=== PATIENT | male | born 1960 | race Caucasian/White ===

== ENCOUNTER 2021-01-31 00:23 | Inpatient (IN) ==
[2021-01-31] MEDS ORDERED: SODIUM CHLORIDE 0.9% 1000ML 2,000 ML IV ONE (00:27)
[2021-01-31] MEDS ORDERED: SODIUM CHLORIDE 0.9% 1000ML 1,000 ML IV ONE ×2 (00:27→03:38)
--- NOTE | 2021-01-31 00:32 | Emergency Department Note ---
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 It appears patient has a history of depression hypertension hyper lipidemia type 2 diabetes on insulin as well as possible tremor or seizure disorder. On evaluation patient is quite weak appearing diaphoretic and ill the blood pressure in the 60s weak pulse. Immediately 2 IVs were ordered and obtained along with blood cultures lactic acid and per septic work-up a 3 L bolus was ordered initially. Following cultures Zosyn was given empirically as broad- spectrum antibiotic. Patient's blood pressure did not improve with initial bolus and thus Levophed was started and critical care team was consulted. Lactic acid returned at 9.5 though there is still no clear etiology of his sepsis. Patient is mildly tachycardic his temperature is low his white blood cell count is elevated and his lactate is quite elevated in the setting of hypoglycemia, I do feel he is septic it is very unclear what is causing his illness. Pro calcitonin is elevated consistent with sepsis as well. Initial urinalysis and chest x-ray do not show clear evidence of infection. Given alt ered mental status along the fact is coming from shelter and no significant knowledge of his past medical history it was felt that CT scan was indicated of head through pelvis. Given his renal function we held off using contrast at this time. On return from CAT scan with some Trendelenburg patient's blood pressure does seem to be improving slightly after discussion with critical care team we both felt that further access is needed and they will place right IJ central line. On EKG has been nonspecific lateral as well as an anterior ST depressions without evidence of acute STEMI. Given his findings I doubt this is ACS and without other symptoms dissection seems unlikely. Repeat evaluation post fluids/hydration reveals patient does appear improved his blood pressure starting to improve while on Levophed and his vital signs have improved. I do feel that his volume status has improved however he still has some hypotension with sitting up thus further normal saline bolus was ordered. As patient becomes more hydrated he is much more alert and oriented answering most questions and looks much improved. He has no significant complaints of chest pain back pain or abdominal pain. His oxygen has actually improved and no longer requiring nasal cannula O2 at this time. Prior Medical Record and Triage/Nursing Notes reviewed by Me Additional history obtained from shelter chart Differentials:Infection, dehydration, metabolic abnormality, hypo/hypergl ycemia, electrolyte disturbance, anemia, hypoxia, cardiac sources, intracerebral event, toxicologic, neurologic, as well as other pathologies. Vital Signs: reviewed and remarkable for hypotension, hypothermia Interventions: saline lock, nss bolus 3 L IV, Zosyn 4.5gm iv, Levophed, Vancomycin 2 gm IV, NSS bolus 1 L IV Labs:Reviewed and remarkable for multiple abnormalities Imaging:See Below EKG:Per My Interpretation: Indication sepsis: NSR 98 bpm, qtc 469. No Ectopy. No Ischemia. There are non-specific ST depression anterior and lateral. Cardiac/Tele Monitoring: none Consults:Uvaldo Mo PA-C of critical care medicine. Dr. Kan [facility] Plan: Disposition:Hospitalization. Condition: Fair History of Present Illness:This is a 60-year-old gentleman from shelter arrives for evaluation of generalized weakness. Patient with 24 hours of worsening weakness fatigue exhaustion. Per EMS he reportedly had abdominal pain that he denies this. Patient states he is very thirsty and tired. He denies chest pain back pain shortness of breath or abdominal pain. He denies any trauma nor injuries nor assault. Per EMS no medications prior to arrival. Patient had mildly low blood sugars in the 70s for EMS. Patient states that he has diabetes and would like a candy bar. ROS: Patient too altered to get accurate history Past Medical History:Unable to fully obtain due to altered mental status Past Surgical History:Unable to fully obtain due to altered mental status Family History:Unable to fully obtain due to altered mental status Social History:Unable to fully obtain due to altered mental status Home Medications:Unable to fully obtain due to altered mental status Per chart from shelter it appears patient is on Cymbalta, Vistaril, Remeron, Nor vasc, Sinemet, Prinzide, Glucophage, insulin, Pravachol, primidone Allergies:Unable to fully obtain due to altered mental status Vitals:Blood Pressure: 74/50, Pulse 100, RR 18, T 34.4C, O2 93% on RA Physical Exam: GENERAL: Patient is ill appearing and in minimal distress. He is diaphoretic and distant with soft voice EYES: No scleral icterus, unremarkable pupils. ENT: Mucous membranes dry, no nasal congestion. NECK: No masses appreciated, nomeningismus, trachea is midline. RESPIRATORY: No dyspnea. Clear to auscultation and equal bilaterally. No wheeze, no rhonchi. CARDIOVASCULAR: Regular rate and rhythm.No murmurs, rubs, gallops appreciated. GASTROINTESTINAL: Abdomen soft, non-tender, no peritonitis.Bowel sounds positive.No masses appreciated. BACK: No midline tenderness, no CVA tenderness EXTREMITIES: Normal motion all extremities, no cyanosis, no edema. NEUROLOGIC: Somnolent/Altered, quiet, no acute motor or sensory deficits, no focal weakness, cranial nerves grossly intact. SKIN: No rash, no jaundice, no diaphoresis. GCS: 14 ED Course: Times/Reassessments: Patient gradually improving with normal saline bolus however continued hypotension and thus Levophed started. Critical care at bedside and agrees with critically ill patient and thus central line placed. Further IV fluids given. Patient with improving blood pressure looks stable and is in no distress. Still requiring IV Levophed for pressure support. Critical Care: I have personally spent 90 minutes of critical care time in the direct management of this patient. Acute septic shock of unknown etiology with hypotension, hypothermia and lactic acidosis. This was a life/limb threatening event. This 90 minutes is in excess of all separately billable procedures. Jose Luis Rebolledo MD Past Med/Surg History Medical History (Updated 01/31/21 @ 12:18 by Therese Hathaway MD) Acute kidney injury Anxiety with depression BPH w urinary obs/LUTS Diabetes mellitus with chronic kidney disease, with long-term current use of in sulin GERD (gastroesophageal reflux disease) Hyperkalemia Hyperlipidemia Hypertension Insomnia Parkinson's disease Social History Smoking Status: Never smoker Hx Alcohol Use: No Hx Substance Use: No Preferred Language: Hungarian Communication Ability: Effective Director Product Safety Required: No Beliefs That Will Affect Care: None Current Living Situation Comment: [facility] Feels Safe at Home: Yes Allergies Allergies Allergy/AdvReac Type Severity Reaction Status Date / Time No Known Allergies Allergy Unverified 01/31/21 01:01 Home Meds Home Medications Medication Instructions Recorded Confirmed amlodipine 5 mg tablet 5 mg PO DAILY 01/31/21 01/31/21 carbidopa ER 25 mg-levodopa 100 mg 1 tab PO QID 01/31/21 01/31/21 tablet,extended release duloxetine 60 mg capsule,delayed 60 mg PO BID 01/31/21 01/31/21 release finasteride 5 mg tablet 5 mg PO QPM 01/31/21 01/31/21 hydroxyzine pamoate 50 mg capsule 50 mg PO HS 01/31/21 01/31/21 insulin NPH isoph U-100 human 100 14 unit SUBCUT QPM 01/31/21 01/31/21 unit/mL subcutaneous suspension (Novolin N NPH U-100 Insulin isophane) insulin NPH isoph U-100 human 100 34 unit SUBCUT QAM 01/31/21 01/31/21 unit/mL subcutaneous suspension (Novolin N NPH U-100 Insulin isophane) lisinopril 20 1 tab PO DAILY 01/31/21 01/31/21 mg-hydrochlorothiazide 12.5 mg tablet metformin 500 mg tablet 500 mg PO BID 01/31/21 01/31/21 mirtazapine 45 mg tablet 45 mg PO HS 01/31/21 01/31/21 nortriptyline 25 mg capsule 25 mg PO HS 01/31/21 01/31/21 omeprazole 20 mg capsule,delayed 20 mg PO DAILY 01/31/21 01/31/21 release ondansetron HCl 4 mg tablet 4 mg PO QID PRN 01/31/21 01/31/21 pravastatin 40 mg tablet 40 mg PO HS 01/31/21 01/31/21 primidone 50 mg tablet 200 mg PO TID 01/31/21 01/31/21 tamsulosin 0.4 mg capsule 0.8 mg PO HS 01/31/21 01/31/21 Results & Data (ED) Vital Signs Vital Signs - 24 hr 01/31/21 00:37 01/31/21 00:41 01/31/21 00:45 Temperature Temperature Source Pulse Rate 101 H 106 H 100 H Pulse Rate from SpO2 Sensor 101 H 100 H Respiratory Rate 18 Respiratory Effort / Characteristics Non-Labored Spontaneous Respiratory Depth Normal Respiratory Pattern Regular Blood Pressure 78/58 L 68/48 L 74/50 L Blood Pressure Mean 64 54 58 Pulse Oximetry 94 98 93 Oxygen Delivery Method Room Air Oxygen Flow Rate Sepsis Recent Fever Within 48 Hours No Sepsis New/Unexplained Change in Mental Status Yes Sepsis Action Taken by Nursing Physician Notified Arterial BP Systolic Arterial BP Diastolic Arterial BP Mean Arterial Pulse Rate 01/31/21 01:00 01/31/21 01:15 01/31/21 01:20 Temperature Temperature Source Pulse Rate 98 H 82 Pulse Rate from SpO2 Sensor 98 H 83 Respiratory Rate Respiratory Effort / Characteristics Respiratory Depth Respiratory Pattern Blood Pressure 68/40 L 58/45 L Blood Pressure Mean 49 49 Pulse Oximetry 94 96 88 L Oxygen Delivery Method Room Air Oxygen Flow Rate Sepsis Recent Fever Within 48 Hours Sepsis New/Unexplained Change in Mental Status Sepsis Action Taken by Nursing Arterial BP Systolic Arterial BP Diastolic Arterial BP Mean Arterial Pulse Rate 01/31/21 01:30 01/31/21 01:33 01/31/21 01:45 Temperature 34.4 C L Temperature Source Rectal Pulse Rate 88 82 Pulse Rate from SpO2 Sensor 87 83 Respiratory Rate 14 Respiratory Effort / Characteristics Respiratory Depth Respiratory Pattern Blood Pressure 69/47 L Blood Pressure Mean 54 Pulse Oximetry 98 96 Oxygen Delivery Method Oxygen Flow Rate 2 2 Sepsis Recent Fever Within 48 Hours Sepsis New/Unexplained Change in Mental Status Sepsis Action Taken by Nursing Arterial BP Systolic Arterial BP Diastolic Arterial BP Mean Arterial Pulse Rate 01/31/21 01:53 01/31/21 02:00 01/31/21 02:15 Temperature 34.4 C L Temperature Source Rectal Pulse Rate 87 89 Pulse Rate from SpO2 Sensor 86 89 Respiratory Rate 15 14 Respiratory Effort / Characteristics Respiratory Depth Respiratory Pattern Blood Pressure 68/49 L 78/50 L Blood Pressure Mean 55 59 Pulse Oximetry 96 97 Oxygen Delivery Method Oxygen Flow Rate 2 2 Sepsis Recent Fever Within 48 Hours Sepsis New/Unexplained Change in Mental Status Sepsis Action Taken by Nursing Arterial BP Systolic Arterial BP Diastolic Arterial BP Mean Arterial Pulse Rate 01/31/21 02:54 01/31/21 03:00 01/31/21 03:15 Temperature Temperature Source Pulse Rate 98 H 98 H 93 H Pulse Rate from SpO2 Sensor 98 H 94 H Respiratory Rate 14 15 13 Respiratory Effort / Characteristics Respiratory Depth Respiratory Pattern Blood Pressure 97/82 L 112/85 Blood Pressure Mean 87 94 Pulse Oximetry 99 99 100 Oxygen Delivery Method Oxygen Flow Rate 2 2 2 Sepsis Recent Fever Within 48 Hours Sepsis New/Unexplained Change in Mental Status Sepsis Action Taken by Nursing Arterial BP Systolic Arterial BP Diastolic Arterial BP Mean Arterial Pulse Rate 01/31/21 03:30 01/31/21 03:45 01/31/21 04:00 Temperature Temperature Source Pulse Rate 102 H 100 H 100 H Pulse Rate from SpO2 Sensor 102 H 99 H 100 H Respiratory Rate 16 14 15 Respiratory Effort / Characteristics Respiratory Depth Respiratory Pattern Blood Pressure 91/67 L 97/68 L 131/74 Blood Pressure Mean 75 77 93 Pulse Oximetry 99 100 98 Oxygen Delivery Method Room Air Oxygen Flow Rate 2 Sepsis Recent Fever Within 48 Hours Sepsis New/Unexplained Change in Mental Status Sepsis Action Taken by Nursing Arterial BP Systolic 142 155 Arterial BP Diastolic 54 62 Arterial BP Mean 75 86 Arterial Pulse Rate 100 H 99 H Laboratory Data Result diagrams: 02/01/21 05:44 02/01/21 05:44 Lab Results 01/31/21 01/31/21 01/31/21 Range/Units 00:43 00:59 01:04 WBC (4.8-10.8) K/uL RBC (4.7-6.1) M/uL Hgb (14.0-18.0) g/dL POC Hgb 13.9 L (14.0-18.0) g/dl Hct (42-52) % POC Hct 41 L (42-52) % MCV (80-100) fL MCH (25-34) pg MCHC (32-36) g/dL RDW Std Deviation (36.4-46.3) fL RDW Coeff of Royal (11.5-14.5) % Plt Count (130-400) K/uL MPV (7.4-10.4) fL Immature Gran % (Auto) % Neut % (Auto) % Lymph % (Auto) % Bureau % (Auto) % Eos % (Auto) % Baso % (Auto) % Neut # (Auto) (1.4-6.5) K/uL Lymph # (Auto) (1.2-3.4) K/uL Bureau # (Auto) (0.11-0.59) K/uL Eos # (Auto) (0-0.5) K/uL Baso # (Auto) (0-0.2) K/uL Immature Gran # (Auto) (0.00-0.02) K/uL PT (9.0-12.0) Seconds INR (0.9-1.1) POC pH (7.35-7.45) POC pCO2 (35-46) mmHg POC pO2 (80-95) mmHg POC HCO3 (19-24) dada/L POC Base Excess (-9-1.8) dada/L POC ABG O2 Sat (90-95) % POC Sodium 138 (135-144) mmol/L Sodium (136-145) mmol/L POC Potassium 5.6 H (3.3-5.0) mmol/L Potassium (3.5-5.1) mmol/L POC Chloride 106 (101-112) mmol/L Chloride (98-107) mmol/L Carbon Dioxide (21-32) mmol/L POC Total CO2 16 L (24-31) mmol/L Anion Gap (3-11) POC Anion Gap 22.0 (16-25) mmol/L POC BUN 55 H (7-18) mg/dl BUN (7-18) mg/dl Creatinine (0.6-1.4) mg/dl POC Creatinine 2.8 H (0.6-1.3) mg/dl Est Cr Clr Drug Dosing ml/min Est GFR ( Amer) ml/min Est GFR (Non-Af Amer) ml/min BUN/Creatinine Ratio (10-20) Glucose (70-99) mg/dl POC Glucose (70-99) mg/dl POC Glucose (other) 30 L* (70-99) mg/dl Lactate 9.5 H* (0.4-2.0) mmol/L Calcium (8.5-10.1) mg/dl POC Ioniz Calcium [place] 1.02 L (1.12-1.32) mmol/l Magnesium (1.8-2.4) mg/dl Total Bilirubin (0.2-1) mg/dl Direct Bilirubin (0-0.2) mg/dl AST (15-37) U/L ALT (12-78) U/L Alkaline Phosphatase (45-117) U/L Troponin I (0-0.045) ng/ml Total Protein (6.4-8.2) gm/dl Albumin (3.4-5.0) gm/dl Lipase (73-393) U/L Procalcitonin (0-0.5) ng/ml Random Cortisol Specimen Hemolysis Urine Color Urine Appearance (Clear) Urine pH (4.5-7.5) Ur Specific [place] (1.000-1.030) Urine Protein (Negative) Urine Glucose (UA) (Negative) Urine Ketones (Negative) Urine Blood (Negative) Urine Nitrite (Negative) Urine Bilirubin (Negative) Urine Urobilinogen (Negative) Ur Leukocyte Esterase (Negative) Urine WBC (Auto) (0-5) /hpf Urine RBC (Auto) (0-4) /hpf U Hyaline Cast (Auto) (0-5) /lpf U Epithel Cells (Auto) (0-5) /lpf Urine Bacteria (Auto) (Negative) SARS-CoV-2 (PCR) NEGATIVE (Negative) 01/31/21 01/31/21 01/31/21 Range/Units 01:04 01:04 01:04 WBC 15.49 H (4.8-10.8) K/uL RBC 4.48 L (4.7-6.1) M/uL Hgb 13.6 L (14.0-18.0) g/dL POC Hgb (14.0-18.0) g/dl Hct 41.5 L (42-52) % POC Hct (42-52) % MCV 92.6 (80-100) fL MCH 30.4 (25-34) pg MCHC 32.8 (32-36) g/dL RDW Std Deviation 49.5 H (36.4-46.3) fL RDW Coeff of Royal 14.6 H (11.5-14.5) % Plt Count 144 (130-400) K/uL MPV 9.3 (7.4-10.4) fL Immature Gran % (Auto) 0.4 % Neut % (Auto) 72.4 % Lymph % (Auto) 16.7 % Bureau % (Auto) 10.3 % Eos % (Auto) 0.1 % Baso % (Auto) 0.1 % Neut # (Auto) 11.21 H (1.4-6.5) K/uL Lymph # (Auto) 2.59 (1.2-3.4) K/uL Bureau # (Auto) 1.60 H (0.11-0.59) K/uL Eos # (Auto) 0.01 (0-0.5) K/uL Baso # (Auto) 0.02 (0-0.2) K/uL Immature Gran # (Auto) 0.06 H (0.00-0.02) K/uL PT 13.5 H (9.0-12.0) Seconds INR 1.4 H (0.9-1.1) POC pH (7.35-7.45) POC pCO2 (35-46) mmHg POC pO2 (80-95) mmHg POC HCO3 (19-24) dada/L POC Base Excess (-9-1.8) dada/L POC ABG O2 Sat (90-95) % POC Sodium (135-144) mmol/L Sodium 136 (136-145) mmol/L POC Potassium (3.3-5.0) mmol/L Potassium 4.7 (3.5-5.1) mmol/L POC Chloride (101-112) mmol/L Chloride 105 (98-107) mmol/L Carbon Dioxide 15 L (21-32) mmol/L POC Total CO2 (24-31) mmol/L Anion Gap 16.0 H (3-11) POC Anion Gap (16-25) mmol/L POC BUN (7-18) mg/dl BUN 45 H (7-18) mg/dl Creatinine 2.72 H (0.6-1.4) mg/dl POC Creatinine (0.6-1.3) mg/dl Est Cr Clr Drug Dosing 34.0 ml/min Est GFR ( Amer) 28.4 ml/min Est GFR (Non-Af Amer) 24.5 ml/min BUN/Creatinine Ratio 16.6 (10-20) Glucose 35 L* (70-99) mg/dl POC Glucose (70-99) mg/dl POC Glucose (other) (70-99) mg/dl Lactate (0.4-2.0) mmol/L Calcium 8.9 (8.5-10.1) mg/dl POC Ioniz Calcium [place] (1.12-1.32) mmol/l Magnesium 2.1 (1.8-2.4) mg/dl Total Bilirubin 1.1 H (0.2-1) mg/dl Direct Bilirubin (0-0.2) mg/dl AST 342 H (15-37) U/L ALT 39 (12-78) U/L Alkaline Phosphatase 95 (45-117) U/L Troponin I < 0.015 (0-0.045) ng/ml Total Protein 7.5 (6.4-8.2) gm/dl Albumin 3.2 L (3.4-5.0) gm/dl Lipase 156 (73-393) U/L Procalcitonin (0-0.5) ng/ml Random Cortisol Specimen Hemolysis Urine Color Urine Appearance (Clear) Urine pH (4.5-7.5) Ur Specific [place] (1.000-1.030) Urine Protein (Negative) Urine Glucose (UA) (Negative) Urine Ketones (Negative) Urine Blood (Negative) Urine Nitrite (Negative) Urine Bilirubin (Negative) Urine Urobilinogen (Negative) Ur Leukocyte Esterase (Negative) Urine WBC (Auto) (0-5) /hpf Urine RBC (Auto) (0-4) /hpf U Hyaline Cast (Auto) (0-5) /lpf U Epithel Cells (Auto) (0-5) /lpf Urine Bacteria (Auto) (Negative) SARS-CoV-2 (PCR) (Negative) 01/31/21 01/31/21 01/31/21 Range/Units 01:04 01:11 01:20 WBC (4.8-10.8) K/uL RBC (4.7-6.1) M/uL Hgb (14.0-18.0) g/dL POC Hgb (14.0-18.0) g/dl Hct (42-52) % POC Hct (42-52) % MCV (80-100) fL MCH (25-34) pg MCHC (32-36) g/dL RDW Std Deviation (36.4-46.3) fL RDW Coeff of Royal (11.5-14.5) % Plt Count (130-400) K/uL MPV (7.4-10.4) fL Immature Gran % (Auto) % Neut % (Auto) % Lymph % (Auto) % Bureau % (Auto) % Eos % (Auto) % Baso % (Auto) % Neut # (Auto) (1.4-6.5) K/uL Lymph # (Auto) (1.2-3.4) K/uL Bureau # (Auto) (0.11-0.59) K/uL Eos # (Auto) (0-0.5) K/uL Baso # (Auto) (0-0.2) K/uL Immature Gran # (Auto) (0.00-0.02) K/uL PT (9.0-12.0) Seconds INR (0.9-1.1) POC pH (7.35-7.45) POC pCO2 (35-46) mmHg POC pO2 (80-95) mmHg POC HCO3 (19-24) dada/L POC Base Excess (-9-1.8) dada/L POC ABG O2 Sat (90-95) % POC Sodium (135-144) mmol/L Sodium (136-145) mmol/L POC Potassium (3.3-5.0) mmol/L Potassium (3.5-5.1) mmol/L POC Chloride (101-112) mmol/L Chloride (98-107) mmol/L Carbon Dioxide (21-32) mmol/L POC Total CO2 (24-31) mmol/L Anion Gap (3-11) POC Anion Gap (16-25) mmol/L POC BUN (7-18) mg/dl BUN (7-18) mg/dl Creatinine (0.6-1.4) mg/dl POC Creatinine (0.6-1.3) mg/dl Est Cr Clr Drug Dosing ml/min Est GFR ( Amer) ml/min Est GFR (Non-Af Amer) ml/min BUN/Creatinine Ratio (10-20) Glucose (70-99) mg/dl POC Glucose (70-99) mg/dl POC Glucose (other) (70-99) mg/dl Lactate (0.4-2.0) mmol/L Calcium (8.5-10.1) mg/dl POC Ioniz Calcium [place] (1.12-1.32) mmol/l Magnesium (1.8-2.4) mg/dl Total Bilirubin (0.2-1) mg/dl Direct Bilirubin (0-0.2) mg/dl AST (15-37) U/L ALT (12-78) U/L Alkaline Phosphatase (45-117) U/L Troponin I (0-0.045) ng/ml Total Protein (6.4-8.2) gm/dl Albumin (3.4-5.0) gm/dl Lipase (73-393) U/L Procalcitonin 8.06 H (0-0.5) ng/ml Random Cortisol Cancelled Specimen Hemolysis Urine Color Dark Yellow Urine Appearance Clear (Clear) Urine pH 5.0 (4.5-7.5) Ur Specific [place] 1.041 H (1.000-1.030) Urine Protein Negative (Negative) Urine Glucose (UA) Negative (Negative) Urine Ketones Trace H (Negative) Urine Blood Negative (Negative) Urine Nitrite Negative (Negative) Urine Bilirubin 1+ H (Negative) Urine Urobilinogen Negative (Negative) Ur Leukocyte Esterase 1+ H (Negative) Urine WBC (Auto) 1-5 (0-5) /hpf Urine RBC (Auto) 5-10 H (0-4) /hpf U Hyaline Cast (Auto) 1-5 (0-5) /lpf U Epithel Cells (Auto) 10-20 H (0-5) /lpf Urine Bacteria (Auto) Negative (Negative) SARS-CoV-2 (PCR) (Negative) 01/31/21 01/31/21 01/31/21 Range/Units 01:22 02:14 03:19 WBC (4.8-10.8) K/uL RBC (4.7-6.1) M/uL Hgb (14.0-18.0) g/dL POC Hgb (14.0-18.0) g/dl Hct (42-52) % POC Hct (42-52) % MCV (80-100) fL MCH (25-34) pg MCHC (32-36) g/dL RDW Std Deviation (36.4-46.3) fL RDW Coeff of Royal (11.5-14.5) % Plt Count (130-400) K/uL MPV (7.4-10.4) fL Immature Gran % (Auto) % Neut % (Auto) % Lymph % (Auto) % Bureau % (Auto) % Eos % (Auto) % Baso % (Auto) % Neut # (Auto) (1.4-6.5) K/uL Lymph # (Auto) (1.2-3.4) K/uL Bureau # (Auto) (0.11-0.59) K/uL Eos # (Auto) (0-0.5) K/uL Baso # (Auto) (0-0.2) K/uL Immature Gran # (Auto) (0.00-0.02) K/uL PT (9.0-12.0) Seconds INR (0.9-1.1) POC pH (7.35-7.45) POC pCO2 (35-46) mmHg POC pO2 (80-95) mmHg POC HCO3 (19-24) dada/L POC Base Excess (-9-1.8) dada/L POC ABG O2 Sat (90-95) % POC Sodium (135-144) mmol/L Sodium (136-145) mmol/L POC Potassium (3.3-5.0) mmol/L Potassium (3.5-5.1) mmol/L POC Chloride (101-112) mmol/L Chloride (98-107) mmol/L Carbon Dioxide (21-32) mmol/L POC Total CO2 (24-31) mmol/L Anion Gap (3-11) POC Anion Gap (16-25) mmol/L POC BUN (7-18) mg/dl BUN (7-18) mg/dl Creatinine (0.6-1.4) mg/dl POC Creatinine (0.6-1.3) mg/dl Est Cr Clr Drug Dosing ml/min Est GFR ( Amer) ml/min Est GFR (Non-Af Amer) ml/min BUN/Creatinine Ratio (10-20) Glucose (70-99) mg/dl POC Glucose 134 H 107 H (70-99) mg/dl POC Glucose (other) (70-99) mg/dl Lactate 11.5 H* (0.4-2.0) mmol/L Calcium (8.5-10.1) mg/dl POC Ioniz Calcium [place] (1.12-1.32) mmol/l Magnesium (1.8-2.4) mg/dl Total Bilirubin (0.2-1) mg/dl Direct Bilirubin (0-0.2) mg/dl AST (15-37) U/L ALT (12-78) U/L Alkaline Phosphatase (45-117) U/L Troponin I (0-0.045) ng/ml Total Protein (6.4-8.2) gm/dl Albumin (3.4-5.0) gm/dl Lipase (73-393) U/L Procalcitonin (0-0.5) ng/ml Random Cortisol Specimen Hemolysis Urine Color Urine Appearance (Clear) Urine pH (4.5-7.5) Ur Specific [place] (1.000-1.030) Urine Protein (Negative) Urine Glucose (UA) (Negative) Urine Ketones (Negative) Urine Blood (Negative) Urine Nitrite (Negative) Urine Bilirubin (Negative) Urine Urobilinogen (Negative) Ur Leukocyte Esterase (Negative) Urine WBC (Auto) (0-5) /hpf Urine RBC (Auto) (0-4) /hpf U Hyaline Cast (Auto) (0-5) /lpf U Epithel Cells (Auto) (0-5) /lpf Urine Bacteria (Auto) (Negative) SARS-CoV-2 (PCR) (Negative) 01/31/21 01/31/21 Range/Units 03:28 04:00 WBC (4.8-10.8) K/uL RBC (4.7-6.1) M/uL Hgb (14.0-18.0) g/dL POC Hgb (14.0-18.0) g/dl Hct (42-52) % POC Hct (42-52) % MCV (80-100) fL MCH (25-34) pg MCHC (32-36) g/dL RDW Std Deviation (36.4-46.3) fL RDW Coeff of Royal (11.5-14.5) % Plt Count (130-400) K/uL MPV (7.4-10.4) fL Immature Gran % (Auto) % Neut % (Auto) % Lymph % (Auto) % Bureau % (Auto) % Eos % (Auto) % Baso % (Auto) % Neut # (Auto) (1.4-6.5) K/uL Lymph # (Auto) (1.2-3.4) K/uL Bureau # (Auto) (0.11-0.59) K/uL Eos # (Auto) (0-0.5) K/uL Baso # (Auto) (0-0.2) K/uL Immature Gran # (Auto) (0.00-0.02) K/uL PT (9.0-12.0) Seconds INR (0.9-1.1) POC pH 7.14 L* (7.35-7.45) POC pCO2 31 L (35-46) mmHg POC pO2 92 (80-95) mmHg POC HCO3 10 L (19-24) dada/L POC Base Excess -19.0 L (-9-1.8) dada/L POC ABG O2 Sat 94.0 (90-95) % POC Sodium (135-144) mmol/L Sodium (136-145) mmol/L POC Potassium (3.3-5.0) mmol/L Potassium (3.5-5.1) mmol/L POC Chloride (101-112) mmol/L Chloride (98-107) mmol/L Carbon Dioxide (21-32) mmol/L POC Total CO2 11 L (24-31) mmol/L Anion Gap (3-11) POC Anion Gap (16-25) mmol/L POC BUN (7-18) mg/dl BUN (7-18) mg/dl Creatinine (0.6-1.4) mg/dl POC Creatinine (0.6-1.3) mg/dl Est Cr Clr Drug Dosing ml/min Est GFR ( Amer) ml/min Est GFR (Non-Af Amer) ml/min BUN/Creatinine Ratio (10-20) Glucose (70-99) mg/dl POC Glucose 99 (70-99) mg/dl POC Glucose (other) (70-99) mg/dl Lactate (0.4-2.0) mmol/L Calcium (8.5-10.1) mg/dl POC Ioniz Calcium [place] (1.12-1.32) mmol/l Magnesium (1.8-2.4) mg/dl Total Bilirubin (0.2-1) mg/dl Direct Bilirubin (0-0.2) mg/dl AST (15-37) U/L ALT (12-78) U/L Alkaline Phosphatase (45-117) U/L Troponin I (0-0.045) ng/ml Total Protein (6.4-8.2) gm/dl Albumin (3.4-5.0) gm/dl Lipase (73-393) U/L Procalcitonin (0-0.5) ng/ml Random Cortisol Specimen Hemolysis Urine Color Urine Appearance (Clear) Urine pH (4.5-7.5) Ur Specific [place] (1.000-1.030) Urine Protein (Negative) Urine Glucose (UA) (Negative) Urine Ketones (Negative) Urine Blood (Negative) Urine Nitrite (Negative) Urine Bilirubin (Negative) Urine Urobilinogen (Negative) Ur Leukocyte Esterase (Negative) Urine WBC (Auto) (0-5) /hpf Urine RBC (Auto) (0-4) /hpf U Hyaline Cast (Auto) (0-5) /lpf U Epithel Cells (Auto) (0-5) /lpf Urine Bacteria (Auto) (Negative) SARS-CoV-2 (PCR) (Negative) Administered Medications Carbidopa/Levodopa (Carbidopa/Levodopa 25/100mg Ext Rel Tab) 1 tab PO QID [facility] Stop: 03/02/21 08:59 Last Admin: 01/31/21 21:56 Dose: 1 tab Documented by: [id number] Admin: 01/31/21 16:06 Dose: 1 tab Documented by: [id number] Admin: 01/31/21 12:31 Dose: 1 tab Documented by: [id number] Admin: 01/31/21 09:39 Dose: 1 tab Documented by: [id number] Dextrose (Dextrose 50% 50 Ml Syringe) 25 - 50 ml IV UD PRN; Protocol PRN Reason: Hypoglycemia Protocol Stop: 03/02/21 05:41 Last Admin: 01/31/21 06:07 Dose: 25 ml Documented by: [id number] Finasteride (Finasteride 5 Mg Tab) 5 mg PO QPM [facility] Stop: 03/02/21 20:59 Last Admin: 01/31/21 21:56 Dose: 5 mg Documented by: [id number] Heparin Sodium (Porcine) (Heparin Sod 5,000 Unit/0.5 Ml Vial) 5,000 units SQ Q12 [facility] Stop: 03/02/21 08:59 Last Admin: 01/31/21 21:56 Dose: 5,000 units Documented by: [id number] Admin: 01/31/21 08:15 Dose: 5,000 units Documented by: [id number] Norepinephrine Bitartrate (Levophed/D5w) 8 mg in 508 mls @ 22.791 mls/hr IV .[id number] [facility]; Protocol Stop: 03/02/21 01:44 Last Titration: 02/01/21 04:30 Dose: 0.06 mcg/kg/min, 22.8 mls/hr Documented by: [id number] Titration: 02/01/21 03:00 Dose: 0.08 mcg/kg/min, 30.4 mls/hr Documented by: [id number] Titration: 02/01/21 02:55 Dose: 0.06 mcg/kg/min, 22.8 mls/hr Documented by: [id number] Titration: 02/01/21 02:40 Dose: 0.04 mcg/kg/min, 15.2 mls/hr Documented by: [id number] Titration: 02/01/21 02:03 Dose: 0.06 mcg/kg/min, 22.8 mls/hr Documented by: [id number] Titration: 02/01/21 01:50 Dose: 0.08 mcg/kg/min, 30.4 mls/hr Documented by: [id number] Titration: 02/01/21 00:06 Dose: 0.1 mcg/kg/min, 38 mls/hr Documented by: [id number] Cosigned by: [id number] Titration: 02/01/21 00:05 Dose: 0.1 mcg/kg/min, 38 mls/hr Documented by: [id number] Titration: 01/31/21 18:43 Dose: 0.05 mcg/kg/min, 19 mls/hr Documented by: [id number] Cosigned by: [id number] Admin: 01/31/21 18:17 Dose: 0.05 mcg/kg/min, 19 mls/hr Documented by: [id number] Cosigned by: [id number] Titration: 01/31/21 18:17 Dose: 0.05 mcg/kg/min, 19 mls/hr Documented by: [id number] Cosigned by: [id number] Titration: 01/31/21 17:12 Dose: 0.05 mcg/kg/min, 19 mls/hr Documented by: [id number] Titration: 01/31/21 16:39 Dose: 0.04 mcg/kg/min, 15.2 mls/hr Documented by: [id number] Admin: 01/31/21 16:38 Dose: Not Given Documented by: [id number] Titration: 01/31/21 16:37 Dose: 0.05 mcg/kg/min, 19 mls/hr Documented by: [id number] Titration: 01/31/21 16:14 Dose: 0.03 mcg/kg/min, 11.4 mls/hr Documented by: [id number] Admin: 01/31/21 13:43 Dose: Not Given Documented by: [id number] Titration: 01/31/21 11:47 Dose: 0.02 mcg/kg/min, 7.6 mls/hr Documented by: [id number] Titration: 01/31/21 08:35 Dose: 0.03 mcg/kg/min, 11.4 mls/hr Documented by: [id number] Titration: 01/31/21 06:57 Dose: 0.12 mcg/kg/min, 45.6 mls/hr Documented by: [id number] Cosigned by: [id number] Titration: 01/31/21 02:18 Dose: 0.15 mcg/kg/min, 57 mls/hr Documented by: [id number] Titration: 01/31/21 02:11 Dose: 0.13 mcg/kg/min, 49.4 mls/hr Documented by: [id number] Titration: 01/31/21 02:04 Dose: 0.11 mcg/kg/min, 41.8 mls/hr Documented by: [id number] Titration: 01/31/21 01:58 Dose: 0.09 mcg/kg/min, 34.2 mls/hr Documented by: [id number] Titration: 01/31/21 01:46 Dose: 0.07 mcg/kg/min, 26.6 mls/hr Documented by: [id number] Admin: 01/31/21 01:40 Dose: 0.05 mcg/kg/min, 19 mls/hr Documented by: [id number] Cosigned by: [id number] Sodium Bicarbonate 150 meq/ (Dextrose) 1,150 mls @ 100 mls/hr IV .[id number] [facility] Stop: 03/02/21 04:39 Last Admin: 02/01/21 06:43 Dose: 150 mls/hr Documented by: [id number] Infusion: 02/01/21 06:43 Dose: 150 mls/hr Documented by: [id number] Infusion: 02/01/21 00:05 Dose: 150 mls/hr Documented by: [id number] Admin: 01/31/21 22:50 Dose: 150 mls/hr Documented by: [id number] Infusion: 01/31/21 22:50 Dose: 150 mls/hr Documented by: [id number] Infusion: 01/31/21 18:43 Dose: 150 mls/hr Documented by: [id number] Admin: 01/31/21 14:36 Dose: 100 mls/hr Documented by: [id number] Infusion: 01/31/21 14:36 Dose: 100 mls/hr Documented by: [id number] Admin: 01/31/21 04:41 Dose: 100 mls/hr Documented by: [id number] Piperacillin Sod/Tazobactam (Sod 4.5 gm/ Dextrose) 120 mls @ 30 mls/hr IV Q8H [facility]; Protocol Stop: 02/02/21 06:59 Last Infusion: 02/01/21 04:27 Dose: 0 mls/hr Documented by: [id number] Admin: 02/01/21 00:27 Dose: 30 mls/hr Documented by: [id number] Infusion: 01/31/21 18:36 Dose: 0 mls/hr Documented by: [id number] Admin: 01/31/21 14:36 Dose: 30 mls/hr Documented by: [id number] Infusion: 01/31/21 12:31 Dose: 0 mls/hr Documented by: [id number] Admin: 01/31/21 08:36 Dose: 30 mls/hr Documented by: [id number] Vasopressin 20 units/ Sodium (Chloride) 101 mls @ 12.12 mls/hr IV .Q8H20M [facility] Stop: 03/02/21 05:59 Last Infusion: 02/01/21 00:06 Dose: 0.04 unit/min, 12.1 mls/hr Documented by: [id number] Cosigned by: [id number] Admin: 01/31/21 22:50 Dose: 0.04 unit/min, 12.1 mls/hr Documented by: [id number] Cosigned by: [id number] Infusion: 01/31/21 22:50 Dose: 0.04 unit/min, 12.1 mls/hr Documented by: [id number] Cosigned by: [id number] Infusion: 01/31/21 18:43 Dose: 0.04 unit/min, 12.1 mls/hr Documented by: [id number] Cosigned by: [id number] Admin: 01/31/21 14:37 Dose: 0.04 unit/min, 12.1 mls/hr Documented by: [id number] Cosigned by: [id number] Infusion: 01/31/21 14:37 Dose: 0.04 unit/min, 12.1 mls/hr Documented by: [id number] Cosigned by: [id number] Admin: 01/31/21 07:48 Dose: 0.04 unit/min, 12.1 mls/hr Documented by: [id number] Cosigned by: [id number] Doxycycline Hyclate 100 mg/ (Dextrose) 110 mls @ 50 mls/hr IV BID@1200,2200 [facility] Stop: 02/02/21 11:59 Last Infusion: 02/01/21 00:08 Dose: 0 mls/hr Documented by: [id number] Admin: 01/31/21 21:56 Dose: 50 mls/hr Documented by: [id number] Infusion: 01/31/21 13:44 Dose: 0 mls/hr Documented by: [id number] Admin: 01/31/21 11:16 Dose: 50 mls/hr Documented by: [id number] Daptomycin 425 mg/ Syringe 8.5 mls @ 4.25 mls/min IV Q24H [facility]; Protocol Stop: 02/02/21 13:59 Last Admin: 01/31/21 14:45 Dose: 4.25 mls/min Documented by: [id number] Acetylcysteine 9,740 mg/ (Dextrose) 1,048.7 mls @ 65.544 mls/hr IV ONCE ONE Stop: 02/01/21 16:13 Last Admin: 02/01/21 02:33 Dose: 65.5 mls/hr Documented by: [id number] Insulin Human Regular 250 (units/ Sodium Chloride) 250 mls @ 6 mls/hr IV .Q24H [facility]; Protocol Stop: 03/03/21 02:29 Last Titration: 02/01/21 06:43 Dose: 6 units/hr, 6 mls/hr Documented by: [id number] Cosigned by: [id number] Titration: 02/01/21 04:47 Dose: 5 units/hr, 5 mls/hr Documented by: [id number] Cosigned by: [id number] Admin: 02/01/21 02:33 Dose: 3.6 units/hr, 3.6 mls/hr Documented by: [id number] Cosigned by: [id number] Patiromer (Patiromer Calcium Sorbitex 8.4 Gm Pack) 8.4 gm PO DAILY@1100 [facility] Stop: 03/02/21 18:14 Last Admin: 01/31/21 19:20 Dose: 8.4 gm Documented by: [id number] Primidone (Primidone 50 Mg Tab) 200 mg PO TID [facility] Stop: 03/02/21 08:59 Last Admin: 01/31/21 08:14 Dose: 200 mg Documented by: [id number] Discontinued Medications Albumin Human (Albumin Human 25% 12.5 Gm/50 Ml Vial) Confirm Administered Dose 25 gm IV .STK-MED ONE Stop: 01/31/21 04:01 Last Admin: 01/31/21 04:05 Dose: Not Given Documented by: [id number] Albuterol (Albuterol 0.083% Nebu Soln 3 Ml Vial) 2.5 mg NEB NOW STA Stop: 01/31/21 23:00 Last Admin: 01/31/21 23:15 Dose: 2.5 mg Documented by: [id number] Albuterol (Albuterol 0.083% Nebu Soln 3 Ml Vial) Confirm Administered Dose 2.5 mg .ROUTE .STK-MED ONE Stop: 01/31/21 23:11 Last Admin: 02/01/21 00:33 Dose: Not Given Documented by: [id number] Dextrose (Dextrose 50% 50 Ml Syringe) 50 ml IV NOW STA Stop: 01/31/21 01:03 Last Admin: 01/31/21 01:07 Dose: 50 ml Documented by: [id number] Dextrose (Dextrose 50% 50 Ml Syringe) 50 ml IV ONE ONE Stop: 01/31/21 11:01 Last Admin: 01/31/21 11:18 Dose: 50 ml Documented by: [id number] Dextrose (Dextrose 50% 50 Ml Syringe) 50 ml IV NOW ONE Stop: 01/31/21 18:15 Last Admin: 01/31/21 18:17 Dose: 50 ml Documented by: [id number] Dextrose (Dextrose 50% 50 Ml Syringe) 25 ml IV NOW ONE Stop: 01/31/21 22:57 Last Admin: 01/31/21 23:35 Dose: 25 ml Documented by: [id number] Sodium Chloride (Nss 1000ml) 2,000 mls @ 999 mls/hr IV .Q2H1M ONE Stop: 01/31/21 02:27 Last Infusion: 01/31/21 04:49 Dose: 0 mls/hr Documented by: [id number] Admin: 01/31/21 01:07 Dose: 999 mls/hr Documented by: [id number] Sodium Chloride (Nss 1000ml) 1,000 mls @ 999 mls/hr IV .Q1H1M ONE Stop: 01/31/21 01:27 Last Infusion: 01/31/21 04:49 Dose: 0 mls/hr Documented by: [id number] Admin: 01/31/21 01:39 Dose: 999 mls/hr Documented by: [id number] Piperacillin Sod/Tazobactam Sod (Zosyn) 4.5 gm in 120 mls @ 240 mls/hr IV NOW ONE Stop: 01/31/21 02:00 Last Infusion: 01/31/21 02:19 Dose: 0 mls/hr Documented by: [id number] Admin: 01/31/21 01:40 Dose: 240 mls/hr Documented by: [id number] Vancomycin HCl 2,000 mg/ (Sodium Chloride) 540 mls @ 200 mls/hr IV NOW ONE Stop: 01/31/21 06:09 Last Infusion: 01/31/21 07:45 Dose: 0 mls/hr Documented by: [id number] Admin: 01/31/21 03:50 Dose: 200 mls/hr Documented by: [id number] Sodium Chloride (Nss 1000ml) 1,000 mls @ 999 mls/hr IV .Q1H1M ONE Stop: 01/31/21 04:38 Last Admin: 01/31/21 04:05 Dose: Not Given Documented by: [id number] Potassium Chloride/Sodium Chloride (Normal Saline W/20 Meq Kcl) 20 meq in 1,000 mls @ 150 mls/hr IV .Q6H40M [facility] Stop: 03/02/21 03:59 Last Infusion: 01/31/21 07:41 Dose: 0 mls/hr Documented by: [id number] Admin: 01/31/21 04:24 Dose: 150 mls/hr Documented by: [id number] Albumin Human (Albumin 25% 100 Ml) 25 gm in 100 mls @ 50 mls/hr IV Q2H [facility] Stop: 01/31/21 07:59 Last Infusion: 01/31/21 07:42 Dose: 0 mls/hr Documented by: [id number] Admin: 01/31/21 06:06 Dose: 50 mls/hr Documented by: [id number] Infusion: 01/31/21 06:05 Dose: 50 mls/hr Documented by: [id number] Admin: 01/31/21 04:05 Dose: 50 mls/hr Documented by: [id number] Famotidine 20 mg/ Syringe 5 mls @ 2.5 mls/min IV Q12 [facility] Stop: 03/02/21 06:59 Last Admin: 01/31/21 07:48 Dose: 2.5 mls/min Documented by: [id number] Parenteral Electrolytes (Normosol-R) 1,000 mls @ 999 mls/hr IV .Q1H1M ONE Stop: 01/31/21 11:18 Last Infusion: 01/31/21 12:11 Dose: 0 mls/hr Documented by: [id number] Admin: 01/31/21 11:10 Dose: 999 mls/hr Documented by: [id number] Calcium Gluconate 2,000 mg/ (Sodium Chloride) 120 mls @ 240 mls/hr IV ONE ONE Stop: 01/31/21 11:29 Last Infusion: 01/31/21 11:47 Dose: 0 mls/hr Documented by: [id number] Admin: 01/31/21 11:16 Dose: 240 mls/hr Documented by: [id number] Insulin Human Regular 10 units (/ Syringe) 9.9 mls @ 3 mls/sec IV ONE ONE Stop: 01/31/21 11:01 Last Admin: 01/31/21 11:16 Dose: 3 mls/sec Documented by: [id number] Cosigned by: [id number] Parenteral Electrolytes (Normosol-R) 500 mls @ 999 mls/hr IV .Q31M ONE Stop: 01/31/21 18:12 Last Infusion: 01/31/21 18:36 Dose: 0 mls/hr Documented by: [id number] Admin: 01/31/21 18:02 Dose: 999 mls/hr Documented by: [id number] Insulin Human Regular 10 units (/ Syringe) 10 mls @ 5 mls/min IV NOW ONE Stop: 01/31/21 18:16 Last Admin: 01/31/21 18:17 Dose: 5 mls/min Documented by: [id number] Cosigned by: [id number] Calcium Gluconate 1,000 mg/ (Sodium Chloride) 60 mls @ 240 mls/hr IV NOW ONE Stop: 01/31/21 18:29 Last Infusion: 01/31/21 18:36 Dose: 0 mls/hr Documented by: [id number] Admin: 01/31/21 18:17 Dose: 240 mls/hr Documented by: [id number] Acetylcysteine 14,610 mg/ (Dextrose) 273.05 mls @ 273.05 mls/hr IV ONCE ONE Stop: 01/31/21 20:12 Last Infusion: 01/31/21 21:25 Dose: 0 mls/hr Documented by: [id number] Admin: 01/31/21 20:25 Dose: 273.1 mls/hr Documented by: [id number] Acetylcysteine 4,870 mg/ (Dextrose) 524.35 mls @ 131.088 mls/hr IV ONCE ONE Stop: 02/01/21 00:13 Last Infusion: 02/01/21 02:40 Dose: 0 mls/hr Documented by: [id number] Admin: 01/31/21 20:25 Dose: 131.1 mls/hr Documented by: [id number] Calcium Chloride 500 mg/ (Sodium Chloride) 55 mls @ 240 mls/hr IV ONE ONE Stop: 01/31/21 23:43 Last Infusion: 01/31/21 23:41 Dose: 0 mls/hr Documented by: [id number] Admin: 01/31/21 23:27 Dose: 240 mls/hr Documented by: [id number] Insulin Human Regular 8 units/ (Syringe) 8 mls @ 160 mls/min IV ONE ONE Stop: 01/31/21 23:16 Last Admin: 01/31/21 23:28 Dose: 160 mls/min Documented by: [id number] Cosigned by: [id number] Phytonadione 5 mg/ Sodium (Chloride) 50.5 mls @ 101 mls/hr IV ONE ONE Stop: 02/01/21 01:59 Last Infusion: 02/01/21 02:02 Dose: 0 mls/hr Documented by: [id number] Admin: 02/01/21 01:32 Dose: 101 mls/hr Documented by: [id number] Insulin Human Regular (Novolin-R Bolus From Bag) 3.5 units IV ONE ONE Stop: 02/01/21 02:31 Last Admin: 02/01/21 02:34 Dose: 3.5 units Documented by: [id number] Cosigned by: [id number] Miscellaneous (Stat Iv Infusion Titration Per Protocol) 1 ea N/A NOW STA Stop: 01/31/21 01:33 Last Admin: 01/31/21 01:41 Dose: Not Given Documented by: [id number] Potassium Chloride/Sodium Chloride (Nss+Kcl 20 Meq 1000ml) Confirm Administered Dose 20 meq IV .STK-MED ONE Stop: 01/31/21 04:02 Last Admin: 01/31/21 04:24 Dose: Not Given Documented by: [id number] Sodium Bicarbonate (Sodium Bicarb 8.4% Inj 50 Meq/50 Ml Syr) 50 meq IV NOW STA Stop: 01/31/21 04:13 Last Admin: 01/31/21 04:29 Dose: 50 meq Documented by: [id number] Sodium Bicarbonate (Sodium Bicarb 8.4% Inj 50 Meq/50 Ml Syr) 50 meq IV NOW STA Stop: 01/31/21 23:00 Last Admin: 01/31/21 23:30 Dose: 50 meq Documented by: [id number] Discharge Plan Visit Data Chief Complaint: Hypotension Stated Complaint: HYPOTENSIVE ED Provider: Jose Luis Rebolledo Discharge Problem: Septic shock, Acute hypotension, Hypoglycemia, Hypothermia, Lactic acidosis Patient Disposition: Admitted As Inpatient Discharge Instructions Interventions: ED Discharge Assessment Last Done: 01/31/21 05:08 Discharge Problem: Hypothermia Qualifiers: Encounter type: initial encounter Qualified Code(s): T68.XXXA - Hypothermia, initial encounter
[2021-01-31] MEDS ORDERED: DEXTROSE 50% 50 ML SYRINGE IV STA (01:02)
[2021-01-31 01:16] LABS: Basophils # (auto) 0.02 K/uL (0-0.2); Basophils % (auto) 0.1 %; Eosinophils # (auto) 0.01 K/uL (0-0.5); Eosinophils % (auto) 0.1 %; Hematocrit (blood only) 41.5 % (42-52); Hemoglobin 13.6 g/dL (14.0-18.0); Immature Granulocytes # (auto) 0.06 K/uL (0.00-0.02); Immature Granulocytes % (auto) 0.4 %; Lymphocytes # (auto) 2.59 K/uL (1.2-3.4); Lymphocytes % (auto) 16.7 %; Mean Corpuscular Hemoglobin 30.4 pg (25-34); Mean Corpuscular Hgb Conc 32.8 g/dL (32-36); Mean Corpuscular Volume 92.6 fL (80-100); Mean Platelet Volume 9.3 fL (7.4-10.4); Monocytes % (auto) 10.3 %; Neutrophils # (auto) 11.21 K/uL (1.4-6.5); Neutrophils % (auto) 72.4 %; Platelet Count 144 K/uL (130-400); RDW Coefficient of Variation 14.6 % (11.5-14.5); RDW Standard Deviation 49.5 fL (36.4-46.3); Red Blood Count 4.48 M/uL (4.7-6.1); White Blood Count 15.49 K/uL (4.8-10.8)
[2021-01-31 01:28] LABS: INR 1.4 (0.9-1.1); Prothrombin Time 13.5 Seconds (9.0-12.0)
[2021-01-31] MEDS ORDERED: PIPERACILL/TAZOBAC CONSULT ACTIVE PRN ×2 (01:31→05:40)
[2021-01-31] MEDS ORDERED: PIPERACILLIN/TAZOBACTAM 4.5 GM/120 ML BAG IV ONE (01:31)
[2021-01-31] MEDS ORDERED: STAT IV Infusion **Titration per Protocol STA ×2 (01:32→05:41)
[2021-01-31 01:35] LABS: iSTAT Creatinine 2.8 mg/dl (0.6-1.3); iSTAT Hemoglobin 13.9 g/dl (14.0-18.0); iSTAT Ionized Calcium 1.02 mmol/l (1.12-1.32); iSTAT Potassium 5.6 mmol/L (3.3-5.0)
[2021-01-31 01:36] LABS: Appearance Urine Clear (Clear); Bacteria Urine Automated Negative (Negative); Blood Urine Negative (Negative); Color Urine Dark Yellow; Glucose Urine UA Negative (Negative); Ketones Urine Trace (Negative); Leukocyte Esterase Urine 1+ (Negative); Nitrite Urine Negative (Negative); Protein Urine Negative (Negative); Specific Gravity Urine 1.041 (1.000-1.030); Urobilinogen Urine Negative (Negative)
[2021-01-31] MEDS: NOREPINEPHRINE/D5W 8 MG/508 ML BAG IV SCH ×4 (01:40→18:17)
[2021-01-31 01:55] LABS: Bilirubin Urine 1+ (Negative)
[2021-01-31 02:06] LABS: Alanine Aminotransferase 39 U/L (12-78); Albumin Level 3.2 gm/dl (3.4-5.0); Alkaline Phosphatase 95 U/L (45-117); Aspartate Aminotransferase 342 U/L (15-37); BUN Creatinine Ratio 16.6 (10-20); Bilirubin,Total 1.1 mg/dl (0.2-1); Blood Urea Nitrogen 45 mg/dl (7-18); Calcium 8.9 mg/dl (8.5-10.1); Carbon Dioxide 15 mmol/L (21-32); Chloride 105 mmol/L (98-107); Est GFR (African American) 28.4 ml/min; Est GFR (Non-African American) 24.5 ml/min; Glucose 35 mg/dl (70-99); Lipase 156 U/L (73-393); Magnesium 2.1 mg/dl (1.8-2.4); Potassium 4.7 mmol/L (3.5-5.1); Sodium 136 mmol/L (136-145); Total Protein 7.5 gm/dl (6.4-8.2); Troponin I < 0.015 ng/ml (0-0.045)
[2021-01-31] MEDS ORDERED: VANCOMYCIN CONSULT ACTIVE PRN ×2 (03:28→05:40)
[2021-01-31] MEDS ORDERED: VANCOMYCIN HCL 2,000 MG in SODIUM CHLORIDE 0.9% 500 ML IV ONE (03:28)
[2021-01-31] MEDS ORDERED: ALBUMIN HUMAN 25% 12.5 GM/50 ML VIAL IV ONE (04:00)
[2021-01-31] MEDS ORDERED: NSS + 20MEQ KCL 20 MEQ/1,000 ML BAG IV SCH (04:00)
[2021-01-31] MEDS ORDERED: NSS+KCL 20 MEQ 1000ML IV ONE (04:01)
[2021-01-31] MEDS: ALBUMIN 25% 100 mL 25 GM/100 ML VIAL IV SCH ×2 (04:05→06:06)
--- NOTE | 2021-01-31 04:08 | Procedure Note ---
Procedure Note Date of Service January 31, 2021 Note Procedure: Internal Jugular Central Line Placement Attending: Dr. Olson APC: Uvaldo Mo PA-C Indication: Central Drug Administration, Poor Venous Access, Multiple Lab Draws Necessary, etc. Anesthesia: Lidocaine 1% Emergent consent implied in the setting of rapid deterioration despite aggressive fluid resuscitation and escalating doses of vasopressors peripherally with poor peripheral access. A time-out was completed verifying correct patient, procedure, site, positioning, and implants(s) or special equipment if applicable. Patients RIGHT Neck was cleansed and draped in the typical sterile fashion using Chloraprep. The Internal Jugular Vein and Carotid Artery were identified using ultrasound. The superficial tissue was anesthetized using 3.0 mL of 1% lidocaine without epinephrine under direct visualization with the ultrasound. After adequate anesthetization was achieved, the Internal Jugular vein was cannulated under direct ultrasound guidance using an introducer needle on a syringe. Good venous blood return was maintained prior to removal of syringe from introducer needle. Using Seldinger Technique, a guide wire was advanced through the introducer needle without resistance. The introducer needle was removed and ultrasound images were obtained of the guide wire within the Internal Jugular Vein and saved to the patients medical record. A small incision was made in penetrating fashion at the guide wire insertion site utilizing an 11 blade scalpel. The dilator was advanced to the vessel without resistance. The dilator was exchanged for the triple lumen catheter which was advanced into the vessel without resistance. The guide wire was removed intact from the catheter without issue. Claves were placed on each catheter tip with confirmation of good blood flow from each lumen. Each port was easily flushed with sterile saline. The catheter was placed at 15 cm and sutured in place. BioPatch was applied to the catheter and a sterile Tegaderm dressing was applied over the catheter with careful attention to sterility. Patient tolerated procedure well. No immediate complications were met. Post procedure x-ray was completed, placement was appropriate and no pneumothorax was noted. Images obtained are saved for permanent record Procedural Ultrasound Guidance: Procedure Date: 01/31/2021 Indication: Poor peripheral access, multiple medications, multiple lab draws, escalating doses of pressors. Attending: Dr. Olson APC: Uvaldo Mo PA-C Artery AND Vein visualized: YES Compressible Vein: YES Guidewire or Short Catheter seen in vein prior to dilation: YES Line confirmed in Vein with ultrasound: YES Images obtained are saved for permanent record. Coding CPT Codes Tubes, Drains, and Vasc Access - Tubes, Drains, and Vasc Access: [id number] Insertion Of Non-tunneled Catheter Age 6 Yrs> ([id number]) Tubes, Drains, and Vasc Access - Tubes, Drains, and Vasc Access: [id number] Ultrasound Guidance For Vascular ([id number]) [facility] [place] Procedure Codes (Charges) Tubes, Drains, and Vasc Access Procedure 1: Tubes, Drains, and Vasc Access: [id number] Insertion Of Non-tunneled Catheter Age 6 Yrs> Procedure 2: Tubes, Drains, and Vasc Access: [id number] Ultrasound Guidance For Vascular
--- NOTE | 2021-01-31 04:08 | Procedure Note ---
Procedure Note Date of Service January 31, 2021 Note Procedure: Arterial Line Placement Attending: Dr. Olson APC: Uvaldo Mo PA-C Indication: Hemodynamic monitoring Anesthesia: Lidocaine 1% Emergent Consent implied in the setting of clinical deterioration and need for close hemodynamic monitoring, ABG monitoring, frequent lab draws, etc. A time-out was completed verifying correct patient, procedure, site, positioning, and implant(s) or special equipment if applicable. Allens test was performed to ensure adequate perfusion. Patients RIGHT wrist was prepped and draped in the usual sterile fashion. Ultrasound guidance was used to aid needle placement. A 20g Arrow arterial line was introduced into the RIGHT Radial artery. Catheter was threaded, and the needle was removed with appropriate blood return. Good waveform was observed. The patient tolerated the procedure well. Confirmation of placement with ultrasound. Blood Loss: Minimal Complications: None Procedural Ultrasound Guidance: Procedure Date: 01/31/2021 Indication: Hemodynamic Monitoring, Frequent ABGs/Lab draws. Attending: Dr. Olson APC: Uvaldo Mo PA-C Artery Identified: YES Line confirmed in Artery with ultrasound: YES Complications: NONE Patient tolerated procedure: WELL Coding CPT Codes Tubes, Drains, and Vasc Access - Tubes, Drains, and Vasc Access: [id number] Place Catheter In Artery ([id number]) [facility] [place] Codes (Charges) Tubes, Drains, and Vasc Access Procedure 3: Tubes, Drains, and Vasc Access: [id number] Place Catheter In Artery
[2021-01-31] MEDS ORDERED: SODIUM BICARB 8.4% INJ 50 MEQ/50 ML SYR IV STA ×2 (04:12→22:59)
[2021-01-31 04:13] LABS: iSTAT Arterial Blood Gas HCO3 10 meg/L (19-24); iSTAT Arterial Blood Gas pCO2 31 mmHg (35-46); iSTAT Arterial Blood Gas pH 7.14 (7.35-7.45); iSTAT Arterial Blood Gas pO2 92 mmHg (80-95); iSTAT Carbon Dioxide 11 mmol/L (24-31)
--- NOTE | 2021-01-31 04:39 | Critical Care Consultation ---
Date of Consultation January 31, 2021 Assessment & Plan (1) Admitted to intensive care unit: Reason Critically Ill: 60-year-old male presenting with symptoms consistent with severe sepsis with septic shock from questionable origin at this point requiring initiation of vasopressin support with need for close hemodynamic monitoring in the setting of cardiovascular instability. NEURO - * CAM ICU: POSITIVE * Altered mental status: * Likely secondary to metabolic encephalopathy in the setting of severity of illness with associated hypotension. * CT head unremarkable. * Patient has improved and is answering more questions than initial presentation which is encouraging at this point. CARDIAC/VASCULAR - * Profound hypotension: * Likely secondary to sepsis syndrome. * Appropriately bolused with crystalloid in the emergency department. * Requiring high-dose Levophed. * Central line placed. Patient appears overtly volume down on exam and with ultrasound evaluation of the IJ. Consider transducing CVP's when he arrives in the ICU. * Patient with midline sternotomy scar. Will add echocardiogram to evaluate for possible valvular injury as we are unaware of his history and he is unable to provide the story to this point. Thankfully, he is without complaints of chest pain or discomfort at this time. He does not appear to be short of breath or have pulmonary vascular congestion. * Hypertension: * Hold antihypertensives in the setting of profound hypotension requiring vasopressors. * EKG: Normal sinus rhythm at [address] or T wave changes noted. QTc 469 ms. * Monitor on telemetry. RESPIRATORY - * Unknown history of pulmonary disease. * Saturating well on room air. GI/NUTRITION - * Apparently complaints of vomiting over the last few days. * N.p.o. currently. * CT abdomen pelvis demonstrates no acute findings. RENAL/LYTES - * ISMAEL: * Likely prerenal in the setting of hypotension and hypovolemia. * Initially received 3 L crystalloid. * Continue with aggressive IV fluids as his exam is consistent with poor volume status. * High anion gap metabolic acidosis: * Labs thankfully not significantly altered and likely more suggestive of his lactic acidosis. * Agree with imaging studies to evaluate for possible areas of ischemia, however his abdominal exam is benign and he is is without complaints of chest pain and with a negative troponin. - * Rashid in place - Strict I&Os. ENDO - * Hypoglycemia * BSGs per unit protocol. ISS --> gtt per unit policy. HEME - * Stable H&H. ID - * Severe sepsis with septic shock: * Of questionable origin at this time. * Blood and urine cultures pending. * Continue with broad-spectrum antibiotics in the setting of critically ill patient with elevated lactate and procalcitonin. LINES/IV ACCESS - * PIVs x2 * RIGHT IJ CVL * RIGHT radial arterial line * Rashid catheter DVT PROPHYLAXIS - * Heparin * SCDs I have personally spent 55 minutes of critical care time in the direct management of this patient. This is a life/limb threatening event. This includes time spent evaluating patient, direct bedside care, chart review, placing orders, interpretation of diagnostic studies, discussion with consultants, patient, and family members, as well as other required patient management activities. This time is exclusive of all separately billable procedures, and teaching time and separate from and in addition to any other critical care service time. Thank you for allowing us to participate in the care of this patient. Please refer to my attending physician's documentation for any further recommendations. (2) Septic shock: (3) Acute hypotension: (4) Hypoglycemia: (5) Hypothermia: (6) Lactic acidosis: History of Present Illness History of Present Illness Patient is a 60-year-old male with a significant past medical history of hypertension, diabetes, anxiety, depression, parkinsonism, BPH, hyperlipidemia, and GERD who presented to the emergency department from local [facility] for hypotension and generalized weakness. The patient was initially unable to pro vide significant history secondary to hypotension and altered mental status. Patient's blood pressures were extremely soft in the 60s. He was resuscitated appropriately with crystalloid boluses, but despite this, his pressures remained in the 60s to 70s. This necessitated the initiation of Levophed. Patient was noted to have a lactate greater than 9 and elevated procalcitonin. Covid was negative. Initial chest x-ray is unremarkable. I did present to the emergency department for immediate evaluation. Upon assessment at bedside, the patient is somnolent and falls asleep between questions. He reports that he has been ill for approximately 4 days, however he is unable to elaborate. History of present illness limited at this time. Allergies Allergy/AdvReac Type Severity Reaction Status Date / Time No Known Allergies Allergy Unverified 01/31/21 01:01 Home Medications Medication Instructions Recorded Confirmed Type amlodipine 5 mg tablet 5 mg PO DAILY 01/31/21 01/31/21 History carbidopa ER 25 mg-levodopa 100 mg 1 tab PO QID 01/31/21 01/31/21 History tablet,extended release duloxetine 60 mg capsule,delayed 60 mg PO BID 01/31/21 01/31/21 History release finasteride 5 mg tablet 5 mg PO QPM 01/31/21 01/31/21 History hydroxyzine pamoate 50 mg capsule 50 mg PO HS 01/31/21 01/31/21 History insulin NPH isoph U-100 human 100 14 unit SUBCUT QPM 01/31/21 01/31/21 History unit/mL subcutaneous suspension (Novolin N NPH U-100 Insulin isophane) insulin NPH isoph U-100 human 100 34 unit SUBCUT QAM 01/31/21 01/31/21 History unit/mL subcutaneous suspension (Novolin N NPH U-100 Insulin isophane) lisinopril 20 1 tab PO DAILY 01/31/21 01/31/21 History mg-hydrochlorothiazide 12.5 mg tablet metformin 500 mg tablet 500 mg PO BID 01/31/21 01/31/21 History mirtazapine 45 mg tablet 45 mg PO HS 01/31/21 01/31/21 History nortriptyline 25 mg capsule 25 mg PO HS 01/31/21 01/31/21 History omeprazole 20 mg capsule,delayed 20 mg PO DAILY 01/31/21 01/31/21 History release ondansetron HCl 4 mg tablet 4 mg PO QID PRN 01/31/21 01/31/21 History pravastatin 40 mg tablet 40 mg PO HS 01/31/21 01/31/21 History primidone 50 mg tablet 200 mg PO TID 01/31/21 01/31/21 History tamsulosin 0.4 mg capsule 0.8 mg PO HS 01/31/21 01/31/21 History Patient History Medical History (Updated 01/31/21 @ 05:21 by Jesu Kan MD) Anxiety with depression BPH w urinary obs/LUTS Diabetes mellitus with chronic kidney disease, with long-term current use of insulin GERD (gastroesophageal reflux disease) Hyperlipidemia Hypertension Insomnia Parkinson's disease Social History Smoking Status: Never smoker Do You Dip or Chew Tobacco: No; Hx Alcohol Use: No Hx Substance Use: No Preferred Language: Comoran Communication Ability: Effective Pediatric Clinical Nurse Specialist Required: No Beliefs That Will Affect Care: None Current Living Situation Comment: [facility] Other Information That Helps Us Care for You: No Feels Safe at Home: Yes Safety Concerns: Feels Safe At This Time Physical Exam Physical Exam: VITAL SIGNS - Vital signs and nursing notes were reviewed. GENERAL - 60-year-old male appearing older than his stated age who is in active extremis. Somnolent and communicates simple questions but falls asleep between questions. SKIN - Without rashes. HEAD - NC/AT. EYES - PERRL with EOMI bilaterally. Sclera anicteric. EARS - No deformities of external structures noted on gross examination otto aterally. NOSE - Midline and without cyanosis. No epistaxis or purulent drainage noted. MOUTH/OROPHARYNX - Without perioral cyanosis. Buccal mucosa pink and dry. NECK - Neck with FROM. Supple to palpation. No lymphadenopathy noted. No nuchal rigidity. LUNGS - Chest wall symmetric without accessory muscle use, intercostals retractions, or central cyanosis. Normal vesicular breath sounds CTA B/L. No wheezes, rales, or rhonchi appreciated. CARDIAC - RRR with S1/S2. No murmur, rubs, or gallops appreciated. ABDOMEN - Abdominal contour obese without pulsations or visible masses. BS normoactive all four quadrants. No tenderness, palpable masses, hepatosplenomegaly, or ascites noted. EXTREMITIES - No clubbing or peripheral cyanosis. No pretibial edema present. +2/5 radial and dorsalis pedis pulses palpated throughout. +4/5 strength noted in UE/LE bilaterally. NEUROLOGIC - Cranial nerves II through XII grossly intact. Results & Data Results & Data ([facility]) Vital Signs (Past 12 Hours) Vital Signs Temp Pulse Resp BP Pulse Ox 01/31/21 04:15 34.2 C L 100 H 18 103/66 97 01/31/21 04:00 100 H 15 131/74 98 01/31/21 03:45 100 H 14 97/68 L 100 01/31/21 03:30 102 H 16 91/67 L 99 01/31/21 03:15 93 H 13 112/85 100 01/31/21 03:00 98 H 15 99 01/31/21 02:54 98 H 14 97/82 L 99 01/31/21 02:15 89 14 78/50 L 97 01/31/21 02:00 87 15 68/49 L 96 01/31/21 01:53 34.4 C L 01/31/21 01:45 82 14 69/47 L 96 01/31/21 01:33 34.4 C L 01/31/21 01:30 88 98 01/31/21 01:20 88 L 01/31/21 01:15 82 58/45 L 96 01/31/21 01:00 98 H 68/40 L 94 01/31/21 00:45 100 H 74/50 L 93 01/31/21 00:41 106 H 18 68/48 L 98 01/31/21 00:37 101 H 78/58 L 94 Coding Level of Care Code Critical Care 1st 30-74 mins Diagnoses Admitted to intensive care unit Z78.9 Septic shock A41.9; R65.21 Acute hypotension I95.9 Hypoglycemia E16.2 Hypothermia T68.XXXA Encounter type: initial encounter Lactic acidosis E87.2 Time Spent (min) 55 (1) Hypothermia Encounter type: initial encounter Qualified Code(s): T68.XXXA - Hypothermia, initial encounter
[2021-01-31] MEDS: SODIUM BICARBONATE 8.4% 150 MEQ in DEXTROSE 5% 1,000 ML IV SCH ×3 (04:41→22:50)
--- NOTE | 2021-01-31 05:27 | History & Physical Report ---
Date of Service January 31, 2021 Assessment & Plan (1) Septic shock: Plan: Septic shock/acute hypotension- Received 3 L normal saline in the ED Continue Levophed infusion per protocol D5W with sodium bicarb 150 mEq at 100 mils per hour Empiric vancomycin IV and Zosyn IV Zofran 4 mg IV every 6 hours as needed Follow urine cultures and blood cultures (2) Acute hypotension: Plan: See above (3) Hypoglycemia: Plan: Glucose was 35 upon admission, and normalized after supplementation Follow in the ICU glycemic protocol (4) Hypothermia: Plan: Continue warming blanket per protocol (5) Lactic acidosis: Plan: Lactate 9.5 at 1:04 AM Lactate 11.5 at 3:19 AM ABG showed pH 7.13 Patient was then given 2 A of sodium bicarbonate pushes He was then started on a bicarbonate drip 150 mEq in D5W at 100 mils per hour Repeat lactate per protocol Repeat ABG, CBC with differential, chemistry profile and magnesium levels and in the a.m. (6) Diabetes mellitus with chronic kidney disease, with long-term current use of insulin: Plan: Place on ICU hyperglycemic protocol Of note, patient's glucose was 35 admission, and had subsequent follow-ups after appropriate treatment (7) Hypertension: Plan: Holding meds due to hypotension (8) Parkinson's disease: Plan: Continue carbidopa - levodopa (9) Anxiety with depression: Plan: Anxiety with depression- We will continue primidone Hold duloxetine, hydroxyzine, mirtazapine and nortriptyline until patient is more alert (10) BPH w urinary obs/LUTS: Plan: Continue finasteride and tamsulosin Follow UA, urine culture sensitivity as possible cause for septic shock (11) Insomnia: Plan: For now holding mirtazapine and nortriptyline until more alert (12) Hyperlipidemia: Plan: Continue pravastatin 40 mg at bedtime (13) GERD (gastroesophageal reflux disease): Plan: Change omeprazole orally to famotidine 20 mg IV every 12 hours (14) Renal insufficiency: Plan: Creatinine 2.72 point admission, with unknown baseline. Received 3 L normal saline, and then placed on bicarb drip as noted above (15) Admitted to intensive care unit: Plan: Consulting ICU team, who had already seen the patient in the ED History of Present Illness Chief Complaint: The patient is referred to the emergency department from the skilled nursing due to generalized weakness and low blood pressure. The patient's main complaint was difficulty urinating Primary Care Provider: EDUARDO Contreras The patient is a 60-year-old male with a past medical history including hypertension, Parkinson's, anxiety with depression, BPH, insulin requiring diabetes mellitus, insomnia, GERD, hyperlipidemia and BPH with LUTS. He was referred to the emergency department from the skilled nursing due to the above-noted symptoms of generalized weakness and low blood pressure. In the emergency department the patient appeared diaphoretic, and blood pressure was in the low 60s. In addition to routine laboratory work-up, patient received 3 L normal saline, Zosyn 4.5 g IV, and was started on Levophed infusion. Patient was seen in the emergency department by critical care consultants, who placed central lines and and A-line. Body temperature upon arrival 34.4 C. Abnormal laboratories: WBC 15.49, hemoglobin 13.6, hematocrit 41.5, creatinine 2.72, glucose 35, BUN 45, INR 1.4, AST 342, albumin 3.2. Patient was COVID-[address] negative Imaging studies included CT head which was negative, CT C-spine which was negative, and CT chest without contrast which was negative. When ABG revealed a pH of 7.13, patient was given 2 Amps of bicarbonate pushes, and placed on a bicarbonate drip 150 mEq at 100 mils per hour, in addition to the NSS + KCl 20 mEq at 150 mils per hour which was running after patient received 3 L normal saline bolus Allergies Allergy/AdvReac Type Severity Reaction Status Date / Time No Known Allergies Allergy Unverified 01/31/21 01:01 Home Medications Medication Instructions Recorded Confirmed Type amlodipine 5 mg tablet 5 mg PO DAILY 01/31/21 01/31/21 History carbidopa ER 25 mg-levodopa 100 mg 1 tab PO QID 01/31/21 01/31/21 History tablet,extended release duloxetine 60 mg capsule,delayed 60 mg PO BID 01/31/21 01/31/21 History release finasteride 5 mg tablet 5 mg PO QPM 01/31/21 01/31/21 History hydroxyzine pamoate 50 mg capsule 50 mg PO HS 01/31/21 01/31/21 History insulin NPH isoph U-100 human 100 14 unit SUBCUT QPM 01/31/21 01/31/21 History unit/mL subcutaneous suspension (Novolin N NPH U-100 Insulin isophane) insulin NPH isoph U-100 human 100 34 unit SUBCUT QAM 01/31/21 01/31/21 History unit/mL subcutaneous suspension (Novolin N NPH U-100 Insulin isophane) lisinopril 20 1 tab PO DAILY 01/31/21 01/31/21 History mg-hydrochlorothiazide 12.5 mg tablet metformin 500 mg tablet 500 mg PO BID 01/31/21 01/31/21 History mirtazapine 45 mg tablet 45 mg PO HS 01/31/21 01/31/21 History nortriptyline 25 mg capsule 25 mg PO HS 01/31/21 01/31/21 History omeprazole 20 mg capsule,delayed 20 mg PO DAILY 01/31/21 01/31/21 History release ondansetron HCl 4 mg tablet 4 mg PO QID PRN 01/31/21 01/31/21 History pravastatin 40 mg tablet 40 mg PO HS 01/31/21 01/31/21 History primidone 50 mg tablet 200 mg PO TID 01/31/21 01/31/21 History tamsulosin 0.4 mg capsule 0.8 mg PO HS 01/31/21 01/31/21 History Past Med/Surg History Medical History (Updated 01/31/21 @ 05:21 by Jesu Kan MD) Anxiety with depression BPH w urinary obs/LUTS Diabetes mellitus with chronic kidney disease, with long-term current use of insulin GERD (gastroesophageal reflux disease) Hyperlipidemia Hypertension Insomnia Parkinson's disease Social History Smoking Status: Never smoker Preferred Language: Croatian Feels Safe at Home: Yes Review of Systems Review of Systems: The patient denies chest pain, palpitations, shortness of breath, dyspnea on exertion, cough, lower extremity swelling, fevers, chills, sweats, weight change, fatigue, nausea, vomiting, diarrhea , constipation, blood in urine or stool, lightheadedness, dizziness, headache, memory loss, loss of consciousness, rash, abnormal bruising or bleeding, imbalance, focal weakness, numbness or tingling in arms or legs, generalized arthralgias or myalgias, back or neck pain, or night sweats. The review of systems is otherwise negative other than for that already noted above, and at least 10 systems have been reviewed. Physical Exam Physical Exam: The patient is awake, alert and oriented 3, well developed and well nourished, normocephalic and atraumatic, lying in bed and in no acute distress. HEENT--PERRL, EOMI, mucous membranes and oropharynx dry. Neck--supple. No JVD. No bruits. Thyroid normal, trachea midline, no adenop athy. Heart--normal S1 and S2. No murmurs, rubs or gallops. Lungs--clear bilaterally, no respiratory distress, no accessory muscle use. Abdomen--normal bowel sounds and soft. Nontender. Nondistended, no hernias or masses, no organomegaly. Extremities--no cyanosis or clubbing. No edema. There are good distal pulses b/l. Dermatologic--normal skin turgor, normal color, no abnormal lymph nodes, no r trent. Neurologic--cranial nerves II through XII grossly intact. Rheumatologic--normal range of motion. Psychiatric--normal affect. Results & Data Results & Data ([facility]) Vital Signs (Past 12 Hours) Vital Signs Temp Pulse Resp BP Pulse Ox 01/31/21 04:45 101 H 14 89/46 L 96 01/31/21 04:30 34.5 C L 99 H 14 102/62 97 01/31/21 04:15 34.2 C L 100 H 18 103/66 97 01/31/21 04:00 100 H 15 131/74 98 01/31/21 03:45 100 H 14 97/68 L 100 01/31/21 03:30 102 H 16 91/67 L 99 01/31/21 03:15 93 H 13 112/85 100 01/31/21 03:00 98 H 15 99 01/31/21 02:54 98 H 14 97/82 L 99 01/31/21 02:15 89 14 78/50 L 97 01/31/21 02:00 87 15 68/49 L 96 01/31/21 01:53 34.4 C L 01/31/21 01:45 82 14 69/47 L 96 01/31/21 01:33 34.4 C L 01/31/21 01:30 88 98 01/31/21 01:20 88 L 01/31/21 01:15 82 58/45 L 96 01/31/21 01:00 98 H 68/40 L 94 01/31/21 00:45 100 H 74/50 L 93 01/31/21 00:41 106 H 18 68/48 L 98 01/31/21 00:37 101 H 78/58 L 94 Laboratory Results Laboratory Results WBC 15.49 K/uL (4.8-10.8) H 01/31/21 01:04 RBC 4.48 M/uL (4.7-6.1) L 01/31/21 01:04 Hgb 13.6 g/dL (14.0-18.0) L 01/31/21 01:04 POC Hgb 13.9 g/dl (14.0-18.0) L 01/31/21 00:59 Hct 41.5 % (42-52) L 01/31/21 01:04 POC Hct 41 % (42-52) L 01/31/21 00:59 MCV 92.6 fL (80-100) 01/31/21 01:04 MCH 30.4 pg (25-34) 01/31/21 01:04 MCHC 32.8 g/dL (32-36) 01/31/21 01:04 RDW Std Deviation 49.5 fL (36.4-46.3) H 01/31/21 01:04 RDW Coeff of Royal 14.6 % (11.5-14.5) H 01/31/21 01:04 Plt Count 144 K/uL (130-400) 01/31/21 01:04 MPV 9.3 fL (7.4-10.4) 01/31/21 01:04 Immature Gran % (Auto) 0.4 % 01/31/21 01:04 Neut % (Auto) 72.4 % 01/31/21 01:04 Lymph % (Auto) 16.7 % 01/31/21 01:04 Posey % (Auto) 10.3 % 01/31/21 01:04 Eos % (Auto) 0.1 % 01/31/21 01:04 Baso % (Auto) 0.1 % 01/31/21 01:04 Neut # (Auto) 11.21 K/uL (1.4-6.5) H 01/31/21 01:04 Lymph # (Auto) 2.59 K/uL (1.2-3.4) 01/31/21 01:04 Posey # (Auto) 1.60 K/uL (0.11-0.59) H 01/31/21 01:04 Eos # (Auto) 0.01 K/uL (0-0.5) 01/31/21 01:04 Baso # (Auto) 0.02 K/uL (0-0.2) 01/31/21 01:04 Immature Gran # (Auto) 0.06 K/uL (0.00-0.02) H 01/31/21 01:04 PT 13.5 Seconds (9.0-12.0) H 01/31/21 01:04 INR 1.4 (0.9-1.1) H 01/31/21 01:04 POC pH 7.14 (7.35-7.45) L* 01/31/21 04:00 POC pCO2 31 mmHg (35-46) L 01/31/21 04:00 POC pO2 92 mmHg (80-95) 01/31/21 04:00 POC HCO3 10 dada/L (19-24) L 01/31/21 04:00 POC Total CO2 11 mmol/L (24-31) L 01/31/21 04:00 POC Base Excess -19.0 dada/L (-9-1.8) L 01/31/21 04:00 POC ABG O2 Sat 94.0 % (90-95) 01/31/21 04:00 POC Sodium 138 mmol/L (135-144) 01/31/21 00:59 Sodium 136 mmol/L (136-145) 01/31/21 01:04 POC Potassium 5.6 mmol/L (3.3-5.0) H 01/31/21 00:59 Potassium 4.7 mmol/L (3.5-5.1) 01/31/21 01:04 POC Chloride 106 mmol/L (101-112) 01/31/21 00:59 Chloride 105 mmol/L (98-107) 01/31/21 01:04 Carbon Dioxide 15 mmol/L (21-32) L 01/31/21 01:04 POC Total CO2 16 mmol/L (24-31) L 01/31/21 00:59 Anion Gap 16.0 (3-11) H 01/31/21 01:04 POC Anion Gap 22.0 mmol/L (16-25) 01/31/21 00:59 POC BUN 55 mg/dl (7-18) H 01/31/21 00:59 BUN 45 mg/dl (7-18) H 01/31/21 01:04 Creatinine 2.72 mg/dl (0.6-1.4) H 01/31/21 01:04 POC Creatinine 2.8 mg/dl (0.6-1.3) H 01/31/21 00:59 Est Cr Clr Drug Dosing 34.0 ml/min 01/31/21 01:04 Est GFR ( Amer) 28.4 ml/min 01/31/21 01:04 Est GFR (Non-Af Amer) 24.5 ml/min 01/31/21 01:04 BUN/Creatinine Ratio 16.6 (10-20) 01/31/21 01:04 Glucose 35 mg/dl (70-99) L* 01/31/21 01:04 POC Glucose 99 mg/dl (70-99) 01/31/21 03:28 POC Glucose (other) 30 mg/dl (70-99) L* 01/31/21 00:59 Lactate 11.5 mmol/L (0.4-2.0) H* 01/31/21 03:19 Calcium 8.9 mg/dl (8.5-10.1) 01/31/21 01:04 POC Ioniz Calcium Alayna 1.02 mmol/l (1.12-1.32) L 01/31/21 00:59 Magnesium 2.1 mg/dl (1.8-2.4) 01/31/21 01:04 Total Bilirubin 1.1 mg/dl (0.2-1) H 01/31/21 01:04 Direct Bilirubin mg/dl (0-0.2) 01/31/21 01:04 AST 342 U/L (15-37) H 01/31/21 01:04 ALT 39 U/L (12-78) 01/31/21 01:04 Alkaline Phosphatase 95 U/L (45-117) 01/31/21 01:04 Troponin I < 0.015 ng/ml (0-0.045) 01/31/21 01:04 Total Protein 7.5 gm/dl (6.4-8.2) 01/31/21 01:04 Albumin 3.2 gm/dl (3.4-5.0) L 01/31/21 01:04 Lipase 156 U/L (73-393) 01/31/21 01:04 Procalcitonin 8.06 ng/ml (0-0.5) H 01/31/21 01:04 Specimen Hemolysis 01/31/21 01:04 Urine Color Dark Yellow 01/31/21 01:20 Urine Appearance Clear (Clear) 01/31/21 01:20 Urine pH 5.0 (4.5-7.5) 01/31/21 01:20 Ur Specific [place] 1.041 (1.000-1.030) H 01/31/21 01:20 Urine Protein Negative (Negative) 01/31/21 01:20 Urine Glucose (UA) Negative (Negative) 01/31/21 01:20 Urine Ketones Trace (Negative) H 01/31/21 01:20 Urine Blood Negative (Negative) 01/31/21 01:20 Urine Nitrite Negative (Negative) 01/31/21 01:20 Urine Bilirubin 1+ (Negative) H 01/31/21 01:20 Urine Urobilinogen Negative (Negative) 01/31/21 01:20 Ur Leukocyte Esterase 1+ (Negative) H 01/31/21 01:20 Urine WBC (Auto) 1-5 /hpf (0-5) 01/31/21 01:20 Urine RBC (Auto) 5-10 /hpf (0-4) H 01/31/21 01:20 U Hyaline Cast (Auto) 1-5 /lpf (0-5) 01/31/21 01:20 U Epithel Cells (Auto) 10-20 /lpf (0-5) H 01/31/21 01:20 Urine Bacteria (Auto) Negative (Negative) 01/31/21 01:20 SARS-CoV-2 (PCR) NEGATIVE (Negative) 01/31/21 00:43 Diagnostic Findings [facility] Patient: FRED RAUSCH [id number] (Male) : 62 Status: ER Date: 01/31/21 02:54 Room #: History: UNKNOWN IF TRUMA; PT. FOUND ON GROUND VERY HYPOTENSIVE AMS, RENAL FAILURE, SEPTIC PT. VERY UNRESPONSIVE, UNABLE TO RAISE ARMS ABOVE HEAD FOR SCAN HAS TO STAY ON MONITOR Slices: 66 Priors: Tech: Denise Fong @ [phone] Exams: CT HEAD Contrast: Accession Numbers: [id number] Referring Physician: ADIEL CLARK Preliminary Findings Only See Final Report For Complete Findings CT HEAD: No acute intracranial hemorrhage, hydrocephalus, edema, or mass effect. Paranasal sinuses and mastoid air cells are clear. Radiologist: Torsten Dewitt MD Study ready at 02:55 and initial results transmitted at 04:08 *This report constitutes a preliminary interpretation only. Non-acute findings felt to be unrelated to the clinical presentation may not be discussed in this report. The study will be interpreted and a final report will be generated by the local Radiologist the following shift. To reach the [facility] radiology department call [phone]. If a discrepancy is found between the preliminary and final interpretations of this study, please notify us via our Client Portal at [email or web address], under QA Exams. You can also fax this report with a description of the discrepancy, or include the final report, to our daytime fax number [phone]. If faxing, please indicate the severity of discrepancy using one of the following categories: [ ] 1 - Agree/Informational [ ] 2 - Unlikely to Affect Management [ ] 3 - Possible Eventual Change of Management [ ] 4 - Probable Immediate Change of Management For all other patient related information, please fax us at [phone]. [id number] [facility] Patient: FRED RAUSCH [id number] (Male) : 62 Status: ER Date: 01/31/21 03:01 Room #: History: UNKNOWN IF TRUMA; PT. FOUND ON GROUND VERY HYPOTENSIVE AMS, RENAL FAILURE, SEPTIC PT. VERY UNRESPONSIVE, UNABLE TO RAISE ARMS ABOVE HEAD FOR SCAN HAS TO STAY ON MONITOR Slices: 929 Priors: Tech: Denise Fong @ [phone] Exams: CT C SPINE Contrast: Accession Numbers: [id number] Referring Physician: ADIEL CLARK Preliminary Findings Only See Final Report For Complete Findings CT C SPINE: No fracture or malalignment. Radiologist: Torsten Dewitt MD Study ready at 03:03 and initial results transmitted at 04:21 *This report constitutes a preliminary interpretation only. Non-acute findings felt to be unrelated to the clinical presentation may not be discussed in this report. The study will be interpreted and a final report will be generated by the local Radiologist the following shift. To reach the hospital radiology department call [phone]. If a discrepancy is found between the preliminary and final interpretations of this study, please notify us via our Client Portal at [email or web address], under QA Exams. You can also fax this report with a description of the discrepancy, or include the final report, to our daytime fax number [phone]. If faxing, please indicate the severity of discrepancy using one of the following categories: [ ] 1 - Agree/Informational [ ] 2 - Unlikely to Affect Management [ ] 3 - Possible Eventual Change of Management [ ] 4 - Probable Immediate Change of Management For all other patient related information, please fax us at [phone]. [id number] [facility] Patient: FRED RAUSCH [id number] (Male) : 62 Status: ER Date: 01/31/21 03:07 Room #: History: UNKNOWN IF TRUMA; PT. FOUND ON GROUND KAT[place] HYPOTENSIVE AMS, RENAL FAILURE, SEPTIC PT. VERY UNRESPONSIVE, UNABLE TO RAISE ARMS ABOVE HEAD FOR SCAN HAS TO STAY ON MONITOR Slices: 551 Priors: Tech: Denise Fong @ [phone] Exams: CT CHEST Without Contrast Contrast: Accession Numbers: [id number] Referring Physician: ADIEL CLARK Preliminary Findings Only See Final Report For Complete Findings CT CHEST Without Contrast: Biba ventilatory exam with scattered atelectasis. No evidence of pneumonia. Unremarkable heart and mediastinal structures. No acute fracture. Radiologist: Torsten Dewitt MD Study ready at 03:16 and initial results transmitted at 04:35 *This report constitutes a preliminary interpretation only. Non-acute findings felt to be unrelated to the clinical presentation may not be discussed in this report. The study will be interpreted and a final report will be generated by the local Radiologist the following shift. To reach the [facility] radiology department call [phone]. If a discrepancy is found between the preliminary and final interpretations of this study, please notify us via our Client Portal at [email or web address], under QA Exams. You can also fax this report with a description of the discrepancy, or include the final report, to our daytime fax number [phone]. If faxing, please indicate the severity of discrepancy using one of the following categories: [ ] 1 - Agree/Informational [ ] 2 - Unlikely to Affect Management [ ] 3 - Possible Eventual Change of Management [ ] 4 - Probable Immediate Change of Management For all other patient related information, please fax us at [phone]. [id number] Code Status & VTE Plan Code Status Full code VTE Prophylaxis Plan VTE Prophylaxis will be ordered: Yes Critical Care Time 60 minutes PG Care Time/CCT Total # of Minutes Spent Total Time Spent with Patient: Total time spent is greater than 50% in coordination of care (as documented) at patient's floor/unit and/or counseling patient: Coding Level of Care Code 48827 Initial Inpt Care Lvl 3 Diagnoses Septic shock A41.9; R65.21 Acute hypotension I95.9 Hypoglycemia E16.2 Hypothermia T68.XXXA Encounter type: initial encounter Lactic acidosis E87.2 Diabetes mellitus with chronic kidney disease, with long-term current use of insulin E11.22; Z79.4 Hypertension I10 Parkinson's disease G20 Anxiety with depression F41.8 BPH w urinary obs/LUTS N40.1; N13.8 Insomnia G47.00 Hyperlipidemia E78.5 GERD (gastroesophageal reflux disease) K21.9 Renal insufficiency N28.9 Admitted to intensive care unit Z78.9 (1) Hypothermia Encounter type: initial encounter Qualified Code(s): T68.XXXA - Hypothermia, initial encounter
[2021-01-31] MEDS ORDERED: ICU PROTOCOL FOR HYPERGLYCEMIA PRN (05:40)
[2021-01-31] MEDS ORDERED: VANCOMYCIN HCL 1,000 MG in SODIUM CHLORIDE 0.9% 250 ML IV SCH (05:40)
[2021-01-31] MEDS ORDERED: GLUCOSE 10 TABS/TUBE PO PRN (05:42)
[2021-01-31] MEDS ORDERED: CARBOHYDRATES FOR HYPOGLYCEMIA PO PRN (05:42)
[2021-01-31] MEDS ORDERED: GLUCAGON FOR INJ 1 MG VIAL SQ PRN (05:42)
[2021-01-31] MEDS ORDERED: GLUCOSE 40% GEL 15 GM TUBE PO PRN (05:42)
[2021-01-31] MEDS: DEXTROSE 50% 50 ML SYRINGE IV PRN (06:07)
[2021-01-31] MEDS ORDERED: FAMOTIDINE 20 MG in SYRINGE 3 ML IV SCH (07:00)
--- NOTE | 2021-01-31 07:06 | XRay Report ---
XR chest 1V portable CLINICAL HISTORY: post central line right IJ COMPARISON STUDY: Chest radiograph January 31, 2021 at 12:[address] January 31, 2021 at 2:42 A M. FINDINGS: There is no pneumothorax following placement of a right internal jugular central line. Cath eter tip projects over the SVC. No pleural effusion is noted. There are bilateral airspace opacities. Lung aeration is slightly improved since prior exam. Median sternotomy wires are noted. IMPRESSION: 1. No pneumothorax following placement of a right internal jugular central line. 2. Mild bilateral airspace opacities. Slight improvement in lung aeration since prior chest radiogra ph. ACT 112: Negative or not required by law. Electronically signed by: Frank Hu M.D. 01/31/2021 7:05 AM
--- NOTE | 2021-01-31 07:11 | CT Scan Report ---
CT SCAN OF THE BRAIN WITHOUT IV CONTRAST CLINICAL HISTORY: Change in mental status. COMPARISON STUDY: No priors. TECHNIQUE: Unenhanced axial CT scan of the brain is performed from the vertex to the skull base. A d ose lowering technique was utilized adhering to the principles of ALARA. CT DOSE: 729.78 mGycm FINDINGS: Brain parenchyma: There is mild microangiopathic change. There is no hemorrhage, mass effect, or evid ence of acute territorial ischemia by CT criteria. Rivera-white matter differentiation is preserved. No extra-axial fluid collection is seen. Ventricles, sulci, cisterns: Normal in configuration. Intracranial vasculature: There is atherosclerotic calcification of the cavernous carotid arteries. Calvarium: No depressed calvarial fracture is identified. Sinuses and mastoids: The visualized paranasal sinuses are clear. The mastoid air cells are well pneu matized. Orbits: The bony orbits are grossly intact. IMPRESSION: There is no hemorrhage, mass effect, or evidence of acute territorial ischemia by CT crit coty. ACT 112: Negative or not required by law. Electronically signed by: Sebas Galicia M.D. 01/31/2021 7:09 AM
--- NOTE | 2021-01-31 07:23 | XRay Report ---
XR chest 1V portable CLINICAL HISTORY: hypotension COMPARISON STUDY: No previous studies for comparison. FINDINGS: Median sternotomy wires are noted. Lung markings are diminished. There is mild interstitial thickening and mild left lung airspace opacities. Mild cardiomegaly is noted. IMPRESSION: Pulmonary vascular congestion with mild left lower lung opacities. ACT 112: Negative or not required by law. Electronically signed by: Frank Hu M.D. 01/31/2021 7:21 AM
[2021-01-31] MEDS: VASOPRESSIN 20 UNITS in 0.9 % SODIUM CHLORIDE 100 ML IV SCH ×3 (07:48→22:50)
[2021-01-31 08:12] LABS: iSTAT Arterial Blood Gas HCO3 11 meg/L (19-24); iSTAT Arterial Blood Gas pCO2 30 mmHg (35-46); iSTAT Arterial Blood Gas pH 7.15 (7.35-7.45); iSTAT Arterial Blood Gas pO2 87 mmHg (80-95); iSTAT Carbon Dioxide 11 mmol/L (24-31); iSTAT Site Art Line
--- NOTE | 2021-01-31 08:12 | CT Scan Report ---
CT SCAN OF THE CERVICAL SPINE CLINICAL HISTORY: Change in mental status. COMPARISON STUDY: No priors. TECHNIQUE: CT scan of the cervical spine is performed from the skull base to the upper thoracic spine . Images are reviewed in the axial, sagittal, and coronal planes. IV contrast was not administered fo r this examination. A dose lowering technique was utilized adhering to the principles of ALARA. CT DOSE: 543.79 mGycm FINDINGS: Skeletal structures: The skeletal structures are well mineralized. There is no evidence of fracture o r subluxation involving the cervical spine. Vertebral body height and alignment are maintained. There is straightening of the cervical lordosis. Anterior osteophytes are noted in the lower cervical che[place] on. The odontoid process and lateral masses are intact. The atlantoaxial articulation is preserved no ting mild productive degenerative change. The spinous processes appear intact. There is mild to moder ate multilevel cervical spondylosis. Uncovertebral and facet arthropathy contribute to neural foramin al stenosis at several levels. Intervertebral discs: There is mild multilevel degenerative disc space narrowing. Central canal: Posterior disc osteophyte complexes at C4-C5, C5-C6, and C6-C7 may contribute to mild acquired compromise of the central canal. Soft tissues: The prevertebral and paraspinous soft tissues are within normal limits. There is mild a therosclerotic calcification of the carotid bulbs. Calvarium: The visualized calvarium at the skull base appears intact. Brain parenchyma: Partially visualized brain parenchyma at the skull base is within normal limits. Sinuses and mastoids: There is trace mucosal thickening within the sphenoid sinuses. The mastoid air cells are well pneumatized. IMPRESSION: There is no evidence of fracture or subluxation involving the cervical spine. ACT 112: Negative or not required by law. Electronically signed by: Sebas Galicia M.D. 01/31/2021 8:11 AM
[2021-01-31] MEDS: HEPARIN SOD 5,000 UNIT/0.5 ML VIAL SQ SCH ×2 (08:15→21:56)
[2021-01-31 08:26] LABS: Hematocrit (blood only) 34.7 % (42-52); Hemoglobin 10.8 g/dL (14.0-18.0); Mean Corpuscular Hemoglobin 29.3 pg (25-34); Mean Corpuscular Hgb Conc 31.1 g/dL (32-36); Mean Corpuscular Volume 94.3 fL (80-100); RDW Standard Deviation 51.4 fL (36.4-46.3); Red Blood Count 3.68 M/uL (4.7-6.1); White Blood Count 12.54 K/uL (4.8-10.8)
[2021-01-31] MEDS: PIPERACILLIN/TAZOBACTAM 4.5 GM in DEXTROSE 5% 100 ML IV SCH ×2 (08:36→14:36)
[2021-01-31 08:37] LABS: Prothrombin Time 19.5 Seconds (9.0-12.0)
[2021-01-31 08:57] LABS: Platelet Count 79 K/uL (130-400)
[2021-01-31 08:58] LABS: Platelet Estimate Decreased (Normal)
[2021-01-31] MEDS ORDERED: PRIMIDONE 50 MG TAB PO SCH (09:00)
[2021-01-31 09:08] LABS: Albumin Globulin Ratio 1.1 (0.9-2); Albumin Level 3.7 gm/dl (3.4-5.0); BUN Creatinine Ratio 14.4 (10-20); Bilirubin,Total 1.4 mg/dl (0.2-1); Calcium 7.1 mg/dl (8.5-10.1); Creatinine Clr Calc Pharmacy 35.8 ml/min; Est GFR (African American) 30.5 ml/min; Est GFR (Non-African American) 26.3 ml/min; Globulin 3.4 gm/dl (2.5-4.0); Magnesium 1.9 mg/dl (1.8-2.4); Phosphorus 4.8 mg/dl (2.5-4.9); Potassium 7.2 mmol/L (3.5-5.1); Total Protein 7.1 gm/dl (6.4-8.2)
--- NOTE | 2021-01-31 09:19 | CT Scan Report ---
CT SCAN OF THE CHEST, ABDOMEN, AND PELVIS WITHOUT IV CONTRAST CLINICAL HISTORY: Change in mental status. Sepsis. Hypotension. Renal failure. COMPARISON STUDY: Chest x-ray dated 01/31/2021. TECHNIQUE: Unenhanced CT scan of the chest, abdomen, and pelvis was performed from the thoracic inlet to the proximal femora. Images are reviewed in the axial, sagittal, and coronal planes. IV contrast was not administered due to poor renal function. Note that the examination is significantly suboptima l without oral and IV contrast. There is also motion artifact, and significant streak artifact from t he arms which could not be elevated above the chest or abdomen. A dose lowering technique was utilize d adhering to the principles of ALARA. CT DOSE: 540.09 mGycm (accession [id number]), 1045.41 mGycm (accession [id number]) FINDINGS: CHEST: Thyroid: Imaged portions of the thyroid gland are normal in size and attenuation. Thoracic aorta: There is mild atherosclerotic calcification of the thoracic aorta, which is normal in caliber and demonstrates standard 3-vessel arch anatomy. Heart: The patient is status post midline sternotomy. The heart is mildly enlarged and without perica rdial effusion. Lungs and pleural spaces: Evaluation of the lung parenchyma is significantly degraded by streak and m otion. There are trace pleural effusions with dependent atelectasis. Mild intralobular septal thicken ing and faint groundglass change could represent congestive failure/fluid overload. The trachea and c entral airways appear clear. There is no pneumothorax. Mediastinum: Scattered subcentimeter mediastinal lymph nodes are not pathologically enlarged by size criteria. Lianne: Not well assessed without IV contrast. Axillae: There is no axillary lymphadenopathy. Bony thorax: The skeletal structures are osteopenic. No lytic or blastic lesions are identified. Dege nerative change is noted in the shoulders. ABDOMEN AND PELVIS: Liver: Evaluation of the liver is significantly compromised by streak artifact. The unenhanced liver is liver is cirrhotic in morphology and heterogeneous in attenuation. There is hypertrophy of the lef t lobe and nodularity of the hepatic surface contour. There is no intrahepatic biliary ductal dilatat ion. Gallbladder: The gallbladder is partially distended. Mild gallbladder wall thickening is likely relat ed to adjacent hepatocellular disease. Spleen: Normal in size and attenuation. Pancreas: The unenhanced pancreas is moderately atrophic and grossly unremarkable. Adrenal glands: Unremarkable. Kidneys: The unenhanced kidneys demonstrate cortical atrophy and are without hydronephrosis. No renal calculi are identified. There is no evidence of contour deforming mass lesion. Abdominal vasculature: The abdominal aorta is normal in course and caliber noting moderate atheroscle rotic calcification. Stomach and bowel: There is a small hiatal hernia. There is mild to moderate colonic diverticulosis w ithout CT evidence of acute diverticulitis. No bowel obstruction is seen. Mild fecal retention is not ed throughout the colon. The appendix is well-visualized and normal. Peritoneum: There is no intraperitoneal free air or abdominal ascites. There is a small fat-containin g umbilical hernia. Lymphadenopathy: None. Pelvic viscera: The bladder is decompressed around a Rashid catheter and not well evaluated. The prost ate and seminal vesicles are normal as imaged. There are small bilateral fat-containing inguinal mel ias. Skeletal structures: The skeletal structures are osteopenic. No lytic or blastic lesions are seen. Th ere is avascular necrosis of the femoral heads. IMPRESSION: 1. Suboptimal examination without oral and IV contrast. There is also severe streak and motion artifa ct. 2. Cardiomegaly with findings suggestive of congestive failure/fluid overload. Clinical correlation w ill be required. 3. Trace pleural effusions. 4. Cirrhotic liver morphology. 5. No acute infectious or inflammatory findings are seen in the abdomen or pelvis. 6. Avascular necrosis of the femoral heads. 7. Additional findings as above. ACT 112: Negative or not required by law. Electronically signed by: Sebas Galicia M.D. 01/31/2021 9:18 AM
[2021-01-31] MEDS: CARBIDOPA/LEVODOPA 25/100MG EXT REL TAB PO SCH ×4 (09:39→21:56)
[2021-01-31 10:10] LABS: BUN Creatinine Ratio 15.2 (10-20); Calcium 6.7 mg/dl (8.5-10.1); Creatinine Clr Calc Pharmacy 36.6 ml/min; Est GFR (African American) 31.4 ml/min; Est GFR (Non-African American) 27.1 ml/min; Potassium 7.6 mmol/L (3.5-5.1)
[2021-01-31] MEDS ORDERED: NORMOSOL-R 1,000 ML IV ONE (10:18)
--- NOTE | 2021-01-31 10:27 | Nephrology Consultation ---
Date of Consultation January 31, 2021 Assessment & Plan (1) Acute kidney injury: (2) Hyperkalemia: (3) Lactic acidosis: (4) Septic shock: 60-year-old gentleman with no known history of CKD, admitted with septic shock of unclear source, hypertension, lactic acidosis, ISMAEL and hyperkalemia. Potassium worsened to 7.6 despite getting conservative her treatment. Started to make urine with pressor and IV fluid support with improvement in blood pressure. --Just received insulin, D50 calcium gluconate, waiting for repeat potassium check in 30 minutes. If potassium stays 7 or higher, will get temporary dialysis catheter and do dialysis. Otherwise continue to monitor with hemodynamic support with IV fluid and pressor. Continue to monitor urine output, as urine output seems to have picked up with improvement in blood pressure, it is possible the potassium will improve and may be able to avoid dialysis. --continue to hold Lisinopril/HCTZ, Metformin Will follow Thank you for allowing me to participate in your patient's care. It was a pleasure to see Mr. Boyce. History of Present Illness Reason for Consultation: Acute kidney injury, hyperkalemia. Attending Physician: Basim Brown History of Present Illness Mr. Boyce is a 60-year-old male with Past medical history significant fo r coronary artery disease, status post CABG, hypertension, diabetes, BPH and dyslipidemia admitted to the hospital with septic shock, ISMAEL and hyperkalemia. Nephrology consult was requested for management of ISMAEL and hyperkalemia and evaluation for emergency dialysis for hyperkalemia. EMR records reviewed in detail in patient's visit. Patrick was brought to ER from local residential for AMS, hypotension and generalized weakness. He reports feeling generally weak, decreased urine output and several episodes of vomiting over last few days. Denied any abdominal pain, diarrhea, cough or shortness of breath. No dysuria hematuria. On admission he was profoundly hypotensive with blood pressure 58/45 and remained persistently hypotensive despite IV fluid resuscitation. Lactate was elevated at 13. c reatinine was 2.7 with no baseline available however as per patient no known history of CKD. Had metabolic acidosis with anion gap of 218, pH of 7.1. Potassium initially was 7.2 which further worsened to 7.6 on repeat lab. Urinalysis was negative for proteinuria, hematuria pyuria or bacteriuria. CT abdomen pelvis without contrast showed no postrenal obstruction. EKG showed normal sinus rhythm with peaked T-wave. He denied taking NSAIDs recently. Has been on Lisinopril/hydrochlorothiazide for hypertension. He has known history of BPH with lower urinary tract symptoms. Ex-smoker quit smoking many years ago, prior to that had almost 10 years of smoking. No known family history of CKD or ESRD. Has history of hypertension, was on lisinopril and hydrochlorothiazide. History of diabetes with no history of retinopathy but no known neuropathy, no proteinuria. History of coronary artery disease status post CABG more than 5 years ago. He has known history of BPH with lower urinary tract symptoms. Currently he is awake, alert, answering questions appropriately. c/o pain in b/l foot. On IV fluid and pressor, blood pressure improved, last blood pressure 119/51. O2 sat 96% on room air. Just received insulin, D50, calcium gluconate and waiting for repeat potassium level. Has Rashid catheter and has almost 500 mL of urine in bag since admission. Allergies Allergy/AdvReac Type Severity Reaction Status Date / Time No Known Allergies Allergy Unverified 01/31/21 01:01 Home Medications Medication Instructions Recorded Confirmed Type amlodipine 5 mg tablet 5 mg PO DAILY 01/31/21 01/31/21 History carbidopa ER 25 mg-levodopa 100 mg 1 tab PO QID 01/31/21 01/31/21 History tablet,extended release duloxetine 60 mg capsule,delayed 60 mg PO BID 01/31/21 01/31/21 History release finasteride 5 mg tablet 5 mg PO QPM 01/31/21 01/31/21 History hydroxyzine pamoate 50 mg capsule 50 mg PO HS 01/31/21 01/31/21 History insulin NPH isoph U-100 human 100 14 unit SUBCUT QPM 01/31/21 01/31/21 History unit/mL subcutaneous suspension (Novolin N NPH U-100 Insulin isophane) insulin NPH isoph U-100 human 100 34 unit SUBCUT QAM 01/31/21 01/31/21 History unit/mL subcutaneous suspension (Novolin N NPH U-100 Insulin isophane) lisinopril 20 1 tab PO DAILY 01/31/21 01/31/21 History mg-hydrochlorothiazide 12.5 mg tablet metformin 500 mg tablet 500 mg PO BID 01/31/21 01/31/21 History mirtazapine 45 mg tablet 45 mg PO HS 01/31/21 01/31/21 History nortriptyline 25 mg capsule 25 mg PO HS 01/31/21 01/31/21 History omeprazole 20 mg capsule,delayed 20 mg PO DAILY 01/31/21 01/31/21 History release ondansetron HCl 4 mg tablet 4 mg PO QID PRN 01/31/21 01/31/21 History pravastatin 40 mg tablet 40 mg PO HS 01/31/21 01/31/21 History primidone 50 mg tablet 200 mg PO TID 01/31/21 01/31/21 History tamsulosin 0.4 mg capsule 0.8 mg PO HS 01/31/21 01/31/21 History Patient History Medical History (Updated 01/31/21 @ 12:18 by Therese Hathaway MD) Acute kidney injury Anxiety with depression BPH w urinary obs/LUTS Diabetes mellitus with chronic kidney disease, with long-term current use of insulin GERD (gastroesophageal reflux disease) Hyperkalemia Hyperlipidemia Hypertension Insomnia Parkinson's disease Social History Smoking Status: Never smoker Hx Alcohol Use: No Hx Substance Use: No Preferred Language: [place] Zealander Communication Ability: Effective Server Support Technician Required: No Beliefs That Will Affect Care: None Current Living Situation Comment: [facility] Feels Safe at Home: Yes Review of Systems Review of Systems: Detailed ROS was done and pertinent positive and negative mentioned above in HPI. Physical Exam Constitutional: WD/WN, vitals as above + ill appearing and + obese; no acute distress Eyes: + anicteric sclerae ENMT: Ears: no hearing impairment and no external ear abnormality Nose: nasal mucous membranes not dry Neck: normal visual inspection Thyroid: no thyromegaly Respiratory: normal respiratory effort; no respiratory distress and no cough Auscultation: lungs clear to auscultation bilaterally Cardiovascular: Rate/Rhythm: regular rate and regular rhythm Heart Sounds: normal S1 and normal S2 Extremities: no edema Chest (Breasts): Additional Comments: Healed sternotomy scar. Gastrointestinal (Abdomen): Inspection/Auscultation: abdomen normal to inspection and normal bowel sounds Percussion/Palpation: abdomen soft; abdomen nontender Musculoskeletal: Extremities: extremities normal to inspection Skin: normal turgor; no rashes Neurologic: no focal motor deficits and not confused Psychiatric: Orientation: alert and oriented x 3 Affect: euthymic affect Results & Data ([facility]) Vital Signs (Past 12 Hours) Vital Signs Temp Pulse Pulse Resp BP BP Pulse Ox 01/31/21 09:00 36.1 C L 104 H 15 96 01/31/21 08:30 35.8 C L 108 H 14 98 01/31/21 08:00 35.6 C L 111 H 16 98 01/31/21 07:30 35.3 C L 110 H 19 99 01/31/21 07:00 35.2 C L 108 H 16 99 01/31/21 06:45 35.1 C L 107 H 17 99 01/31/21 06:15 35.0 C L 108 H 15 98 01/31/21 06:00 35.0 C L 104 H 13 98 01/31/21 05:45 34.9 C L 105 H 15 98 01/31/21 05:41 34.9 C L 105 H 18 119/51 L 98 01/31/21 05:40 106 H 01/31/21 05:30 34.8 C L 105 H 10 L 99 01/31/21 05:27 107 H 6 L 01/31/21 05:00 34.6 C L 100 H 15 104/76 96 01/31/21 04:45 101 H 14 89/46 L 96 01/31/21 04:30 34.5 C L 99 H 14 102/62 97 01/31/21 04:15 34.2 C L 100 H 18 103/66 97 01/31/21 04:00 100 H 15 131/74 98 01/31/21 03:45 100 H 14 97/68 L 100 01/31/21 03:30 102 H 16 91/67 L 99 01/31/21 03:15 93 H 13 112/85 100 01/31/21 03:00 98 H 15 99 01/31/21 02:54 98 H 14 97/82 L 99 01/31/21 02:15 89 14 78/50 L 97 01/31/21 02:00 87 15 68/49 L 96 01/31/21 01:53 34.4 C L 01/31/21 01:45 82 14 69/47 L 96 01/31/21 01:33 34.4 C L 01/31/21 01:30 88 98 01/31/21 01:20 88 L 01/31/21 01:15 82 58/45 L 96 01/31/21 01:00 98 H 68/40 L 94 01/31/21 00:45 100 H 74/50 L 93 01/31/21 00:41 106 H 18 68/48 L 98 01/31/21 00:37 101 H 78/58 L 94 PG Care Time/CCT Total # of Minutes Spent Total Time Spent with Patient: Total time spent is greater than 50% in coordination of care (as documented) at patient's floor/unit and/or counseling patient: Coding Level of Care Code 84258 Initial Inpt Care Lvl 3 Diagnoses Acute kidney injury N17.9 Hyperkalemia E87.5 Lactic acidosis E87.2 Septic shock A41.9; R65.21
[2021-01-31] MEDS ORDERED: INSULIN HUMAN REGULAR PER UNIT 10 UNITS in SYRINGE 9.9 ML IV ONE ×2 (11:00→18:15)
[2021-01-31] MEDS ORDERED: CALCIUM GLUCONATE 10% 2,000 MG in 0.9 % SODIUM CHLORIDE 100 ML IV ONE (11:00)
[2021-01-31] MEDS ORDERED: DEXTROSE 50% 50 ML SYRINGE IV ONE ×3 (11:00→22:56)
[2021-01-31] MEDS: DOXYCYCLINE HYCLATE 100 MG in DEXTROSE 5% 100 ML IV SCH ×2 (11:16→21:56)
[2021-01-31 11:21] LABS: Allen Test Pos (Pos); Base Excess ABG -11.7 mEq/L (-9-1.8); HCO3 ABG 13 mmol/L (19-24); Oxygen Saturation ABG 95.6 % (90-95); PCO2 ABG 28 mmHg (35-46); PO2 ABG 79 mmHg (80-95)
[2021-01-31 11:29] LABS: Fibrinogen 186 mg/dl (184-400)
[2021-01-31 11:40] LABS: Salicylate 4.7 mg/dl (2.8-20)
[2021-01-31 11:54] LABS: Estimated Average Glucose 143 mg/dl; Hemoglobin A1C 6.6 % (4.5-5.6)
[2021-01-31 12:04] LABS: Hepatitis B Surface Ab Quant < 3.10 mIU/mL (>or=10mIU/mL Immune); Hepatitis B Surface Antibody Non-Immune
[2021-01-31 12:15] LABS: Hepatitis B Surf Ag Rflx Conf Neg (Neg)
--- NOTE | 2021-01-31 12:34 | XCELERA ---
[id number]
--- NOTE | 2021-01-31 13:10 | Electrocardiogram Report ---
Test Reason : Blood Pressure : / mmHG Vent. Rate : 098 BPM Atrial Rate : 098 BPM P-R Int : 142 ms QRS Dur : 084 ms QT Int : 368 ms P-R-T Axes : 052 034 060 degrees QTc Int : 469 ms Normal sinus rhythm Nonspecific ST abnormality Abnormal ECG No previous ECGs available Confirmed by Brian Baumann ([id number]) on 01/31/2021 1:09:39 PM Referred By: [facility] Confirmed By:Eagle Baumann
[2021-01-31 13:17] LABS: BUN Creatinine Ratio 15.7 (10-20); Calcium 7.7 mg/dl (8.5-10.1); Creatinine Clr Calc Pharmacy 37.1 ml/min; Est GFR (African American) 31.9 ml/min; Est GFR (Non-African American) 27.5 ml/min; Potassium 5.4 mmol/L (3.5-5.1)
[2021-01-31 13:18] LABS: Amphetamines+Metham, Urine Neg (Neg); Barbiturates, Urine Pos (Neg); Benzodiazepine, Urine Neg (Neg); Cocaine, Urine Neg (Neg); MDMA (Ecstacy), Urine Neg (Neg); Methadone, Urine Neg (Neg); Opiate, Urine Neg (Neg); Phencyclidine, Urine Neg (Neg)
[2021-01-31] MEDS: DAPTOmycin 425 MG in SYRINGE 0 ML IV SCH (14:45)
[2021-01-31 17:39] LABS: BUN Creatinine Ratio 15.5 (10-20); Calcium 7.4 mg/dl (8.5-10.1); Creatinine Clr Calc Pharmacy 38.8 ml/min; Est GFR (African American) 33.7 ml/min; Potassium 6.8 mmol/L (3.5-5.1)
[2021-01-31] MEDS ORDERED: NORMOSOL-R 500 ML IV ONE (17:42)
[2021-01-31] MEDS ORDERED: CALCIUM GLUCONATE 10% 1,000 MG in SODIUM CHLORIDE 0.9% 50 ML IV ONE (18:15)
[2021-01-31] MEDS ORDERED: ACETYLCYSTEINE IV ONE ×2 (19:13→20:14)
[2021-01-31] MEDS ORDERED: DEXTROSE 5% IV ONE ×2 (19:13→20:14)
[2021-01-31] MEDS ORDERED: AcetylCYSTEINE IV 21 HR REGIMEN (>40KG) IV STA (19:13)
[2021-01-31] MEDS: PATIROMER CALCIUM SORBITEX 8.4 GM PACK PO SCH (19:20)
[2021-01-31 20:11] LABS: BUN Creatinine Ratio 14.8 (10-20); Calcium 7.1 mg/dl (8.5-10.1); Creatinine Clr Calc Pharmacy 35.5 ml/min; Est GFR (African American) 30.2 ml/min; Est GFR (Non-African American) 26.1 ml/min; Magnesium 1.8 mg/dl (1.8-2.4); Phosphorus 3.4 mg/dl (2.5-4.9)
[2021-01-31 20:17] LABS: INR 3.8 (0.9-1.1); Prothrombin Time 34.5 Seconds (9.0-12.0)
[2021-01-31 20:47] LABS: Albumin Level 3.1 gm/dl (3.4-5.0); Bilirubin Direct 1.6 mg/dl (0-0.2); Bilirubin,Total 2.3 mg/dl (0.2-1)
[2021-01-31] MEDS ORDERED: TAMSULOSIN HCL 0.4 MG CAP PO SCH (21:00)
[2021-01-31] MEDS ORDERED: FINASTERIDE 5 MG TAB PO SCH (21:00)
[2021-01-31] MEDS ORDERED: PRAVASTATIN SOD 40 MG TAB PO SCH (21:00)
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
[2021-01-31 22:02] LABS: Hematocrit (blood only) 28.9 % (42-52); Hemoglobin 9.1 g/dL (14.0-18.0)
[2021-01-31 22:20] LABS: Base Excess ABG -10.6 mEq/L (-9-1.8); HCO3 ABG 15 mmol/L (19-24); PCO2 ABG 29 mmHg (35-46); PO2 ABG 64 mmHg (80-95); pH ABG 7.31 (7.35-7.45)
[2021-01-31 22:26] LABS: Allen Test Pos (Pos)
--- NOTE | 2021-01-31 22:45 | Ultrasound Report ---
US gallbladder LIMITED ABDOMEN CLINICAL HISTORY: elevated LFTs. COMPARISON: None. TECHNIQUE: Multiple grayscale and color images of the right upper quadrant of the abdomen. FINDINGS: The study is limited by overlying bowel gas. Pancreas: The pancreas cannot be visualized due to overlying bowel gas. Liver: The liver is enlarged with increased echogenicity most characteristic of fatty infiltration. I t measures approximately 18.9 cm in greatest length. There is no evidence for a focal mass. There is no intrahepatic biliary duct dilatation. Gallbladder: The gallbladder is partially contracted with mild thickening of the gallbladder wall re lated to its contracted state. No evidence for cholelithiasis or pericholecystic edema is seen. There is reportedly a negative sonographic Man sign. Common Bile Duct: (CBD): It is normal in size measuring 2 mm Inferior Vena Cava (IVC): The imaged IVC is patent. Right kidney: There is no evidence for hydronephrosis, calculus or gross renal mass. The kidney is n ormal in size. IMPRESSION: 1. Limited examination with nonvisualization of the pancreas. 2. Mild hepatomegaly with fatty infiltration of the liver. 3. Partially contracted gallbladder with no evidence for cholelithiasis or ultrasound evidence for ac yady cholecystitis. Negative sonographic Man's sign. ACT 112: Negative or not required by law. Electronically signed by: Boni Palmoo M.D. 01/31/2021 10:44 PM
[2021-01-31 22:50] LABS: Acetaminophen 46 ug/ml (10-30); Albumin Level 2.9 gm/dl (3.4-5.0); BUN Creatinine Ratio 14.3 (10-20); Bilirubin Direct 1.5 mg/dl (0-0.2); Bilirubin,Total 2.2 mg/dl (0.2-1); Calcium 6.9 mg/dl (8.5-10.1); Creatinine Clr Calc Pharmacy 34.4 ml/min; Est GFR (African American) 29.1 ml/min; Est GFR (Non-African American) 25.1 ml/min; Potassium 6.4 mmol/L (3.5-5.1); Salicylate < 1.7 mg/dl (2.8-20); Total Protein 5.9 gm/dl (6.4-8.2)
[2021-01-31] MEDS ORDERED: ALBUTEROL 0.083% NEBU SOLN 3 ML VIAL NEB STA (22:59)
[2021-01-31] MEDS ORDERED: ALBUTEROL 0.083% NEBU SOLN 3 ML VIAL ONE (23:10)
[2021-01-31] MEDS ORDERED: INSULIN HUMAN REGULAR PER UNIT 8 UNITS in SYRINGE 7.92 ML IV ONE (23:15)
[2021-01-31] MEDS ORDERED: CALCIUM CHLORIDE 10% 500 MG in SODIUM CHLORIDE 0.9% 50 ML IV ONE (23:30)
[2021-02-01] MEDS ORDERED: DEXTROSE 5% IV ONE (00:14)
[2021-02-01] MEDS ORDERED: ACETYLCYSTEINE IV ONE (00:14)
[2021-02-01] MEDS: PIPERACILLIN/TAZOBACTAM 4.5 GM in DEXTROSE 5% 100 ML IV SCH ×3 (00:27→15:26)
[2021-02-01 00:53] LABS: Fibrinogen 126 mg/dl (184-400); INR 4.4 (0.9-1.1); Prothrombin Time 39.5 Seconds (9.0-12.0)
[2021-02-01 00:55] LABS: D Dimer 8530 ug/L FEU (0-500)
[2021-02-01] MEDS ORDERED: SODIUM CHLORIDE 0.9% 250 ML IV PRN ×2 (01:04→12:39)
[2021-02-01] MEDS ORDERED: STAT IV Infusion **Titration per Protocol STA (01:16)
[2021-02-01] MEDS ORDERED: INSULIN PROTOCOL GOAL RANGE ONE (01:16)
[2021-02-01] MEDS ORDERED: SEVERE STRESS LEVEL ONE (01:16)
--- NOTE | 2021-02-01 01:23 | Communication Note ---
Date of Service: February 01, 2021 Given the patient's ongoing complex medical situation, he was rounded on frequently throughout the night. It was noted the patient was having oozing estbean und his central line site as well as from previous IV sticks. This is all new from earlier in the evening. Given that the patient was having increasing INR in the setting of hepatic failure, I did elect to repeat coagulopathy panel to include INR, FDP, fibrinogen, D-dimer. Unfortunately, the patient's INR continues to climb. Remainder of coagulopathy panel including assessment of previously drawn platelet count suggests progression towards DIC. Certainly, the patient is at risk for bleeding secondary to clotting disruption in the setting of liver failure. Given these concerns and the patient clinically appears to be worsening, I did elect to have the patient typed and screened for administration of FFP, cryoprecipitate, and vitamin K. I did assess the patient at bedside and provide information about change in medical status. Additionally, the patient was noted to have persistent hyperglycemia. While the patient is on N-acetylcysteine drip we are fortunately unable to assess with bedside glucose testing as the interaction falsely elevates blood sugar levels. Because of this, orders were placed for serial serum BSG's and orders placed for insulin drip. At this point, the patient is still requiring bicarb drip which does contain dextrose. Despite that, the patient has had persistent hyperglycemia that has not been responding to pushes of insulin with attempts at correcting underlying hyperkalemia. Because of this, and the added benefit of hopefully decreasing the patient's serum potassium level, orders placed for insulin drip as well. Patient is awake, alert, and oriented. He maintains decisional capacity. I did explain risks of transfusion with the patient which she accepts. Patient able to fill out blood consent and is agreeable at this time. Patient received 1 unit FFP, 1 unit cryoprecipitate, 5 mg vitamin K. Nursing staff did receive a call from [facility]. Triage nurse from [facility] reports that the patient would "qualify for bed", however there ICU capacity is very limited and because of this, they have transition to a patient acceptance by committee model in which a group of providers will assess the case at approximately 8 AM every day and make decisions of excepting patients from outside facilities. We are to hear back later this morning regarding potential transfer to tertiary care facility with hepatology and transplant capabilities. I have personally spent 77 minutes of critical care time in the direct management of this patient. This is a life/limb threatening event. This includes time spent evaluating patient, direct bedside care, chart review, placing orders, interpretation of diagnostic studies, discussion with consultants, patient, and family members, as well as other required patient management activities. This time is exclusive of all separately billable procedures, and teaching time and separate from and in addition to any other critical care service time. Coding Level of Care Code Critical Care 1st 30-74 mins Time Spent (min) 77
[2021-02-01] MEDS ORDERED: PHYTONADIONE 5 MG in SODIUM CHLORIDE 0.9% 50 ML IV ONE ×2 (01:30→07:30)
[2021-02-01 02:13] LABS: Hepatitis B Surf Ag Rflx Conf Neg (Neg)
[2021-02-01 02:20] LABS: Beta-Hydroxybutyrate 3.15 mg/dl (0.2-2.81)
[2021-02-01] MEDS ORDERED: NovoLIN-R BOLUS FROM BAG IV ONE (02:30)
[2021-02-01] MEDS ORDERED: INSULIN REGULAR 250 UNITS in SODIUM CHLORIDE 0.9% 247.5 ML IV SCH (02:30)
[2021-02-01 04:50] LABS: Beta-Hydroxybutyrate 2.74 mg/dl (0.2-2.81)
[2021-02-01 06:12] LABS: Hematocrit (blood only) 30.3 % (42-52); Hemoglobin 9.6 g/dL (14.0-18.0); Mean Corpuscular Hemoglobin 29.7 pg (25-34); Mean Corpuscular Hgb Conc 31.7 g/dL (32-36); Mean Corpuscular Volume 93.8 fL (80-100); RDW Coefficient of Variation 15.4 % (11.5-14.5); RDW Standard Deviation 53.1 fL (36.4-46.3); Red Blood Count 3.23 M/uL (4.7-6.1); White Blood Count 10.09 K/uL (4.8-10.8)
[2021-02-01 06:14] LABS: Mean Platelet Volume 9.4 fL (7.4-10.4); Platelet Count 73 K/uL (130-400)
[2021-02-01 06:21] LABS: Base Excess ABG -9.4 mEq/L (-9-1.8); HCO3 ABG 16 mmol/L (19-24); Oxygen Saturation ABG 95.1 % (90-95); PCO2 ABG 32 mmHg (35-46); PO2 ABG 80 mmHg (80-95); pH ABG 7.31 (7.35-7.45)
[2021-02-01 06:35] LABS: Albumin Level 3.1 gm/dl (3.4-5.0); BUN Creatinine Ratio 12.8 (10-20); Bilirubin Direct 1.9 mg/dl (0-0.2); Calcium 7.5 mg/dl (8.5-10.1); Creatinine Clr Calc Pharmacy 28.2 ml/min; Est GFR (African American) 22.9 ml/min; Est GFR (Non-African American) 19.7 ml/min; Magnesium 1.8 mg/dl (1.8-2.4); Phosphorus 4.1 mg/dl (2.5-4.9); Potassium 5.7 mmol/L (3.5-5.1)
[2021-02-01 06:37] LABS: Allen Test Pos (Pos)
[2021-02-01] MEDS: SODIUM BICARBONATE 8.4% 150 MEQ in DEXTROSE 5% 1,000 ML IV SCH (06:43)
[2021-02-01 06:52] LABS: Basophils # (auto) 0.01 K/uL (0-0.2); Basophils % (auto) 0.1 %; Immature Granulocytes # (auto) 0.01 K/uL (0.00-0.02); Immature Granulocytes % (auto) 0.1 %; Lymphocytes # (auto) 0.66 K/uL (1.2-3.4); Lymphocytes % (auto) 6.5 %; Monocytes # (auto) 0.29 K/uL (0.11-0.59); Monocytes % (auto) 2.9 %; Neutrophils # (auto) 9.12 K/uL (1.4-6.5); Neutrophils % (auto) 90.4 %; Polychromasia 1+
[2021-02-01 06:53] LABS: Fibrinogen 169 mg/dl (184-400)
[2021-02-01] MEDS ORDERED: FUROSEMIDE 40 MG/4 ML VIAL IV ONE (07:06)
[2021-02-01 07:19] LABS: Beta-Hydroxybutyrate 2.52 mg/dl (0.2-2.81); Bilirubin,Total 2.9 mg/dl (0.2-1); Total Protein 6.3 gm/dl (6.4-8.2)
[2021-02-01] MEDS ORDERED: SODIUM BICARBONATE 8.4% 75 MEQ in DEXTROSE 5% 1,000 ML IV SCH (07:30)
[2021-02-01] MEDS: CARBIDOPA/LEVODOPA 25/100MG EXT REL TAB PO SCH ×4 (07:30→21:20)
[2021-02-01] MEDS: INSULIN ASPART 100 UNITS/ML 3 ML PEN SC SCH ×4 (07:34→21:20)
[2021-02-01] MEDS: VASOPRESSIN 20 UNITS in 0.9 % SODIUM CHLORIDE 100 ML IV SCH (07:35)
--- NOTE | 2021-02-01 08:36 | XRay Report ---
XR chest 1V portable HISTORY: Shortness of breath. COMPARISON: Chest 01/31/2021. FINDINGS: No pneumothorax. There are low lung volumes. There are small bilateral pleural effusions. T he heart is mildly enlarged. There is mild interstitial/vascular thickening which has developed in th e interval. This favors mild interstitial pulmonary edema. There are bibasilar densities which are no nspecific but favor subsegmental atelectasis. Mild gaseous distention of the stomach. There are posts ternotomy changes. Right jugular central venous catheter terminates at the distal SVC. IMPRESSION: 1. Low lung volumes. 2. Interval development of mild interstitial pulmonary edema and trace bilateral pleural effusions. 2. Patchy bibasilar densities are nonspecific but favor subsegmental atelectasis given the low lung v olumes. ACT 112: Negative or not required by law. Electronically signed by: Dallas Engel M.D. 02/01/2021 8:35 AM
[2021-02-01 08:45] LABS: Beta-Hydroxybutyrate 2.71 mg/dl (0.2-2.81)
--- NOTE | 2021-02-01 08:59 | Critical Care Progress Note ---
Date of Service February 01, 2021 Assessment & Plan (1) Acute liver failure: (2) Tylenol toxicity: (3) Lactic acidosis: (4) Acute kidney injury: Plan: 60-year-old male with a past medical history of GERD, hyperlipidemia, insomnia, anxiety, depression and Parkinson's disease who presented to the hospital with liver failure, ISMAEL, septic shock and possible acetaminophen overdose. Neurologic: Mental status remained stable, but we will keep a close eye on things given his hyperammonemia and liver failure. He is at risk for cerebral edema. Pulmonary: Chest x-ray with increasing pulmonary edema and infiltrates like related to volume overload. Patient is agreeable to intubation mechanical ventilation if required. Cardiovascular: Requiring low doses of Levophed and vasopressin to maintain mean arterial pressure, 65 mmHg. Right IJ central line in place. Echo from 01/31/2021 with evidence of left ventricle that is hyperdynamic. Right ventricular pressure is normal. Holding antihypertensives. Gastrointestinal: Severe transaminitis seen. Patient with worsening liver failure and severe coagulopathy. Received cryoprecipitate and FFP today. Receiving 10 mg of vitamin K today. Tertiary care centers contacted due to liver failure. No beds available at this time. Waiting to hear back from [facility]. Gallbladder ultrasound yesterday with mild hepatomegaly and fatty infiltration. Acetaminophen level was elevated yesterday. Currently on NAC protocol. Continue lactulose due to hyperammonemia. Trend ammonia twice daily. GI consult placed. Will initiate pantoprazole drip. Renal: ISMAEL in the setting of ischemic ATN. Given 80 mg of IV Lasix today. We will need to proceed with dialysis given ongoing hyperkalemia and acidosis. Reducing the bicarb drip to 80 mL/h. Nephrology on board. Given posterior due to hyperkalemia. Infectious disease: Blood cultures negative to date. Continue broad-spectrum antibiotics for possible septic shock. Currently on daptomycin and Zosyn. Hematologic: Received FFP, vitamin K and cryo. Likely liver failure related coagulopathy. Monitor CBC every 12 hours. Endocrine: Hyperglycemic related to D5. We will hold on insulin due to hypoglycemia on presentation. Lines and tubes: Right IJ in place 01/31/2021. Radial line in place 01/31/2021. VTE prophylaxis: SCDs CODE STATUS: Patient relates that he does not want chest compressions or defibrillation in the event of a cardiac arrest. He is okay with intubation mechanical ventilation if required. We will consult palliative care due to poor prognosis. Family at bedside:None available Disposition: Remain in ICU. Grave prognosis. I have personally spent 73 minutes of critical care time in the direct management of this patient. This is a life/limb threatening event. This includes time spent evaluating patient, direct bedside care, chart review, placing orders, interpretation of diagnostic studies, discussion with consultants, patient, and family members, as well as other required patient management activities. This time is exclusive of all separately billable procedures, and teaching time and separate from and in addition to any other critical care service time. Thank you for allowing us to participate in the care of this patient. Admission and Anticipated Discharge Date Admission Date: January 31, 2021 Subjective Patient seen and examined this morning. He has increasing tachypnea and hypoxia. Hemodynamically he remains similar to yesterday. He has had worsening INR and creatinine today. He denies any chest pain. He does endorse shortness of breath. Review of Systems Review of Systems: All systems reviewed & are unremarkable except as noted in HPI & below Physical Exam Physical Exam: VITAL SIGNS - Vital signs and nursing notes were reviewed. GENERAL - 60-year-old male appearing older than his stated age in mild distress SKIN - Without rashes. HEAD - NC/AT. EYES - PERRL with EOMI bilaterally. Sclera anicteric. EARS - No deformities of external structures noted on gross examination bilaterally. NOSE - Midline and without cyanosis. No epistaxis or purulent drainage noted. MOUTH/OROPHARYNX - Without perioral cyanosis. Buccal mucosa pink and dry. NECK - Neck with FROM. Supple to palpation. No lymphadenopathy noted. No nuchal rigidity. LUNGS - Chest wall symmetric without accessory muscle use, intercostals retractions, or central cyanosis. Normal vesicular breath sounds CTA B/L. No wheezes, rales, or rhonchi appreciated. CARDIAC - RRR with S1/S2. No murmur, rubs, or gallops appreciated. ABDOMEN - Abdominal contour obese without pulsations or visible masses. BS normoactive all four quadrants. No tenderness, palpable masses, hepatosplenomegaly, or ascites noted. EXTREMITIES - No clubbing or peripheral cyanosis. No pretibial edema present. +2/5 radial and dorsalis pedis pulses palpated throughout. +4/5 strength noted in UE/LE bilaterally. NEUROLOGIC - Cranial nerves II through XII grossly intact. Psychiatric -alert and oriented x3. Euthymic. Results & Data Results & Data ([facility]) Vital Signs (Past 12 Hours) Vital Signs Temp Pulse Pulse Resp BP Pulse Ox 02/01/21 06:58 105 H 14 140/57 L 97 02/01/21 06:00 108 H 22 92 02/01/21 05:53 36.6 C 107 H 29 H 142/66 H 97 02/01/21 05:45 109 H 28 H 97 02/01/21 05:38 36.6 C 110 H 28 H 141/68 H 95 02/01/21 05:30 107 H 21 94 02/01/21 05:17 36.6 C 107 H 26 H 126/62 93 02/01/21 05:15 36.5 C 107 H 27 H 123/63 93 02/01/21 05:00 108 H 27 H 95 02/01/21 04:45 110 H 20 02/01/21 04:32 36.5 C 110 H 20 127/62 94 02/01/21 04:30 110 H 17 93 02/01/21 04:15 110 H 25 H 95 02/01/21 04:00 111 H 20 92 02/01/21 03:45 111 H 21 95 02/01/21 03:32 37.1 C 111 H 24 146/60 H 96 02/01/21 03:30 113 H 23 95 02/01/21 03:15 113 H 23 88 L 02/01/21 03:02 37 C 12 L 24 138/61 95 02/01/21 03:00 112 H 24 94 02/01/21 02:47 37 C 112 H 20 91/50 L 94 02/01/21 02:45 112 H 29 H 94 02/01/21 02:30 114 H 32 H 95 02/01/21 02:26 37 C 116 H 28 H 137/56 L 98 02/01/21 02:15 116 H 25 H 95 02/01/21 02:00 117 H 29 H 95 02/01/21 01:45 115 H 13 90 02/01/21 01:30 115 H 25 H 91 02/01/21 01:15 116 H 53 H 93 02/01/21 01:00 115 H 18 90 02/01/21 00:45 117 H 23 93 02/01/21 00:30 116 H 23 93 02/01/21 00:15 117 H 18 93 02/01/21 00:00 36.9 C 117 H 25 H 93 01/31/21 23:17 114 H 22 92 Coding Level of Care Code Critical Care ea addt'l 30 min Diagnoses Acute liver failure K72.00 Tylenol toxicity T39.1X1A Lactic acidosis E87.2 Acute kidney injury N17.9 Time Spent (min) 73
[2021-02-01] MEDS ORDERED: FAMOTIDINE 20 MG in SYRINGE 3 ML IV SCH (09:00)
[2021-02-01] MEDS ORDERED: LACTULOSE SYRUP 30 GM/45 ML UDP PO SCH (09:00)
[2021-02-01] MEDS ORDERED: PANTOprazole 80 MG in DEXTROSE 5% 100 ML IV STA (09:07)
--- NOTE | 2021-02-01 09:17 | Gastrointestinal Consultation ---
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 He is currently awake, alert and oriented and answering questions appropriately. Guarded prognosis. Recommend transfer to a tertiary care center. Appears this has been attempted and has not been successful due to bed limitations due to the COVID-19 pandemic. Clinical picture concerning for acute liver failure. He was started on NAC and vit K. Presently, would continue NAC therapy and Vit K. In th e event of encephalopathy, would start lactulose. Thank you for allowing us to participate in the care of this patient. Please call with any acute changes, questions or concerns. Please see addendum below with additional recommendation from my supervising physician. (2) Acute liver failure: (3) Acute kidney injury: Supervising Physician Co-Signing Physician Notes Late entry: Patient was seen and examine don 02/01 with MARAL Thibodeaux whose note reflects our findings and plan. History of Present Illness Reason for Consultation: acute liver failure Requesting Physician: Osman Attending Physician: Pamela Brewer MD History of Present Illness 60 year old male w/ hypertension, diabetes, anxiety, depression, parkinsonism, BPH, hyperlipidemia, GERD and others below admitted w/ weakness and hypotension - GI asked to evaluate for acute liver failure. Pt was seen and evaluated, chart reviewed. Two guards at bedside. Pt is a reluctant historian. I asked him about his past medical history pertaining to liver disease and cirrhosis. He tells me he will not disclose this private information in front of a crowd. He was agreeable to continuing the discussion, however. He notes he is feeling "fine." Denies abd pain but some bloating and fullness. Some nausea but no vomiting. Denies dysphagia. Moving bowels. Denies diarrhea/constipation. Denies black or bloody stools. He denies ETOH to me He denies tylenol use to me Toxicology reviewed. Salicylates less than 4.7. Initial tylenol level 83. Some AM labs still pending. PLT normal on admission, now 73. INR 1.4 on admission now 4.4. TB 1.1 on admission now 2.9. AST 342 --> 7961, ALT 39 --> 2467, ALK 95 --> 88 ABD US 2020: Limited examination with nonvisualization of the pancreas. 2. Mild hepatomegaly with fatty infiltration of the liver. 3. Partially contracted gallbladder with no evidence for cholelithiasis or ultrasound evidence for acute cholecystitis. Negative sonographic Man's sign. Allergies Allergy/AdvReac Type Severity Reaction Status Date / Time No Known Allergies Allergy Unverified 01/31/21 01:01 Home Medications Medication Instructions Recorded Confirmed Type amlodipine 5 mg tablet 5 mg PO DAILY 01/31/21 01/31/21 History carbidopa ER 25 mg-levodopa 100 mg 1 tab PO QID 01/31/21 01/31/21 History tablet,extended release duloxetine 60 mg capsule,delayed 60 mg PO BID 01/31/21 01/31/21 History release finasteride 5 mg tablet 5 mg PO QPM 01/31/21 01/31/21 History hydroxyzine pamoate 50 mg capsule 50 mg PO HS 01/31/21 01/31/21 History insulin NPH isoph U-100 human 100 14 unit SUBCUT QPM 01/31/21 01/31/21 History unit/mL subcutaneous suspension (Novolin N NPH U-100 Insulin isophane) insulin NPH isoph U-100 human 100 34 unit SUBCUT QAM 01/31/21 01/31/21 History unit/mL subcutaneous suspension (Novolin N NPH U-100 Insulin isophane) lisinopril 20 1 tab PO DAILY 01/31/21 01/31/21 History mg-hydrochlorothiazide 12.5 mg tablet metformin 500 mg tablet 500 mg PO BID 01/31/21 01/31/21 History mirtazapine 45 mg tablet 45 mg PO HS 01/31/21 01/31/21 History nortriptyline 25 mg capsule 25 mg PO HS 01/31/21 01/31/21 History omeprazole 20 mg capsule,delayed 20 mg PO DAILY 01/31/21 01/31/21 History release ondansetron HCl 4 mg tablet 4 mg PO QID PRN 01/31/21 01/31/21 History pravastatin 40 mg tablet 40 mg PO HS 01/31/21 01/31/21 History primidone 50 mg tablet 200 mg PO TID 01/31/21 01/31/21 History tamsulosin 0.4 mg capsule 0.8 mg PO HS 01/31/21 01/31/21 History Patient History Medical History (Updated 02/03/21 @ 00:52 by Pamela Brewer MD) Acute kidney injury Acute liver failure Altered mental status Anxiety with depression BPH w urinary obs/LUTS CAD (coronary artery disease), [place] coronary artery Diabetes mellitus with chronic kidney disease, with long-term current use of insulin GERD (gastroesophageal reflux disease) Hyperkalemia Hyperlipidemia Hypertension Insomnia Palliative care encounter Parkinson's disease Tylenol toxicity Surgical History (Updated 02/02/21 @ 20:23 by Pamela Brewer MD) Hx of CABG Social History Smoking Status: Never smoker Hx Alcohol Use: No Hx Substance Use: No Preferred Language: Cypriot Communication Ability: Unable Casing Sewer Required: No Beliefs That Will Affect Care: None Current Living Situation Comment: [facility] Feels Safe at Home: Yes Assistive Devices: Oxygen - Continuous Review of Systems Review of Systems: All systems reviewed & are unremarkable except as noted in HPI & below Physical Exam Constitutional: WD/WN, vitals as above Neck: trachea midline, no thyromegaly Respiratory: normal respiratory effort; no respiratory distress and no labored breathing Cardiovascular: Rate/Rhythm: regular rhythm and + tachycardic Gastrointestinal (Abdomen): Inspection/Auscultation: abdomen not distended Percussion/Palpation: abdomen soft; abdomen nontender Skin: no rashes, warm and dry Results & Data ([facility]) Vital Signs (Past 12 Hours) Vital Signs Temp Pulse Pulse Resp BP Pulse Ox 02/01/21 08:00 105 H 140/57 L 02/01/21 06:58 105 H 14 140/57 L 97 02/01/21 06:00 108 H 22 92 02/01/21 05:53 36.6 C 107 H 29 H 142/66 H 97 02/01/21 05:45 109 H 28 H 97 02/01/21 05:38 36.6 C 110 H 28 H 141/68 H 95 02/01/21 05:30 107 H 21 94 02/01/21 05:17 36.6 C 107 H 26 H 126/62 93 02/01/21 05:15 36.5 C 107 H 27 H 123/63 93 02/01/21 05:00 108 H 27 H 95 02/01/21 04:45 110 H 20 02/01/21 04:32 36.5 C 110 H 20 127/62 94 02/01/21 04:30 110 H 17 93 02/01/21 04:15 110 H 25 H 95 02/01/21 04:00 111 H 20 92 02/01/21 03:45 111 H 21 95 02/01/21 03:32 37.1 C 111 H 24 146/60 H 96 02/01/21 03:30 113 H 23 95 02/01/21 03:15 113 H 23 88 L 02/01/21 03:02 37 C 12 L 24 138/61 95 02/01/21 03:00 112 H 24 94 02/01/21 02:47 37 C 112 H 20 91/50 L 94 02/01/21 02:45 112 H 29 H 94 02/01/21 02:30 114 H 32 H 95 02/01/21 02:26 37 C 116 H 28 H 137/56 L 98 02/01/21 02:15 116 H 25 H 95 02/01/21 02:00 117 H 29 H 95 02/01/21 01:45 115 H 13 90 02/01/21 01:30 115 H 25 H 91 02/01/21 01:15 116 H 53 H 93 02/01/21 01:00 115 H 18 90 02/01/21 00:45 117 H 23 93 02/01/21 00:30 116 H 23 93 02/01/21 00:15 117 H 18 93 02/01/21 00:00 36.9 C 117 H 25 H 93 01/31/21 23:17 114 H 22 92 Laboratory Results 02/01/21 02/01/21 02/01/21 Range/Units 09:12 09:12 09:12 WBC 7.91 (4.8-10.8) K/uL RBC 3.23 L (4.7-6.1) M/uL Hgb 9.5 L (14.0-18.0) g/dL Hct 30.3 L (42-52) % MCV 93.8 (80-100) fL MCH 29.4 (25-34) pg MCHC 31.4 L (32-36) g/dL RDW Std Deviation 51.6 H (36.4-46.3) fL RDW Coeff of Royal 15.1 H (11.5-14.5) % Plt Count Pending (130-400) K/uL MPV (7.4-10.4) fL Immature Gran % (Auto) % Neut % (Auto) % Lymph % (Auto) % Grainger % (Auto) % Eos % (Auto) % Baso % (Auto) % Neut # (Auto) (1.4-6.5) K/uL Lymph # (Auto) (1.2-3.4) K/uL Grainger # (Auto) (0.11-0.59) K/uL Eos # (Auto) (0-0.5) K/uL Baso # (Auto) (0-0.2) K/uL Immature Gran # (Auto) (0.00-0.02) K/uL Polychromasia Peripher Smr Path Cons PT (9.0-12.0) Seconds INR (0.9-1.1) Fibrinogen (184-400) mg/dl Fibrin Degrad Products (<10) mcg/ml D-Dimer (0-500) ug/L FEU ABG pH (7.35-7.45) ABG pCO2 (35-46) mmHg ABG pO2 (80-95) mmHg ABG HCO3 (19-24) mmol/L ABG O2 Saturation (90-95) % ABG Base Excess (-9-1.8) mEq/L Pablo Test (Pos) Barometric Pressure mm/Hg Oxygen Given Sodium Pending (136-145) mmol/L Potassium Pending (3.5-5.1) mmol/L Chloride Pending (98-107) mmol/L Carbon Dioxide Pending (21-32) mmol/L Anion Gap Pending (3-11) BUN Pending (7-18) mg/dl Creatinine Pending (0.6-1.4) mg/dl Est Cr Clr Drug Dosing Pending ml/min Est GFR ( Amer) Pending ml/min Est GFR (Non-Af Amer) Pending ml/min BUN/Creatinine Ratio Pending (10-20) Glucose Pending (70-99) mg/dl POC Glucose (70-99) mg/dl Estimat Average Glucose mg/dl Hemoglobin A1c (4.5-5.6) % Lactate (0.4-2.0) mmol/L Calcium Pending (8.5-10.1) mg/dl Phosphorus (2.5-4.9) mg/dl Magnesium (1.8-2.4) mg/dl Total Bilirubin (0.2-1) mg/dl Direct Bilirubin (0-0.2) mg/dl AST (15-37) U/L ALT (12-78) U/L Alkaline Phosphatase (45-117) U/L Ammonia Pending (11-32) umol/L Total Creatine Kinase (39-308) U/L Total Protein (6.4-8.2) gm/dl Albumin (3.4-5.0) gm/dl Beta-Hydroxybutyric Acd (0.2-2.81) mg/dl Procalcitonin (0-0.5) ng/ml Random Cortisol mcg/dl Urine Butalbital Salicylates (2.8-20) mg/dl Urine Opiates Screen (Neg) Ur Methadone, Qual (Neg) Acetaminophen (10-30) ug/ml Urine Barbiturates (Neg) Ur Phencyclidine (PCP) (Neg) U Amphetamin/Meth Scrn (Neg) MDMA (Ecstasy) Screen (Neg) Urine Amobarbital Urine Pentobarbital Urine Phenobarbital Urine Secobarbital U Benzodiazepines Scrn (Neg) Ur Cocaine Metabolite (Neg) U Marijuana (THC) Screen (Neg) Drug Screen Comment Hepatitis A IgM Ab Hep Bs Antigen (Neg) Hep Bs Antibody Hep Bs Antibody, Quant (>or=10mIU/mL Immune) mIU/mL Hep B Core IgM Ab (NON-REACTIVE) Hepatitis C Antibody (Neg) HCV RNA (PCR) IUs/ml HCV RNA PCR log IUs/ml Miscellaneous Test Blood Type Blood Type Recheck Antibody Screen 02/01/21 02/01/21 02/01/21 Range/Units 08:09 07:21 05:44 WBC (4.8-10.8) K/uL RBC (4.7-6.1) M/uL Hgb (14.0-18.0) g/dL Hct (42-52) % MCV (80-100) fL MCH (25-34) pg MCHC (32-36) g/dL RDW Std Deviation (36.4-46.3) fL RDW Coeff of Royal (11.5-14.5) % Plt Count (130-400) K/uL MPV (7.4-10.4) fL Immature Gran % (Auto) % Neut % (Auto) % Lymph % (Auto) % Grainger % (Auto) % Eos % (Auto) % Baso % (Auto) % Neut # (Auto) (1.4-6.5) K/uL Lymph # (Auto) (1.2-3.4) K/uL Grainger # (Auto) (0.11-0.59) K/uL Eos # (Auto) (0-0.5) K/uL Baso # (Auto) (0-0.2) K/uL Immature Gran # (Auto) (0.00-0.02) K/uL Polychromasia Peripher Smr Path Cons PT (9.0-12.0) Seconds INR (0.9-1.1) Fibrinogen (184-400) mg/dl Fibrin Degrad Products (<10) mcg/ml D-Dimer (0-500) ug/L FEU ABG pH (7.35-7.45) ABG pCO2 (35-46) mmHg ABG pO2 (80-95) mmHg ABG HCO3 (19-24) mmol/L ABG O2 Saturation (90-95) % ABG Base Excess (-9-1.8) mEq/L Pablo Test (Pos) Barometric Pressure mm/Hg Oxygen Given Sodium (136-145) mmol/L Potassium (3.5-5.1) mmol/L Chloride (98-107) mmol/L Carbon Dioxide (21-32) mmol/L Anion Gap (3-11) BUN (7-18) mg/dl Creatinine (0.6-1.4) mg/dl Est Cr Clr Drug Dosing ml/min Est GFR ( Amer) ml/min Est GFR (Non-Af Amer) ml/min BUN/Creatinine Ratio (10-20) Glucose Pending 305 H* (70-99) mg/dl POC Glucose (70-99) mg/dl Estimat Average Glucose mg/dl Hemoglobin A1c (4.5-5.6) % Lactate (0.4-2.0) mmol/L Calcium (8.5-10.1) mg/dl Phosphorus (2.5-4.9) mg/dl Magnesium (1.8-2.4) mg/dl Total Bilirubin (0.2-1) mg/dl Direct Bilirubin (0-0.2) mg/dl AST (15-37) U/L ALT (12-78) U/L Alkaline Phosphatase (45-117) U/L Ammonia (11-32) umol/L Total Creatine Kinase (39-308) U/L Total Protein (6.4-8.2) gm/dl Albumin (3.4-5.0) gm/dl Beta-Hydroxybutyric Acd 2.71 (0.2-2.81) mg/dl Procalcitonin (0-0.5) ng/ml Random Cortisol mcg/dl Urine Butalbital Salicylates (2.8-20) mg/dl Urine Opiates Screen (Neg) Ur Methadone, Qual (Neg) Acetaminophen (10-30) ug/ml Urine Barbiturates (Neg) Ur Phencyclidine (PCP) (Neg) U Amphetamin/Meth Scrn (Neg) MDMA (Ecstasy) Screen (Neg) Urine Amobarbital Urine Pentobarbital Urine Phenobarbital Urine Secobarbital U Benzodiazepines Scrn (Neg) Ur Cocaine Metabolite (Neg) U Marijuana (THC) Screen (Neg) Drug Screen Comment Hepatitis A IgM Ab Hep Bs Antigen (Neg) Hep Bs Antibody Hep Bs Antibody, Quant (>or=10mIU/mL Immune) mIU/mL Hep B Core IgM Ab (NON-REACTIVE) Hepatitis C Antibody (Neg) HCV RNA (PCR) IUs/ml HCV RNA PCR log IUs/ml Miscellaneous Test Pending Blood Type Blood Type Recheck Antibody Screen 02/01/21 02/01/21 02/01/21 Range/Units 05:44 05:44 05:44 WBC (4.8-10.8) K/uL RBC (4.7-6.1) M/uL Hgb (14.0-18.0) g/dL Hct (42-52) % MCV (80-100) fL MCH (25-34) pg MCHC (32-36) g/dL RDW Std Deviation (36.4-46.3) fL RDW Coeff of Royal (11.5-14.5) % Plt Count (130-400) K/uL MPV (7.4-10.4) fL Immature Gran % (Auto) % Neut % (Auto) % Lymph % (Auto) % Grainger % (Auto) % Eos % (Auto) % Baso % (Auto) % Neut # (Auto) (1.4-6.5) K/uL Lymph # (Auto) (1.2-3.4) K/uL Grainger # (Auto) (0.11-0.59) K/uL Eos # (Auto) (0-0.5) K/uL Baso # (Auto) (0-0.2) K/uL Immature Gran # (Auto) (0.00-0.02) K/uL Polychromasia Peripher Smr Path Cons PT (9.0-12.0) Seconds INR (0.9-1.1) Fibrinogen (184-400) mg/dl Fibrin Degrad Products (<10) mcg/ml D-Dimer (0-500) ug/L FEU ABG pH 7.31 L (7.35-7.45) ABG pCO2 32 L (35-46) mmHg ABG pO2 80 (80-95) mmHg ABG HCO3 16 L (19-24) mmol/L ABG O2 Saturation 95.1 H (90-95) % ABG Base Excess -9.4 L (-9-1.8) mEq/L Pablo Test Pos (Pos) Barometric Pressure mm/Hg Oxygen Given 2L Sodium (136-145) mmol/L Potassium (3.5-5.1) mmol/L Chloride (98-107) mmol/L Carbon Dioxide (21-32) mmol/L Anion Gap (3-11) BUN (7-18) mg/dl Creatinine (0.6-1.4) mg/dl Est Cr Clr Drug Dosing ml/min Est GFR ( Amer) ml/min Est GFR (Non-Af Amer) ml/min BUN/Creatinine Ratio (10-20) Glucose (70-99) mg/dl POC Glucose (70-99) mg/dl Estimat Average Glucose mg/dl Hemoglobin A1c (4.5-5.6) % Lactate (0.4-2.0) mmol/L Calcium (8.5-10.1) mg/dl Phosphorus (2.5-4.9) mg/dl Magnesium (1.8-2.4) mg/dl Total Bilirubin (0.2-1) mg/dl Direct Bilirubin (0-0.2) mg/dl AST (15-37) U/L ALT (12-78) U/L Alkaline Phosphatase (45-117) U/L Ammonia (11-32) umol/L Total Creatine Kinase (39-308) U/L Total Protein (6.4-8.2) gm/dl Albumin (3.4-5.0) gm/dl Beta-Hydroxybutyric Acd (0.2-2.81) mg/dl Procalcitonin 22.66 H (0-0.5) ng/ml Random Cortisol mcg/dl Urine Butalbital Salicylates (2.8-20) mg/dl Urine Opiates Screen (Neg) Ur Methadone, Qual (Neg) Acetaminophen (10-30) ug/ml Urine Barbiturates (Neg) Ur Phencyclidine (PCP) (Neg) U Amphetamin/Meth Scrn (Neg) MDMA (Ecstasy) Screen (Neg) Urine Amobarbital Urine Pentobarbital Urine Phenobarbital Urine Secobarbital U Benzodiazepines Scrn (Neg) Ur Cocaine Metabolite (Neg) U Marijuana (THC) Screen (Neg) Drug Screen Comment Hepatitis A IgM Ab Hep Bs Antigen (Neg) Hep Bs Antibody Hep Bs Antibody, Quant (>or=10mIU/mL Immune) mIU/mL Hep B Core IgM Ab (NON-REACTIVE) Hepatitis C Antibody (Neg) HCV RNA (PCR) IUs/ml HCV RNA PCR log IUs/ml Miscellaneous Test Blood Type Blood Type Recheck Antibody Screen 02/01/21 02/01/21 02/01/21 Range/Units 05:44 05:44 05:44 WBC (4.8-10.8) K/uL RBC (4.7-6.1) M/uL Hgb (14.0-18.0) g/dL Hct (42-52) % MCV (80-100) fL MCH (25-34) pg MCHC (32-36) g/dL RDW Std Deviation (36.4-46.3) fL RDW Coeff of Royal (11.5-14.5) % Plt Count (130-400) K/uL MPV (7.4-10.4) fL Immature Gran % (Auto) % Neut % (Auto) % Lymph % (Auto) % Grainger % (Auto) % Eos % (Auto) % Baso % (Auto) % Neut # (Auto) (1.4-6.5) K/uL Lymph # (Auto) (1.2-3.4) K/uL Grainger # (Auto) (0.11-0.59) K/uL Eos # (Auto) (0-0.5) K/uL Baso # (Auto) (0-0.2) K/uL Immature Gran # (Auto) (0.00-0.02) K/uL Polychromasia Peripher Smr Path Cons PT (9.0-12.0) Seconds INR (0.9-1.1) Fibrinogen 169 L D (184-400) mg/dl Fibrin Degrad Products (<10) mcg/ml D-Dimer (0-500) ug/L FEU ABG pH (7.35-7.45) ABG pCO2 (35-46) mmHg ABG pO2 (80-95) mmHg ABG HCO3 (19-24) mmol/L ABG O2 Saturation (90-95) % ABG Base Excess (-9-1.8) mEq/L Pablo Test (Pos) Barometric Pressure mm/Hg Oxygen Given Sodium (136-145) mmol/L Potassium (3.5-5.1) mmol/L Chloride (98-107) mmol/L Carbon Dioxide (21-32) mmol/L Anion Gap (3-11) BUN (7-18) mg/dl Creatinine (0.6-1.4) mg/dl Est Cr Clr Drug Dosing ml/min Est GFR ( Amer) ml/min Est GFR (Non-Af Amer) ml/min BUN/Creatinine Ratio (10-20) Glucose (70-99) mg/dl POC Glucose (70-99) mg/dl Estimat Average Glucose mg/dl Hemoglobin A1c (4.5-5.6) % Lactate 16.1 H* (0.4-2.0) mmol/L Calcium (8.5-10.1) mg/dl Phosphorus (2.5-4.9) mg/dl Magnesium (1.8-2.4) mg/dl Total Bilirubin (0.2-1) mg/dl Direct Bilirubin (0-0.2) mg/dl AST (15-37) U/L ALT (12-78) U/L Alkaline Phosphatase (45-117) U/L Ammonia 126.0 H (11-32) umol/L Total Creatine Kinase (39-308) U/L Total Protein (6.4-8.2) gm/dl Albumin (3.4-5.0) gm/dl Beta-Hydroxybutyric Acd (0.2-2.81) mg/dl Procalcitonin (0-0.5) ng/ml Random Cortisol mcg/dl Urine Butalbital Salicylates (2.8-20) mg/dl Urine Opiates Screen (Neg) Ur Methadone, Qual (Neg) Acetaminophen (10-30) ug/ml Urine Barbiturates (Neg) Ur Phencyclidine (PCP) (Neg) U Amphetamin/Meth Scrn (Neg) MDMA (Ecstasy) Screen (Neg) Urine Amobarbital Urine Pentobarbital Urine Phenobarbital Urine Secobarbital U Benzodiazepines Scrn (Neg) Ur Cocaine Metabolite (Neg) U Marijuana (THC) Screen (Neg) Drug Screen Comment Hepatitis A IgM Ab Hep Bs Antigen (Neg) Hep Bs Antibody Hep Bs Antibody, Quant (>or=10mIU/mL Immune) mIU/mL Hep B Core IgM Ab (NON-REACTIVE) Hepatitis C Antibody (Neg) HCV RNA (PCR) IUs/ml HCV RNA PCR log IUs/ml Miscellaneous Test Blood Type Blood Type Recheck Antibody Screen 02/01/21 02/01/21 02/01/21 Range/Units 05:44 05:44 03:40 WBC 10.09 (4.8-10.8) K/uL RBC 3.23 L (4.7-6.1) M/uL Hgb 9.6 L (14.0-18.0) g/dL Hct 30.3 L (42-52) % MCV 93.8 (80-100) fL MCH 29.7 (25-34) pg MCHC 31.7 L (32-36) g/dL RDW Std Deviation 53.1 H (36.4-46.3) fL RDW Coeff of Royal 15.4 H (11.5-14.5) % Plt Count 73 L (130-400) K/uL MPV 9.4 (7.4-10.4) fL Immature Gran % (Auto) 0.1 % Neut % (Auto) 90.4 % Lymph % (Auto) 6.5 % Grainger % (Auto) 2.9 % Eos % (Auto) 0.0 % Baso % (Auto) 0.1 % Neut # (Auto) 9.12 H (1.4-6.5) K/uL Lymph # (Auto) 0.66 L (1.2-3.4) K/uL Grainger # (Auto) 0.29 (0.11-0.59) K/uL Eos # (Auto) 0.00 (0-0.5) K/uL Baso # (Auto) 0.01 (0-0.2) K/uL Immature Gran # (Auto) 0.01 (0.00-0.02) K/uL Polychromasia 1+ Peripher Smr Path Cons PT (9.0-12.0) Seconds INR (0.9-1.1) Fibrinogen (184-400) mg/dl Fibrin Degrad Products (<10) mcg/ml D-Dimer (0-500) ug/L FEU ABG pH (7.35-7.45) ABG pCO2 (35-46) mmHg ABG pO2 (80-95) mmHg ABG HCO3 (19-24) mmol/L ABG O2 Saturation (90-95) % ABG Base Excess (-9-1.8) mEq/L Pablo Test (Pos) Barometric Pressure mm/Hg Oxygen Given Sodium 129 L (136-145) mmol/L Potassium 5.7 H (3.5-5.1) mmol/L Chloride 90 L (98-107) mmol/L Carbon Dioxide 16 L (21-32) mmol/L Anion Gap 23.0 H (3-11) BUN 42 H (7-18) mg/dl Creatinine 3.25 H D (0.6-1.4) mg/dl Est Cr Clr Drug Dosing 28.2 ml/min Est GFR ( Amer) 22.9 ml/min Est GFR (Non-Af Amer) 19.7 ml/min BUN/Creatinine Ratio 12.8 (10-20) Glucose 307 H* 321 H* (70-99) mg/dl POC Glucose (70-99) mg/dl Estimat Average Glucose mg/dl Hemoglobin A1c (4.5-5.6) % Lactate (0.4-2.0) mmol/L Calcium 7.5 L (8.5-10.1) mg/dl Phosphorus 4.1 (2.5-4.9) mg/dl Magnesium 1.8 (1.8-2.4) mg/dl Total Bilirubin 2.9 H (0.2-1) mg/dl Direct Bilirubin 1.9 H (0-0.2) mg/dl AST 7961 H (15-37) U/L ALT 2467 H (12-78) U/L Alkaline Phosphatase 88 (45-117) U/L Ammonia (11-32) umol/L Total Creatine Kinase (39-308) U/L Total Protein 6.3 L (6.4-8.2) gm/dl Albumin 3.1 L (3.4-5.0) gm/dl Beta-Hydroxybutyric Acd 2.52 2.74 (0.2-2.81) mg/dl Procalcitonin (0-0.5) ng/ml Random Cortisol mcg/dl Urine Butalbital Salicylates (2.8-20) mg/dl Urine Opiates Screen (Neg) Ur Methadone, Qual (Neg) Acetaminophen (10-30) ug/ml Urine Barbiturates (Neg) Ur Phencyclidine (PCP) (Neg) U Amphetamin/Meth Scrn (Neg) MDMA (Ecstasy) Screen (Neg) Urine Amobarbital Urine Pentobarbital Urine Phenobarbital Urine Secobarbital U Benzodiazepines Scrn (Neg) Ur Cocaine Metabolite (Neg) U Marijuana (THC) Screen (Neg) Drug Screen Comment Hepatitis A IgM Ab Hep Bs Antigen (Neg) Hep Bs Antibody Hep Bs Antibody, Quant (>or=10mIU/mL Immune) mIU/mL Hep B Core IgM Ab (NON-REACTIVE) Hepatitis C Antibody (Neg) HCV RNA (PCR) IUs/ml HCV RNA PCR log IUs/ml Miscellaneous Test Blood Type Blood Type Recheck Antibody Screen 02/01/21 02/01/21 02/01/21 Range/Units 01:34 01:34 01:11 WBC (4.8-10.8) K/uL RBC (4.7-6.1) M/uL Hgb (14.0-18.0) g/dL Hct (42-52) % MCV (80-100) fL MCH (25-34) pg MCHC (32-36) g/dL RDW Std Deviation (36.4-46.3) fL RDW Coeff of Royal (11.5-14.5) % Plt Count (130-400) K/uL MPV (7.4-10.4) fL Immature Gran % (Auto) % Neut % (Auto) % Lymph % (Auto) % Grainger % (Auto) % Eos % (Auto) % Baso % (Auto) % Neut # (Auto) (1.4-6.5) K/uL Lymph # (Auto) (1.2-3.4) K/uL Grainger # (Auto) (0.11-0.59) K/uL Eos # (Auto) (0-0.5) K/uL Baso # (Auto) (0-0.2) K/uL Immature Gran # (Auto) (0.00-0.02) K/uL Polychromasia Peripher Smr Path Cons PT (9.0-12.0) Seconds INR (0.9-1.1) Fibrinogen (184-400) mg/dl Fibrin Degrad Products (<10) mcg/ml D-Dimer (0-500) ug/L FEU ABG pH (7.35-7.45) ABG pCO2 (35-46) mmHg ABG pO2 (80-95) mmHg ABG HCO3 (19-24) mmol/L ABG O2 Saturation (90-95) % ABG Base Excess (-9-1.8) mEq/L Pablo Test (Pos) Barometric Pressure mm/Hg Oxygen Given Sodium (136-145) mmol/L Potassium (3.5-5.1) mmol/L Chloride (98-107) mmol/L Carbon Dioxide (21-32) mmol/L Anion Gap (3-11) BUN (7-18) mg/dl Creatinine (0.6-1.4) mg/dl Est Cr Clr Drug Dosing ml/min Est GFR ( Amer) ml/min Est GFR (Non-Af Amer) ml/min BUN/Creatinine Ratio (10-20) Glucose 302 H* (70-99) mg/dl POC Glucose 322 H* (70-99) mg/dl Estimat Average Glucose mg/dl Hemoglobin A1c (4.5-5.6) % Lactate (0.4-2.0) mmol/L Calcium (8.5-10.1) mg/dl Phosphorus (2.5-4.9) mg/dl Magnesium (1.8-2.4) mg/dl Total Bilirubin (0.2-1) mg/dl Direct Bilirubin (0-0.2) mg/dl AST (15-37) U/L ALT (12-78) U/L Alkaline Phosphatase (45-117) U/L Ammonia (11-32) umol/L Total Creatine Kinase (39-308) U/L Total Protein (6.4-8.2) gm/dl Albumin (3.4-5.0) gm/dl Beta-Hydroxybutyric Acd 3.15 H (0.2-2.81) mg/dl Procalcitonin (0-0.5) ng/ml Random Cortisol mcg/dl Urine Butalbital Salicylates (2.8-20) mg/dl Urine Opiates Screen (Neg) Ur Methadone, Qual (Neg) Acetaminophen (10-30) ug/ml Urine Barbiturates (Neg) Ur Phencyclidine (PCP) (Neg) U Amphetamin/Meth Scrn (Neg) MDMA (Ecstasy) Screen (Neg) Urine Amobarbital Urine Pentobarbital Urine Phenobarbital Urine Secobarbital U Benzodiazepines Scrn (Neg) Ur Cocaine Metabolite (Neg) U Marijuana (THC) Screen (Neg) Drug Screen Comment Hepatitis A IgM Ab Hep Bs Antigen (Neg) Hep Bs Antibody Hep Bs Antibody, Quant (>or=10mIU/mL Immune) mIU/mL Hep B Core IgM Ab (NON-REACTIVE) Hepatitis C Antibody (Neg) HCV RNA (PCR) IUs/ml HCV RNA PCR log IUs/ml Miscellaneous Test Blood Type Blood Type Recheck O Positive Antibody Screen 02/01/21 02/01/21 02/01/21 Range/Units 00:49 00:49 00:05 WBC (4.8-10.8) K/uL RBC (4.7-6.1) M/uL Hgb (14.0-18.0) g/dL Hct (42-52) % MCV (80-100) fL MCH (25-34) pg MCHC (32-36) g/dL RDW Std Deviation (36.4-46.3) fL RDW Coeff of Royal (11.5-14.5) % Plt Count (130-400) K/uL MPV (7.4-10.4) fL Immature Gran % (Auto) % Neut % (Auto) % Lymph % (Auto) % Grainger % (Auto) % Eos % (Auto) % Baso % (Auto) % Neut # (Auto) (1.4-6.5) K/uL Lymph # (Auto) (1.2-3.4) K/uL Grainger # (Auto) (0.11-0.59) K/uL Eos # (Auto) (0-0.5) K/uL Baso # (Auto) (0-0.2) K/uL Immature Gran # (Auto) (0.00-0.02) K/uL Polychromasia Peripher Smr Path Cons PT (9.0-12.0) Seconds INR (0.9-1.1) Fibrinogen (184-400) mg/dl Fibrin Degrad Products 10-40 H (<10) mcg/ml D-Dimer (0-500) ug/L FEU ABG pH (7.35-7.45) ABG pCO2 (35-46) mmHg ABG pO2 (80-95) mmHg ABG HCO3 (19-24) mmol/L ABG O2 Saturation (90-95) % ABG Base Excess (-9-1.8) mEq/L Pablo Test (Pos) Barometric Pressure mm/Hg Oxygen Given Sodium (136-145) mmol/L Potassium (3.5-5.1) mmol/L Chloride (98-107) mmol/L Carbon Dioxide (21-32) mmol/L Anion Gap (3-11) BUN (7-18) mg/dl Creatinine (0.6-1.4) mg/dl Est Cr Clr Drug Dosing ml/min Est GFR ( Amer) ml/min Est GFR (Non-Af Amer) ml/min BUN/Creatinine Ratio (10-20) Glucose (70-99) mg/dl POC Glucose (70-99) mg/dl Estimat Average Glucose mg/dl Hemoglobin A1c (4.5-5.6) % Lactate (0.4-2.0) mmol/L Calcium (8.5-10.1) mg/dl Phosphorus (2.5-4.9) mg/dl Magnesium (1.8-2.4) mg/dl Total Bilirubin (0.2-1) mg/dl Direct Bilirubin (0-0.2) mg/dl AST (15-37) U/L ALT (12-78) U/L Alkaline Phosphatase (45-117) U/L Ammonia (11-32) umol/L Total Creatine Kinase (39-308) U/L Total Protein (6.4-8.2) gm/dl Albumin (3.4-5.0) gm/dl Beta-Hydroxybutyric Acd (0.2-2.81) mg/dl Procalcitonin (0-0.5) ng/ml Random Cortisol mcg/dl Urine Butalbital Salicylates (2.8-20) mg/dl Urine Opiates Screen (Neg) Ur Methadone, Qual (Neg) Acetaminophen (10-30) ug/ml Urine Barbiturates (Neg) Ur Phencyclidine (PCP) (Neg) U Amphetamin/Meth Scrn (Neg) MDMA (Ecstasy) Screen (Neg) Urine Amobarbital Urine Pentobarbital Urine Phenobarbital Urine Secobarbital U Benzodiazepines Scrn (Neg) Ur Cocaine Metabolite (Neg) U Marijuana (THC) Screen (Neg) Drug Screen Comment Hepatitis A IgM Ab Pending Hep Bs Antigen Neg (Neg) Hep Bs Antibody Hep Bs Antibody, Quant (>or=10mIU/mL Immune) mIU/mL Hep B Core IgM Ab Pending (NON-REACTIVE) Hepatitis C Antibody Prelim Pos A (Neg) HCV RNA (PCR) IUs/ml Pending HCV RNA PCR log IUs/ml Pending Miscellaneous Test Blood Type Blood Type Recheck Antibody Screen 02/01/21 01/31/21 01/31/21 Range/Units 00:05 21:46 21:46 WBC (4.8-10.8) K/uL RBC (4.7-6.1) M/uL Hgb (14.0-18.0) g/dL Hct (42-52) % MCV (80-100) fL MCH (25-34) pg MCHC (32-36) g/dL RDW Std Deviation (36.4-46.3) fL RDW Coeff of Royal (11.5-14.5) % Plt Count (130-400) K/uL MPV (7.4-10.4) fL Immature Gran % (Auto) % Neut % (Auto) % Lymph % (Auto) % Grainger % (Auto) % Eos % (Auto) % Baso % (Auto) % Neut # (Auto) (1.4-6.5) K/uL Lymph # (Auto) (1.2-3.4) K/uL Grainger # (Auto) (0.11-0.59) K/uL Eos # (Auto) (0-0.5) K/uL Baso # (Auto) (0-0.2) K/uL Immature Gran # (Auto) (0.00-0.02) K/uL Polychromasia Peripher Smr Path Cons PT 39.5 H (9.0-12.0) Seconds INR 4.4 H (0.9-1.1) Fibrinogen 126 L D (184-400) mg/dl Fibrin Degrad Products (<10) mcg/ml D-Dimer 8530 H* (0-500) ug/L FEU ABG pH (7.35-7.45) ABG pCO2 (35-46) mmHg ABG pO2 (80-95) mmHg ABG HCO3 (19-24) mmol/L ABG O2 Saturation (90-95) % ABG Base Excess (-9-1.8) mEq/L Pablo Test (Pos) Barometric Pressure mm/Hg Oxygen Given Sodium (136-145) mmol/L Potassium (3.5-5.1) mmol/L Chloride (98-107) mmol/L Carbon Dioxide (21-32) mmol/L Anion Gap (3-11) BUN (7-18) mg/dl Creatinine (0.6-1.4) mg/dl Est Cr Clr Drug Dosing ml/min Est GFR ( Amer) ml/min Est GFR (Non-Af Amer) ml/min BUN/Creatinine Ratio (10-20) Glucose (70-99) mg/dl POC Glucose (70-99) mg/dl Estimat Average Glucose mg/dl Hemoglobin A1c (4.5-5.6) % Lactate 13.7 H* (0.4-2.0) mmol/L Calcium (8.5-10.1) mg/dl Phosphorus (2.5-4.9) mg/dl Magnesium (1.8-2.4) mg/dl Total Bilirubin (0.2-1) mg/dl Direct Bilirubin (0-0.2) mg/dl AST (15-37) U/L ALT (12-78) U/L Alkaline Phosphatase (45-117) U/L Ammonia (11-32) umol/L Total Creatine Kinase (39-308) U/L Total Protein (6.4-8.2) gm/dl Albumin (3.4-5.0) gm/dl Beta-Hydroxybutyric Acd (0.2-2.81) mg/dl Procalcitonin (0-0.5) ng/ml Random Cortisol mcg/dl Urine Butalbital Salicylates (2.8-20) mg/dl Urine Opiates Screen (Neg) Ur Methadone, Qual (Neg) Acetaminophen (10-30) ug/ml Urine Barbiturates (Neg) Ur Phencyclidine (PCP) (Neg) U Amphetamin/Meth Scrn (Neg) MDMA (Ecstasy) Screen (Neg) Urine Amobarbital Urine Pentobarbital Urine Phenobarbital Urine Secobarbital U Benzodiazepines Scrn (Neg) Ur Cocaine Metabolite (Neg) U Marijuana (THC) Screen (Neg) Drug Screen Comment Hepatitis A IgM Ab Hep Bs Antigen (Neg) Hep Bs Antibody Hep Bs Antibody, Quant (>or=10mIU/mL Immune) mIU/mL Hep B Core IgM Ab (NON-REACTIVE) Hepatitis C Antibody (Neg) HCV RNA (PCR) IUs/ml HCV RNA PCR log IUs/ml Miscellaneous Test Blood Type O Positive Blood Type Recheck Antibody Screen NEGATIVE 01/31/21 01/31/21 01/31/21 Range/Units 21:46 21:46 21:46 WBC (4.8-10.8) K/uL RBC (4.7-6.1) M/uL Hgb (14.0-18.0) g/dL Hct (42-52) % MCV (80-100) fL MCH (25-34) pg MCHC (32-36) g/dL RDW Std Deviation (36.4-46.3) fL RDW Coeff of Royal (11.5-14.5) % Plt Count (130-400) K/uL MPV (7.4-10.4) fL Immature Gran % (Auto) % Neut % (Auto) % Lymph % (Auto) % Grainger % (Auto) % Eos % (Auto) % Baso % (Auto) % Neut # (Auto) (1.4-6.5) K/uL Lymph # (Auto) (1.2-3.4) K/uL Grainger # (Auto) (0.11-0.59) K/uL Eos # (Auto) (0-0.5) K/uL Baso # (Auto) (0-0.2) K/uL Immature Gran # (Auto) (0.00-0.02) K/uL Polychromasia Peripher Smr Path Cons PT (9.0-12.0) Seconds INR (0.9-1.1) Fibrinogen (184-400) mg/dl Fibrin Degrad Products (<10) mcg/ml D-Dimer (0-500) ug/L FEU ABG pH 7.31 L (7.35-7.45) ABG pCO2 29 L (35-46) mmHg ABG pO2 64 L (80-95) mmHg ABG HCO3 15 L (19-24) mmol/L ABG O2 Saturation 90.0 (90-95) % ABG Base Excess -10.6 L (-9-1.8) mEq/L Pablo Test Pos (Pos) Barometric Pressure 729.9 mm/Hg Oxygen Given 2L Sodium 135 L (136-145) mmol/L Potassium 6.4 H* (3.5-5.1) mmol/L Chloride 97 L (98-107) mmol/L Carbon Dioxide 14 L (21-32) mmol/L Anion Gap 24.0 H (3-11) BUN 38 H (7-18) mg/dl Creatinine 2.66 H (0.6-1.4) mg/dl Est Cr Clr Drug Dosing 34.4 ml/min Est GFR ( Amer) 29.1 ml/min Est GFR (Non-Af Amer) 25.1 ml/min BUN/Creatinine Ratio 14.3 (10-20) Glucose 216 H (70-99) mg/dl POC Glucose (70-99) mg/dl Estimat Average Glucose mg/dl Hemoglobin A1c (4.5-5.6) % Lactate (0.4-2.0) mmol/L Calcium 6.9 L (8.5-10.1) mg/dl Phosphorus (2.5-4.9) mg/dl Magnesium (1.8-2.4) mg/dl Total Bilirubin 2.2 H (0.2-1) mg/dl Direct Bilirubin 1.5 H (0-0.2) mg/dl AST 5530 H (15-37) U/L ALT 1554 H (12-78) U/L Alkaline Phosphatase 72 (45-117) U/L Ammonia 87.3 H (11-32) umol/L Total Creatine Kinase (39-308) U/L Total Protein 5.9 L (6.4-8.2) gm/dl Albumin 2.9 L (3.4-5.0) gm/dl Beta-Hydroxybutyric Acd (0.2-2.81) mg/dl Procalcitonin (0-0.5) ng/ml Random Cortisol mcg/dl Urine Butalbital Salicylates (2.8-20) mg/dl Urine Opiates Screen (Neg) Ur Methadone, Qual (Neg) Acetaminophen (10-30) ug/ml Urine Barbiturates (Neg) Ur Phencyclidine (PCP) (Neg) U Amphetamin/Meth Scrn (Neg) MDMA (Ecstasy) Screen (Neg) Urine Amobarbital Urine Pentobarbital Urine Phenobarbital Urine Secobarbital U Benzodiazepines Scrn (Neg) Ur Cocaine Metabolite (Neg) U Marijuana (THC) Screen (Neg) Drug Screen Comment Hepatitis A IgM Ab Hep Bs Antigen (Neg) Hep Bs Antibody Hep Bs Antibody, Quant (>or=10mIU/mL Immune) mIU/mL Hep B Core IgM Ab (NON-REACTIVE) Hepatitis C Antibody (Neg) HCV RNA (PCR) IUs/ml HCV RNA PCR log IUs/ml Miscellaneous Test Blood Type Blood Type Recheck Antibody Screen 01/31/21 01/31/21 01/31/21 Range/Units 21:46 21:46 20:19 WBC (4.8-10.8) K/uL RBC (4.7-6.1) M/uL Hgb 9.1 L (14.0-18.0) g/dL Hct 28.9 L (42-52) % MCV (80-100) fL MCH (25-34) pg MCHC (32-36) g/dL RDW Std Deviation (36.4-46.3) fL RDW Coeff of Royal (11.5-14.5) % Plt Count (130-400) K/uL MPV (7.4-10.4) fL Immature Gran % (Auto) % Neut % (Auto) % Lymph % (Auto) % Grainger % (Auto) % Eos % (Auto) % Baso % (Auto) % Neut # (Auto) (1.4-6.5) K/uL Lymph # (Auto) (1.2-3.4) K/uL Grainger # (Auto) (0.11-0.59) K/uL Eos # (Auto) (0-0.5) K/uL Baso # (Auto) (0-0.2) K/uL Immature Gran # (Auto) (0.00-0.02) K/uL Polychromasia Peripher Smr Path Cons PT (9.0-12.0) Seconds INR (0.9-1.1) Fibrinogen (184-400) mg/dl Fibrin Degrad Products (<10) mcg/ml D-Dimer (0-500) ug/L FEU ABG pH (7.35-7.45) ABG pCO2 (35-46) mmHg ABG pO2 (80-95) mmHg ABG HCO3 (19-24) mmol/L ABG O2 Saturation (90-95) % ABG Base Excess (-9-1.8) mEq/L Pablo Test (Pos) Barometric Pressure mm/Hg Oxygen Given Sodium (136-145) mmol/L Potassium (3.5-5.1) mmol/L Chloride (98-107) mmol/L Carbon Dioxide (21-32) mmol/L Anion Gap (3-11) BUN (7-18) mg/dl Creatinine (0.6-1.4) mg/dl Est Cr Clr Drug Dosing ml/min Est GFR ( Amer) ml/min Est GFR (Non-Af Amer) ml/min BUN/Creatinine Ratio (10-20) Glucose (70-99) mg/dl POC Glucose 232 H (70-99) mg/dl Estimat Average Glucose mg/dl Hemoglobin A1c (4.5-5.6) % Lactate (0.4-2.0) mmol/L Calcium (8.5-10.1) mg/dl Phosphorus (2.5-4.9) mg/dl Magnesium (1.8-2.4) mg/dl Total Bilirubin (0.2-1) mg/dl Direct Bilirubin (0-0.2) mg/dl AST (15-37) U/L ALT (12-78) U/L Alkaline Phosphatase (45-117) U/L Ammonia (11-32) umol/L Total Creatine Kinase (39-308) U/L Total Protein (6.4-8.2) gm/dl Albumin (3.4-5.0) gm/dl Beta-Hydroxybutyric Acd (0.2-2.81) mg/dl Procalcitonin (0-0.5) ng/ml Random Cortisol mcg/dl Urine Butalbital Salicylates < 1.7 L (2.8-20) mg/dl Urine Opiates Screen (Neg) Ur Methadone, Qual (Neg) Acetaminophen 46 H (10-30) ug/ml Urine Barbiturates (Neg) Ur Phencyclidine (PCP) (Neg) U Amphetamin/Meth Scrn (Neg) MDMA (Ecstasy) Screen (Neg) Urine Amobarbital Urine Pentobarbital Urine Phenobarbital Urine Secobarbital U Benzodiazepines Scrn (Neg) Ur Cocaine Metabolite (Neg) U Marijuana (THC) Screen (Neg) Drug Screen Comment Hepatitis A IgM Ab Hep Bs Antigen (Neg) Hep Bs Antibody Hep Bs Antibody, Quant (>or=10mIU/mL Immune) mIU/mL Hep B Core IgM Ab (NON-REACTIVE) Hepatitis C Antibody (Neg) HCV RNA (PCR) IUs/ml HCV RNA PCR log IUs/ml Miscellaneous Test Blood Type Blood Type Recheck Antibody Screen 01/31/21 01/31/21 01/31/21 Range/Units 19:37 19:37 19:37 WBC (4.8-10.8) K/uL RBC (4.7-6.1) M/uL Hgb (14.0-18.0) g/dL Hct (42-52) % MCV (80-100) fL MCH (25-34) pg MCHC (32-36) g/dL RDW Std Deviation (36.4-46.3) fL RDW Coeff of Royal (11.5-14.5) % Plt Count (130-400) K/uL MPV (7.4-10.4) fL Immature Gran % (Auto) % Neut % (Auto) % Lymph % (Auto) % Grainger % (Auto) % Eos % (Auto) % Baso % (Auto) % Neut # (Auto) (1.4-6.5) K/uL Lymph # (Auto) (1.2-3.4) K/uL Grainger # (Auto) (0.11-0.59) K/uL Eos # (Auto) (0-0.5) K/uL Baso # (Auto) (0-0.2) K/uL Immature Gran # (Auto) (0.00-0.02) K/uL Polychromasia Peripher Smr Path Cons PT 34.5 H (9.0-12.0) Seconds INR 3.8 H (0.9-1.1) Fibrinogen (184-400) mg/dl Fibrin Degrad Products (<10) mcg/ml D-Dimer (0-500) ug/L FEU ABG pH (7.35-7.45) ABG pCO2 (35-46) mmHg ABG pO2 (80-95) mmHg ABG HCO3 (19-24) mmol/L ABG O2 Saturation (90-95) % ABG Base Excess (-9-1.8) mEq/L Pablo Test (Pos) Barometric Pressure mm/Hg Oxygen Given Sodium (136-145) mmol/L Potassium (3.5-5.1) mmol/L Chloride (98-107) mmol/L Carbon Dioxide (21-32) mmol/L Anion Gap (3-11) BUN (7-18) mg/dl Creatinine (0.6-1.4) mg/dl Est Cr Clr Drug Dosing ml/min Est GFR ( Amer) ml/min Est GFR (Non-Af Amer) ml/min BUN/Creatinine Ratio (10-20) Glucose (70-99) mg/dl POC Glucose (70-99) mg/dl Estimat Average Glucose mg/dl Hemoglobin A1c (4.5-5.6) % Lactate (0.4-2.0) mmol/L Calcium (8.5-10.1) mg/dl Phosphorus (2.5-4.9) mg/dl Magnesium (1.8-2.4) mg/dl Total Bilirubin 2.3 H D (0.2-1) mg/dl Direct Bilirubin 1.6 H (0-0.2) mg/dl AST 4760 H (15-37) U/L ALT 965 H (12-78) U/L Alkaline Phosphatase 78 (45-117) U/L Ammonia (11-32) umol/L Total Creatine Kinase (39-308) U/L Total Protein 6.0 L (6.4-8.2) gm/dl Albumin 3.1 L (3.4-5.0) gm/dl Beta-Hydroxybutyric Acd (0.2-2.81) mg/dl Procalcitonin (0-0.5) ng/ml Random Cortisol mcg/dl Urine Butalbital Salicylates (2.8-20) mg/dl Urine Opiates Screen (Neg) Ur Methadone, Qual (Neg) Acetaminophen 54 H (10-30) ug/ml Urine Barbiturates (Neg) Ur Phencyclidine (PCP) (Neg) U Amphetamin/Meth Scrn (Neg) MDMA (Ecstasy) Screen (Neg) Urine Amobarbital Urine Pentobarbital Urine Phenobarbital Urine Secobarbital U Benzodiazepines Scrn (Neg) Ur Cocaine Metabolite (Neg) U Marijuana (THC) Screen (Neg) Drug Screen Comment Hepatitis A IgM Ab Hep Bs Antigen (Neg) Hep Bs Antibody Hep Bs Antibody, Quant (>or=10mIU/mL Immune) mIU/mL Hep B Core IgM Ab (NON-REACTIVE) Hepatitis C Antibody (Neg) HCV RNA (PCR) IUs/ml HCV RNA PCR log IUs/ml Miscellaneous Test Blood Type Blood Type Recheck Antibody Screen 01/31/21 01/31/21 01/31/21 Range/Units 19:37 19:37 15:55 WBC (4.8-10.8) K/uL RBC (4.7-6.1) M/uL Hgb (14.0-18.0) g/dL Hct (42-52) % MCV (80-100) fL MCH (25-34) pg MCHC (32-36) g/dL RDW Std Deviation (36.4-46.3) fL RDW Coeff of Royal (11.5-14.5) % Plt Count (130-400) K/uL MPV (7.4-10.4) fL Immature Gran % (Auto) % Neut % (Auto) % Lymph % (Auto) % Grainger % (Auto) % Eos % (Auto) % Baso % (Auto) % Neut # (Auto) (1.4-6.5) K/uL Lymph # (Auto) (1.2-3.4) K/uL Grainger # (Auto) (0.11-0.59) K/uL Eos # (Auto) (0-0.5) K/uL Baso # (Auto) (0-0.2) K/uL Immature Gran # (Auto) (0.00-0.02) K/uL Polychromasia Peripher Smr Path Cons PT (9.0-12.0) Seconds INR (0.9-1.1) Fibrinogen (184-400) mg/dl Fibrin Degrad Products (<10) mcg/ml D-Dimer (0-500) ug/L FEU ABG pH (7.35-7.45) ABG pCO2 (35-46) mmHg ABG pO2 (80-95) mmHg ABG HCO3 (19-24) mmol/L ABG O2 Saturation (90-95) % ABG Base Excess (-9-1.8) mEq/L Pablo Test (Pos) Barometric Pressure mm/Hg Oxygen Given Sodium 134 L (136-145) mmol/L Potassium 6.0 H (3.5-5.1) mmol/L Chloride 99 (98-107) mmol/L Carbon Dioxide 13 L (21-32) mmol/L Anion Gap 22.0 H (3-11) BUN 38 H (7-18) mg/dl Creatinine 2.58 H (0.6-1.4) mg/dl Est Cr Clr Drug Dosing 35.5 ml/min Est GFR ( Amer) 30.2 ml/min Est GFR (Non-Af Amer) 26.1 ml/min BUN/Creatinine Ratio 14.8 (10-20) Glucose 212 H (70-99) mg/dl POC Glucose 110 H (70-99) mg/dl Estimat Average Glucose mg/dl Hemoglobin A1c (4.5-5.6) % Lactate 14.0 H* (0.4-2.0) mmol/L Calcium 7.1 L (8.5-10.1) mg/dl Phosphorus 3.4 D (2.5-4.9) mg/dl Magnesium 1.8 (1.8-2.4) mg/dl Total Bilirubin (0.2-1) mg/dl Direct Bilirubin (0-0.2) mg/dl AST (15-37) U/L ALT (12-78) U/L Alkaline Phosphatase (45-117) U/L Ammonia (11-32) umol/L Total Creatine Kinase 177 (39-308) U/L Total Protein (6.4-8.2) gm/dl Albumin (3.4-5.0) gm/dl Beta-Hydroxybutyric Acd (0.2-2.81) mg/dl Procalcitonin (0-0.5) ng/ml Random Cortisol mcg/dl Urine Butalbital Salicylates (2.8-20) mg/dl Urine Opiates Screen (Neg) Ur Methadone, Qual (Neg) Acetaminophen (10-30) ug/ml Urine Barbiturates (Neg) Ur Phencyclidine (PCP) (Neg) U Amphetamin/Meth Scrn (Neg) MDMA (Ecstasy) Screen (Neg) Urine Amobarbital Urine Pentobarbital Urine Phenobarbital Urine Secobarbital U Benzodiazepines Scrn (Neg) Ur Cocaine Metabolite (Neg) U Marijuana (THC) Screen (Neg) Drug Screen Comment Hepatitis A IgM Ab Hep Bs Antigen (Neg) Hep Bs Antibody Hep Bs Antibody, Quant (>or=10mIU/mL Immune) mIU/mL Hep B Core IgM Ab (NON-REACTIVE) Hepatitis C Antibody (Neg) HCV RNA (PCR) IUs/ml HCV RNA PCR log IUs/ml Miscellaneous Test Blood Type Blood Type Recheck Antibody Screen 01/31/21 01/31/21 01/31/21 Range/Units 15:42 12:19 12:12 WBC (4.8-10.8) K/uL RBC (4.7-6.1) M/uL Hgb (14.0-18.0) g/dL Hct (42-52) % MCV (80-100) fL MCH (25-34) pg MCHC (32-36) g/dL RDW Std Deviation (36.4-46.3) fL RDW Coeff of Royal (11.5-14.5) % Plt Count (130-400) K/uL MPV (7.4-10.4) fL Immature Gran % (Auto) % Neut % (Auto) % Lymph % (Auto) % Grainger % (Auto) % Eos % (Auto) % Baso % (Auto) % Neut # (Auto) (1.4-6.5) K/uL Lymph # (Auto) (1.2-3.4) K/uL Grainger # (Auto) (0.11-0.59) K/uL Eos # (Auto) (0-0.5) K/uL Baso # (Auto) (0-0.2) K/uL Immature Gran # (Auto) (0.00-0.02) K/uL Polychromasia Peripher Smr Path Cons PT (9.0-12.0) Seconds INR (0.9-1.1) Fibrinogen (184-400) mg/dl Fibrin Degrad Products (<10) mcg/ml D-Dimer (0-500) ug/L FEU ABG pH (7.35-7.45) ABG pCO2 (35-46) mmHg ABG pO2 (80-95) mmHg ABG HCO3 (19-24) mmol/L ABG O2 Saturation (90-95) % ABG Base Excess (-9-1.8) mEq/L Pablo Test (Pos) Barometric Pressure mm/Hg Oxygen Given Sodium 135 L 137 (136-145) mmol/L Potassium 6.8 H* D 5.4 H D (3.5-5.1) mmol/L Chloride 102 105 (98-107) mmol/L Carbon Dioxide 14 L 15 L (21-32) mmol/L Anion Gap 19.0 H 17.0 H (3-11) BUN 37 H 39 H (7-18) mg/dl Creatinine 2.36 H 2.47 H (0.6-1.4) mg/dl Est Cr Clr Drug Dosing 38.8 37.1 ml/min Est GFR ( Amer) 33.7 31.9 ml/min Est GFR (Non-Af Amer) 29.0 27.5 ml/min BUN/Creatinine Ratio 15.5 15.7 (10-20) Glucose 122 H 109 H (70-99) mg/dl POC Glucose (70-99) mg/dl Estimat Average Glucose mg/dl Hemoglobin A1c (4.5-5.6) % Lactate (0.4-2.0) mmol/L Calcium 7.4 L 7.7 L (8.5-10.1) mg/dl Phosphorus (2.5-4.9) mg/dl Magnesium (1.8-2.4) mg/dl Total Bilirubin (0.2-1) mg/dl Direct Bilirubin (0-0.2) mg/dl AST (15-37) U/L ALT (12-78) U/L Alkaline Phosphatase (45-117) U/L Ammonia (11-32) umol/L Total Creatine Kinase (39-308) U/L Total Protein (6.4-8.2) gm/dl Albumin (3.4-5.0) gm/dl Beta-Hydroxybutyric Acd (0.2-2.81) mg/dl Procalcitonin (0-0.5) ng/ml Random Cortisol mcg/dl Urine Butalbital Pending Salicylates (2.8-20) mg/dl Urine Opiates Screen (Neg) Ur Methadone, Qual (Neg) Acetaminophen (10-30) ug/ml Urine Barbiturates (Neg) Ur Phencyclidine (PCP) (Neg) U Amphetamin/Meth Scrn (Neg) MDMA (Ecstasy) Screen (Neg) Urine Amobarbital Pending Urine Pentobarbital Pending Urine Phenobarbital Pending Urine Secobarbital Pending U Benzodiazepines Scrn (Neg) Ur Cocaine Metabolite (Neg) U Marijuana (THC) Screen (Neg) Drug Screen Comment Pending Hepatitis A IgM Ab Hep Bs Antigen (Neg) Hep Bs Antibody Hep Bs Antibody, Quant (>or=10mIU/mL Immune) mIU/mL Hep B Core IgM Ab (NON-REACTIVE) Hepatitis C Antibody (Neg) HCV RNA (PCR) IUs/ml HCV RNA PCR log IUs/ml Miscellaneous Test Blood Type Blood Type Recheck Antibody Screen 01/31/21 01/31/21 01/31/21 Range/Units 12:12 11:36 10:58 WBC (4.8-10.8) K/uL RBC (4.7-6.1) M/uL Hgb (14.0-18.0) g/dL Hct (42-52) % MCV (80-100) fL MCH (25-34) pg MCHC (32-36) g/dL RDW Std Deviation (36.4-46.3) fL RDW Coeff of Royal (11.5-14.5) % Plt Count (130-400) K/uL MPV (7.4-10.4) fL Immature Gran % (Auto) % Neut % (Auto) % Lymph % (Auto) % Grainger % (Auto) % Eos % (Auto) % Baso % (Auto) % Neut # (Auto) (1.4-6.5) K/uL Lymph # (Auto) (1.2-3.4) K/uL Grainger # (Auto) (0.11-0.59) K/uL Eos # (Auto) (0-0.5) K/uL Baso # (Auto) (0-0.2) K/uL Immature Gran # (Auto) (0.00-0.02) K/uL Polychromasia Peripher Smr Path Cons PT (9.0-12.0) Seconds INR (0.9-1.1) Fibrinogen (184-400) mg/dl Fibrin Degrad Products (<10) mcg/ml D-Dimer (0-500) ug/L FEU ABG pH 7.30 L (7.35-7.45) ABG pCO2 28 L (35-46) mmHg ABG pO2 79 L (80-95) mmHg ABG HCO3 13 L (19-24) mmol/L ABG O2 Saturation 95.6 H (90-95) % ABG Base Excess -11.7 L (-9-1.8) mEq/L Pablo Test Pos (Pos) Barometric Pressure 735.4 mm/Hg Oxygen Given RA Sodium (136-145) mmol/L Potassium (3.5-5.1) mmol/L Chloride (98-107) mmol/L Carbon Dioxide (21-32) mmol/L Anion Gap (3-11) BUN (7-18) mg/dl Creatinine (0.6-1.4) mg/dl Est Cr Clr Drug Dosing ml/min Est GFR ( Amer) ml/min Est GFR (Non-Af Amer) ml/min BUN/Creatinine Ratio (10-20) Glucose (70-99) mg/dl POC Glucose 106 H (70-99) mg/dl Estimat Average Glucose mg/dl Hemoglobin A1c (4.5-5.6) % Lactate (0.4-2.0) mmol/L Calcium (8.5-10.1) mg/dl Phosphorus (2.5-4.9) mg/dl Magnesium (1.8-2.4) mg/dl Total Bilirubin (0.2-1) mg/dl Direct Bilirubin (0-0.2) mg/dl AST (15-37) U/L ALT (12-78) U/L Alkaline Phosphatase (45-117) U/L Ammonia (11-32) umol/L Total Creatine Kinase (39-308) U/L Total Protein (6.4-8.2) gm/dl Albumin (3.4-5.0) gm/dl Beta-Hydroxybutyric Acd (0.2-2.81) mg/dl Procalcitonin (0-0.5) ng/ml Random Cortisol mcg/dl Urine Butalbital Salicylates (2.8-20) mg/dl Urine Opiates Screen Neg (Neg) Ur Methadone, Qual Neg (Neg) Acetaminophen (10-30) ug/ml Urine Barbiturates Pos H (Neg) Ur Phencyclidine (PCP) Neg (Neg) U Amphetamin/Meth Scrn Neg (Neg) MDMA (Ecstasy) Screen Neg (Neg) Urine Amobarbital Urine Pentobarbital Urine Phenobarbital Urine Secobarbital U Benzodiazepines Scrn Neg (Neg) Ur Cocaine Metabolite Neg (Neg) U Marijuana (THC) Screen Neg (Neg) Drug Screen Comment Hepatitis A IgM Ab Hep Bs Antigen (Neg) Hep Bs Antibody Hep Bs Antibody, Quant (>or=10mIU/mL Immune) mIU/mL Hep B Core IgM Ab (NON-REACTIVE) Hepatitis C Antibody (Neg) HCV RNA (PCR) IUs/ml HCV RNA PCR log IUs/ml Miscellaneous Test Blood Type Blood Type Recheck Antibody Screen 01/31/21 01/31/21 01/31/21 Range/Units 10:52 10:52 10:52 WBC (4.8-10.8) K/uL RBC (4.7-6.1) M/uL Hgb (14.0-18.0) g/dL Hct (42-52) % MCV (80-100) fL MCH (25-34) pg MCHC (32-36) g/dL RDW Std Deviation (36.4-46.3) fL RDW Coeff of Royal (11.5-14.5) % Plt Count (130-400) K/uL MPV (7.4-10.4) fL Immature Gran % (Auto) % Neut % (Auto) % Lymph % (Auto) % Grainger % (Auto) % Eos % (Auto) % Baso % (Auto) % Neut # (Auto) (1.4-6.5) K/uL Lymph # (Auto) (1.2-3.4) K/uL Grainger # (Auto) (0.11-0.59) K/uL Eos # (Auto) (0-0.5) K/uL Baso # (Auto) (0-0.2) K/uL Immature Gran # (Auto) (0.00-0.02) K/uL Polychromasia Peripher Smr Path Cons PT (9.0-12.0) Seconds INR (0.9-1.1) Fibrinogen (184-400) mg/dl Fibrin Degrad Products (<10) mcg/ml D-Dimer (0-500) ug/L FEU ABG pH (7.35-7.45) ABG pCO2 (35-46) mmHg ABG pO2 (80-95) mmHg ABG HCO3 (19-24) mmol/L ABG O2 Saturation (90-95) % ABG Base Excess (-9-1.8) mEq/L Pablo Test (Pos) Barometric Pressure mm/Hg Oxygen Given Sodium (136-145) mmol/L Potassium (3.5-5.1) mmol/L Chloride (98-107) mmol/L Carbon Dioxide (21-32) mmol/L Anion Gap (3-11) BUN (7-18) mg/dl Creatinine (0.6-1.4) mg/dl Est Cr Clr Drug Dosing ml/min Est GFR ( Amer) ml/min Est GFR (Non-Af Amer) ml/min BUN/Creatinine Ratio (10-20) Glucose (70-99) mg/dl POC Glucose (70-99) mg/dl Estimat Average Glucose 143 mg/dl Hemoglobin A1c 6.6 H (4.5-5.6) % Lactate (0.4-2.0) mmol/L Calcium (8.5-10.1) mg/dl Phosphorus (2.5-4.9) mg/dl Magnesium (1.8-2.4) mg/dl Total Bilirubin (0.2-1) mg/dl Direct Bilirubin (0-0.2) mg/dl AST (15-37) U/L ALT (12-78) U/L Alkaline Phosphatase (45-117) U/L Ammonia (11-32) umol/L Total Creatine Kinase (39-308) U/L Total Protein (6.4-8.2) gm/dl Albumin (3.4-5.0) gm/dl Beta-Hydroxybutyric Acd (0.2-2.81) mg/dl Procalcitonin (0-0.5) ng/ml Random Cortisol mcg/dl Urine Butalbital Salicylates (2.8-20) mg/dl Urine Opiates Screen (Neg) Ur Methadone, Qual (Neg) Acetaminophen (10-30) ug/ml Urine Barbiturates (Neg) Ur Phencyclidine (PCP) (Neg) U Amphetamin/Meth Scrn (Neg) MDMA (Ecstasy) Screen (Neg) Urine Amobarbital Urine Pentobarbital Urine Phenobarbital Urine Secobarbital U Benzodiazepines Scrn (Neg) Ur Cocaine Metabolite (Neg) U Marijuana (THC) Screen (Neg) Drug Screen Comment Hepatitis A IgM Ab Hep Bs Antigen Neg (Neg) Hep Bs Antibody Non-Immune Hep Bs Antibody, Quant < 3.10 L (>or=10mIU/mL Immune) mIU/mL Hep B Core IgM Ab NON-REACTIVE (NON-REACTIVE) Hepatitis C Antibody (Neg) HCV RNA (PCR) IUs/ml HCV RNA PCR log IUs/ml Miscellaneous Test Blood Type Blood Type Recheck Antibody Screen 01/31/21 01/31/21 01/31/21 Range/Units 10:52 10:52 10:52 WBC (4.8-10.8) K/uL RBC (4.7-6.1) M/uL Hgb (14.0-18.0) g/dL Hct (42-52) % MCV (80-100) fL MCH (25-34) pg MCHC (32-36) g/dL RDW Std Deviation (36.4-46.3) fL RDW Coeff of Royal (11.5-14.5) % Plt Count (130-400) K/uL MPV (7.4-10.4) fL Immature Gran % (Auto) % Neut % (Auto) % Lymph % (Auto) % Grainger % (Auto) % Eos % (Auto) % Baso % (Auto) % Neut # (Auto) (1.4-6.5) K/uL Lymph # (Auto) (1.2-3.4) K/uL Grainger # (Auto) (0.11-0.59) K/uL Eos # (Auto) (0-0.5) K/uL Baso # (Auto) (0-0.2) K/uL Immature Gran # (Auto) (0.00-0.02) K/uL Polychromasia Peripher Smr Path Cons PT (9.0-12.0) Seconds INR (0.9-1.1) Fibrinogen 186 (184-400) mg/dl Fibrin Degrad Products (<10) mcg/ml D-Dimer (0-500) ug/L FEU ABG pH (7.35-7.45) ABG pCO2 (35-46) mmHg ABG pO2 (80-95) mmHg ABG HCO3 (19-24) mmol/L ABG O2 Saturation (90-95) % ABG Base Excess (-9-1.8) mEq/L Pablo Test (Pos) Barometric Pressure mm/Hg Oxygen Given Sodium (136-145) mmol/L Potassium (3.5-5.1) mmol/L Chloride (98-107) mmol/L Carbon Dioxide (21-32) mmol/L Anion Gap (3-11) BUN (7-18) mg/dl Creatinine (0.6-1.4) mg/dl Est Cr Clr Drug Dosing ml/min Est GFR ( Amer) ml/min Est GFR (Non-Af Amer) ml/min BUN/Creatinine Ratio (10-20) Glucose (70-99) mg/dl POC Glucose (70-99) mg/dl Estimat Average Glucose mg/dl Hemoglobin A1c (4.5-5.6) % Lactate (0.4-2.0) mmol/L Calcium (8.5-10.1) mg/dl Phosphorus (2.5-4.9) mg/dl Magnesium (1.8-2.4) mg/dl Total Bilirubin (0.2-1) mg/dl Direct Bilirubin (0-0.2) mg/dl AST (15-37) U/L ALT (12-78) U/L Alkaline Phosphatase (45-117) U/L Ammonia (11-32) umol/L Total Creatine Kinase (39-308) U/L Total Protein (6.4-8.2) gm/dl Albumin (3.4-5.0) gm/dl Beta-Hydroxybutyric Acd (0.2-2.81) mg/dl Procalcitonin (0-0.5) ng/ml Random Cortisol mcg/dl Urine Butalbital Salicylates 4.7 (2.8-20) mg/dl Urine Opiates Screen (Neg) Ur Methadone, Qual (Neg) Acetaminophen 83 H (10-30) ug/ml Urine Barbiturates (Neg) Ur Phencyclidine (PCP) (Neg) U Amphetamin/Meth Scrn (Neg) MDMA (Ecstasy) Screen (Neg) Urine Amobarbital Urine Pentobarbital Urine Phenobarbital Urine Secobarbital U Benzodiazepines Scrn (Neg) Ur Cocaine Metabolite (Neg) U Marijuana (THC) Screen (Neg) Drug Screen Comment Hepatitis A IgM Ab Hep Bs Antigen (Neg) Hep Bs Antibody Hep Bs Antibody, Quant (>or=10mIU/mL Immune) mIU/mL Hep B Core IgM Ab (NON-REACTIVE) Hepatitis C Antibody (Neg) HCV RNA (PCR) IUs/ml HCV RNA PCR log IUs/ml Miscellaneous Test Blood Type Blood Type Recheck Antibody Screen 01/31/21 01/31/21 01/31/21 Range/Units 10:52 09:39 08:09 WBC (4.8-10.8) K/uL RBC (4.7-6.1) M/uL Hgb (14.0-18.0) g/dL Hct (42-52) % MCV (80-100) fL MCH (25-34) pg MCHC (32-36) g/dL RDW Std Deviation (36.4-46.3) fL RDW Coeff of Royal (11.5-14.5) % Plt Count (130-400) K/uL MPV (7.4-10.4) fL Immature Gran % (Auto) % Neut % (Auto) % Lymph % (Auto) % Grainger % (Auto) % Eos % (Auto) % Baso % (Auto) % Neut # (Auto) (1.4-6.5) K/uL Lymph # (Auto) (1.2-3.4) K/uL Grainger # (Auto) (0.11-0.59) K/uL Eos # (Auto) (0-0.5) K/uL Baso # (Auto) (0-0.2) K/uL Immature Gran # (Auto) (0.00-0.02) K/uL Polychromasia Peripher Smr Path Cons PT (9.0-12.0) Seconds INR (0.9-1.1) Fibrinogen (184-400) mg/dl Fibrin Degrad Products (<10) mcg/ml D-Dimer (0-500) ug/L FEU ABG pH (7.35-7.45) ABG pCO2 (35-46) mmHg ABG pO2 (80-95) mmHg ABG HCO3 (19-24) mmol/L ABG O2 Saturation (90-95) % ABG Base Excess (-9-1.8) mEq/L Pablo Test (Pos) Barometric Pressure mm/Hg Oxygen Given Sodium 136 (136-145) mmol/L Potassium 7.6 H* (3.5-5.1) mmol/L Chloride 106 (98-107) mmol/L Carbon Dioxide 13 L (21-32) mmol/L Anion Gap 17.0 H (3-11) BUN 38 H (7-18) mg/dl Creatinine 2.50 H (0.6-1.4) mg/dl Est Cr Clr Drug Dosing 36.6 ml/min Est GFR ( Amer) 31.4 ml/min Est GFR (Non-Af Amer) 27.1 ml/min BUN/Creatinine Ratio 15.2 (10-20) Glucose 98 (70-99) mg/dl POC Glucose (70-99) mg/dl Estimat Average Glucose mg/dl Hemoglobin A1c (4.5-5.6) % Lactate 12.8 H* (0.4-2.0) mmol/L Calcium 6.7 L (8.5-10.1) mg/dl Phosphorus (2.5-4.9) mg/dl Magnesium (1.8-2.4) mg/dl Total Bilirubin (0.2-1) mg/dl Direct Bilirubin (0-0.2) mg/dl AST (15-37) U/L ALT (12-78) U/L Alkaline Phosphatase (45-117) U/L Ammonia (11-32) umol/L Total Creatine Kinase (39-308) U/L Total Protein (6.4-8.2) gm/dl Albumin (3.4-5.0) gm/dl Beta-Hydroxybutyric Acd (0.2-2.81) mg/dl Procalcitonin (0-0.5) ng/ml Random Cortisol 28.18 mcg/dl Urine Butalbital Salicylates (2.8-20) mg/dl Urine Opiates Screen (Neg) Ur Methadone, Qual (Neg) Acetaminophen (10-30) ug/ml Urine Barbiturates (Neg) Ur Phencyclidine (PCP) (Neg) U Amphetamin/Meth Scrn (Neg) MDMA (Ecstasy) Screen (Neg) Urine Amobarbital Urine Pentobarbital Urine Phenobarbital Urine Secobarbital U Benzodiazepines Scrn (Neg) Ur Cocaine Metabolite (Neg) U Marijuana (THC) Screen (Neg) Drug Screen Comment Hepatitis A IgM Ab Hep Bs Antigen (Neg) Hep Bs Antibody Hep Bs Antibody, Quant (>or=10mIU/mL Immune) mIU/mL Hep B Core IgM Ab (NON-REACTIVE) Hepatitis C Antibody (Neg) HCV RNA (PCR) IUs/ml HCV RNA PCR log IUs/ml Miscellaneous Test Blood Type Blood Type Recheck Antibody Screen
[2021-02-01 09:20] LABS: Hematocrit (blood only) 30.3 % (42-52); Hemoglobin 9.5 g/dL (14.0-18.0); Mean Corpuscular Hemoglobin 29.4 pg (25-34); Mean Corpuscular Hgb Conc 31.4 g/dL (32-36); Mean Corpuscular Volume 93.8 fL (80-100); RDW Coefficient of Variation 15.1 % (11.5-14.5); RDW Standard Deviation 51.6 fL (36.4-46.3); Red Blood Count 3.23 M/uL (4.7-6.1); White Blood Count 7.91 K/uL (4.8-10.8)
[2021-02-01 09:26] LABS: Mean Platelet Volume 9.3 fL (7.4-10.4); Platelet Count 67 K/uL (130-400)
[2021-02-01] MEDS: PANTOprazole 40 MG in DEXTROSE 5% 100 ML IV SCH ×2 (09:30→13:58)
[2021-02-01 09:39] LABS: Immature Granulocytes # (auto) 0.02 K/uL (0.00-0.02); Immature Granulocytes % (auto) 0.3 %; Lymphocytes # (auto) 0.57 K/uL (1.2-3.4); Lymphocytes % (auto) 7.2 %; Monocytes # (auto) 0.32 K/uL (0.11-0.59); Neutrophils % (auto) 88.5 %
[2021-02-01] MEDS: HEPARIN SOD 5,000 UNIT/0.5 ML VIAL SQ SCH (09:46)
[2021-02-01 09:47] LABS: BUN Creatinine Ratio 11.7 (10-20); Creatinine Clr Calc Pharmacy 26.8 ml/min; Est GFR (African American) 21.5 ml/min; Est GFR (Non-African American) 18.5 ml/min; Potassium 5.4 mmol/L (3.5-5.1)
[2021-02-01] MEDS: LACTULOSE SYRUP 20 GM/30 ML UDC PO SCH ×3 (09:47→21:20)
[2021-02-01 10:05] LABS: Beta-Hydroxybutyrate 2.48 mg/dl (0.2-2.81)
--- NOTE | 2021-02-01 10:52 | Nephrology Progress Note ---
Date of Service February 01, 2021 Assessment & Plan (1) Acute kidney injury: (2) Hyperkalemia: (3) Lactic acidosis: (4) Septic shock: (5) Acute liver failure: (6) Tylenol toxicity: Plan: 60-year-old gentleman with no known history of CKD, admitted with septic shock of unclear source, hypertension, lactic acidosis, ISMAEL and hyperkalemia and acute liver failure. initially slightly improved with pressor support. Tylenol level was 84, now down to 46. Worsening renal function, electrolyte and low UO with acute liver failure and lactic acidosis. --Plan for urgent HD with 2 K bath, minimum UF as tolerated as BP now better, getting off fo pressor --continue to hold Lisinopril/HCTZ, Metformin Will follow Admission and Anticipated Discharge Date Admission Date: January 31, 2021 Logan Nguyen was seen in ICU this am. Renal function worsened and uo dropped. K again high with gap metabolic acidosis and worsening LFT and lactate. BP improved, needs less pressor but becoming more hypoxic with increased O2 requirement. Review of Systems Review of Systems: Detailed ROS was done and pertinent positive and negative mentioned above in HPI. Physical Exam Constitutional: WD/WN, vitals as above + ill appearing and + obese; no acute distress Respiratory: + respiratory distress Auscultation: + diminished lung sounds and + rales Cardiovascular: Rate/Rhythm: regular rate and regular rhythm Heart Sounds: normal S1 and normal S2 Extremities: no edema Skin: normal turgor; no rashes Neurologic: no focal motor deficits and not confused Psychiatric: Orientation: alert and oriented x 3 Affect: euthymic affect Results & Data ([facility]) Vital Signs (Past 12 Hours) Vital Signs Temp Pulse Pulse Resp BP Pulse Ox 02/01/21 09:00 103 H 93 02/01/21 08:45 103 H 95 02/01/21 08:30 102 H 97 02/01/21 08:15 103 H 97 02/01/21 08:00 107 H 136/80 98 02/01/21 07:45 106 H 97 02/01/21 07:30 105 H 97 02/01/21 07:15 105 H 97 02/01/21 07:00 105 H 22 96 02/01/21 06:58 105 H 14 140/57 L 97 02/01/21 06:45 106 H 20 98 02/01/21 06:00 108 H 22 92 02/01/21 05:53 36.6 C 107 H 29 H 142/66 H 97 02/01/21 05:45 109 H 28 H 97 02/01/21 05:38 36.6 C 110 H 28 H 141/68 H 95 02/01/21 05:30 107 H 21 94 02/01/21 05:17 36.6 C 107 H 26 H 126/62 93 02/01/21 05:15 36.5 C 107 H 27 H 123/63 93 02/01/21 05:00 108 H 27 H 95 02/01/21 04:45 110 H 20 02/01/21 04:32 36.5 C 110 H 20 127/62 94 02/01/21 04:30 110 H 17 93 02/01/21 04:15 110 H 25 H 95 02/01/21 04:00 111 H 20 92 02/01/21 03:45 111 H 21 95 02/01/21 03:32 37.1 C 111 H 24 146/60 H 96 02/01/21 03:30 113 H 23 95 02/01/21 03:15 113 H 23 88 L 02/01/21 03:02 37 C 12 L 24 138/61 95 02/01/21 03:00 112 H 24 94 02/01/21 02:47 37 C 112 H 20 91/50 L 94 02/01/21 02:45 112 H 29 H 94 02/01/21 02:30 114 H 32 H 95 02/01/21 02:26 37 C 116 H 28 H 137/56 L 98 02/01/21 02:15 116 H 25 H 95 02/01/21 02:00 117 H 29 H 95 02/01/21 01:45 115 H 13 90 02/01/21 01:30 115 H 25 H 91 02/01/21 01:15 116 H 53 H 93 02/01/21 01:00 115 H 18 90 02/01/21 00:45 117 H 23 93 02/01/21 00:30 116 H 23 93 02/01/21 00:15 117 H 18 93 02/01/21 00:00 36.9 C 117 H 25 H 93 01/31/21 23:17 114 H 22 92 PG Care Time/CCT Total # of Minutes Spent Total Time Spent with Patient: Total time spent is greater than 50% in coordination of care (as documented) at patient's floor/unit and/or counseling patient: Coding Level of Care Code 10876 Subseq Hosp Care Lvl 3 Diagnoses Acute kidney injury N17.9 Hyperkalemia E87.5 Lactic acidosis E87.2 Septic shock A41.9; R65.21 Acute liver failure K72.00 Tylenol toxicity T39.1X1A
[2021-02-01 11:21] LABS: Beta-Hydroxybutyrate 2.25 mg/dl (0.2-2.81)
[2021-02-01 11:55] LABS: INR 3.9 (0.9-1.1); Prothrombin Time 35.6 Seconds (9.0-12.0)
[2021-02-01 11:57] LABS: Albumin Level 2.9 gm/dl (3.4-5.0); Calcium 7.2 mg/dl (8.5-10.1); Creatinine Clr Calc Pharmacy 25.1 ml/min; Est GFR (African American) 19.9 ml/min; Est GFR (Non-African American) 17.1 ml/min; Phosphorus 3.8 mg/dl (2.5-4.9); Potassium 5.3 mmol/L (3.5-5.1)
[2021-02-01] MEDS: PATIROMER CALCIUM SORBITEX 8.4 GM PACK PO SCH (13:31)
[2021-02-01] MEDS: DAPTOmycin 425 MG in SYRINGE 0 ML IV SCH (13:31)
[2021-02-01] MEDS: DOXYCYCLINE HYCLATE 100 MG in DEXTROSE 5% 100 ML IV SCH ×2 (13:31→22:37)
--- NOTE | 2021-02-01 14:23 | Electrocardiogram Report ---
Test Reason : Blood Pressure : / mmHG Vent. Rate : 110 BPM Atrial Rate : 110 BPM P-R Int : 168 ms QRS Dur : 106 ms QT Int : 344 ms P-R-T Axes : 123 155 137 degrees QTc Int : 465 ms Suspect arm lead reversal, interpretation assumes no reversal Unusual P axis, possible ectopic atrial tachycardia Low voltage QRS Incomplete right bundle branch block Inferior infarct , age undetermined Possible Anterolateral infarct , age undetermined Abnormal ECG When compared with ECG of 31-JAN-2021 00:57, Ectopic atrial rhythm has replaced Sinus rhythm Incomplete right bundle branch block is now Present Borderline criteria for Anterior infarct are now Present Borderline criteria for Anterolateral infarct are now Present Probable limb lead reversal Confirmed by Brian Baumann ([id number]) on 02/01/2021 2:23:28 PM Referred By: [facility] Confirmed By:Eagle Baumann
--- NOTE | 2021-02-01 14:31 | Electrocardiogram Report ---
Test Reason : Blood Pressure : / mmHG Vent. Rate : 103 BPM Atrial Rate : 103 BPM P-R Int : 140 ms QRS Dur : 102 ms QT Int : 348 ms P-R-T Axes : 067 056 012 degrees QTc Int : 455 ms Sinus tachycardia Low voltage QRS Incomplete right bundle branch block Abnormal ECG When compared with ECG of 31-JAN-2021 22:14, (unconfirmed) Sinus rhythm has replaced Ectopic atrial rhythm QRS axis Shifted left Confirmed by Brian Baumann ([id number]) on 02/01/2021 2:31:09 PM Referred By: [facility] Confirmed By:Eagle Baumann
--- NOTE | 2021-02-01 14:36 | Procedure Note ---
Procedure Note Date of Service February 01, 2021 Note FEMORAL VEIN DIALYSIS CATHETER PROCEDURE NOTE: Procedure: Femoral Central Line Placement Indication: Dialysis Anesthesia: None/8ml Lidocaine 1% Consent was signed and placed on the chart prior to procedure. Indication, risks, and benefits were explained at length. A time-out was completed verifying correct patient, procedure, site, positioning, and implants(s) or special equipment if applicable. Patients left Groin was cleansed and draped in the typical sterile fashion using Chloraprep. The Femoral Vein and Femoral Artery were identified using ultrasound. The superficial tissue was anesthetized using 8 mL of 1% lidocaine without epinephrine under direct visualization with the ultrasound. After adequate anesthetization was achieved, the Femoral Vein was cannulated under direct ultrasound guidance using an introducer needle on a syringe. Good venous blood return was maintained prior to removal of syringe from introducer needle. Using Seldinger Technique, a guide wire was advanced through the introducer needle without resistance. The introducer needle was removed and ultrasound images were obtained of the guide wire within the Femoral Vein and saved to the patients medical record. A small incision was made in penetrating fashion at the guide wire insertion site utilizing an 11 blade scalpel. The dilator was advanced to the vessel without resistance. The dilator was exchanged for the double lumen catheter which was advanced into the vessel without resistance. The guide wire was removed intact from the catheter without issue. Claves were placed on each catheter tip with confirmation of good blood flow from each lumen. Each port was easily flushed with sterile saline. The catheter was placed at the hub and sutured in place. BioPatch was applied to the catheter and a sterile Tegaderm dressing was applied over the catheter with careful attention to sterility. Patient tolerated procedure well. No immediate complications were met. It should be noted that originally we attempted to place a dialysis catheter in the right femoral vein, but the wire kinked and we were unable to pass the dilators and dialysis catheter. Bleeding was noted from the right femoral site and pressure was applied. Adequate hemostasis was achieved. A pressure dressing was placed and ultimately we placed a dialysis catheter in the left femoral vein as noted above. Procedural Ultrasound Guidance utilized Coding CPT Codes Tubes, Drains, and Vasc Access - Tubes, Drains, and Vasc Access: [id number] Insertion of cannula for hemodialysis ([id number]) Tubes, Drains, and Vasc Access - Tubes, Drains, and Vasc Access: [id number] Ultrasound Guidance For Vascular ([id number]) [facility] [place] (Charges) Tubes, Drains, and Vasc Access Procedure 2: Tubes, Drains, and Vasc Access: [id number] Insertion of cannula for hemodialysis Procedure 3: Tubes, Drains, and Vasc Access: [id number] Ultrasound Guidance For Vascular
[2021-02-01 15:25] LABS: INR 3.4 (0.9-1.1); Prothrombin Time 31.1 Seconds (9.0-12.0)
[2021-02-01 15:33] LABS: Albumin Level 2.8 gm/dl (3.4-5.0)
[2021-02-01 15:36] LABS: BUN Creatinine Ratio 10.5 (10-20); Calcium 6.8 mg/dl (8.5-10.1); Creatinine Clr Calc Pharmacy 24.2 ml/min; Est GFR (Non-African American) 16.4 ml/min; Potassium 4.9 mmol/L (3.5-5.1)
[2021-02-01 16:15] LABS: Bilirubin Direct 2.1 mg/dl (0-0.2); Bilirubin,Total 3.3 mg/dl (0.2-1); Total Protein 5.8 gm/dl (6.4-8.2)
[2021-02-01] MEDS ORDERED: PHARMACY GLYCEMIC MGMT CONSULT PRN (16:56)
[2021-02-01] MEDS: NOREPINEPHRINE/D5W 8 MG/508 ML BAG IV SCH (17:00)
[2021-02-01] MEDS: DEXTROSE 5% IV SCH (18:36)
[2021-02-01] MEDS: ACETYLCYSTEINE IV SCH (18:36)
--- NOTE | 2021-02-01 19:37 | Pharmacy Report ---
Pharmacy Glycemic Short Note 2 - Date of Service February 01, 2021 - Glycemic Short BSG Results (Last 24 hours): 01/31/21 01/31/21 01/31/21 19:37 20:19 21:46 Glucose 212 H 216 H POC Glucose 232 H 02/01/21 02/01/21 02/01/21 01:11 01:34 03:40 Glucose 302 H* 321 H* POC Glucose 322 H* 02/01/21 02/01/21 02/01/21 05:44 07:21 08:09 Glucose 307 H* 305 H* 301 H* POC Glucose 02/01/21 02/01/21 02/01/21 09:12 10:31 11:26 Glucose 281 H 301 H* 292 H POC Glucose 02/01/21 02/01/21 02/01/21 13:22 15:07 15:07 Glucose 283 H 251 H 247 H POC Glucose 02/01/21 02/01/21 16:15 18:00 Glucose 185 H 103 H POC Glucose OUTPATIENT ANTIDIABETIC REGIMEN: * n/a * A1c = 6.6% ASSESSMENT: * Patient admitted to ICU for acute liver failure, likely acetaminophen toxicity, ISMAEL, and shock * No prior history of DM noted however A1c 6.6%, consistent with insulin resistance and possible dx DM * patient presented with hypoglycemia, however became hyperglycemic while receiving medications mixed in dextrose as well as pressor (norepi, vasopressin). * IV insulin drip was started per protocol to control BSGs as well as treat persistent hyperkalemia. Insulin drip would be best suited to quickly and safely control hyperglycemia in a patient who may be prone to hypoglycemia with liver injury PLAN FOR INPATIENT GLYCEMIC CONTROL: * Continue IV insulin drip per protocol, goal range 110-180 * of note, lab states NAC interferes with Accuchek and BSG monitoring may not be done via Accuchek. provider has ordered serum glucose to guide insulin rate adjustments * Basal insulin * none * Bolus insulin * NovoLog SQ * Nutritional / Prandial insulin per carb ratio determined by rate adjustment calculator PLAN FOR DISCHARGE: *
--- NOTE | 2021-02-01 20:20 | Hospitalist Progress Note ---
Date of Service February 01, 2021 Assessment & Plan (1) Septic shock: Plan: Presented with hypotension and suspected septic shock Admitted to the ICU and placed on Levophed and vasopressin-now weaned off pressors Now has developed acute liver failure and acute kidney injury requiring hemodialysis Remains afebrile and blood cultures negative to date, no UTI, no pneumonia, no other source of infection found Continue Zosyn and daptomycin, doxycycline Follow cultures (2) Acute liver failure: Plan: Developed acute liver failure over the last 1 to 2 days With elevated Tylenol level 83 Continue acetylcysteine With developing coagulopathy, INR elevated, fibrinogen low, D-dimer 8000, platelets continue to drop Unfortunately, there are no available beds for transfer out for liver failure Continue lactulose-he is moving his bowels Follow LFTs, CBC, INR Was given IV vitamin K and cryoprecipitate Hold home pravastatin and primidone (3) Acute kidney injury: Plan: With worsening renal failure, hyperkalemia, metabolic acidosis, and now with oliguria Started hemodialysis on 02/01 Appreciate nephrology consultation -Follow BMP, urine output -Continue Veltassa 8.4 g p.o. once daily (4) Tylenol toxicity: Plan: As above (5) Hyperkalemia: Plan: As above (6) Hypoglycemia: Plan: Glucose was 35 upon admission, and normalized after supplementation Likely secondary to liver failure (7) Hypothermia: Plan: Resolved Likely related to liver failure and septic shock (8) Lactic acidosis: Plan: Lactate as high as 11.5 on admission ABG showed pH 7.13 Likely secondary to liver failure, possible septic shock Improving (9) Diabetes mellitus with chronic kidney disease, with long-term current use of insulin: Plan: With hypoglycemia on arrival Then her hyperglycemia today-insulin drip placed Pharmacy assistance appreciated with management of glucose (10) Hypertension: Plan: Holding meds due to hypotension (11) Parkinson's disease: Plan: Continue carbidopa - levodopa (12) Anxiety with depression: Plan: Anxiety with depression- Hold home primidone Hold duloxetine, hydroxyzine, mirtazapine and nortriptyline (13) BPH w urinary obs/LUTS: Plan: Hold finasteride Hold tamsulosin for hypotension Rashid catheter in place (14) Insomnia: Plan: For now holding mirtazapine and nortriptyline (15) Hyperlipidemia: Plan: Hold pravastatin as above (16) GERD (gastroesophageal reflux disease): Plan: Continue Protonix IV (17) Admitted to intensive care unit: Plan: Appreciate longwall foreman management DVT prophylaxis-holding heparin SQ due to coagulopathy, SCDs Disposition-continued stay in ICU, grave prognosis Admission and Anticipated Discharge Date Admission Date: January 31, 2021 Subjective Patient reports feeling terrible. He was weaned off vasopressors today and had his first round of dialysis. He was noted to be oozing around his lines last night and with worsening liver failure and coagulopathy. He had a dialysis catheter placed this morning. He does complain of some abdominal pain and pain in his feet. He has made almost no urine all day Review of Systems Review of Systems: All systems reviewed & are unremarkable except as noted in HPI & below Physical Exam Constitutional: WD/WN, vitals as above Neck: trachea midline, no thyromegaly Respiratory: normal respiratory effort, lungs clear to auscultation Cardiovascular: RRR, no murmur, no edema Chest (Breasts): Chest: normal inspection of chest Gastrointestinal (Abdomen): normal bowel sounds, soft, nontender, no hepatosplenomegaly (Mildly distended) Musculoskeletal: Extremities: extremities normal to inspection; no cyanosis and no clubbing Skin: no rashes, warm and dry Neurologic: moves all extremities and awake (But drowsy); no focal motor deficits Psychiatric: Orientation: alert, oriented to person, oriented to place and cooperative Speech is with slowed response to questioning Lymphatic: no lymphedema Results & Data Results & Data ([facility]) Vital Signs (Past 12 Hours) Vital Signs Temp Pulse Pulse Resp BP BP Pulse Ox 02/01/21 19:05 36.3 C L 93 H 101/72 02/01/21 19:00 102 H 150/67 H 02/01/21 18:46 102 H 153/63 H 02/01/21 18:28 100 H 147/66 H 02/01/21 18:14 99 H 140/64 02/01/21 18:00 99 H 131/63 02/01/21 17:44 98 H 137/63 02/01/21 17:30 97 H 26 H 102/69 97 02/01/21 17:15 97 H 121/59 L 02/01/21 17:00 98 H 26 H 117/60 97 02/01/21 16:45 97 H 101/53 L 02/01/21 16:30 96 H 26 H 115/56 L 99 02/01/21 16:15 97 H 137/63 02/01/21 16:10 36.8 C 02/01/21 16:09 36.8 C 96 H 16 133/63 97 02/01/21 16:00 96 H 25 H 133/63 95 02/01/21 15:59 97 H 16 135/62 97 02/01/21 15:45 97 H 135/62 02/01/21 15:44 36.7 C 95 H 16 123/62 98 02/01/21 15:30 94 H 27 H 97/68 L 96 02/01/21 15:29 36.8 C 95 H 16 124/63 99 02/01/21 15:15 94 H 118/60 02/01/21 15:14 36.8 C 94 H 20 118/60 98 02/01/21 15:08 93 H 121/61 02/01/21 15:03 93 H 126/61 02/01/21 15:00 36.6 C 93 H 93 H 29 H 97 02/01/21 14:59 36.6 C 93 H 28 H 121/61 98 02/01/21 14:44 36.5 C 94 H 25 H 100/53 L 99 02/01/21 14:30 36.6 C 93 H 27 H 88 L 02/01/21 14:29 36.6 C 93 H 26 H 102/54 L 97 02/01/21 14:00 93 H 23 96/66 L 99 02/01/21 13:30 93 H 17 76 L 02/01/21 13:00 93 H 34 H 94 02/01/21 12:30 93 H 25 H 94 02/01/21 12:00 94 H 40 H 98 02/01/21 11:30 94 H 24 98 02/01/21 11:00 96 H 96 02/01/21 10:55 97 H 144/63 H 02/01/21 10:45 97 H 99 02/01/21 10:30 99 H 98 02/01/21 10:15 99 H 98 02/01/21 10:00 99 H 20 96 02/01/21 09:45 98 H 93 02/01/21 09:30 101 H 88 L 02/01/21 09:15 101 H 93 02/01/21 09:00 103 H 93 02/01/21 08:45 103 H 95 02/01/21 08:30 102 H 97 Laboratory Results Laboratory results review Diagnostic Findings Gallbladder Ultrasound 01/31/21 21:51 US gallbladder LIMITED ABDOMEN CLINICAL HISTORY: elevated LFTs. COMPARISON: None. TECHNIQUE: Multiple grayscale and color images of the right upper quadrant of the abdomen. FINDINGS: The study is limited by overlying bowel gas. Pancreas: The pancreas cannot be visualized due to overlying bowel gas. Liver: The liver is enlarged with increased echogenicity most characteristic of fatty infiltration. It measures approximately 18.9 cm in greatest length. There is no evidence for a focal mass. There is no intrahepatic biliary duct dilatation. Gallbladder: The gallbladder is partially contracted with mild thickening of the gallbladder wall related to its contracted state. No evidence for cholelithiasis or pericholecystic edema is seen. There is reportedly a negative sonographic Man sign. Common Bile Duct: (CBD): It is normal in size measuring 2 mm Inferior Vena Cava (IVC): The imaged IVC is patent. Right kidney: There is no evidence for hydronephrosis, calculus or gross renal mass. The kidney is normal in size. IMPRESSION: 1. Limited examination with nonvisualization of the pancreas. 2. Mild hepatomegaly with fatty infiltration of the liver. 3. Partially contracted gallbladder with no evidence for cholelithiasis or ultrasound evidence for acute cholecystitis. Negative sonographic Man's sign. ACT 112: Negative or not required by law. Electronically signed by: Boni Palomo M.D. 01/31/2021 10:44 PM Chest X-Ray 02/01/21 05:40 XR chest 1V portable HISTORY: Shortness of breath. COMPARISON: Chest 01/31/2021. FINDINGS: No pneumothorax. There are low lung volumes. There are small bilateral pleural effusions. The heart is mildly enlarged. There is mild interstitial/vascular thickening which has developed in the interval. This favors mild interstitial pulmonary edema. There are bibasilar densities which are nonspecific but favor subsegmental atelectasis. Mild gaseous distention of the stomach. There are poststernotomy changes. Right jugular central venous catheter terminates at the distal SVC. IMPRESSION: 1. Low lung volumes. 2. Interval development of mild interstitial pulmonary edema and trace bilateral pleural effusions. 2. Patchy bibasilar densities are nonspecific but favor subsegmental atelectasis given the low lung volumes. ACT 112: Negative or not required by law. Electronically signed by: Dallas Engel M.D. 02/01/2021 8:35 AM PG Care Time/CCT Total # of Minutes Spent Total Time Spent with Patient: Total time spent is greater than 50% in coordination of care (as documented) at patient's floor/unit and/or counseling patient: Coding Level of Care Code 72814 Subseq Hosp Care Lvl 2 Diagnoses Hypoglycemia E16.2 Hypothermia T68.XXXA Encounter type: initial encounter Lactic acidosis E87.2 Diabetes mellitus with chronic kidney disease, with long-term current use of insulin E11.22; Z79.4 Hypertension I10 Parkinson's disease G20 Anxiety with depression F41.8 BPH w urinary obs/LUTS N40.1; N13.8 Insomnia G47.00 Hyperlipidemia E78.5 GERD (gastroesophageal reflux disease) K21.9 Admitted to intensive care unit Z78.9 Acute liver failure K72.00 Tylenol toxicity T39.1X1A Hyperkalemia E87.5 Acute kidney injury N17.9 Septic shock A41.9; R65.21 (1) Hypothermia Encounter type: initial encounter Qualified Code(s): T68.XXXA - Hypothermia, initial encounter
[2021-02-01 20:35] LABS: Hematocrit (blood only) 26.7 % (42-52); Hemoglobin 8.9 g/dL (14.0-18.0); Mean Corpuscular Hemoglobin 30.1 pg (25-34); Mean Corpuscular Hgb Conc 33.3 g/dL (32-36); Mean Corpuscular Volume 90.2 fL (80-100); RDW Coefficient of Variation 14.6 % (11.5-14.5); RDW Standard Deviation 48.5 fL (36.4-46.3); Red Blood Count 2.96 M/uL (4.7-6.1); White Blood Count 5.46 K/uL (4.8-10.8)
[2021-02-01 20:44] LABS: Base Excess ABG -0.5 mEq/L (-9-1.8); HCO3 ABG 24 mmol/L (19-24); Oxygen Saturation ABG 97.3 % (90-95); PCO2 ABG 36 mmHg (35-46); PO2 ABG 90 mmHg (80-95); pH ABG 7.43 (7.35-7.45)
[2021-02-01 20:45] LABS: Mean Platelet Volume 9.2 fL (7.4-10.4); Platelet Count 57 K/uL (130-400)
[2021-02-01 20:49] LABS: Allen Test Pos (Pos)
[2021-02-01 20:56] LABS: INR 3.6 (0.9-1.1); Partial Thromboplastin Ratio 2.1; Prothrombin Time 33.2 Seconds (9.0-12.0)
[2021-02-01 20:58] LABS: BUN Creatinine Ratio 8.8 (10-20); Calcium 7.5 mg/dl (8.5-10.1); Creatinine Clr Calc Pharmacy 36.9 ml/min; Est GFR (African American) 31.7 ml/min; Est GFR (Non-African American) 27.4 ml/min; Potassium 3.8 mmol/L (3.5-5.1)
[2021-02-01 20:59] LABS: Basophils # (auto) 0.01 K/uL (0-0.2); Basophils % (auto) 0.2 %; Echinocytes 1+; Immature Granulocytes # (auto) 0.03 K/uL (0.00-0.02); Immature Granulocytes % (auto) 0.5 %; Lymphocytes # (auto) 0.73 K/uL (1.2-3.4); Lymphocytes % (auto) 13.4 %; Monocytes # (auto) 0.33 K/uL (0.11-0.59); Neutrophils # (auto) 4.36 K/uL (1.4-6.5); Neutrophils % (auto) 79.9 %
[2021-02-01 21:18] LABS: Partial Thromboplastin Time 55.3 Seconds (21.0-31.0)
[2021-02-01] MEDS: PANTOprazole 40 MG in SYRINGE 0 ML IV SCH (21:20)
[2021-02-02] MEDS: PIPERACILLIN/TAZOBACTAM 4.5 GM in DEXTROSE 5% 100 ML IV SCH ×3 (00:22→16:54)
[2021-02-02 02:35] LABS: Calcium 7.4 mg/dl (8.5-10.1); Creatinine Clr Calc Pharmacy 28.4 ml/min; Est GFR (African American) 23.1 ml/min; Est GFR (Non-African American) 19.9 ml/min; Potassium 4.4 mmol/L (3.5-5.1)
[2021-02-02 04:58] LABS: Hematocrit (blood only) 28.3 % (42-52); Hemoglobin 9.2 g/dL (14.0-18.0); Mean Corpuscular Hemoglobin 29.5 pg (25-34); Mean Corpuscular Hgb Conc 32.5 g/dL (32-36); Mean Corpuscular Volume 90.7 fL (80-100); RDW Coefficient of Variation 14.8 % (11.5-14.5); RDW Standard Deviation 48.7 fL (36.4-46.3); Red Blood Count 3.12 M/uL (4.7-6.1); White Blood Count 4.99 K/uL (4.8-10.8)
[2021-02-02 04:59] LABS: Platelet Count 60 K/uL (130-400)
[2021-02-02 05:38] LABS: BUN Creatinine Ratio 7.4 (10-20); Calcium 7.6 mg/dl (8.5-10.1); Est GFR (African American) 20.8 ml/min; Est GFR (Non-African American) 17.9 ml/min; Magnesium 1.7 mg/dl (1.8-2.4); Phosphorus 4.3 mg/dl (2.5-4.9); Potassium 4.5 mmol/L (3.5-5.1)
[2021-02-02 05:42] LABS: Basophils # (auto) 0.01 K/uL (0-0.2); Basophils % (auto) 0.2 %; Dohle Bodies 1+; Immature Granulocytes # (auto) 0.03 K/uL (0.00-0.02); Immature Granulocytes % (auto) 0.6 %; Lymphocytes # (auto) 0.66 K/uL (1.2-3.4); Lymphocytes % (auto) 13.2 %; Neutrophils # (auto) 3.89 K/uL (1.4-6.5)
[2021-02-02 06:44] LABS: Base Excess ABG -3.8 mEq/L (-9-1.8); HCO3 ABG 20 mmol/L (19-24); Oxygen Saturation ABG 94.7 % (90-95); PCO2 ABG 33 mmHg (35-46); PO2 ABG 78 mmHg (80-95); pH ABG 7.41 (7.35-7.45)
[2021-02-02 06:50] LABS: Allen Test Pos (Pos)
[2021-02-02 07:07] LABS: INR 5.2 (0.9-1.1); Partial Thromboplastin Ratio 1.8; Prothrombin Time 46.5 Seconds (9.0-12.0)
[2021-02-02 07:12] LABS: Albumin Level 2.7 gm/dl (3.4-5.0)
[2021-02-02 07:19] LABS: Partial Thromboplastin Time 47.3 Seconds (21.0-31.0)
[2021-02-02 07:35] LABS: Bilirubin,Total 4.9 mg/dl (0.2-1); Total Protein 5.6 gm/dl (6.4-8.2)
[2021-02-02] MEDS ORDERED: PHYTONADIONE 10 MG in SODIUM CHLORIDE 0.9% 50 ML IV ONE (07:45)
[2021-02-02 08:06] LABS: Bilirubin Direct 3.3 mg/dl (0-0.2)
[2021-02-02] MEDS: MAGNESIUM SULFATE / D5W 1 GM/100 ML BAG IV SCH ×2 (08:14→10:43)
--- NOTE | 2021-02-02 08:16 | XRay Report ---
XR chest 1V portable CLINICAL HISTORY: fluid overload COMPARISON STUDY: Chest radiograph February 01, 2021. FINDINGS: Right internal jugular central line is in place. There is no pneumothorax thorax. Interstit ial thickening has improved. Bibasilar opacities are noted. These have improved. There are median remington rnotomy wires. Cardiomegaly is present. There may be trace bilateral pleural effusions. IMPRESSION: 1. Interval improvement in pulmonary edema. 2. Bibasilar opacities, improved since prior exam. 3. Trace bilateral pleural effusions. ACT 112: Negative or not required by law. Electronically signed by: Frank Hu M.D. 02/02/2021 8:14 AM
[2021-02-02] MEDS: INSULIN ASPART 100 UNITS/ML 3 ML PEN SC SCH ×2 (08:20→20:30)
[2021-02-02] MEDS: LACTULOSE SYRUP 20 GM/30 ML UDC PO SCH ×3 (08:21→23:23)
[2021-02-02] MEDS: PANTOprazole 40 MG in SYRINGE 0 ML IV SCH ×2 (08:21→21:39)
[2021-02-02] MEDS: CARBIDOPA/LEVODOPA 25/100MG EXT REL TAB PO SCH ×4 (08:22→23:23)
[2021-02-02] MEDS: DEXTROSE 5% IV SCH (08:45)
[2021-02-02] MEDS: ACETYLCYSTEINE IV SCH (08:45)
[2021-02-02 08:46] LABS: BUN Creatinine Ratio 6.7 (10-20); Calcium 7.2 mg/dl (8.5-10.1); Creatinine Clr Calc Pharmacy 24.4 ml/min; Est GFR (African American) 19.2 ml/min; Est GFR (Non-African American) 16.6 ml/min; Potassium 4.6 mmol/L (3.5-5.1)
--- NOTE | 2021-02-02 08:50 | Gastroenterology Progress Note ---
Date of Service February 02, 2021 Assessment & Plan (1) Tylenol toxicity: Plan: 60 year old critically ill male who presented with weakness and hypotension admitted to the ICU w/ suspected tylenol toxicity, concern for acute liver failure with rising INR and ammonia and and ISMAEL w/ rising LOOM CHANGER. He is currently awake, alert and oriented and answering questions appropriately. Guarded prognosis. Recommend transfer to a tertiary care center. Appears this has been attempted and has not been successful due to bed limitations due to the COVID-19 pandemic. Clinical picture concerning for acute liver failure. He was started on NAC and vit K. Presently, would continue NAC therapy and Vit K. In the event of encephalopathy, would start lactulose. Thank you for allowing us to participate in the care of this patient. Please call with any acute changes, questions or concerns. Please see addendum below with additional recommendation from my supervising physician. (2) Acute liver failure: (3) Acute kidney injury: Admission and Anticipated Discharge Date Admission Date: January 31, 2021 Supervising Physician Co-Signing Physician Notes Late entry: Patient was seen and examined on 02/02 with MARAL Thibodeaux whose note reflects our findings and plan. OWrsening liver and renal failure, ?sepsis. No beds available for transfer to tertiary care site. On HD. Alert and oriented this Am. If patient starts to become encephalopathi c, low threshold for lactulose and on-going push for transfer to [facility] center. Suspected underlying liver diease. Would continue with NAC, supportive care. Subjective Pt was seen this AM. Notes he has to use the restroom urgently. Denies abd pain. No nausea, vomiting. Tolerating PO intake. Alert, answering questions appropriately. Review of Systems Review of Systems: All systems reviewed & are unremarkable except as noted in HPI & below Physical Exam Constitutional: WD/WN, vitals as above Neck: trachea midline, no thyromegaly Gastrointestinal (Abdomen): normal bowel sounds, soft, nontender, no hepatosplenomegaly Skin: + jaundice Results & Data ([facility]) Vital Signs (Past 12 Hours) Vital Signs Temp Pulse Resp BP Pulse Ox 02/02/21 08:00 103 H 92/68 L 96 02/02/21 07:00 105 H 21 99/69 L 97 02/02/21 06:15 103 H 0 L 96 02/02/21 06:00 103 H 22 94/75 L 97 02/02/21 05:09 36.4 C L 02/02/21 05:00 102 H 20 106/70 98 02/02/21 04:00 103 H 22 108/71 97 02/02/21 03:30 104 H 0 L 94 02/02/21 03:15 104 H 0 L 88 L 02/02/21 03:00 104 H 21 102/72 97 02/02/21 02:00 103 H 26 H 95/73 L 97 02/02/21 01:00 103 H 22 113/74 98 02/02/21 00:00 36.5 C 105 H 34 H 119/84 97 02/01/21 23:00 105 H 21 109/71 94 02/01/21 22:00 102 H 20 145/85 H 100 02/01/21 21:57 102 H 21 127/88 99 02/01/21 21:00 104 H 34 H 115/73 94 Laboratory Results 02/02/21 02/02/21 02/02/21 Range/Units 08:01 06:22 06:21 WBC (4.8-10.8) K/uL RBC (4.7-6.1) M/uL Hgb (14.0-18.0) g/dL Hct (42-52) % MCV (80-100) fL MCH (25-34) pg MCHC (32-36) g/dL RDW Std Deviation (36.4-46.3) fL RDW Coeff of Royal (11.5-14.5) % Plt Count (130-400) K/uL MPV (7.4-10.4) fL Immature Gran % (Auto) % Neut % (Auto) % Lymph % (Auto) % [place] % (Auto) % Eos % (Auto) % Baso % (Auto) % Neut # (Auto) (1.4-6.5) K/uL Lymph # (Auto) (1.2-3.4) K/uL [place] # (Auto) (0.11-0.59) K/uL Eos # (Auto) (0-0.5) K/uL Baso # (Auto) (0-0.2) K/uL Immature Gran # (Auto) (0.00-0.02) K/uL Dohle Bodies Echinocytes PT 46.5 H (9.0-12.0) Seconds INR 5.2 H (0.9-1.1) APTT 47.3 H* (21.0-31.0) Seconds PTT Ratio 1.8 ABG pH 7.41 (7.35-7.45) ABG pCO2 33 L (35-46) mmHg ABG pO2 78 L (80-95) mmHg ABG HCO3 20 (19-24) mmol/L ABG O2 Saturation 94.7 (90-95) % ABG Base Excess -3.8 (-9-1.8) mEq/L Pablo Test Pos (Pos) Barometric Pressure 730.8 mm/Hg Oxygen Given 2% Sodium 133 L (136-145) mmol/L Potassium 4.6 (3.5-5.1) mmol/L Chloride 93 L (98-107) mmol/L Carbon Dioxide 18 L (21-32) mmol/L Anion Gap 23.0 H (3-11) BUN 25 H (7-18) mg/dl Creatinine 3.75 H (0.6-1.4) mg/dl Est Cr Clr Drug Dosing 24.4 ml/min Est GFR ( Amer) 19.2 ml/min Est GFR (Non-Af Amer) 16.6 ml/min BUN/Creatinine Ratio 6.7 L (10-20) Glucose 65 L (70-99) mg/dl Lactate (0.4-2.0) mmol/L Calcium 7.2 L (8.5-10.1) mg/dl Phosphorus (2.5-4.9) mg/dl Magnesium (1.8-2.4) mg/dl Total Bilirubin (0.2-1) mg/dl Direct Bilirubin (0-0.2) mg/dl AST (15-37) U/L ALT (12-78) U/L Alkaline Phosphatase (45-117) U/L Ammonia (11-32) umol/L Total Protein (6.4-8.2) gm/dl Albumin (3.4-5.0) gm/dl Beta-Hydroxybutyric Acd (0.2-2.81) mg/dl Blood Type Antibody Screen 02/02/21 02/02/21 02/02/21 Range/Units 06:21 06:20 06:20 WBC (4.8-10.8) K/uL RBC (4.7-6.1) M/uL Hgb (14.0-18.0) g/dL Hct (42-52) % MCV (80-100) fL MCH (25-34) pg MCHC (32-36) g/dL RDW Std Deviation (36.4-46.3) fL RDW Coeff of Royal (11.5-14.5) % Plt Count (130-400) K/uL MPV (7.4-10.4) fL Immature Gran % (Auto) % Neut % (Auto) % Lymph % (Auto) % [place] % (Auto) % Eos % (Auto) % Baso % (Auto) % Neut # (Auto) (1.4-6.5) K/uL Lymph # (Auto) (1.2-3.4) K/uL [place] # (Auto) (0.11-0.59) K/uL Eos # (Auto) (0-0.5) K/uL Baso # (Auto) (0-0.2) K/uL Immature Gran # (Auto) (0.00-0.02) K/uL Dohle Bodies Echinocytes PT (9.0-12.0) Seconds INR (0.9-1.1) APTT (21.0-31.0) Seconds PTT Ratio ABG pH (7.35-7.45) ABG pCO2 (35-46) mmHg ABG pO2 (80-95) mmHg ABG HCO3 (19-24) mmol/L ABG O2 Saturation (90-95) % ABG Base Excess (-9-1.8) mEq/L Pablo Test (Pos) Barometric Pressure mm/Hg Oxygen Given Sodium (136-145) mmol/L Potassium (3.5-5.1) mmol/L Chloride (98-107) mmol/L Carbon Dioxide (21-32) mmol/L Anion Gap (3-11) BUN (7-18) mg/dl Creatinine (0.6-1.4) mg/dl Est Cr Clr Drug Dosing ml/min Est GFR ( Amer) ml/min Est GFR (Non-Af Amer) ml/min BUN/Creatinine Ratio (10-20) Glucose 72 (70-99) mg/dl Lactate 11.8 H* (0.4-2.0) mmol/L Calcium (8.5-10.1) mg/dl Phosphorus (2.5-4.9) mg/dl Magnesium (1.8-2.4) mg/dl Total Bilirubin 4.9 H (0.2-1) mg/dl Direct Bilirubin 3.3 H D (0-0.2) mg/dl AST 5872 H (15-37) U/L ALT 3795 H (12-78) U/L Alkaline Phosphatase 88 (45-117) U/L Ammonia 88.0 H (11-32) umol/L Total Protein 5.6 L (6.4-8.2) gm/dl Albumin 2.7 L (3.4-5.0) gm/dl Beta-Hydroxybutyric Acd (0.2-2.81) mg/dl Blood Type Antibody Screen 02/02/21 02/02/21 02/02/21 Range/Units 04:39 04:39 01:54 WBC 4.99 (4.8-10.8) K/uL RBC 3.12 L (4.7-6.1) M/uL Hgb 9.2 L (14.0-18.0) g/dL Hct 28.3 L (42-52) % MCV 90.7 (80-100) fL MCH 29.5 (25-34) pg MCHC 32.5 (32-36) g/dL RDW Std Deviation 48.7 H (36.4-46.3) fL RDW Coeff of Royal 14.8 H (11.5-14.5) % Plt Count 60 L (130-400) K/uL MPV 10.0 (7.4-10.4) fL Immature Gran % (Auto) 0.6 % Neut % (Auto) 78.0 % Lymph % (Auto) 13.2 % [place] % (Auto) 8.0 % Eos % (Auto) 0.0 % Baso % (Auto) 0.2 % Neut # (Auto) 3.89 (1.4-6.5) K/uL Lymph # (Auto) 0.66 L (1.2-3.4) K/uL [place] # (Auto) 0.40 (0.11-0.59) K/uL Eos # (Auto) 0.00 (0-0.5) K/uL Baso # (Auto) 0.01 (0-0.2) K/uL Immature Gran # (Auto) 0.03 H (0.00-0.02) K/uL Dohle Bodies 1+ Echinocytes PT (9.0-12.0) Seconds INR (0.9-1.1) APTT (21.0-31.0) Seconds PTT Ratio ABG pH (7.35-7.45) ABG pCO2 (35-46) mmHg ABG pO2 (80-95) mmHg ABG HCO3 (19-24) mmol/L ABG O2 Saturation (90-95) % ABG Base Excess (-9-1.8) mEq/L Pablo Test (Pos) Barometric Pressure mm/Hg Oxygen Given Sodium 132 L 132 L (136-145) mmol/L Potassium 4.5 4.4 D (3.5-5.1) mmol/L Chloride 93 L 93 L (98-107) mmol/L Carbon Dioxide 23 23 (21-32) mmol/L Anion Gap 16.0 H 16.0 H (3-11) BUN 26 H 26 H (7-18) mg/dl Creatinine 3.52 H D 3.22 H D (0.6-1.4) mg/dl Est Cr Clr Drug Dosing 26.0 28.4 ml/min Est GFR ( Amer) 20.8 23.1 ml/min Est GFR (Non-Af Amer) 17.9 19.9 ml/min BUN/Creatinine Ratio 7.4 L 8.0 L (10-20) Glucose 75 81 (70-99) mg/dl Lactate (0.4-2.0) mmol/L Calcium 7.6 L 7.4 L (8.5-10.1) mg/dl Phosphorus 4.3 (2.5-4.9) mg/dl Magnesium 1.7 L (1.8-2.4) mg/dl Total Bilirubin Cancelled (0.2-1) mg/dl Direct Bilirubin Cancelled (0-0.2) mg/dl AST Cancelled (15-37) U/L ALT Cancelled (12-78) U/L Alkaline Phosphatase Cancelled (45-117) U/L Ammonia (11-32) umol/L Total Protein Cancelled (6.4-8.2) gm/dl Albumin Cancelled (3.4-5.0) gm/dl Beta-Hydroxybutyric Acd (0.2-2.81) mg/dl Blood Type Antibody Screen 02/01/21 02/01/21 02/01/21 Range/Units 23:58 23:19 22:07 WBC (4.8-10.8) K/uL RBC (4.7-6.1) M/uL Hgb (14.0-18.0) g/dL Hct (42-52) % MCV (80-100) fL MCH (25-34) pg MCHC (32-36) g/dL RDW Std Deviation (36.4-46.3) fL RDW Coeff of Royal (11.5-14.5) % Plt Count (130-400) K/uL MPV (7.4-10.4) fL Immature Gran % (Auto) % Neut % (Auto) % Lymph % (Auto) % [place] % (Auto) % Eos % (Auto) % Baso % (Auto) % Neut # (Auto) (1.4-6.5) K/uL Lymph # (Auto) (1.2-3.4) K/uL [place] # (Auto) (0.11-0.59) K/uL Eos # (Auto) (0-0.5) K/uL Baso # (Auto) (0-0.2) K/uL Immature Gran # (Auto) (0.00-0.02) K/uL Dohle Bodies Echinocytes PT (9.0-12.0) Seconds INR (0.9-1.1) APTT (21.0-31.0) Seconds PTT Ratio ABG pH (7.35-7.45) ABG pCO2 (35-46) mmHg ABG pO2 (80-95) mmHg ABG HCO3 (19-24) mmol/L ABG O2 Saturation (90-95) % ABG Base Excess (-9-1.8) mEq/L Pablo Test (Pos) Barometric Pressure mm/Hg Oxygen Given Sodium (136-145) mmol/L Potassium (3.5-5.1) mmol/L Chloride (98-107) mmol/L Carbon Dioxide (21-32) mmol/L Anion Gap (3-11) BUN (7-18) mg/dl Creatinine (0.6-1.4) mg/dl Est Cr Clr Drug Dosing ml/min Est GFR ( Amer) ml/min Est GFR (Non-Af Amer) ml/min BUN/Creatinine Ratio (10-20) Glucose 88 87 91 (70-99) mg/dl Lactate (0.4-2.0) mmol/L Calcium (8.5-10.1) mg/dl Phosphorus (2.5-4.9) mg/dl Magnesium (1.8-2.4) mg/dl Total Bilirubin (0.2-1) mg/dl Direct Bilirubin (0-0.2) mg/dl AST (15-37) U/L ALT (12-78) U/L Alkaline Phosphatase (45-117) U/L Ammonia (11-32) umol/L Total Protein (6.4-8.2) gm/dl Albumin (3.4-5.0) gm/dl Beta-Hydroxybutyric Acd (0.2-2.81) mg/dl Blood Type Antibody Screen 02/01/21 02/01/21 02/01/21 Range/Units 21:05 20:16 20:16 WBC (4.8-10.8) K/uL RBC (4.7-6.1) M/uL Hgb (14.0-18.0) g/dL Hct (42-52) % MCV (80-100) fL MCH (25-34) pg MCHC (32-36) g/dL RDW Std Deviation (36.4-46.3) fL RDW Coeff of Royal (11.5-14.5) % Plt Count (130-400) K/uL MPV (7.4-10.4) fL Immature Gran % (Auto) % Neut % (Auto) % Lymph % (Auto) % [place] % (Auto) % Eos % (Auto) % Baso % (Auto) % Neut # (Auto) (1.4-6.5) K/uL Lymph # (Auto) (1.2-3.4) K/uL [place] # (Auto) (0.11-0.59) K/uL Eos # (Auto) (0-0.5) K/uL Baso # (Auto) (0-0.2) K/uL Immature Gran # (Auto) (0.00-0.02) K/uL Dohle Bodies Echinocytes PT 33.2 H (9.0-12.0) Seconds INR 3.6 H (0.9-1.1) APTT 55.3 H* (21.0-31.0) Seconds PTT Ratio 2.1 ABG pH (7.35-7.45) ABG pCO2 (35-46) mmHg ABG pO2 (80-95) mmHg ABG HCO3 (19-24) mmol/L ABG O2 Saturation (90-95) % ABG Base Excess (-9-1.8) mEq/L Pablo Test (Pos) Barometric Pressure mm/Hg Oxygen Given Sodium (136-145) mmol/L Potassium (3.5-5.1) mmol/L Chloride (98-107) mmol/L Carbon Dioxide (21-32) mmol/L Anion Gap (3-11) BUN (7-18) mg/dl Creatinine (0.6-1.4) mg/dl Est Cr Clr Drug Dosing ml/min Est GFR ( Amer) ml/min Est GFR (Non-Af Amer) ml/min BUN/Creatinine Ratio (10-20) Glucose 96 (70-99) mg/dl Lactate 8.3 H* (0.4-2.0) mmol/L Calcium (8.5-10.1) mg/dl Phosphorus (2.5-4.9) mg/dl Magnesium (1.8-2.4) mg/dl Total Bilirubin (0.2-1) mg/dl Direct Bilirubin (0-0.2) mg/dl AST (15-37) U/L ALT (12-78) U/L Alkaline Phosphatase (45-117) U/L Ammonia (11-32) umol/L Total Protein (6.4-8.2) gm/dl Albumin (3.4-5.0) gm/dl Beta-Hydroxybutyric Acd (0.2-2.81) mg/dl Blood Type Antibody Screen 02/01/21 02/01/21 02/01/21 Range/Units 20:16 20:16 20:16 WBC 5.46 (4.8-10.8) K/uL RBC 2.96 L (4.7-6.1) M/uL Hgb 8.9 L (14.0-18.0) g/dL Hct 26.7 L (42-52) % MCV 90.2 (80-100) fL MCH 30.1 (25-34) pg MCHC 33.3 (32-36) g/dL RDW Std Deviation 48.5 H (36.4-46.3) fL RDW Coeff of Royal 14.6 H (11.5-14.5) % Plt Count 57 L (130-400) K/uL MPV 9.2 (7.4-10.4) fL Immature Gran % (Auto) 0.5 % Neut % (Auto) 79.9 % Lymph % (Auto) 13.4 % [place] % (Auto) 6.0 % Eos % (Auto) 0.0 % Baso % (Auto) 0.2 % Neut # (Auto) 4.36 (1.4-6.5) K/uL Lymph # (Auto) 0.73 L (1.2-3.4) K/uL [place] # (Auto) 0.33 (0.11-0.59) K/uL Eos # (Auto) 0.00 (0-0.5) K/uL Baso # (Auto) 0.01 (0-0.2) K/uL Immature Gran # (Auto) 0.03 H (0.00-0.02) K/uL Dohle Bodies Echinocytes 1+ PT (9.0-12.0) Seconds INR (0.9-1.1) APTT (21.0-31.0) Seconds PTT Ratio ABG pH 7.43 (7.35-7.45) ABG pCO2 36 (35-46) mmHg ABG pO2 90 (80-95) mmHg ABG HCO3 24 (19-24) mmol/L ABG O2 Saturation 97.3 H (90-95) % ABG Base Excess -0.5 (-9-1.8) mEq/L Pablo Test Pos (Pos) Barometric Pressure 725.5 mm/Hg Oxygen Given ROOM AIR Sodium (136-145) mmol/L Potassium (3.5-5.1) mmol/L Chloride (98-107) mmol/L Carbon Dioxide (21-32) mmol/L Anion Gap (3-11) BUN (7-18) mg/dl Creatinine (0.6-1.4) mg/dl Est Cr Clr Drug Dosing ml/min Est GFR ( Amer) ml/min Est GFR (Non-Af Amer) ml/min BUN/Creatinine Ratio (10-20) Glucose 105 H (70-99) mg/dl Lactate (0.4-2.0) mmol/L Calcium (8.5-10.1) mg/dl Phosphorus (2.5-4.9) mg/dl Magnesium (1.8-2.4) mg/dl Total Bilirubin (0.2-1) mg/dl Direct Bilirubin (0-0.2) mg/dl AST (15-37) U/L ALT (12-78) U/L Alkaline Phosphatase (45-117) U/L Ammonia (11-32) umol/L Total Protein (6.4-8.2) gm/dl Albumin (3.4-5.0) gm/dl Beta-Hydroxybutyric Acd (0.2-2.81) mg/dl Blood Type Antibody Screen 02/01/21 02/01/21 02/01/21 Range/Units 20:16 20:16 19:03 WBC (4.8-10.8) K/uL RBC (4.7-6.1) M/uL Hgb (14.0-18.0) g/dL Hct (42-52) % MCV (80-100) fL MCH (25-34) pg MCHC (32-36) g/dL RDW Std Deviation (36.4-46.3) fL RDW Coeff of Royal (11.5-14.5) % Plt Count (130-400) K/uL MPV (7.4-10.4) fL Immature Gran % (Auto) % Neut % (Auto) % Lymph % (Auto) % [place] % (Auto) % Eos % (Auto) % Baso % (Auto) % Neut # (Auto) (1.4-6.5) K/uL Lymph # (Auto) (1.2-3.4) K/uL [place] # (Auto) (0.11-0.59) K/uL Eos # (Auto) (0-0.5) K/uL Baso # (Auto) (0-0.2) K/uL Immature Gran # (Auto) (0.00-0.02) K/uL Dohle Bodies Echinocytes PT (9.0-12.0) Seconds INR (0.9-1.1) APTT (21.0-31.0) Seconds PTT Ratio ABG pH (7.35-7.45) ABG pCO2 (35-46) mmHg ABG pO2 (80-95) mmHg ABG HCO3 (19-24) mmol/L ABG O2 Saturation (90-95) % ABG Base Excess (-9-1.8) mEq/L Pablo Test (Pos) Barometric Pressure mm/Hg Oxygen Given Sodium 134 L (136-145) mmol/L Potassium 3.8 D (3.5-5.1) mmol/L Chloride 95 L (98-107) mmol/L Carbon Dioxide 24 (21-32) mmol/L Anion Gap 16.0 H (3-11) BUN 22 H (7-18) mg/dl Creatinine 2.48 H D (0.6-1.4) mg/dl Est Cr Clr Drug Dosing 36.9 ml/min Est GFR ( Amer) 31.7 ml/min Est GFR (Non-Af Amer) 27.4 ml/min BUN/Creatinine Ratio 8.8 L (10-20) Glucose 104 H 110 H (70-99) mg/dl Lactate (0.4-2.0) mmol/L Calcium 7.5 L (8.5-10.1) mg/dl Phosphorus (2.5-4.9) mg/dl Magnesium (1.8-2.4) mg/dl Total Bilirubin (0.2-1) mg/dl Direct Bilirubin (0-0.2) mg/dl AST (15-37) U/L ALT (12-78) U/L Alkaline Phosphatase (45-117) U/L Ammonia 72.3 H (11-32) umol/L Total Protein (6.4-8.2) gm/dl Albumin (3.4-5.0) gm/dl Beta-Hydroxybutyric Acd (0.2-2.81) mg/dl Blood Type Antibody Screen 02/01/21 02/01/21 02/01/21 Range/Units 18:00 16:15 15:07 WBC (4.8-10.8) K/uL RBC (4.7-6.1) M/uL Hgb (14.0-18.0) g/dL Hct (42-52) % MCV (80-100) fL MCH (25-34) pg MCHC (32-36) g/dL RDW Std Deviation (36.4-46.3) fL RDW Coeff of Royal (11.5-14.5) % Plt Count (130-400) K/uL MPV (7.4-10.4) fL Immature Gran % (Auto) % Neut % (Auto) % Lymph % (Auto) % [place] % (Auto) % Eos % (Auto) % Baso % (Auto) % Neut # (Auto) (1.4-6.5) K/uL Lymph # (Auto) (1.2-3.4) K/uL [place] # (Auto) (0.11-0.59) K/uL Eos # (Auto) (0-0.5) K/uL Baso # (Auto) (0-0.2) K/uL Immature Gran # (Auto) (0.00-0.02) K/uL Dohle Bodies Echinocytes PT 31.1 H (9.0-12.0) Seconds INR 3.4 H (0.9-1.1) APTT (21.0-31.0) Seconds PTT Ratio ABG pH (7.35-7.45) ABG pCO2 (35-46) mmHg ABG pO2 (80-95) mmHg ABG HCO3 (19-24) mmol/L ABG O2 Saturation (90-95) % ABG Base Excess (-9-1.8) mEq/L Pablo Test (Pos) Barometric Pressure mm/Hg Oxygen Given Sodium (136-145) mmol/L Potassium (3.5-5.1) mmol/L Chloride (98-107) mmol/L Carbon Dioxide (21-32) mmol/L Anion Gap (3-11) BUN (7-18) mg/dl Creatinine (0.6-1.4) mg/dl Est Cr Clr Drug Dosing ml/min Est GFR ( Amer) ml/min Est GFR (Non-Af Amer) ml/min BUN/Creatinine Ratio (10-20) Glucose 103 H 185 H (70-99) mg/dl Lactate (0.4-2.0) mmol/L Calcium (8.5-10.1) mg/dl Phosphorus (2.5-4.9) mg/dl Magnesium (1.8-2.4) mg/dl Total Bilirubin (0.2-1) mg/dl Direct Bilirubin (0-0.2) mg/dl AST (15-37) U/L ALT (12-78) U/L Alkaline Phosphatase (45-117) U/L Ammonia (11-32) umol/L Total Protein (6.4-8.2) gm/dl Albumin (3.4-5.0) gm/dl Beta-Hydroxybutyric Acd (0.2-2.81) mg/dl Blood Type Antibody Screen 02/01/21 02/01/21 02/01/21 Range/Units 15:07 15:07 13:22 WBC (4.8-10.8) K/uL RBC (4.7-6.1) M/uL Hgb (14.0-18.0) g/dL Hct (42-52) % MCV (80-100) fL MCH (25-34) pg MCHC (32-36) g/dL RDW Std Deviation (36.4-46.3) fL RDW Coeff of Royal (11.5-14.5) % Plt Count (130-400) K/uL MPV (7.4-10.4) fL Immature Gran % (Auto) % Neut % (Auto) % Lymph % (Auto) % [place] % (Auto) % Eos % (Auto) % Baso % (Auto) % Neut # (Auto) (1.4-6.5) K/uL Lymph # (Auto) (1.2-3.4) K/uL [place] # (Auto) (0.11-0.59) K/uL Eos # (Auto) (0-0.5) K/uL Baso # (Auto) (0-0.2) K/uL Immature Gran # (Auto) (0.00-0.02) K/uL Dohle Bodies Echinocytes PT (9.0-12.0) Seconds INR (0.9-1.1) APTT (21.0-31.0) Seconds PTT Ratio ABG pH (7.35-7.45) ABG pCO2 (35-46) mmHg ABG pO2 (80-95) mmHg ABG HCO3 (19-24) mmol/L ABG O2 Saturation (90-95) % ABG Base Excess (-9-1.8) mEq/L Pablo Test (Pos) Barometric Pressure mm/Hg Oxygen Given Sodium 132 L (136-145) mmol/L Potassium 4.9 (3.5-5.1) mmol/L Chloride 88 L (98-107) mmol/L Carbon Dioxide 19 L (21-32) mmol/L Anion Gap 25.0 H (3-11) BUN 40 H (7-18) mg/dl Creatinine 3.78 H (0.6-1.4) mg/dl Est Cr Clr Drug Dosing 24.2 ml/min Est GFR ( Amer) 19.0 ml/min Est GFR (Non-Af Amer) 16.4 ml/min BUN/Creatinine Ratio 10.5 (10-20) Glucose 247 H 251 H 283 H (70-99) mg/dl Lactate (0.4-2.0) mmol/L Calcium 6.8 L (8.5-10.1) mg/dl Phosphorus (2.5-4.9) mg/dl Magnesium (1.8-2.4) mg/dl Total Bilirubin 3.3 H (0.2-1) mg/dl Direct Bilirubin 2.1 H (0-0.2) mg/dl AST 7564 H (15-37) U/L ALT 2548 H (12-78) U/L Alkaline Phosphatase 80 (45-117) U/L Ammonia (11-32) umol/L Total Protein 5.8 L (6.4-8.2) gm/dl Albumin 2.8 L (3.4-5.0) gm/dl Beta-Hydroxybutyric Acd (0.2-2.81) mg/dl Blood Type Antibody Screen 02/01/21 02/01/21 02/01/21 Range/Units 11:26 11:23 10:31 WBC (4.8-10.8) K/uL RBC (4.7-6.1) M/uL Hgb (14.0-18.0) g/dL Hct (42-52) % MCV (80-100) fL MCH (25-34) pg MCHC (32-36) g/dL RDW Std Deviation (36.4-46.3) fL RDW Coeff of Royal (11.5-14.5) % Plt Count (130-400) K/uL MPV (7.4-10.4) fL Immature Gran % (Auto) % Neut % (Auto) % Lymph % (Auto) % [place] % (Auto) % Eos % (Auto) % Baso % (Auto) % Neut # (Auto) (1.4-6.5) K/uL Lymph # (Auto) (1.2-3.4) K/uL [place] # (Auto) (0.11-0.59) K/uL Eos # (Auto) (0-0.5) K/uL Baso # (Auto) (0-0.2) K/uL Immature Gran # (Auto) (0.00-0.02) K/uL Dohle Bodies Echinocytes PT 35.6 H (9.0-12.0) Seconds INR 3.9 H (0.9-1.1) APTT (21.0-31.0) Seconds PTT Ratio ABG pH (7.35-7.45) ABG pCO2 (35-46) mmHg ABG pO2 (80-95) mmHg ABG HCO3 (19-24) mmol/L ABG O2 Saturation (90-95) % ABG Base Excess (-9-1.8) mEq/L Pablo Test (Pos) Barometric Pressure mm/Hg Oxygen Given Sodium 128 L (136-145) mmol/L Potassium 5.3 H (3.5-5.1) mmol/L Chloride 88 L (98-107) mmol/L Carbon Dioxide 18 L (21-32) mmol/L Anion Gap 22.0 H (3-11) BUN 40 H (7-18) mg/dl Creatinine 3.65 H (0.6-1.4) mg/dl Est Cr Clr Drug Dosing 25.1 ml/min Est GFR ( Amer) 19.9 ml/min Est GFR (Non-Af Amer) 17.1 ml/min BUN/Creatinine Ratio 11.0 (10-20) Glucose 292 H 301 H* (70-99) mg/dl Lactate (0.4-2.0) mmol/L Calcium 7.2 L (8.5-10.1) mg/dl Phosphorus 3.8 (2.5-4.9) mg/dl Magnesium (1.8-2.4) mg/dl Total Bilirubin (0.2-1) mg/dl Direct Bilirubin (0-0.2) mg/dl AST (15-37) U/L ALT (12-78) U/L Alkaline Phosphatase (45-117) U/L Ammonia (11-32) umol/L Total Protein (6.4-8.2) gm/dl Albumin 2.9 L (3.4-5.0) gm/dl Beta-Hydroxybutyric Acd 2.25 (0.2-2.81) mg/dl Blood Type Antibody Screen 02/01/21 02/01/21 02/01/21 Range/Units 09:12 09:12 09:12 WBC 7.91 (4.8-10.8) K/uL RBC 3.23 L (4.7-6.1) M/uL Hgb 9.5 L (14.0-18.0) g/dL Hct 30.3 L (42-52) % MCV 93.8 (80-100) fL MCH 29.4 (25-34) pg MCHC 31.4 L (32-36) g/dL RDW Std Deviation 51.6 H (36.4-46.3) fL RDW Coeff of Royal 15.1 H (11.5-14.5) % Plt Count 67 L (130-400) K/uL MPV 9.3 (7.4-10.4) fL Immature Gran % (Auto) 0.3 % Neut % (Auto) 88.5 % Lymph % (Auto) 7.2 % [place] % (Auto) 4.0 % Eos % (Auto) 0.0 % Baso % (Auto) 0.0 % Neut # (Auto) 7.00 H (1.4-6.5) K/uL Lymph # (Auto) 0.57 L (1.2-3.4) K/uL [place] # (Auto) 0.32 (0.11-0.59) K/uL Eos # (Auto) 0.00 (0-0.5) K/uL Baso # (Auto) 0.00 (0-0.2) K/uL Immature Gran # (Auto) 0.02 (0.00-0.02) K/uL Dohle Bodies Echinocytes PT (9.0-12.0) Seconds INR (0.9-1.1) APTT (21.0-31.0) Seconds PTT Ratio ABG pH (7.35-7.45) ABG pCO2 (35-46) mmHg ABG pO2 (80-95) mmHg ABG HCO3 (19-24) mmol/L ABG O2 Saturation (90-95) % ABG Base Excess (-9-1.8) mEq/L Pablo Test (Pos) Barometric Pressure mm/Hg Oxygen Given Sodium 132 L (136-145) mmol/L Potassium 5.4 H (3.5-5.1) mmol/L Chloride 90 L (98-107) mmol/L Carbon Dioxide 15 L (21-32) mmol/L Anion Gap 27.0 H (3-11) BUN 40 H (7-18) mg/dl Creatinine 3.42 H (0.6-1.4) mg/dl Est Cr Clr Drug Dosing 26.8 ml/min Est GFR ( Amer) 21.5 ml/min Est GFR (Non-Af Amer) 18.5 ml/min BUN/Creatinine Ratio 11.7 (10-20) Glucose 281 H (70-99) mg/dl Lactate (0.4-2.0) mmol/L Calcium 7.0 L (8.5-10.1) mg/dl Phosphorus (2.5-4.9) mg/dl Magnesium (1.8-2.4) mg/dl Total Bilirubin (0.2-1) mg/dl Direct Bilirubin (0-0.2) mg/dl AST (15-37) U/L ALT (12-78) U/L Alkaline Phosphatase (45-117) U/L Ammonia 139.0 H (11-32) umol/L Total Protein (6.4-8.2) gm/dl Albumin (3.4-5.0) gm/dl Beta-Hydroxybutyric Acd (0.2-2.81) mg/dl Blood Type Antibody Screen 02/01/21 01/31/21 Range/Units 08:09 21:46 WBC (4.8-10.8) K/uL RBC (4.7-6.1) M/uL Hgb (14.0-18.0) g/dL Hct (42-52) % MCV (80-100) fL MCH (25-34) pg MCHC (32-36) g/dL RDW Std Deviation (36.4-46.3) fL RDW Coeff of Royal (11.5-14.5) % Plt Count (130-400) K/uL MPV (7.4-10.4) fL Immature Gran % (Auto) % Neut % (Auto) % Lymph % (Auto) % [place] % (Auto) % Eos % (Auto) % Baso % (Auto) % Neut # (Auto) (1.4-6.5) K/uL Lymph # (Auto) (1.2-3.4) K/uL [place] # (Auto) (0.11-0.59) K/uL Eos # (Auto) (0-0.5) K/uL Baso # (Auto) (0-0.2) K/uL Immature Gran # (Auto) (0.00-0.02) K/uL Dohle Bodies Echinocytes PT (9.0-12.0) Seconds INR (0.9-1.1) APTT (21.0-31.0) Seconds PTT Ratio ABG pH (7.35-7.45) ABG pCO2 (35-46) mmHg ABG pO2 (80-95) mmHg ABG HCO3 (19-24) mmol/L ABG O2 Saturation (90-95) % ABG Base Excess (-9-1.8) mEq/L Pablo Test (Pos) Barometric Pressure mm/Hg Oxygen Given Sodium (136-145) mmol/L Potassium (3.5-5.1) mmol/L Chloride (98-107) mmol/L Carbon Dioxide (21-32) mmol/L Anion Gap (3-11) BUN (7-18) mg/dl Creatinine (0.6-1.4) mg/dl Est Cr Clr Drug Dosing ml/min Est GFR ( Amer) ml/min Est GFR (Non-Af Amer) ml/min BUN/Creatinine Ratio (10-20) Glucose 301 H* (70-99) mg/dl Lactate (0.4-2.0) mmol/L Calcium (8.5-10.1) mg/dl Phosphorus (2.5-4.9) mg/dl Magnesium (1.8-2.4) mg/dl Total Bilirubin (0.2-1) mg/dl Direct Bilirubin (0-0.2) mg/dl AST (15-37) U/L ALT (12-78) U/L Alkaline Phosphatase (45-117) U/L Ammonia (11-32) umol/L Total Protein (6.4-8.2) gm/dl Albumin (3.4-5.0) gm/dl Beta-Hydroxybutyric Acd 2.48 (0.2-2.81) mg/dl Blood Type O Positive Antibody Screen NEGATIVE
--- NOTE | 2021-02-02 10:37 | Electrocardiogram Report ---
Test Reason : Blood Pressure : / mmHG Vent. Rate : 104 BPM Atrial Rate : 104 BPM P-R Int : 128 ms QRS Dur : 094 ms QT Int : 372 ms P-R-T Axes : 061 059 054 degrees QTc Int : 489 ms Sinus tachycardia Low voltage QRS Nonspecific ST abnormality Abnormal ECG When compared with ECG of 01-FEB-2021 08:16, ST now depressed in Anterior leads Nonspecific T wave abnormality no longer evident in Anterior leads Confirmed by Brian Baumann [id number] on 02/02/2021 10:36:39 AM Referred By: [facility] Confirmed By:Eagle Baumann
--- NOTE | 2021-02-02 11:09 | Critical Care Progress Note ---
Date of Service February 02, 2021 Assessment & Plan (1) Acute liver failure: (2) Tylenol toxicity: (3) Lactic acidosis: (4) Acute kidney injury: Plan: 60-year-old male with a past medical history of GERD, hyperlipidemia, insomnia, anxiety, depression and Parkinson's disease who presented to the hospital with liver failure, ISMAEL, septic shock and possible acetaminophen overdose. Neurologic: Mental status remained stable, but we will keep a close eye on things given his hyperammonemia and liver failure. He is at risk for cerebral edema. Pulmonary: cxr improved post dialysis Cardiovascular: Mild hypotension. Off Levophed and vasopressin at this time. Right IJ central line in place. Echo from 01/31/2021 with evidence of left ventricle that is hyperdynamic. Right ventricular pressure is normal. antihypertensives. Gastrointestinal: Severe transaminitis seen. Patient with worsening liver failure and severe coagulopathy. Given additional 10 mg IV vitamin K. Tertiary care centers contacted due to liver failure. No beds available at this time. Gallbladder ultrasound yesterday with mild hepatomegaly and fatty infiltration. Acetaminophen level elevated on admission. Patient also notably to be on primidone which can cause elevated levels. Currently on NAC protocol. Continue lactulose due to hyperammonemia. Trend ammonia twice daily. Continue pantoprazole 40 mg twice daily. No further recommendations from gastroenterology at this time. Renal: ISMAEL present. Patient oliguric. Renal on board. Underwent for session of hemodialysis 02/01/2021. Defer further hemodialysis to nephrology. Persistent lactic acidosis likely related to renal failure. Poison control on board. Infectious disease: Blood cultures negative to date. De-escalate antibiotics to Zosyn. Daptomycin doxycycline discontinued. Hematologic: CBC every 12 hours. Patient with elevated INR and low platelets. Platelet count stable. Possible sepsis coagulopathy versus liver failure versus DIC. Atypical HUS/TTP seem less likely at this time given the lack of fever and altered mental status. Endocrine: Continue to monitor glucose closely as he is initially hypoglycemic on admission. May need to start a D10 ggt. Lines and tubes: Right IJ in place 01/31/2021. Radial line in place 01/31/2021. Left femoral vein HD cath in place 02/01/2021. VTE prophylaxis: SCDs CODE STATUS: Patient relates that he does not want chest compressions or defibrillation in the event of a cardiac arrest. He is okay with intubation mechanical ventilation if required. Palliative care consult pending. Family at bedside:None available Disposition: Remain in ICU. Grave prognosis. I have personally spent 44 minutes of critical care time in the direct management of this patient. This is a life/limb threatening event. This includes time spent evaluating patient, direct bedside care, chart review, placing orders, interpretation of diagnostic studies, discussion with consultants, patient, and family members, as well as other required patient management activities. This time is exclusive of all separately billable procedures, and teaching time and separate from and in addition to any other critical care service time. Thank you for allowing us to participate in the care of this patient. Admission and Anticipated Discharge Date Admission Date: January 31, 2021 Subjective Patient had a bout of emesis last night. Tolerated his diet this morning. No pain in his chest. No evidence of significant bleeding except mild oozing from the left hemodialysis catheter in the left groin per nursing. Off of pressors. Review of Systems Review of Systems: All systems reviewed & are unremarkable except as noted in HPI & below Physical Exam Physical Exam: VITAL SIGNS - Vital signs and nursing notes were reviewed. GENERAL - 60-year-old male appearing older than his stated age in mild distress SKIN - Jaundiced HEAD - NC/AT. EYES - PERRL with EOMI bilaterally. Sclera anicteric. EARS - No deformities of external structures noted on gross examination bilaterally. NOSE - Midline and without cyanosis. No epistaxis or purulent drainage noted. MOUTH/OROPHARYNX - Without perioral cyanosis. Buccal mucosa pink and dry. NECK - Neck with FROM. Supple to palpation. No lymphadenopathy noted. No nuchal rigidity. LUNGS - Dminished b/l, no wheezes CARDIAC - RRR with S1/S2. No murmur, rubs, or gallops appreciated. ABDOMEN - Abdominal contour obese without pulsations or visible masses. BS normoactive all four quadrants. No tenderness, palpable masses, hepatosplenomegaly, or ascites noted. EXTREMITIES - No clubbing or peripheral cyanosis. No pretibial edema present. Left femoral vein HD cath in place NEUROLOGIC - Cranial nerves II through XII grossly intact. Psychiatric -alert and oriented x3. Euthymic. Results & Data Results & Data ([facility]) Vital Signs (Past 12 Hours) Vital Signs Temp Pulse Resp BP Pulse Ox 02/02/21 10:00 99 H 12/03/21 09:00 101 H 20 101/68 99 02/02/21 08:00 103 H 92/68 L 96 02/02/21 07:00 105 H 21 99/69 L 97 02/02/21 06:15 103 H 0 L 96 02/02/21 06:00 103 H 22 94/75 L 97 02/02/21 05:09 36.4 C L 02/02/21 05:00 102 H 20 106/70 98 02/02/21 04:00 103 H 22 108/71 97 02/02/21 03:30 104 H 0 L 94 02/02/21 03:15 104 H 0 L 88 L 02/02/21 03:00 104 H 21 102/72 97 02/02/21 02:00 103 H 26 H 95/73 L 97 02/02/21 01:00 103 H 22 113/74 98 02/02/21 00:00 36.5 C 105 H 34 H 119/84 97 Vital signs, labs and imaging Coding Level of Care Code Critical Care 1st 30-74 mins Diagnoses Acute liver failure K72.00 Tylenol toxicity T39.1X1A Lactic acidosis E87.2 Acute kidney injury N17.9 Time Spent (min) 44
[2021-02-02] MEDS: PATIROMER CALCIUM SORBITEX 8.4 GM PACK PO SCH (11:25)
--- NOTE | 2021-02-02 11:37 | Palliative Care Consultation ---
Date of Consultation February 02, 2021 Assessment & Plan (1) Palliative care encounter: This is a 60 year old male who presented to [facility] from [facility] with hypotension and signs of septic shock; despite no source of infection being identified. His LA on arrival was 11 and remains high. His Tylenol level was found to be elevated and there was question whether he had an intentional ingestion of Tylenol. He has been anuric and had hemodialysis yesterday. He has an extensive medical history that includes: HLD, Anxiety with depression, HLD, HTN, DM2. I met with the patient who was arousable and able to answer simple questions, but drifted off to sleep on two occasions of me stopping in to see him. He does have a but we do need clearance from the custodial to determine if we can talk with her or if they need to directly. I did call [phone] as directed by the guards and was transfered to [facility] and left a voicemail for their medical team to discuss further. Code status does need to be addressed and, at this time, do not feel the patient has enough capacity to have full insight in order to make complex decision making. Palliative will follow. (2) Tylenol toxicity: (3) Altered mental status: History of Present Illness Reason for Consultation: goals of care Requesting Physician: Dr. Brewer Attending Physician: Pamela Brewer MD History of Present Illness This is a 60 year old male who presented to [facility] from [facility] with hypotension and signs of septic shock; despite no source of infection being identified. His LA on arrival was 11 and remains high. His Tylenol level was found to be elevated and there was question whether he had an intentional ingestion of Tylenol. He has an extensive medical history that includes: HLD, Anxiety with depression, HLD, HTN, DM2. Palliative Care was consulted to discuss goals of care. Thanks for involving Palliative Care with this patient. Allergies Allergy/AdvReac Type Severity Reaction Status Date / Time No Known Allergies Allergy Unverified 01/31/21 01:01 Home Medications Medication Instructions Recorded Confirmed Type amlodipine 5 mg tablet 5 mg PO DAILY 01/31/21 01/31/21 History carbidopa ER 25 mg-levodopa 100 mg 1 tab PO QID 01/31/21 01/31/21 History tablet,extended release duloxetine 60 mg capsule,delayed 60 mg PO BID 01/31/21 01/31/21 History release finasteride 5 mg tablet 5 mg PO QPM 01/31/21 01/31/21 History hydroxyzine pamoate 50 mg capsule 50 mg PO HS 01/31/21 01/31/21 History insulin NPH isoph U-100 human 100 14 unit SUBCUT QPM 01/31/21 01/31/21 History unit/mL subcutaneous suspension (Novolin N NPH U-100 Insulin isophane) insulin NPH isoph U-100 human 100 34 unit SUBCUT QAM 01/31/21 01/31/21 History unit/mL subcutaneous suspension (Novolin N NPH U-100 Insulin isophane) lisinopril 20 1 tab PO DAILY 01/31/21 01/31/21 History mg-hydrochlorothiazide 12.5 mg tablet metformin 500 mg tablet 500 mg PO BID 01/31/21 01/31/21 History mirtazapine 45 mg tablet 45 mg PO HS 01/31/21 01/31/21 History nortriptyline 25 mg capsule 25 mg PO HS 01/31/21 01/31/21 History omeprazole 20 mg capsule,delayed 20 mg PO DAILY 01/31/21 01/31/21 History release ondansetron HCl 4 mg tablet 4 mg PO QID PRN 01/31/21 01/31/21 History pravastatin 40 mg tablet 40 mg PO HS 01/31/21 01/31/21 History primidone 50 mg tablet 200 mg PO TID 01/31/21 01/31/21 History tamsulosin 0.4 mg capsule 0.8 mg PO HS 01/31/21 01/31/21 History Patient History Medical History (Updated 02/02/21 @ 19:02 by MARAL Shaffer) Acute kidney injury Acute liver failure Altered mental status Anxiety with depression BPH w urinary obs/LUTS Diabetes mellitus with chronic kidney disease, with long-term current use of insulin GERD (gastroesophageal reflux disease) Hyperkalemia Hyperlipidemia Hypertension Insomnia Palliative care encounter Parkinson's disease Tylenol toxicity Social History Smoking Status: Never smoker Hx Alcohol Use: No Hx Substance Use: No Preferred Language: Peruvian Communication Ability: Effective Scientific Associate Required: No Beliefs That Will Affect Care: None Current Living Situation Comment: [facility] Feels Safe at Home: Yes Assistive Devices: Oxygen - Continuous Review of Systems Review of Systems: [facility] Assessment Scale: Pain: 0/3 SOB: 0/3 Anxiety: 1/3 Palliative Performance Scale: 40% Results & Data ([facility]) Vital Signs (Past 12 Hours) Vital Signs Temp Pulse Resp BP Pulse Ox 02/02/21 11:00 100 H 91/64 L 97 02/02/21 10:00 99 H 02/02/21 09:00 101 H 20 101/68 99 02/02/21 08:00 104 H 92/68 L 96 02/02/21 07:00 105 H 21 99/69 L 97 02/02/21 06:15 103 H 0 L 96 02/02/21 06:00 103 H 22 94/75 L 97 02/02/21 05:09 36.4 C L 02/02/21 05:00 102 H 20 106/70 98 02/02/21 04:00 103 H 22 108/71 97 02/02/21 03:30 104 H 0 L 94 02/02/21 03:15 104 H 0 L 88 L 02/02/21 03:00 104 H 21 102/72 97 02/02/21 02:00 103 H 26 H 95/73 L 97 02/02/21 01:00 103 H 22 113/74 98 02/02/21 00:00 36.5 C 105 H 34 H 119/84 97 PG Care Time/CCT Total # of Minutes Spent Total Time Spent with Patient: Total time spent is greater than 50% in coordination of care (as documented) at patient's floor/unit and/or counseling patient: 70 minutes Coding Level of Care Code 98238 Initial Inpt Care Lvl 3 Diagnoses Palliative care encounter Z51.5 Tylenol toxicity T39.1X1A Altered mental status R41.82 Time Spent (min) 70
[2021-02-02] MEDS ORDERED: EPOETIN ALFA 20,000 UNITS/ML VIAL IV STA (12:32)
--- NOTE | 2021-02-02 12:32 | Nephrology Progress Note ---
Date of Service February 02, 2021 Assessment & Plan (1) Acute kidney injury: (2) Hyperkalemia: (3) Lactic acidosis: (4) Septic shock: (5) Acute liver failure: (6) Tylenol toxicity: Plan: 60-year-old gentleman with no known history of CKD, admitted with septic shock of unclear source, hypertension, lactic acidosis, ISMAEL and hyperkalemia and acute liver failure. initially slightly improved with pressor support. Tylenol level was 84, now down to 46. Remained oligo aneuric, electrolyte improved after dialysis yesterday. --Plan for 4 hours dialysis today, try to have 2 L UF if blood pressure allows. --continue to hold Lisinopril/HCTZ, Metformin -- Will continue to monitor over the weekend for evidence of renal recovery and any further need for dialysis.. Will follow Admission and Anticipated Discharge Date Admission Date: January 31, 2021 Logan Nguyen was seen this morning in his room. He was awake, alert, denied at any symptom. Urine output remains low. Blood pressure relatively low. Electrolyte acceptable today. Tolerated dialysis yesterday. Review of Systems Review of Systems: Detailed ROS was done and pertinent positive and negative mentioned above in HPI. Physical Exam Constitutional: WD/WN, vitals as above + ill appearing; no acute distress Eyes: + anicteric sclerae ENMT: Ears: no hearing impairment and no external ear abnormality Neck: normal visual inspection Respiratory: normal respiratory effort; no respiratory distress Auscultation: lungs clear to auscultation bilaterally Cardiovascular: Rate/Rhythm: regular rate and regular rhythm Heart Sounds: normal S1 and normal S2 Extremities: no edema Skin: normal turgor; no rashes Neurologic: no focal motor deficits and not confused Psychiatric: Orientation: alert and oriented x 3 Results & Data ([facility]) Vital Signs (Past 12 Hours) Vital Signs Temp Pulse Resp BP Pulse Ox 02/02/21 11:00 100 H 91/64 L 97 02/02/21 10:00 99 H 02/02/21 09:00 101 H 20 101/68 99 02/02/21 08:00 104 H 92/68 L 96 02/02/21 07:00 105 H 21 99/69 L 97 02/02/21 06:15 103 H 0 L 96 02/02/21 06:00 103 H 22 94/75 L 97 02/02/21 05:09 36.4 C L 02/02/21 05:00 102 H 20 106/70 98 02/02/21 04:00 103 H 22 108/71 97 02/02/21 03:30 104 H 0 L 94 02/02/21 03:15 104 H 0 L 88 L 02/02/21 03:00 104 H 21 102/72 97 02/02/21 02:00 103 H 26 H 95/73 L 97 02/02/21 01:00 103 H 22 113/74 98 PG Care Time/CCT Total # of Minutes Spent Total Time Spent with Patient: Total time spent is greater than 50% in coordination of care (as documented) at patient's floor/unit and/or counseling patient: Coding Level of Care Code 41096 Subseq Hosp Care Lvl 3 Diagnoses Acute kidney injury N17.9 Hyperkalemia E87.5 Lactic acidosis E87.2 Septic shock A41.9; R65.21 Acute liver failure K72.00 Tylenol toxicity T39.1X1A
--- NOTE | 2021-02-02 13:14 | Pharmacy Report ---
Pharmacy Glycemic Short Note 2 - Date of Service February 02, 2021 - Glycemic Short BSG Results (Last 24 hours): 02/01/21 02/01/21 02/01/21 13:22 15:07 15:07 Glucose 283 H 251 H 247 H 02/01/21 02/01/21 02/01/21 16:15 18:00 19:03 Glucose 185 H 103 H 110 H 02/01/21 02/01/21 02/01/21 20:16 20:16 21:05 Glucose 104 H 105 H 96 02/01/21 02/01/21 02/01/21 22:07 23:19 23:58 Glucose 91 87 88 02/02/21 02/02/21 02/02/21 01:54 04:39 06:21 Glucose 81 75 72 02/02/21 02/02/21 02/02/21 08:01 09:59 12:02 Glucose 65 L 80 91 OUTPATIENT ANTIDIABETIC REGIMEN: * n/a * A1c = 6.6% ASSESSMENT: 02/02 * Insulin drip weaned off yesterday. Pressors have also been weaned off. * Serum Glucose has been measured Q 2 hrs and currently running 65-91 today. Patient did tolerate his breakfast this AM. * Will refrain from ordering SQ insulin at this time. Plan to check serum glucose at least ACHS or Q 6 hrs to screen for both hyper- and hypo-glycemia 02/01 * Patient admitted to ICU for acute liver failure, likely acetaminophen toxicity, ISMAEL, and shock * No prior history of DM noted however A1c 6.6%, consistent with insulin resistance and possible dx DM * patient presented with hypoglycemia, however became hyperglycemic while receiving medications mixed in dextrose as well as pressor (norepi, vasopressin). * IV insulin drip was started per protocol to control BSGs as well as treat persistent hyperkalemia. Insulin drip would be best suited to quickly and safely control hyperglycemia in a patient who may be prone to hypoglycemia with liver injury PLAN FOR INPATIENT GLYCEMIC CONTROL: * DC insulin drip * Basal insulin * none * Bolus insulin * none * Monitor serum glucose ACHS or Q 6 hrs at a minimum (will discuss w/ [employer]) PLAN FOR DISCHARGE: * to be determined
[2021-02-02] MEDS ORDERED: NOREPINEPHRINE/D5W 8 MG/508 ML IV ONE (14:15)
[2021-02-02] MEDS ORDERED: STAT IV Infusion **Titration per Protocol STA (14:43)
[2021-02-02] MEDS: NOREPINEPHRINE/D5W 8 MG/508 ML BAG IV SCH (14:48)
[2021-02-02] MEDS ORDERED: PIPERACILLIN/TAZOBACTAM 4.5 GM in DEXTROSE 5% 100 ML IV SCH (16:00)
[2021-02-02 19:46] LABS: BUN Creatinine Ratio 4.8 (10-20); Creatinine Clr Calc Pharmacy 34.5 ml/min; Est GFR (African American) 29.5 ml/min; Est GFR (Non-African American) 25.5 ml/min; Potassium 3.4 mmol/L (3.5-5.1)
--- NOTE | 2021-02-02 20:23 | Hospitalist Progress Note ---
Date of Service February 02, 2021 Assessment & Plan (1) Septic shock: Plan: Presented with hypotension and suspected septic shock, however it appears that he does not have any source of infection as cultures and imaging negative Admitted to the ICU and placed on Levophed and vasopressin-now weaned off pressors Now has developed acute liver failure and acute kidney injury requiring hemodialysis Remains afebrile and blood cultures negative to date, no UTI, no pneumonia, no other source of infection found Continue Zosyn but will discontinue daptomycin and doxycycline now Follow cultures (2) Acute liver failure: Plan: Developed acute liver failure over the first 24-48 hours of admission With cirrhotic appearing liver on CT abdomen/pelvis and preliminary positive hepatitis C antibody, may have underlying chronic liver disease Liver ultrasound shows enlarged fatty liver, no CBD dilatation or evidence of obstruction. No tumor on CT or ultrasound With elevated Tylenol level 83 as well Also takes primidone and a statin routinely-urine drug screen positive for phenobarbital secondary to primidone use Alcohol and ASA level negative Hepatitis B-, hepatitis C preliminary positive-RNA pending, and hepatitis A pending Covid-19 neg With worsening coagulopathy, INR elevated, fibrinogen low, D-dimer 8000, platelets low Also with hepatic encephalopathy, acute kidney injury, and significantly el evated total bilirubin, AST, and ALT Significantly elevated lactate is also likely due to liver failure Transferrin saturation is quite high at 97%-question if has underlying hemochromatosis? Unfortunately, there are no available beds for transfer out to tertiary care center capable of liver transplant Continue lactulose-he is moving his bowels Continue acetylcysteine, APAP levels have decreased Follow LFTs, CBC, INR Was given IV vitamin K and cryoprecipitate Hold home pravastatin and primidone Continue to provide vasopressors as needed for shock (3) Acute kidney injury: Plan: With worsening renal failure, hyperkalemia, metabolic acidosis, and oliguria Started hemodialysis on 02/01 and had another session on 02/02 Appreciate nephrology consultation -Follow BMP, urine output -Continue Velt[place] 8.4 g p.o. once daily (4) Tylenol toxicity: Plan: As above (5) Hyperkalemia: Plan: As above (6) Hypoglycemia: Plan: Glucose was 35 upon admission, and normalized after supplementation Likely secondary to liver failure (7) Hypothermia: Plan: Resolved Likely related to liver failure and septic shock (8) Lactic acidosis: Plan: Lactate as high as 13 ABG showed pH 7.13 Likely secondary to liver failure With anion gap metabolic acidosis (9) Diabetes mellitus with chronic kidney disease, with long-term current use of insulin: Plan: With hypoglycemia on arrival Then had hyperglycemia -insulin drip placed and now better controlled Pharmacy assistance appreciated with management of glucose (10) Hypertension: Plan: Holding meds due to hypotension (11) Parkinson's disease: Plan: Continue carbidopa - levodopa (12) Anxiety with depression: Plan: Anxiety with depression- Hold home primidone Hold duloxetine, hydroxyzine, mirtazapine and nortriptyline (13) BPH w urinary obs/LUTS: Plan: Hold finasteride Hold tamsulosin for hypotension Rashid catheter in place (14) Insomnia: Plan: For now holding mirtazapine and nortriptyline (15) Hyperlipidemia: Plan: Hold pravastatin as above (16) GERD (gastroesophageal reflux disease): Plan: Continue Protonix IV (17) CAD (coronary artery disease), kenaitze coronary artery: Plan: With a history of CABG No other known history regarding this Not on aspirin as an outpatient Holding statin (18) Hepatic encephalopathy: Plan: As above Continue lactulose (19) Acute respiratory failure with hypoxia: Plan: Requiring 2 to 3 L nasal cannula Improving with dialysis Likely secondary to pulmonary edema (20) Admitted to intensive care unit: Plan: Appreciate investor management DVT prophylaxis-holding heparin SQ due to coagulopathy, SCDs Disposition-continued stay in ICU, grave prognosis, should continue attempts to get transferred up to tertiary care center capability of liver transplant Admission and Anticipated Discharge Date Admission Date: January 31, 2021 Subjective Patient seen in the evening and was sleeping, he would not open his eyes but did turn his head towards my voice but then fell back asleep. He would not answer any my questions. He was tachycardic in the 1 teens and mildly tachypneic when I saw him. Blood pressures were stable. He required some Levophed today with dialysis but has since been weaned off. Review of Systems Review of Systems: Unobtainable due to cognitive status Physical Exam Constitutional: WD/WN, vitals as above Neck: trachea midline, no thyromegaly Respiratory: normal respiratory effort, lungs clear to auscultation + tachypneic Cardiovascular: Rate/Rhythm: regular rhythm and + tachycardic Heart Sounds: no murmur Extremities: no edema Chest (Breasts): Chest: normal inspection of chest Gastrointestinal (Abdomen): normal bowel sounds, soft, nontender, no hepatosplenomegaly (Mildly distended) Musculoskeletal: Extremities: extremities normal to inspection; no cyanosis and no clubbing Skin: no rashes, warm and dry Neurologic: + not awake Lymphatic: no lymphedema Results & Data Results & Data ([facility]) Vital Signs (Past 12 Hours) Vital Signs Temp Pulse Pulse Resp BP BP BP 02/02/21 20:01 113 H 24 112/74 150/63 H 02/02/21 18:00 36.8 C 110 H 29 H 106/70 02/02/21 17:35 36.7 C 109 H 115/57 L 02/02/21 17:20 108 H 107/55 L 02/02/21 17:00 36.7 C 108 H 22 105/53 L 02/02/21 16:40 105 H 86/64 L 02/02/21 16:20 106 H 102/50 L 02/02/21 16:00 36.7 C 104 H 22 96/46 L 02/02/21 15:40 106 H 94/46 L 02/02/21 15:20 105 H 105/71 02/02/21 15:15 102 H 0 L 02/02/21 15:00 103 H 0 L 105/71 02/02/21 14:45 104 H 0 L 02/02/21 14:40 104 H 133/59 L 02/02/21 14:30 118 H 0 L 02/02/21 14:20 99 H 113/54 L 02/02/21 14:15 99 H 0 L 02/02/21 14:00 99 H 75/56 L 02/02/21 13:40 100 H 88/47 L 02/02/21 13:15 36.5 C 100 H 02/02/21 13:00 99 H 78/57 L 02/02/21 12:00 101 H 104/50 L 02/02/21 11:00 100 H 91/64 L 02/02/21 10:00 99 H 02/02/21 09:00 101 H 20 101/68 Pulse Ox 02/02/21 20:01 98 02/02/21 18:00 97 02/02/21 17:35 02/02/21 17:20 02/02/21 17:00 93 02/02/21 16:40 02/02/21 16:20 02/02/21 16:00 93 02/02/21 15:40 02/02/21 15:20 02/02/21 15:15 99 02/02/21 15:00 97 02/02/21 14:45 98 02/02/21 14:40 02/02/21 14:30 99 02/02/21 14:20 02/02/21 14:15 98 02/02/21 14:00 95 02/02/21 13:40 02/02/21 13:15 02/02/21 13:00 99 02/02/21 12:00 98 02/02/21 11:00 97 02/02/21 10:00 02/02/21 09:00 99 Laboratory Results 02/02/21 02/02/21 02/02/21 Range/Units 22:29 22:29 18:48 WBC (4.8-10.8) K/uL RBC (4.7-6.1) M/uL Hgb (14.0-18.0) g/dL Hct (42-52) % MCV (80-100) fL MCH (25-34) pg MCHC (32-36) g/dL RDW Std Deviation (36.4-46.3) fL RDW Coeff of Royal (11.5-14.5) % Plt Count (130-400) K/uL MPV (7.4-10.4) fL Immature Gran % (Auto) % Neut % (Auto) % Lymph % (Auto) % Elk % (Auto) % Eos % (Auto) % Baso % (Auto) % Neut # (Auto) (1.4-6.5) K/uL Lymph # (Auto) (1.2-3.4) K/uL Elk # (Auto) (0.11-0.59) K/uL Eos # (Auto) (0-0.5) K/uL Baso # (Auto) (0-0.2) K/uL Immature Gran # (Auto) (0.00-0.02) K/uL Dohle Bodies PT 50.1 H (9.0-12.0) Seconds INR 5.7 H* (0.9-1.1) APTT (21.0-31.0) Seconds PTT Ratio ABG pH (7.35-7.45) ABG pCO2 (35-46) mmHg ABG pO2 (80-95) mmHg ABG HCO3 (19-24) mmol/L ABG O2 Saturation (90-95) % ABG Base Excess (-9-1.8) mEq/L Pablo Test (Pos) Barometric Pressure mm/Hg Oxygen Given Sodium 137 (136-145) mmol/L Potassium 3.4 L D (3.5-5.1) mmol/L Chloride 98 (98-107) mmol/L Carbon Dioxide 17 L (21-32) mmol/L Anion Gap 22.0 H (3-11) BUN 13 (7-18) mg/dl Creatinine 2.63 H D (0.6-1.4) mg/dl Est Cr Clr Drug Dosing 34.5 ml/min Est GFR ( Amer) 29.5 ml/min Est GFR (Non-Af Amer) 25.5 ml/min BUN/Creatinine Ratio 4.8 L (10-20) Glucose 89 82 (70-99) mg/dl Lactate (0.4-2.0) mmol/L Calcium 7.0 L (8.5-10.1) mg/dl Phosphorus (2.5-4.9) mg/dl Magnesium (1.8-2.4) mg/dl Iron (35-175) mcg/dl Transferrin (200-360) mg/dl Transferrin % Sat (20-50) % Total Bilirubin 6.4 H Ferritin (8-388) ng/ml Direct Bilirubin 4.2 H AST 3280 H ALT 3577 H Alkaline Phosphatase 85 Ammonia (11-32) umol/L Total Protein 5.2 L Albumin 2.5 L Urine Butalbital (<100) ng/mL Urine Amobarbital (<100) ng/mL Urine Pentobarbital (<100) ng/mL Urine Phenobarbital (<100) ng/mL Urine Secobarbital (<100) ng/mL Drug Screen Comment Miscellaneous Test 02/02/21 02/02/21 02/02/21 Range/Units 12:02 12:02 09:59 WBC (4.8-10.8) K/uL RBC (4.7-6.1) M/uL Hgb (14.0-18.0) g/dL Hct (42-52) % MCV (80-100) fL MCH (25-34) pg MCHC (32-36) g/dL RDW Std Deviation (36.4-46.3) fL RDW Coeff of Royal (11.5-14.5) % Plt Count (130-400) K/uL MPV (7.4-10.4) fL Immature Gran % (Auto) % Neut % (Auto) % Lymph % (Auto) % Elk % (Auto) % Eos % (Auto) % Baso % (Auto) % Neut # (Auto) (1.4-6.5) K/uL Lymph # (Auto) (1.2-3.4) K/uL Elk # (Auto) (0.11-0.59) K/uL Eos # (Auto) (0-0.5) K/uL Baso # (Auto) (0-0.2) K/uL Immature Gran # (Auto) (0.00-0.02) K/uL Dohle Bodies PT (9.0-12.0) Seconds INR (0.9-1.1) APTT (21.0-31.0) Seconds PTT Ratio ABG pH (7.35-7.45) ABG pCO2 (35-46) mmHg ABG pO2 (80-95) mmHg ABG HCO3 (19-24) mmol/L ABG O2 Saturation (90-95) % ABG Base Excess (-9-1.8) mEq/L Pablo Test (Pos) Barometric Pressure mm/Hg Oxygen Given Sodium (136-145) mmol/L Potassium (3.5-5.1) mmol/L Chloride (98-107) mmol/L Carbon Dioxide (21-32) mmol/L Anion Gap (3-11) BUN (7-18) mg/dl Creatinine (0.6-1.4) mg/dl Est Cr Clr Drug Dosing ml/min Est GFR ( Amer) ml/min Est GFR (Non-Af Amer) ml/min BUN/Creatinine Ratio (10-20) Glucose 91 80 (70-99) mg/dl Lactate (0.4-2.0) mmol/L Calcium (8.5-10.1) mg/dl Phosphorus (2.5-4.9) mg/dl Magnesium (1.8-2.4) mg/dl Iron 186 H (35-175) mcg/dl Transferrin 136 L (200-360) mg/dl Transferrin % Sat 97 H (20-50) % Total Bilirubin Ferritin 37962.0 H (8-388) ng/ml Direct Bilirubin AST ALT Alkaline Phosphatase Ammonia (11-32) umol/L Total Protein Albumin Urine Butalbital (<100) ng/mL Urine Amobarbital (<100) ng/mL Urine Pentobarbital (<100) ng/mL Urine Phenobarbital (<100) ng/mL Urine Secobarbital (<100) ng/mL Drug Screen Comment Miscellaneous Test 02/02/21 02/02/21 02/02/21 Range/Units 08:01 06:22 06:21 WBC (4.8-10.8) K/uL RBC (4.7-6.1) M/uL Hgb (14.0-18.0) g/dL Hct (42-52) % MCV (80-100) fL MCH (25-34) pg MCHC (32-36) g/dL RDW Std Deviation (36.4-46.3) fL RDW Coeff of Royal (11.5-14.5) % Plt Count (130-400) K/uL MPV (7.4-10.4) fL Immature Gran % (Auto) % Neut % (Auto) % Lymph % (Auto) % Elk % (Auto) % Eos % (Auto) % Baso % (Auto) % Neut # (Auto) (1.4-6.5) K/uL Lymph # (Auto) (1.2-3.4) K/uL Elk # (Auto) (0.11-0.59) K/uL Eos # (Auto) (0-0.5) K/uL Baso # (Auto) (0-0.2) K/uL Immature Gran # (Auto) (0.00-0.02) K/uL Dohle Bodies PT 46.5 H (9.0-12.0) Seconds INR 5.2 H (0.9-1.1) APTT 47.3 H* (21.0-31.0) Seconds PTT Ratio 1.8 ABG pH 7.41 (7.35-7.45) ABG pCO2 33 L (35-46) mmHg ABG pO2 78 L (80-95) mmHg ABG HCO3 20 (19-24) mmol/L ABG O2 Saturation 94.7 (90-95) % ABG Base Excess -3.8 (-9-1.8) mEq/L Pablo Test Pos (Pos) Barometric Pressure 730.8 mm/Hg Oxygen Given 2% Sodium 133 L (136-145) mmol/L Potassium 4.6 (3.5-5.1) mmol/L Chloride 93 L (98-107) mmol/L Carbon Dioxide 18 L (21-32) mmol/L Anion Gap 23.0 H (3-11) BUN 25 H (7-18) mg/dl Creatinine 3.75 H (0.6-1.4) mg/dl Est Cr Clr Drug Dosing 24.4 ml/min Est GFR ( Amer) 19.2 ml/min Est GFR (Non-Af Amer) 16.6 ml/min BUN/Creatinine Ratio 6.7 L (10-20) Glucose 65 L (70-99) mg/dl Lactate (0.4-2.0) mmol/L Calcium 7.2 L (8.5-10.1) mg/dl Phosphorus (2.5-4.9) mg/dl Magnesium (1.8-2.4) mg/dl Iron (35-175) mcg/dl Transferrin (200-360) mg/dl Transferrin % Sat (20-50) % Total Bilirubin Ferritin (8-388) ng/ml Direct Bilirubin AST ALT Alkaline Phosphatase Ammonia (11-32) umol/L Total Protein Albumin Urine Butalbital (<100) ng/mL Urine Amobarbital (<100) ng/mL Urine Pentobarbital (<100) ng/mL Urine Phenobarbital (<100) ng/mL Urine Secobarbital (<100) ng/mL Drug Screen Comment Miscellaneous Test 02/02/21 02/02/21 02/02/21 Range/Units 06:21 06:20 06:20 WBC (4.8-10.8) K/uL RBC (4.7-6.1) M/uL Hgb (14.0-18.0) g/dL Hct (42-52) % MCV (80-100) fL MCH (25-34) pg MCHC (32-36) g/dL RDW Std Deviation (36.4-46.3) fL RDW Coeff of Royal (11.5-14.5) % Plt Count (130-400) K/uL MPV (7.4-10.4) fL Immature Gran % (Auto) % Neut % (Auto) % Lymph % (Auto) % Elk % (Auto) % Eos % (Auto) % Baso % (Auto) % Neut # (Auto) (1.4-6.5) K/uL Lymph # (Auto) (1.2-3.4) K/uL Elk # (Auto) (0.11-0.59) K/uL Eos # (Auto) (0-0.5) K/uL Baso # (Auto) (0-0.2) K/uL Immature Gran # (Auto) (0.00-0.02) K/uL Dohle Bodies PT (9.0-12.0) Seconds INR (0.9-1.1) APTT (21.0-31.0) Seconds PTT Ratio ABG pH (7.35-7.45) ABG pCO2 (35-46) mmHg ABG pO2 (80-95) mmHg ABG HCO3 (19-24) mmol/L ABG O2 Saturation (90-95) % ABG Base Excess (-9-1.8) mEq/L Pablo Test (Pos) Barometric Pressure mm/Hg Oxygen Given Sodium (136-145) mmol/L Potassium (3.5-5.1) mmol/L Chloride (98-107) mmol/L Carbon Dioxide (21-32) mmol/L Anion Gap (3-11) BUN (7-18) mg/dl Creatinine (0.6-1.4) mg/dl Est Cr Clr Drug Dosing ml/min Est GFR ( Amer) ml/min Est GFR (Non-Af Amer) ml/min BUN/Creatinine Ratio (10-20) Glucose 72 (70-99) mg/dl Lactate 11.8 H* (0.4-2.0) mmol/L Calcium (8.5-10.1) mg/dl Phosphorus (2.5-4.9) mg/dl Magnesium (1.8-2.4) mg/dl Iron (35-175) mcg/dl Transferrin (200-360) mg/dl Transferrin % Sat (20-50) % Total Bilirubin 4.9 H Ferritin (8-388) ng/ml Direct Bilirubin 3.3 H D AST 5872 H ALT 3795 H Alkaline Phosphatase 88 Ammonia 88.0 H (11-32) umol/L Total Protein 5.6 L Albumin 2.7 L Urine Butalbital (<100) ng/mL Urine Amobarbital (<100) ng/mL Urine Pentobarbital (<100) ng/mL Urine Phenobarbital (<100) ng/mL Urine Secobarbital (<100) ng/mL Drug Screen Comment Miscellaneous Test 02/02/21 02/02/21 02/02/21 Range/Units 04:39 04:39 01:54 WBC 4.99 (4.8-10.8) K/uL RBC 3.12 L (4.7-6.1) M/uL Hgb 9.2 L (14.0-18.0) g/dL Hct 28.3 L (42-52) % MCV 90.7 (80-100) fL MCH 29.5 (25-34) pg MCHC 32.5 (32-36) g/dL RDW Std Deviation 48.7 H (36.4-46.3) fL RDW Coeff of Royal 14.8 H (11.5-14.5) % Plt Count 60 L (130-400) K/uL MPV 10.0 (7.4-10.4) fL Immature Gran % (Auto) 0.6 % Neut % (Auto) 78.0 % Lymph % (Auto) 13.2 % Elk % (Auto) 8.0 % Eos % (Auto) 0.0 % Baso % (Auto) 0.2 % Neut # (Auto) 3.89 (1.4-6.5) K/uL Lymph # (Auto) 0.66 L (1.2-3.4) K/uL Elk # (Auto) 0.40 (0.11-0.59) K/uL Eos # (Auto) 0.00 (0-0.5) K/uL Baso # (Auto) 0.01 (0-0.2) K/uL Immature Gran # (Auto) 0.03 H (0.00-0.02) K/uL Dohle Bodies 1+ PT (9.0-12.0) Seconds INR (0.9-1.1) APTT (21.0-31.0) Seconds PTT Ratio ABG pH (7.35-7.45) ABG pCO2 (35-46) mmHg ABG pO2 (80-95) mmHg ABG HCO3 (19-24) mmol/L ABG O2 Saturation (90-95) % ABG Base Excess (-9-1.8) mEq/L Pablo Test (Pos) Barometric Pressure mm/Hg Oxygen Given Sodium 132 L 132 L (136-145) mmol/L Potassium 4.5 4.4 D (3.5-5.1) mmol/L Chloride 93 L 93 L (98-107) mmol/L Carbon Dioxide 23 23 (21-32) mmol/L Anion Gap 16.0 H 16.0 H (3-11) BUN 26 H 26 H (7-18) mg/dl Creatinine 3.52 H D 3.22 H D (0.6-1.4) mg/dl Est Cr Clr Drug Dosing 26.0 28.4 ml/min Est GFR ( Amer) 20.8 23.1 ml/min Est GFR (Non-Af Amer) 17.9 19.9 ml/min BUN/Creatinine Ratio 7.4 L 8.0 L (10-20) Glucose 75 81 (70-99) mg/dl Lactate (0.4-2.0) mmol/L Calcium 7.6 L 7.4 L (8.5-10.1) mg/dl Phosphorus 4.3 (2.5-4.9) mg/dl Magnesium 1.7 L (1.8-2.4) mg/dl Iron (35-175) mcg/dl Transferrin (200-360) mg/dl Transferrin % Sat (20-50) % Total Bilirubin Cancelled Ferritin (8-388) ng/ml Direct Bilirubin Cancelled AST Cancelled ALT Cancelled Alkaline Phosphatase Cancelled Ammonia (11-32) umol/L Total Protein Cancelled Albumin Cancelled Urine Butalbital (<100) ng/mL Urine Amobarbital (<100) ng/mL Urine Pentobarbital (<100) ng/mL Urine Phenobarbital (<100) ng/mL Urine Secobarbital (<100) ng/mL Drug Screen Comment Miscellaneous Test 02/01/21 02/01/21 01/31/21 Range/Units 23:58 05:44 12:12 WBC (4.8-10.8) K/uL RBC (4.7-6.1) M/uL Hgb (14.0-18.0) g/dL Hct (42-52) % MCV (80-100) fL MCH (25-34) pg MCHC (32-36) g/dL RDW Std Deviation (36.4-46.3) fL RDW Coeff of Royal (11.5-14.5) % Plt Count (130-400) K/uL MPV (7.4-10.4) fL Immature Gran % (Auto) % Neut % (Auto) % Lymph % (Auto) % Elk % (Auto) % Eos % (Auto) % Baso % (Auto) % Neut # (Auto) (1.4-6.5) K/uL Lymph # (Auto) (1.2-3.4) K/uL Elk # (Auto) (0.11-0.59) K/uL Eos # (Auto) (0-0.5) K/uL Baso # (Auto) (0-0.2) K/uL Immature Gran # (Auto) (0.00-0.02) K/uL Dohle Bodies PT (9.0-12.0) Seconds INR (0.9-1.1) APTT (21.0-31.0) Seconds PTT Ratio ABG pH (7.35-7.45) ABG pCO2 (35-46) mmHg ABG pO2 (80-95) mmHg ABG HCO3 (19-24) mmol/L ABG O2 Saturation (90-95) % ABG Base Excess (-9-1.8) mEq/L Pablo Test (Pos) Barometric Pressure mm/Hg Oxygen Given Sodium (136-145) mmol/L Potassium (3.5-5.1) mmol/L Chloride (98-107) mmol/L Carbon Dioxide (21-32) mmol/L Anion Gap (3-11) BUN (7-18) mg/dl Creatinine (0.6-1.4) mg/dl Est Cr Clr Drug Dosing ml/min Est GFR ( Amer) ml/min Est GFR (Non-Af Amer) ml/min BUN/Creatinine Ratio (10-20) Glucose 88 (70-99) mg/dl Lactate (0.4-2.0) mmol/L Calcium (8.5-10.1) mg/dl Phosphorus (2.5-4.9) mg/dl Magnesium (1.8-2.4) mg/dl Iron (35-175) mcg/dl Transferrin (200-360) mg/dl Transferrin % Sat (20-50) % Total Bilirubin Ferritin (8-388) ng/ml Direct Bilirubin AST ALT Alkaline Phosphatase Ammonia (11-32) umol/L Total Protein Albumin Urine Butalbital NEGATIVE (<100) ng/mL Urine Amobarbital NEGATIVE (<100) ng/mL Urine Pentobarbital NEGATIVE (<100) ng/mL Urine Phenobarbital >8000 H (<100) ng/mL Urine Secobarbital NEGATIVE (<100) ng/mL Drug Screen Comment SEE NOTE Miscellaneous Test REPORT Diagnostic Findings Chest X-Ray 02/02/21 07:27 XR chest 1V portable CLINICAL HISTORY: fluid overload COMPARISON STUDY: Chest radiograph February 01, 2021. FINDINGS: Right internal jugular central line is in place. There is no pneumothorax thorax. Interstitial thickening has improved. Bibasilar opacities are noted. These have improved. There are median sternotomy wires. Cardiomegaly is present. There may be trace bilateral pleural effusions. IMPRESSION: 1. Interval improvement in pulmonary edema. 2. Bibasilar opacities, improved since prior exam. 3. Trace bilateral pleural effusions. ACT 112: Negative or not required by law. Electronically signed by: Frank Hu M.D. 02/02/2021 8:14 AM PG Care Time/CCT Total # of Minutes Spent Total Time Spent with Patient: Total time spent is greater than 50% in coordination of care (as documented) at patient's floor/unit and/or counseling patient: Coding Level of Care Code 39771 Subseq Hosp Care Lvl 3 Diagnoses Septic shock A41.9; R65.21 Acute liver failure K72.00 Acute kidney injury N17.9 Tylenol toxicity T39.1X1A Hyperkalemia E87.5 Hypoglycemia E16.2 Hypothermia T68.XXXA Encounter type: initial encounter Lactic acidosis E87.2 Diabetes mellitus with chronic kidney disease, with long-term current use of insulin E11.22; Z79.4 Hypertension I10 Parkinson's disease G20 Anxiety with depression F41.8 BPH w urinary obs/LUTS N40.1; N13.8 Insomnia G47.00 Hyperlipidemia E78.5 GERD (gastroesophageal reflux disease) K21.9 Admitted to intensive care unit Z78.9 CAD (coronary artery disease), kenaitze coronary artery I25.10 Hepatic encephalopathy K72.90 Acute respiratory failure with hypoxia J96.01 (1) Hypothermia Encounter type: initial encounter Qualified Code(s): T68.XXXA - Hypothermia, initial encounter
[2021-02-02 22:17] LABS: Amobarbital, Urine Conf NEGATIVE ng/mL (<100); Butalbital, Urine NEGATIVE ng/mL (<100); Pentobarbital, Urine Conf NEGATIVE ng/mL (<100); Phenobarbital, Urine >8000 ng/mL (<100); Secobarbital, Urine Conf NEGATIVE ng/mL (<100)
[2021-02-02 22:53] LABS: Albumin Level 2.5 gm/dl (3.4-5.0)
[2021-02-02 22:55] LABS: Prothrombin Time 50.1 Seconds (9.0-12.0)
[2021-02-02 23:09] LABS: INR 5.7 (0.9-1.1)
[2021-02-02 23:19] LABS: Bilirubin Direct 4.2 mg/dl (0-0.2); Bilirubin,Total 6.4 mg/dl (0.2-1); Total Protein 5.2 gm/dl (6.4-8.2)
[2021-02-03] MEDS ORDERED: DEXTROSE 5% IV ONE ×2 (00:30→16:50)
[2021-02-03] MEDS ORDERED: ACETYLCYSTEINE IV ONE ×2 (00:30→16:50)
[2021-02-03] MEDS: INSULIN ASPART 100 UNITS/ML 3 ML PEN SC SCH ×5 (00:31→21:32)
[2021-02-03] MEDS ORDERED: PHYTONADIONE 10 MG in SODIUM CHLORIDE 0.9% 50 ML IV ONE ×2 (01:00→16:15)
[2021-02-03] MEDS: ACETYLCYSTEINE IV SCH ×2 (01:52→17:03)
[2021-02-03] MEDS: DEXTROSE 5% IV SCH ×2 (01:52→17:03)
[2021-02-03 03:21] LABS: Hemoglobin 9.6 g/dL (14.0-18.0); Mean Corpuscular Hemoglobin 29.6 pg (25-34); Mean Corpuscular Hgb Conc 33.1 g/dL (32-36); Mean Corpuscular Volume 89.5 fL (80-100); Nucleated RBC # (auto) 0.11 K/uL (0-0); Nucleated RBC % (auto) 2.7 %; RDW Standard Deviation 49.5 fL (36.4-46.3); Red Blood Count 3.24 M/uL (4.7-6.1)
[2021-02-03 03:38] LABS: BUN Creatinine Ratio 4.5 (10-20); Calcium 7.6 mg/dl (8.5-10.1); Creatinine Clr Calc Pharmacy 23.9 ml/min; Est GFR (African American) 18.9 ml/min; Est GFR (Non-African American) 16.3 ml/min; Phosphorus 3.7 mg/dl (2.5-4.9); Potassium 3.9 mmol/L (3.5-5.1)
[2021-02-03 04:11] LABS: Mean Platelet Volume 10.1 fL (7.4-10.4); Platelet Count 84 K/uL (130-400)
[2021-02-03 04:14] LABS: Basophils # (auto) 0.01 K/uL (0-0.2); Basophils % (auto) 0.2 %; Echinocytes 1+; Eosinophils # (auto) 0.01 K/uL (0-0.5); Eosinophils % (auto) 0.2 %; Immature Granulocytes # (auto) 0.04 K/uL (0.00-0.02); Lymphocytes # (auto) 0.87 K/uL (1.2-3.4); Lymphocytes % (auto) 21.2 %; Monocytes # (auto) 0.49 K/uL (0.11-0.59); Neutrophils # (auto) 2.68 K/uL (1.4-6.5); Neutrophils % (auto) 65.4 %; Polychromasia 1+
[2021-02-03] MEDS: PIPERACILLIN/TAZOBACTAM 4.5 GM in DEXTROSE 5% 100 ML IV SCH ×2 (05:09→15:48)
--- NOTE | 2021-02-03 07:55 | XRay Report ---
XR chest 1V portable CLINICAL HISTORY: Respiratory failure. COMPARISON STUDY: Chest CT January 31, 2021. Chest radiograph February 02, 2021. FINDINGS: Right internal jugular central line remains in place. There is no pneumothorax. There are s mall bilateral pleural effusions. Persistent bibasilar opacities persist. There is mild pulmonary maye ma. Cardiomegaly is unchanged. Lung volumes remain mildly diminished. Median sternotomy wires are pre sent IMPRESSION: 1. Persistent small bilateral pleural effusions and associated bibasilar opacities which could reflec t consolidation or atelectasis. 2. Mild pulmonary edema. 3. Low lung volumes. ACT 112: Negative or not required by law. Electronically signed by: Frank Hu M.D. 02/03/2021 7:53 AM
[2021-02-03 08:37] LABS: iSTAT Arterial Blood Gas HCO3 23 meg/L (19-24); iSTAT Arterial Blood Gas pCO2 28 mmHg (35-46); iSTAT Arterial Blood Gas pH 7.52 (7.35-7.45); iSTAT Arterial Blood Gas pO2 68 mmHg (80-95); iSTAT Carbon Dioxide 24 mmol/L (24-31); iSTAT Site Art Line
--- NOTE | 2021-02-03 09:04 | Critical Care Progress Note ---
Date of Service February 03, 2021 Assessment & Plan (1) Acute liver failure: (2) Tylenol toxicity: (3) Lactic acidosis: (4) Acute kidney injury: (5) Hepatic encephalopathy: Plan: 60-year-old male with a past medical history of GERD, hyperlipidemia, insomnia, anxiety, depression and Parkinson's disease who presented to the hospital with liver failure, ISMAEL, septic shock and possible acetaminophen overdose. Neurologic: Patient with increasing lethargy, but protecting airway. Low threshold for CT head to eval for cerebral edema. Will transition lactulose to per rectal due to worsening hyperammonemia. Pulmonary: cxr improved post dialysis. May need intubated later if unable to protect airway. Cardiovascular: Mild hypotension. Off Levophed and vasopressin at this time. Right IJ central line in place. Echo from 01/31/2021 with evidence of left ventricle that is hyperdynamic. Right ventricular pressure is normal. antihypertensives. Gastrointestinal: Severe transaminitis seen. Patient with worsening liver failure and severe coagulopathy. Tertiary care centers contacted due to liver failure. No beds available at this time. Gallbladder ultrasound yesterday with mild hepatomegaly and fatty infiltration. Acetaminophen level elevated on admission. Patient also notably to be on primidone which can cause elevated levels. Currently on NAC protocol. Continue lactulose due to hyperammonemia. Trend ammonia twice daily. Continue pantoprazole 40 mg twice daily. No further recommendations from gastroenterology at this time. Strict NPO Renal: ISMAEL present. Patient oliguric. Renal on board. On intermittent HD. Defer further hemodialysis to nephrology. Persistent lactic acidosis likely related to renal failure. Poison control on board. Infectious disease: Blood cultures negative to date. Continue empiric Zosyn. Daptomycin/doxycycline discontinued 02/02/21. Hematologic: Check daily INR. Platelet count improving. Possible sepsis coagulopathy versus liver failure versus DIC. Atypical HUS/TTP seem less likely at this time given the lack of fever. Endocrine: Continue to monitor glucose closely as he is initially hypoglycemic on admission. May need to start a D10 ggt. Lines and tubes: Right IJ in place 01/31/2021. Radial line in place 01/31/2021. Left femoral vein HD cath in place 02/01/2021. VTE prophylaxis: SCDs CODE STATUS: Patient relates that he does not want chest compressions or defibrillation in the event of a cardiac arrest. He is okay with intubation mechanical ventilation if required. Palliative care consult pending. Family at bedside:None available Disposition: Remain in ICU. Grave prognosis. I have personally spent 42 minutes of critical care time in the direct management of this patient. This is a life/limb threatening event. This includes time spent evaluating patient, direct bedside care, chart review, placing orders, interpretation of diagnostic studies, discussion with consultants, patient, and family members, as well as other required patient management activities. This time is exclusive of all separately billable procedures, and teaching time and separate from and in addition to any other critical care service time. Thank you for allowing us to participate in the care of this patient. Admission and Anticipated Discharge Date Admission Date: January 31, 2021 Subjective Patient seen and examined. More confused today as compared to yesterday. Unable to vocalize concerns. Does not appear to be in any significant distress. Lethargic. Review of Systems Review of Systems: All systems reviewed & are unremarkable except as noted in HPI & below Physical Exam Physical Exam: VITAL SIGNS - Vital signs and nursing notes were reviewed. GENERAL - 60-year-old male appearing older than his stated age in mild distress SKIN - Jaundiced HEAD - NC/AT. EYES - PERRL with EOMI bilaterally. Sclera anicteric. EARS - No deformities of external structures noted on gross examination bilat erally. NOSE - Midline and without cyanosis. No epistaxis or purulent drainage noted. MOUTH/OROPHARYNX - Without perioral cyanosis. Buccal mucosa pink and dry. NECK - Neck with FROM. Supple to palpation. No lymphadenopathy noted. No nuchal rigidity. LUNGS - Dminished b/l, no wheezes CARDIAC - RRR with S1/S2. No murmur, rubs, or gallops appreciated. ABDOMEN - Abdominal contour obese without pulsations or visible masses. BS normoactive all four quadrants. No tenderness, palpable masses, hepatosplenomegaly, or ascites noted. EXTREMITIES - No clubbing or peripheral cyanosis. No pretibial edema present. Left femoral vein HD cath in place NEUROLOGIC - Cranial nerves II through XII grossly intact. Psychiatric - lethargic Results & Data Results & Data ([facility]) Vital Signs (Past 12 Hours) Vital Signs Temp Pulse Resp BP BP Pulse Ox 02/03/21 05:00 114 H 24 106/74 132/63 93 02/03/21 04:00 37.0 C 113 H 24 104/71 127/62 93 02/03/21 03:00 110 H 24 99/67 L 124/61 94 02/03/21 02:00 111 H 26 H 94/62 L 110/55 L 95 02/03/21 01:00 111 H 29 H 95/65 L 125/59 L 94 02/03/21 00:00 37.2 C 109 H 23 90/62 L 117/56 L 94 02/02/21 23:00 110 H 28 H 89/59 L 113/55 L 95 02/02/21 22:00 110 H 25 H 100/67 133/60 98 Coding Level of Care Code Critical Care 1st 30-74 mins Diagnoses Acute liver failure K72.00 Tylenol toxicity T39.1X1A Lactic acidosis E87.2 Acute kidney injury N17.9 Hepatic encephalopathy K72.90 Time Spent (min) 42
[2021-02-03] MEDS: CARBIDOPA/LEVODOPA 25/100MG EXT REL TAB PO SCH ×3 (10:09→15:27)
[2021-02-03] MEDS: PANTOprazole 40 MG in SYRINGE 0 ML IV SCH ×2 (10:10→21:33)
[2021-02-03] MEDS: PATIROMER CALCIUM SORBITEX 8.4 GM PACK PO SCH (10:10)
[2021-02-03] MEDS: LACTULOSE SYRUP 20 GM/30 ML UDC PO SCH ×3 (10:10→21:33)
[2021-02-03] MEDS: LACTULOSE ENEMA COMPOUND PR SCH ×3 (12:38→23:48)
[2021-02-03] MEDS: LACTULOSE 200 GM, WATER, STERILE IRRIG 700 ML, BARCODE IDENTIFIER 1 EA PR SCH ×3 (12:38→23:47)
--- NOTE | 2021-02-03 13:20 | Nephrology Progress Note ---
Date of Service February 03, 2021 Assessment & Plan (1) Acute kidney injury: Plan: Requiring hemodialysis. Oligoanuric. HD completed on February 02 and . Clearances acceptable. Volume status controlled. No plan for HD today. Will continue daily evaluation. 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 No reported history of prior CKD. (2) Acute liver failure: Plan: Notable history of alcohol use. +hepatitis C. Acute Tylenol toxicity and notable iron overload. Unfortunately, prognosis is very poor. Patrick presented with acute hepatitis and now with encephalopathy has evidence of fulminant liver failure. Tertiary care centers have been contacted for possible transfer. Consider checking HIV status. Prognosis is very poor. (3) Hyperkalemia: Plan: Treated with HD. (4) Tylenol toxicity: Plan: Encourage transfer to a tertiary care hospital with hepatology services for potential transplant evaluation. Admission and Anticipated Discharge Date Admission Date: January 31, 2021 Subjective Notably encephalopathy. Lethargic but did open eyes and respond to touch. No fevers or chills. Review of Systems Review of Systems: Unobtainable due to reduced consciousness Physical Exam Constitutional: + ill appearing, + frail appearing and + lethargic; no acute distress Eyes: + scleral abnormality; sclerae not anicteric and no corneal abnormality ENMT: Mouth: + dry oral mucous membranes; no oral mucosal abnormality Neck: normal visual inspection and trachea midline Respiratory: normal respiratory effort Auscultation: lungs clear to auscultation bilaterally Cardiovascular: Rate/Rhythm: + tachycardic Heart Sounds: normal S1 and normal S2 Extremities: + edema Gastrointestinal (Abdomen): Inspection/Auscultation: + abdomen distended and + hypoactive bowel sounds Percussion/Palpation: + ascites; no guarding and a bdomen not rigid Musculoskeletal: Extremities: no cyanosis and no clubbing Skin: + turgor decreased and + jaundice Neurologic: Motor/Sensory: no tremor and no asterixis Psychiatric: Orientation: + not alert and + not oriented x 3 Results & Data ([facility]) Vital Signs (Past 12 Hours) Vital Signs Temp Pulse Pulse Resp BP BP BP 02/03/21 12:00 110 H 02/03/21 11:30 110 H 23 02/03/21 11:00 112 H 23 02/03/21 10:30 110 H 23 02/03/21 10:00 111 H 24 02/03/21 09:30 111 H 24 02/03/21 09:00 110 H 22 90/68 L 02/03/21 08:30 108 H 22 02/03/21 08:00 110 H 22 02/03/21 07:30 111 H 22 02/03/21 07:00 113 H 24 02/03/21 05:00 114 H 24 106/74 132/63 02/03/21 04:00 37.0 C 113 H 24 104/71 127/62 02/03/21 03:00 110 H 24 99/67 L 124/61 02/03/21 02:00 111 H 26 H 94/62 L 110/55 L Pulse Ox 02/03/21 12:00 02/03/21 11:30 93 02/03/21 11:00 94 02/03/21 10:30 93 02/03/21 10:00 93 02/03/21 09:30 93 02/03/21 09:00 93 02/03/21 08:30 93 02/03/21 08:00 93 02/03/21 07:30 92 02/03/21 07:00 81 L 02/03/21 05:00 93 02/03/21 04:00 93 02/03/21 03:00 94 02/03/21 02:00 95 Laboratory Results Laboratory Results - last 24 hr 01/31/21 02/01/21 02/02/21 12:12 05:44 12:02 WBC RBC Hgb Hct MCV MCH MCHC RDW Std Deviation RDW Coeff of Royal Plt Count MPV Immature Gran % (Auto) Neut % (Auto) Lymph % (Auto) Wheeler % (Auto) Eos % (Auto) Baso % (Auto) Neut # (Auto) Lymph # (Auto) Wheeler # (Auto) Eos # (Auto) Baso # (Auto) Immature Gran # (Auto) Absolute Nucleated RBC Nucleated RBC % (auto) Polychromasia Echinocytes PT INR Sample Site POC pH POC pCO2 POC pO2 POC HCO3 POC Total CO2 POC Base Excess POC ABG O2 Sat Pabol Test O2 Delivery Device Sodium Potassium Chloride Carbon Dioxide Anion Gap BUN Creatinine Est Cr Clr Drug Dosing Est GFR ( Amer) Est GFR (Non-Af Amer) BUN/Creatinine Ratio Glucose POC Glucose Calcium Phosphorus Magnesium Iron 186 H Transferrin 136 L Transferrin % Sat 97 H Ferritin 45944.0 H Total Bilirubin Direct Bilirubin AST ALT Alkaline Phosphatase Ammonia Total Protein Albumin Triglycerides Urine Butalbital NEGATIVE Acetaminophen Urine Amobarbital NEGATIVE Urine Pentobarbital NEGATIVE Urine Phenobarbital >8000 H Urine Secobarbital NEGATIVE Drug Screen Comment SEE NOTE Miscellaneous Test REPORT 02/02/21 02/02/21 02/02/21 18:48 22:29 22:29 WBC RBC Hgb Hct MCV MCH MCHC RDW Std Deviation RDW Coeff of Royal Plt Count MPV Immature Gran % (Auto) Neut % (Auto) Lymph % (Auto) Wheeler % (Auto) Eos % (Auto) Baso % (Auto) Neut # (Auto) Lymph # (Auto) Wheeler # (Auto) Eos # (Auto) Baso # (Auto) Immature Gran # (Auto) Absolute Nucleated RBC Nucleated RBC % (auto) Polychromasia Echinocytes PT 50.1 H INR 5.7 H* Sample Site POC pH POC pCO2 POC pO2 POC HCO3 POC Total CO2 POC Base Excess POC ABG O2 Sat Pablo Test O2 Delivery Device Sodium 137 Potassium 3.4 L D Chloride 98 Carbon Dioxide 17 L Anion Gap 22.0 H BUN 13 Creatinine 2.63 H D Est Cr Clr Drug Dosing 34.5 Est GFR ( Amer) 29.5 Est GFR (Non-Af Amer) 25.5 BUN/Creatinine Ratio 4.8 L Glucose 82 89 POC Glucose Calcium 7.0 L Phosphorus Magnesium Iron Transferrin Transferrin % Sat Ferritin Total Bilirubin 6.4 H Direct Bilirubin 4.2 H AST 3280 H ALT 3577 H Alkaline Phosphatase 85 Ammonia Total Protein 5.2 L Albumin 2.5 L Triglycerides Urine Butalbital Acetaminophen Urine Amobarbital Urine Pentobarbital Urine Phenobarbital Urine Secobarbital Drug Screen Comment Miscellaneous Test 02/03/21 02/03/21 02/03/21 03:03 03:03 03:03 WBC 4.10 L RBC 3.24 L Hgb 9.6 L Hct 29.0 L MCV 89.5 MCH 29.6 MCHC 33.1 RDW Std Deviation 49.5 H RDW Coeff of Royal 15.0 H Plt Count 84 L MPV 10.1 Immature Gran % (Auto) 1.0 Neut % (Auto) 65.4 Lymph % (Auto) 21.2 Wheeler % (Auto) 12.0 Eos % (Auto) 0.2 Baso % (Auto) 0.2 Neut # (Auto) 2.68 Lymph # (Auto) 0.87 L Wheeler # (Auto) 0.49 Eos # (Auto) 0.01 Baso # (Auto) 0.01 Immature Gran # (Auto) 0.04 H Absolute Nucleated RBC 0.11 H Nucleated RBC % (auto) 2.7 Polychromasia 1+ Echinocytes 1+ PT INR Sample Site POC pH POC pCO2 POC pO2 POC HCO3 POC Total CO2 POC Base Excess POC ABG O2 Sat Pablo Test O2 Delivery Device Sodium 133 L Potassium 3.9 Chloride 92 L Carbon Dioxide 22 Anion Gap 19.0 H BUN 17 Creatinine 3.80 H D Est Cr Clr Drug Dosing 23.9 Est GFR ( Amer) 18.9 Est GFR (Non-Af Amer) 16.3 BUN/Creatinine Ratio 4.5 L Glucose 91 POC Glucose Calcium 7.6 L Phosphorus 3.7 Magnesium 2.0 Iron Transferrin Transferrin % Sat Ferritin Total Bilirubin Direct Bilirubin AST ALT Alkaline Phosphatase Ammonia Total Protein Albumin Triglycerides Urine Butalbital Acetaminophen Cancelled Urine Amobarbital Urine Pentobarbital Urine Phenobarbital Urine Secobarbital Drug Screen Comment Miscellaneous Test 02/03/21 02/03/21 02/03/21 03:03 03:14 07:45 WBC RBC Hgb Hct MCV MCH MCHC RDW Std Deviation RDW Coeff of Royal Plt Count MPV Immature Gran % (Auto) Neut % (Auto) Lymph % (Auto) Wheeler % (Auto) Eos % (Auto) Baso % (Auto) Neut # (Auto) Lymph # (Auto) Wheeler # (Auto) Eos # (Auto) Baso # (Auto) Immature Gran # (Auto) Absolute Nucleated RBC Nucleated RBC % (auto) Polychromasia Echinocytes PT INR Sample Site POC pH POC pCO2 POC pO2 POC HCO3 POC Total CO2 POC Base Excess POC ABG O2 Sat Pablo Test O2 Delivery Device Sodium Potassium Chloride Carbon Dioxide Anion Gap BUN Creatinine Est Cr Clr Drug Dosing Est GFR ( Amer) Est GFR (Non-Af Amer) BUN/Creatinine Ratio Glucose 97 POC Glucose Calcium Phosphorus Magnesium Iron Transferrin Transferrin % Sat Ferritin Total Bilirubin Direct Bilirubin AST ALT Alkaline Phosphatase Ammonia 113.0 H Total Protein Albumin Triglycerides Urine Butalbital Acetaminophen Urine Amobarbital Urine Pentobarbital Urine Phenobarbital Urine Secobarbital Drug Screen Comment Miscellaneous Test Pending 02/03/21 02/03/21 02/03/21 07:45 08:11 12:04 WBC RBC Hgb Hct MCV MCH MCHC RDW Std Deviation RDW Coeff of Royal Plt Count MPV Immature Gran % (Auto) Neut % (Auto) Lymph % (Auto) Wheeler % (Auto) Eos % (Auto) Baso % (Auto) Neut # (Auto) Lymph # (Auto) Wheeler # (Auto) Eos # (Auto) Baso # (Auto) Immature Gran # (Auto) Absolute Nucleated RBC Nucleated RBC % (auto) Polychromasia Echinocytes PT INR Sample Site Art Line POC pH 7.52 H* POC pCO2 28 L POC pO2 68 L POC HCO3 23 POC Total CO2 24 POC Base Excess 1.0 POC ABG O2 Sat 95.0 Pablo Test NA O2 Delivery Device Room Air Sodium Potassium Chloride Carbon Dioxide Anion Gap BUN Creatinine Est Cr Clr Drug Dosing Est GFR ( Amer) Est GFR (Non-Af Amer) BUN/Creatinine Ratio Glucose POC Glucose 98 Calcium Phosphorus Magnesium Iron Transferrin Transferrin % Sat Ferritin Total Bilirubin Direct Bilirubin AST ALT Alkaline Phosphatase Ammonia Total Protein Albumin Triglycerides Pending Urine Butalbital Acetaminophen Urine Amobarbital Urine Pentobarbital Urine Phenobarbital Urine Secobarbital Drug Screen Comment Miscellaneous Test PG Care Time/CCT Total # of Minutes Spent Total Time Spent with Patient: Total time spent is greater than 50% in coordination of care (as documented) at patient's floor/unit and/or counseling patient: Coding Level of Care Code 46775 Subseq Hosp Care Lvl 3 Diagnoses Acute kidney injury N17.9 Hyperkalemia E87.5 Acute liver failure K72.00 Tylenol toxicity T39.1X1A
[2021-02-03 13:48] LABS: INR 5.1 (0.9-1.1); Prothrombin Time 45.3 Seconds (9.0-12.0)
[2021-02-03 14:02] LABS: Albumin Level 2.4 gm/dl (3.4-5.0); Bilirubin Direct 5.2 mg/dl (0-0.2); Bilirubin,Total 7.9 mg/dl (0.2-1); Total Protein 5.2 gm/dl (6.4-8.2)
[2021-02-03] MEDS: NOREPINEPHRINE/D5W 8 MG/508 ML BAG IV SCH (14:59)
[2021-02-03 16:58] LABS: Fibrinogen 133 mg/dl (184-400)
--- NOTE | 2021-02-03 17:16 | Hospitalist Progress Note ---
Date of Service February 03, 2021 Assessment & Plan (1) Septic shock: Plan: - Presented with hypotension and suspected septic shock, however it appears that he does not have any source of infection as cultures and imaging negative - Admitted to the ICU and placed on Levophed and vasopressin-now weaned off pressors - Now has developed acute liver failure and acute kidney injury requiring hemodialysis - Remains afebrile and blood cultures negative to date, no UTI, no pneumonia, no other source of infection found - Continue empiric Zosyn, dapto/doxy dced - Follow cultures (2) Acute liver failure: Plan: Acute liver failure Patient presented with acute hepatitis, severe transaminitis with fulminant liver failure - Tertiary but contacted for liver failure, no beds available. APAP elevated on admission, may be false positive due to primidone. On N-acetylcysteine - Developed acute liver failure over the first 24-48 hours of admission - With cirrhotic appearing liver on CT abdomen/pelvis and preliminary positive hepatitis C antibody, may have underlying chronic liver disease - Liver ultrasound shows enlarged fatty liver, no CBD dilatation or evidence of obstruction. No tumor on CT or ultrasound - Alcohol and ASA level negative - Hepatitis B-, hepatitis C preliminary positive-RNA pending, and hepatitis A pending - Covid-19 neg - With worsening coagulopathy, INR elevated, fibrinogen low, D-dimer 8000, platelets low - Also with hepatic encephalopathy, acute kidney injury, and significantly elevated total bilirubin, AST, and ALT -? Hemophagocytic lymphohistiocytosis versus HH. Patient with TSAT greater than 97%, ferritin 24,992, hypofibrinogenemia. No splenomegaly appreciated on CT, afebrile. Triglycerides pending. Interleukin-2 receptor (CD25 receptor) pending HIV pending - Unfortunately, there are no available beds for transfer out to tertiary care center capable of liver transplant - Lactulose converted to as needed due to concern for worsening hyperammonemia and increased lethargy - Continue acetylcysteine - Follow LFTs, CBC, INR - Hold home pravastatin and primidone (3) Acute kidney injury: Plan: With renal failure, hyperkalemia, metabolic acidosis, and oliguria/anuria Started hemodialysis on 02/01 and had another session on 02/02. Intermittent dialysis per renal, appreciate recommendations -Continue Veltassa 8.4 g p.o. once daily Currently oliguric (4) Tylenol toxicity: Plan: As above (5) Hyperkalemia: Plan: As above (6) Hypoglycemia: Plan: Glucose was 35 upon admission, and normalized after supplementation Likely secondary to liver failure (7) Hypothermia: Plan: Resolved Likely related to liver failure and septic shock (8) Lactic acidosis: Plan: Patient with lactate as high as 13, ABG pH 7.13 likely due to liver failure with anion gap metabolic acidosis Repeat ABG now with pH 7.52, PCO2 28 mixed picture with additional respiratory alkalosis (9) Diabetes mellitus with chronic kidney disease, with long-term current use of insulin: Plan: With hypoglycemia on arrival Then had hyperglycemia -insulin drip placed and now better controlled Pharmacy assistance appreciated with management of glucose (10) Hypertension: Plan: Holding meds due to hypotension (11) Parkinson's disease: Plan: Continue carbidopa - levodopa (12) Anxiety with depression: Plan: Anxiety with depression- Hold home primidone Hold duloxetine, hydroxyzine, mirtazapine and nortriptyline (13) BPH w urinary obs/LUTS: Plan: Hold finasteride Hold tamsulosin for hypotension Rashid catheter in place (14) Insomnia: Plan: For now holding mirtazapine and nortriptyline (15) Hyperlipidemia: Plan: Hold pravastatin as above (16) GERD (gastroesophageal reflux disease): Plan: Continue Protonix IV (17) CAD (coronary artery disease), elem coronary artery: Plan: With a history of CABG No other known history regarding this Not on aspirin as an outpatient Holding statin (18) Hepatic encephalopathy: Plan: As above Continue lactulose (19) Acute respiratory failure with hypoxia: Plan: Requiring 2 to 3 L nasal cannula Improving with dialysis Likely secondary to pulmonary edema (20) Admitted to intensive care unit: Plan: Appreciate critical care management and recommendations DVT prophylaxis-holding heparin SQ due to coagulopathy, SCDs Disposition-continued stay in ICU, grave prognosis, continue attempts to get transferred up to tertiary care center capability of liver transplant Admission and Anticipated Discharge Date Admission Date: January 31, 2021 Subjective Limited by somnolence/obtunded, critical illness Review of Systems Review of Systems: Unobtainable due to reduced consciousness Physical Exam Physical Exam: General: Obtunded, responds to some pinch HEENT: Atraumatic, normocephalic. Pupils equal reactive to light, manual opening of lids. Pulm: Diminished air movement, no respiratory distress. Tachypneic Cardiac: Tachycardic, -mrg. Radial pulses intact and symmetrical. Abdominal: Mild soft distention, no hepatosplenomegaly. BS present. Extremities: Grossly intact Results & Data Results & Data ([facility]) Vital Signs (Past 12 Hours) Vital Signs Pulse Resp BP Pulse Ox 02/03/21 15:00 109 H 22 94 02/03/21 14:30 108 H 23 95 02/03/21 14:00 109 H 22 94 02/03/21 13:30 109 H 24 94 02/03/21 13:00 110 H 23 94 02/03/21 12:30 113 H 25 H 94 02/03/21 12:00 111 H 22 86/64 L 93 02/03/21 11:30 110 H 23 93 02/03/21 11:00 112 H 23 94 02/03/21 10:30 110 H 23 93 02/03/21 10:00 111 H 24 93 02/03/21 09:30 111 H 24 93 02/03/21 09:00 110 H 22 90/68 L 93 02/03/21 08:30 108 H 22 93 02/03/21 08:00 110 H 22 93 02/03/21 07:30 111 H 22 92 02/03/21 07:00 113 H 24 81 L PG Care Time/CCT Total # of Minutes Spent Total Time Spent with Patient: Total time spent is greater than 50% in coordination of care (as documented) at patient's floor/unit and/or counseling patient: Coding Level of Care Code 90695 Subseq Hosp Care Lvl 3 Diagnoses Septic shock A41.9; R65.21 Acute liver failure K72.00 Acute kidney injury N17.9 Tylenol toxicity T39.1X1A Hyperkalemia E87.5 Hypoglycemia E16.2 Hypothermia T68.XXXA Encounter type: initial encounter Lactic acidosis E87.2 Diabetes mellitus with chronic kidney disease, with long-term current use of insulin E11.22; Z79.4 Hypertension I10 Parkinson's disease G20 Anxiety with depression F41.8 BPH w urinary obs/LUTS N40.1; N13.8 Insomnia G47.00 Hyperlipidemia E78.5 GERD (gastroesophageal reflux disease) K21.9 CAD (coronary artery disease), elem coronary artery I25.10 Hepatic encephalopathy K72.90 Acute respiratory failure with hypoxia J96.01 Admitted to intensive care unit Z78.9 (1) Hypothermia Encounter type: initial encounter Qualified Code(s): T68.XXXA - Hypothermia, initial encounter
[2021-02-04] MEDS: CARBIDOPA/LEVODOPA 25/100MG TAB NG SCH ×5 (00:44→20:29)
[2021-02-04] MEDS: PIPERACILLIN/TAZOBACTAM 4.5 GM in DEXTROSE 5% 100 ML IV SCH ×2 (04:42→16:18)
[2021-02-04 05:13] LABS: Hematocrit (blood only) 31.6 % (42-52); Hemoglobin 10.3 g/dL (14.0-18.0); Mean Corpuscular Hemoglobin 29.4 pg (25-34); Mean Corpuscular Hgb Conc 32.6 g/dL (32-36); Mean Corpuscular Volume 90.3 fL (80-100); Nucleated RBC # (auto) 0.36 K/uL (0-0); Nucleated RBC % (auto) 4.3 %; RDW Coefficient of Variation 15.4 % (11.5-14.5); RDW Standard Deviation 50.5 fL (36.4-46.3); White Blood Count 8.42 K/uL (4.8-10.8)
[2021-02-04 05:27] LABS: Mean Platelet Volume 10.2 fL (7.4-10.4); Platelet Count 83 K/uL (130-400)
[2021-02-04 05:45] LABS: Albumin Level 2.4 gm/dl (3.4-5.0); BUN Creatinine Ratio 4.5 (10-20); Bilirubin Direct 6.4 mg/dl (0-0.2); Bilirubin,Total 9.8 mg/dl (0.2-1); Calcium 8.1 mg/dl (8.5-10.1); Creatinine Clr Calc Pharmacy 15.5 ml/min; Est GFR (African American) 11.2 ml/min; Est GFR (Non-African American) 9.7 ml/min; Magnesium 2.4 mg/dl (1.8-2.4); Phosphorus 5.8 mg/dl (2.5-4.9); Potassium 3.7 mmol/L (3.5-5.1); Total Protein 5.2 gm/dl (6.4-8.2)
[2021-02-04 05:47] LABS: Basophils # (auto) 0.04 K/uL (0-0.2); Basophils % (auto) 0.5 %; Eosinophils # (auto) 0.03 K/uL (0-0.5); Eosinophils % (auto) 0.4 %; Immature Granulocytes # (auto) 0.07 K/uL (0.00-0.02); Immature Granulocytes % (auto) 0.8 %; Lymphocytes # (auto) 1.47 K/uL (1.2-3.4); Lymphocytes % (auto) 17.5 %; Monocytes # (auto) 1.37 K/uL (0.11-0.59); Monocytes % (auto) 16.3 %; Neutrophils # (auto) 5.44 K/uL (1.4-6.5); Neutrophils % (auto) 64.5 %; RBC Morphology Unremarkable
[2021-02-04] MEDS: CARBIDOPA/LEVODOPA 25/100MG EXT REL TAB PO SCH (07:07)
[2021-02-04 08:05] LABS: INR 5.3 (0.9-1.1); Prothrombin Time 46.8 Seconds (9.0-12.0)
--- NOTE | 2021-02-04 08:41 | Consultation Report ---
HEMATOLOGY CONSULTATION DATE OF SERVICE: 02/04/2021. 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 HISTORY OF PRESENT ILLNESS: The patient is a nonconversant 60-year-old custodial inmate who was admitted to [facility] on 01/31/2021 for generalized weakness and hypotension. This gentleman has a medical history of hypertension, anxiety/depression, BPH, insulin-dependent diabetes mellitus, gastroesophageal reflux, hyperlipidemia, and BPH with LUTS was subsequently referred to the Emergency Room from custodial medical personnel because of generalized weakness and low blood pressure. Apparently, he presented with blood pressure in the low 60s and received a bolus of normal saline and started on broad-spectrum antibiotics as well as vasopressors. Initial infectious workup was negative. This gentleman has progressively entered into both hepatic and renal failure, now receiving hemodialysis. The patient is now confirmed with active hepatitis C. Toxicity screen also reveals barbiturates and elevated Tylenol levels. So, most recent laboratories are quite impressive including a ferritin in excess of 24,000, creatinine 5.86, AST of 972, ALT of 1588. Ammonia level is markedly elevated at 108.9, albumin decreased 2.4. Again, thus far, all cultures have been negative, unclear on how many viral titers have been drawn since admission. Serum triglycerides are pending and would also suggest a soluble IL2 receptor alpha, IL18 and CXCL9 as part of his laboratory workup. Ultimately, this gentleman would require bone marrow biopsy and aspiration for confirmation and with current coagulopathy very risky to perform procedure at this time. Nursing reports this gentleman over the past several hours has become more obtunded. I was unable to elicit verbal response at bedside this morning. PAST MEDICAL HISTORY: Again, significant for hepatitis C, anxiety/depression, BPH with urinary obstruction/LUTS, diabetes mellitus, chronic kidney disease, gastroesophageal reflux disease, hyperlipidemia, hypertension, insomnia, Parkinson's disease. MEDICATIONS PRIOR TO ADMISSION: Amlodipine 5 mg p.o. daily, carbidopa/levodopa 1 tablet p.o. q.i.d., duloxetine 60 mg p.o. b.i.d., finasteride 5 mg p.o. daily, hydroxyzine 50 mg p.o. at bedtime, NPH insulin 14 units subcutaneously q.p.m., NPH insulin 34 units subQ q.a.m., lisinopril 1 tablet p.o. daily, metformin 500 mg p.o. b.i.d., mirtazapine 45 mg p.o. at bedtime, nortriptyline 25 mg p.o. at bedtime, omeprazole 20 mg p.o. daily, Zofran 4 mg p.o. q.i.d. p.r.n., pravastatin 40 mg p.o. at bedtime, primidone 200 mg p.o. t.i.d., tamsulosin 0.8 mg p.o. daily. SOCIAL HISTORY: The gentleman is a custodial inmate. FAMILY HISTORY: Unknown. REVIEW OF SYSTEMS: Unobtainable because of the patient's mental status. PHYSICAL EXAMINATION: GENTLEMAN: Obtunded 60-year-old gentleman, nonconversant in no apparent distress. VITAL SIGNS: Temperature 36.8, pulse 109, respiratory rate 15, blood pressure 141/64. SKIN: No apparent rashes or lesions. Turgor is fair. HEENT: Head is atraumatic, normocephalic. Ocular examination deferred. Nares patent without rhinorrhea or discharge. Throat clear. No buccal lesions or ulcerations. NECK: Supple. LYMPH: No cervical, supraclavicular palpable nodes. HEART: Regular rate and rhythm. LUNGS: Clear to auscultation bilaterally. ABDOMEN: Obese, soft, nontender, nondistended, could not appreciate hepatosplenomegaly. No apparent rigidity or guarding. EXTREMITIES: Strength testing not done. Trace peripheral edema bilaterally. NEUROLOGIC: Again, unobtainable. LABORATORY DATA: WBC count 8420, hemoglobin 10.3, platelet count 83,000. His monocyte count is 1370, PT 45.3 seconds, INR 5.1, fibrinogen 133. Sodium 131, potassium 3.7, chloride 91, carbon dioxide 21, creatinine 5.86, BUN 26, anion gap 19. Total bilirubin 9.8, direct bilirubin 6.4, AST 972, ALT 1588, albumin 2.4. RADIOGRAPHIC DATA: Chest x-ray done on 12/04/2020, persistent small bilateral pleural effusions with associated bibasilar opacities, thought to be practice representative of atelectasis. Perhaps mild pulmonary edema. IMPRESSION: 1. 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 2. Hypotension. 3. Acute hepatic failure. 4. Hepatitis C. 5. Acute renal injury. 6. Acetaminophen toxicity. 7. Anion gap metabolic acidosis. 8. Hyperbilirubinemia. 9. Elevated liver transaminases. 10. Coagulopathy. PLAN: Hemophagocytic lymphohistiocytosis is a life-threatening syndrome manifested by excessive immune activation. Quite honestly I have never seen a case in my 20 years of practice. This disorder, most frequently effects children; however adults can develop HLH or a similar disorder macrophage activating syndrome. I can appreciate why the medical team is suspicious of this diagnosis as gentleman's ferritin level in excess of 24,000. It is neurologic as well as hepatic and renal failure, which can all manifest in HLH. The patient has also confirmed hepatitis C. I agree with pursuing fasting triglycerides. The patient's clinical presentation certainly fits for possible HLH as the disorder is associated with multiorgan failure and symptoms of the disorder can mimic hepatitis, encephalitis, and a fever of unknown origin. The 2003 study, which included a 369 patients reported the following clinical findings: Fever 95%, splenomegaly 89%, bicytopenia 92%, hypertriglyceridemia and/or hypofibrinogenemia 90%, hemophagocytosis 82% and a ferritin greater than 500 94%, lower absent normal killer cell activity 71% and finally soluble CD25 elevation 97%. CD25 measurement is most likely a send out. I would agree this gentleman ultimately needs to go to a Tertiary Center. I am not terribly comfortable pursuing bone marrow biopsy, which is also necessary to confirm the disorder at [facility]. Thus, would continue medical management as you are doing presently. Coags, peripheral blood counts and serum chemistries should be repeated daily. Upon confirmation of hemophagocytic lymphohistiocytosis treatment regiments depend on a depth of involvement. Standard protocol includes etoposide 150 mg/m2 for adults and dexamethasone. The addition of intrathecal therapy for patients with SCALE INSTALLER involvement generally methotrexate is utilized. I would be hesitant to pursue these interventions at our facility. Very interesting case who I will sign out to Dr. Pike as I will be on vacation beginning tomorrow morning for the next week. Any questions or concerns, feel free to contact me at any time. Job ID: [id number] [facility]
[2021-02-04] MEDS: INSULIN ASPART 100 UNITS/ML 3 ML PEN SC SCH ×4 (08:52→20:18)
[2021-02-04] MEDS: LACTULOSE 200 GM, WATER, STERILE IRRIG 700 ML, BARCODE IDENTIFIER 1 EA PR SCH ×2 (08:53→16:04)
[2021-02-04] MEDS: LACTULOSE ENEMA COMPOUND PR SCH ×2 (08:53→16:04)
[2021-02-04] MEDS: PANTOprazole 40 MG in SYRINGE 0 ML IV SCH ×2 (08:54→20:29)
[2021-02-04] MEDS: LACTULOSE SYRUP 20 GM/30 ML UDC PO SCH ×3 (08:54→20:30)
[2021-02-04] MEDS: DEXTROSE 5% IV SCH (09:34)
[2021-02-04] MEDS: ACETYLCYSTEINE IV SCH (09:34)
[2021-02-04] MEDS ORDERED: RAPID SEQUENCE INDUCTION BAG ONE (10:24)
[2021-02-04] MEDS ORDERED: STAT IV Infusion **Titration per Protocol STA (10:44)
[2021-02-04] MEDS ORDERED: ETOMIDATE 2 MG/ML 20 ML VIAL IV ONE ×2 (10:44→16:19)
[2021-02-04] MEDS ORDERED: fentaNYL citrate 100 MCG/2 ML VIAL IV STA (10:45)
--- NOTE | 2021-02-04 10:49 | Procedure Note ---
Procedure Note Date of Service February 04, 2021 Note INTUBATION PROCEDURE NOTE: Dr. Gabriel Olson A time-out was completed verifying correct patient, procedure, site, positioning. Patient was evaluated and required intubation for airway protection. Sedative agent used: 20 mg of etomidate Paralysis agent used: None Emergent consent was implied given patients rapidly declining clinical status and need for airway protection. Number of attempts: 1 The patient was prepared in the appropriate fashion. Sedation was achieved utilizing 20 mg of etomidate. The patient was easily ventilated using [id number] to achieve adequate oxygenation. A 8.0 Turkish endotracheal tube was placed under glide scope to 25 cm at the lip. The stylette was removed and balloon was inflated with 10mL of air. Appropriate Colorimetric change was appreciated. Bilateral breath sounds were heard without air sounds in the abdomen. Post Intubation Chest X-ray ordered Patient tolerated the procedure well and there were no immediate complications. Coding CPT Codes Resuscitation - Resuscitation: 00346 Endotracheal Intubation, emergency ([id number]) [facility] Procedure Codes (Charges) Resuscitation Resuscitation: 14214 Endotracheal Intubation, emergency
--- NOTE | 2021-02-04 11:18 | XRay Report ---
XR chest 1V portable HISTORY: Respiratory failure. s/p intubation COMPARISON: Chest 02/03/2021. FINDINGS: The endotracheal tube terminates proximal a 4.1 cm from the sheryl. Nasogastric tube termin ates below the diaphragm. The fenestrated line is at the gastroesophageal junction. This should be ad vanced by approximately 5 to 10 cm. Right jugular central venous catheter terminates at the SVC. Ther e are low lung volumes. No pneumothorax. Mild interstitial pulmonary edema has almost completely reso lved. Patchy left basilar densities persist. The heart remains mildly enlarged. There are poststernot amanda changes. IMPRESSION: 1. The fenestrated line of the nasogastric tube terminates at the gastroesophageal junction. Therefor e, this should be advanced by approximately 5 to 10 cm. 2. Endotracheal tube is in good position. 3. Near-complete resolution of the mild interstitial pulmonary edema. 4. Patchy left basilar densities persist. This may represent atelectasis or pneumonia. ACT 112: Negative or not required by law. Electronically signed by: Dallas Engel M.D. 02/04/2021 11:17 AM
--- NOTE | 2021-02-04 11:28 | Nephrology Progress Note ---
Date of Service February 04, 2021 Assessment & Plan (1) Acute kidney injury: Plan: Requiring hemodialysis. Oligoanuric. HD completed on February 02 and . Clearances acceptable. Volume status acceptable. No plan for HD today. Will continue daily evaluation. 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 No reported history of prior CKD. Anticipate next HD tomorrow. Medications appropriately dosed for kidney dysfunction. (2) Acute liver failure: Plan: Notable history of alcohol use in the past. +hepatitis C. Acute Tylenol toxicity and notable iron overload. Unfortunately, prognosis is very poor. Hematology consultation regarding possible HLH reviewed this AM. Patrick presented with acute hepatitis and now profoundly encephalopathic with fulminant liver failure. Tertiary care centers have been contacted for possible transfer. HIV pending. Prognosis is very poor. Admission and Anticipated Discharge Date Admission Date: January 31, 2021 Subjective Obtunded. Patient being prepared for intubation at the time of my assessment. Afebrile. No bleeding noted. Review of Systems Review of Systems: Unobtainable due to reduced consciousness Physical Exam Constitutional: + ill appearing and + frail appearing; no acute distress Eyes: + scleral abnormality; sclerae not anicteric and no corneal abnormality ENMT: Mouth: + dry oral mucous membranes; no oral mucosal abnormality Neck: normal visual inspection and trachea midline Respiratory: normal respiratory effort Auscultation: lungs clear to auscultation bilaterally Cardiovascular: Rate/Rhythm: + tachycardic Heart Sounds: normal S1 and normal S2 Extremities: + edema Gastrointestinal (Abdomen): Inspection/Auscultation: + abdomen distended and + hypoactive bowel sounds Percussion/Palpation: + ascites; no guarding and abdomen not rigid Musculoskeletal: Extremities: no cyanosis and no clubbing Skin: + turgor decreased and + jaundice Neurologic: Motor/Sensory: no tremor and no asterixis Psychiatric: Orientation: + not alert and + not oriented x 3 obtunded Results & Data ([facility]) Vital Signs (Past 12 Hours) Vital Signs Pulse Resp BP Pulse Ox 02/04/21 08:00 109 H 02/04/21 06:00 109 H 15 95 02/04/21 05:30 109 H 15 95 02/04/21 05:00 109 H 15 95 02/04/21 04:30 110 H 16 94 02/04/21 04:00 110 H 18 141/64 H 94 02/04/21 03:30 109 H 16 94 02/04/21 03:00 109 H 16 94 02/04/21 02:30 108 H 16 95 02/04/21 02:00 109 H 16 95 02/04/21 01:30 109 H 18 96 02/04/21 01:00 109 H 18 96 02/04/21 00:30 110 H 18 95 02/04/21 00:00 111 H 18 141/64 H 92 02/03/21 23:30 110 H 17 95 Laboratory Results Laboratory Results - last 24 hr 02/03/21 02/03/21 02/03/21 07:45 12:04 13:02 WBC RBC Hgb Hct MCV MCH MCHC RDW Std Deviation RDW Coeff of Royal Plt Count MPV Immature Gran % (Auto) Neut % (Auto) Lymph % (Auto) [place] % (Auto) Eos % (Auto) Baso % (Auto) Neut # (Auto) Lymph # (Auto) [place] # (Auto) Eos # (Auto) Baso # (Auto) Immature Gran # (Auto) Absolute Nucleated RBC Nucleated RBC % (auto) RBC Morphology Peripher Smr Path Cons PT 45.3 H INR 5.1 H Fibrinogen Sodium Potassium Chloride Carbon Dioxide Anion Gap BUN Creatinine Est Cr Clr Drug Dosing Est GFR ( Amer) Est GFR (Non-Af Amer) BUN/Creatinine Ratio Glucose POC Glucose 98 Calcium Phosphorus Magnesium Total Bilirubin Direct Bilirubin AST ALT Alkaline Phosphatase Ammonia Total Protein Albumin Triglycerides Cancelled Interleukin 2-Receptor HIV 1&2 Ab/P24 Ag 4thGn Hemochromatosis DNA Ref Lab Test Result 02/03/21 02/03/21 02/03/21 13:02 13:02 16:05 WBC RBC Hgb Hct MCV MCH MCHC RDW Std Deviation RDW Coeff of Royal Plt Count MPV Immature Gran % (Auto) Neut % (Auto) Lymph % (Auto) [place] % (Auto) Eos % (Auto) Baso % (Auto) Neut # (Auto) Lymph # (Auto) [place] # (Auto) Eos # (Auto) Baso # (Auto) Immature Gran # (Auto) Absolute Nucleated RBC Nucleated RBC % (auto) RBC Morphology Peripher Smr Path Cons Pending PT INR Fibrinogen Sodium Potassium Chloride Carbon Dioxide Anion Gap BUN Creatinine Est Cr Clr Drug Dosing Est GFR ( Amer) Est GFR (Non-Af Amer) BUN/Creatinine Ratio Glucose POC Glucose Calcium Phosphorus Magnesium Total Bilirubin 7.9 H Direct Bilirubin 5.2 H AST 1785 H ALT 2615 H Alkaline Phosphatase 83 Ammonia Total Protein 5.2 L Albumin 2.4 L Triglycerides Interleukin 2-Receptor HIV 1&2 Ab/P24 Ag 4thGn Hemochromatosis DNA Ref Lab Test Result Pending 02/03/21 02/03/21 02/03/21 16:05 16:05 16:05 WBC RBC Hgb Hct MCV MCH MCHC RDW Std Deviation RDW Coeff of Royal Plt Count MPV Immature Gran % (Auto) Neut % (Auto) Lymph % (Auto) [place] % (Auto) Eos % (Auto) Baso % (Auto) Neut # (Auto) Lymph # (Auto) [place] # (Auto) Eos # (Auto) Baso # (Auto) Immature Gran # (Auto) Absolute Nucleated RBC Nucleated RBC % (auto) RBC Morphology Peripher Smr Path Cons PT INR Fibrinogen 133 L Sodium Potassium Chloride Carbon Dioxide Anion Gap BUN Creatinine Est Cr Clr Drug Dosing Est GFR ( Amer) Est GFR (Non-Af Amer) BUN/Creatinine Ratio Glucose POC Glucose Calcium Phosphorus Magnesium Total Bilirubin Direct Bilirubin AST ALT Alkaline Phosphatase Ammonia Total Protein Albumin Triglycerides Interleukin 2-Receptor Pending HIV 1&2 Ab/P24 Ag 4thGn Pending Hemochromatosis DNA Ref Lab Test Result 02/03/21 02/03/21 02/03/21 16:12 16:14 16:17 WBC RBC Hgb Hct MCV MCH MCHC RDW Std Deviation RDW Coeff of Royal Plt Count MPV Immature Gran % (Auto) Neut % (Auto) Lymph % (Auto) [place] % (Auto) Eos % (Auto) Baso % (Auto) Neut # (Auto) Lymph # (Auto) [place] # (Auto) Eos # (Auto) Baso # (Auto) Immature Gran # (Auto) Absolute Nucleated RBC Nucleated RBC % (auto) RBC Morphology Peripher Smr Path Cons PT INR Fibrinogen Sodium Potassium Chloride Carbon Dioxide Anion Gap BUN Creatinine Est Cr Clr Drug Dosing Est GFR ( Amer) Est GFR (Non-Af Amer) BUN/Creatinine Ratio Glucose POC Glucose 104 H Calcium Phosphorus Magnesium Total Bilirubin Direct Bilirubin AST ALT Alkaline Phosphatase Ammonia 108.9 H Total Protein Albumin Triglycerides Interleukin 2-Receptor HIV 1&2 Ab/P24 Ag 4thGn Hemochromatosis DNA Pending Ref Lab Test Result 02/03/21 02/04/21 02/04/21 21:30 05:03 05:03 WBC 8.42 RBC 3.50 L Hgb 10.3 L Hct 31.6 L MCV 90.3 MCH 29.4 MCHC 32.6 RDW Std Deviation 50.5 H RDW Coeff of Royal 15.4 H Plt Count 83 L MPV 10.2 Immature Gran % (Auto) 0.8 Neut % (Auto) 64.5 Lymph % (Auto) 17.5 Highland % (Auto) 16.3 Eos % (Auto) 0.4 Baso % (Auto) 0.5 Neut # (Auto) 5.44 Lymph # (Auto) 1.47 Highland # (Auto) 1.37 H Eos # (Auto) 0.03 Baso # (Auto) 0.04 Immature Gran # (Auto) 0.07 H Absolute Nucleated RBC 0.36 H Nucleated RBC % (auto) 4.3 RBC Morphology Unremarkable Peripher Smr Path Cons PT INR Fibrinogen Sodium 131 L Potassium 3.7 Chloride 91 L Carbon Dioxide 21 Anion Gap 19.0 H BUN 26 H D Creatinine 5.86 H* D Est Cr Clr Drug Dosing 15.5 Est GFR ( Amer) 11.2 Est GFR (Non-Af Amer) 9.7 BUN/Creatinine Ratio 4.5 L Glucose 119 H POC Glucose 113 H Calcium 8.1 L Phosphorus 5.8 H D Magnesium 2.4 Total Bilirubin 9.8 H Direct Bilirubin 6.4 H AST 972 H ALT 1588 H Alkaline Phosphatase 86 Ammonia Total Protein 5.2 L Albumin 2.4 L Triglycerides Interleukin 2-Receptor HIV 1&2 Ab/P24 Ag 4thGn Hemochromatosis DNA Ref Lab Test Result 02/04/21 02/04/21 02/04/21 06:13 07:36 08:30 WBC RBC Hgb Hct MCV MCH MCHC RDW Std Deviation RDW Coeff of Royal Plt Count MPV Immature Gran % (Auto) Neut % (Auto) Lymph % (Auto) [place]land % (Auto) Eos % (Auto) Baso % (Auto) Neut # (Auto) Lymph # (Auto) [place] # (Auto) Eos # (Auto) Baso # (Auto) Immature Gran # (Auto) Absolute Nucleated RBC Nucleated RBC % (auto) RBC Morphology Peripher Smr Path Cons PT 46.8 H INR 5.3 H Fibrinogen Sodium Potassium Chloride Carbon Dioxide Anion Gap BUN Creatinine Est Cr Clr Drug Dosing Est GFR ( Amer) Est GFR (Non-Af Amer) BUN/Creatinine Ratio Glucose POC Glucose 124 H Calcium Phosphorus Magnesium Total Bilirubin Direct Bilirubin AST ALT Alkaline Phosphatase Ammonia 104.0 H Total Protein Albumin Triglycerides Interleukin 2-Receptor HIV 1&2 Ab/P24 Ag 4thGn Hemochromatosis DNA Ref Lab Test Result PG Care Time/CCT Total # of Minutes Spent Total Time Spent with Patient: Total time spent is greater than 50% in coordination of care (as documented) at patient's floor/unit and/or counseling patient: Coding Level of Care Code 91661 Subseq Hosp Care Lvl 3 Diagnoses Acute kidney injury N17.9 Acute liver failure K72.00
--- NOTE | 2021-02-04 11:34 | Critical Care Progress Note ---
Date of Service February 04, 2021 Assessment & Plan (1) Acute liver failure: (2) Tylenol toxicity: (3) Lactic acidosis: (4) Acute kidney injury: (5) Hepatic encephalopathy: Plan: 60-year-old male with a past medical history of GERD, hyperlipidemia, insomnia, anxiety, depression and Parkinson's disease who presented to the hospital with liver failure, ISMAEL, septic shock and possible acetaminophen overdose. Neurologic: Intubated due to severe hepatic encephalopathy. Sent for stat CT head to evaluate for cerebral edema or other intracranial pathology. Pulmonary: Intubated due to concerns for airway protection. Continue lung protective ventilation strategy. Minimal vent settings at this time. Cardiovascular: Mild hypotension. Off Levophed and vasopressin at this time. Maintain MAP above 65 mmHg. Right IJ central line in place. Echo from 01/31/2021 with evidence of left ventricle that is hyperdynamic. Right ventricular pressure is normal. antihypertensives. Gastrointestinal: LFTs trending down, but T bili rising. Severe coagulopathy. Tertiary care centers contacted due to liver failure. No beds available at this time. Gallbladder ultrasound yesterday with mild hepatomegaly and fatty infiltration. Acetaminophen level elevated on admission. Patient also notably to be on primidone which can cause elevated levels. Currently on NAC protocol. Continue lactulose due to hyperammonemia. Trend ammonia twice daily. Continue starks toprazole 40 mg twice daily. No further recommendations from gastroenterology at this time. Strict NPO. Extremely poor prognosis related to liver failure. Renal: ISMAEL present. Patient oliguric. Renal on board. On intermittent HD. Defer further hemodialysis to nephrology. Persistent lactic acidosis likely related to renal failure. Poison control on board. Infectious disease: Blood cultures negative to date. Continue empiric Zosyn. Daptomycin/doxycycline discontinued 02/02/21. Hematologic: Check daily INR. Platelet count improving. Possible sepsis coagulopathy versus liver failure versus DIC. Atypical HUS/TTP seem less likely at this time given the lack of fever. Possible HLH given elevated ferritin level. Heme-onc consult. CD25 level sent. Triglyceride level sent, but unable to be performed on lab due to hyperbilirubinemia. Endocrine: Continue to monitor glucose closely as he is initially hypoglycemic on admission. May need to start a D10 ggt. Lines and tubes: Right IJ in place 01/31/2021. Radial line in place 01/31/2021. Left femoral vein HD cath in place 02/01/2021. VTE prophylaxis: SCDs CODE STATUS: Patient related when he was lucid that he did not want chest compressions or defibrillation in the event of a cardiac arrest. He was okay with intubation mechanical ventilation if required. Palliative care following. Family at bedside:None available Disposition: Remain in ICU. Grave prognosis. I have personally spent 52 minutes of critical care time in the direct management of this patient. This is a life/limb threatening event. This includes time spent evaluating patient, direct bedside care, chart review, placing orders, interpretation of diagnostic studies, discussion with consultants, patient, and family members, as well as other required patient management activities. This time is exclusive of all separately billable procedures, and teaching time and separate from and in addition to any other critical care service time. Thank you for allowing us to participate in the care of this patient. Admission and Anticipated Discharge Date Admission Date: January 31, 2021 Subjective Worsening encephalopathy. Otherwise hemodynamically stable. Respiratory rate increased to 20s. Nonresponsive to commands. Review of Systems Review of Systems: Unobtainable due to cognitive status Physical Exam Physical Exam: VITAL SIGNS - Vital signs and nursing notes were reviewed. GENERAL - 60-year-old male appearing older than his stated age in mild distress SKIN - Jaundiced HEAD - NC/AT. EYES - PERRL with EOMI bilaterally. Sclera anicteric. EARS - No deformities of external structures noted on gross examination bilaterally. NOSE - Midline and without cyanosis. No epistaxis or purulent drainage noted. MOUTH/OROPHARYNX - Without perioral cyanosis. Buccal mucosa pink and dry. NECK - Neck with FROM. Supple to palpation. No lymphadenopathy noted. No nuchal rigidity. LUNGS - Dminished b/l, no wheezes CARDIAC - RRR with S1/S2. No murmur, rubs, or gallops appreciated. ABDOMEN - Abdominal contour obese without pulsations or visible masses. BS normoactive all four quadrants. No tenderness, palpable masses, hepatosplenomegaly, or ascites noted. EXTREMITIES - No clubbing or peripheral cyanosis. No pretibial edema present. Left femoral vein HD cath in place NEUROLOGIC - difficult to assess. GCS3 Psychiatric - obtunded Results & Data Results & Data ([facility]) Vital Signs (Past 12 Hours) Vital Signs Pulse Resp BP Pulse Ox 02/04/21 08:00 109 H 12/05/21 06:00 109 H 15 95 02/04/21 05:30 109 H 15 95 02/04/21 05:00 109 H 15 95 02/04/21 04:30 110 H 16 94 02/04/21 04:00 110 H 18 141/64 H 94 02/04/21 03:30 109 H 16 94 02/04/21 03:00 109 H 16 94 02/04/21 02:30 108 H 16 95 02/04/21 02:00 109 H 16 95 02/04/21 01:30 109 H 18 96 02/04/21 01:00 109 H 18 96 02/04/21 00:30 110 H 18 95 02/04/21 00:00 111 H 18 141/64 H 92 02/03/21 23:30 110 H 17 95 vital signs, labs and imaging reviewed Coding Level of Care Code Critical Care 1st 30-74 mins Diagnoses Acute liver failure K72.00 Tylenol toxicity T39.1X1A Lactic acidosis E87.2 Acute kidney injury N17.9 Hepatic encephalopathy K72.90 Time Spent (min) 52
[2021-02-04] MEDS: PATIROMER CALCIUM SORBITEX 8.4 GM PACK PO SCH (11:43)
--- NOTE | 2021-02-04 12:11 | CT Scan Report ---
CT OF THE HEAD WITHOUT CONTRAST CLINICAL HISTORY: Altered mental status. ?cerebral edema from hyperammonemia COMPARISON STUDY: Head CT January 31, 2021. CT DOSE: 614.27 mGy.cm TECHNIQUE: Helical axial images of the head were obtained without IV contrast. Automated exposure con trol was utilized for the study. A dose lowering technique was utilized adhering to the principles o f ALARA. FINDINGS: No acute intracranial hemorrhage, midline shift or mass effect is present. The ventricular system is unremarkable. Periventricular white matter hypodensities are unchanged and suggest small ve ssel disease. The basal cisterns are patent. No extra-axial collections are present. There are no fin dings to suggest acute dural sinus thrombosis or acute territorial infarct. No significant calvarial abnormalities are present. Visualized portions of the sinuses and mastoid air cells are clear. Old bi lateral nasal bone deformities are incidentally noted. Endotracheal and nasogastric tubes are partial ly imaged. IMPRESSION: No acute intracranial findings. No change in appearance of the brain. ACT 112: Negative or not required by law. Electronically signed by: Frank Hu M.D. 02/04/2021 12:10 PM
[2021-02-04 12:53] LABS: iSTAT Art Bld Gas pCO2 Correct 29 mmHg (35-46); iSTAT Art Bld Gas pH Corrected 7.517 (7.35-7.45); iSTAT Arterial Blood Gas HCO3 23 meg/L (19-24); iSTAT Arterial Blood Gas pCO2 29 mmHg (35-46); iSTAT Arterial Blood Gas pH 7.51 (7.35-7.45); iSTAT Arterial Blood Gas pO2 87 mmHg (80-95); iSTAT Arterial Blood Gas pO2 C 86; iSTAT Carbon Dioxide 24 mmol/L (24-31); iSTAT FiO2 40 %; iSTAT Hematocrit 30 % (42-52); iSTAT Hemoglobin 10.2 g/dl (14.0-18.0); iSTAT Potassium 3.7 mmol/L (3.3-5.0); iSTAT Site Art Line; iSTAT Sodium 131 mmol/L (135-144)
[2021-02-04] MEDS: fentaNYL DRIP 1,250 MCG/250 ML BAG IV SCH (13:17)
[2021-02-04] MEDS ORDERED: ROCURONIUM BROMIDE 10 MG/ML 5 ML VIAL IV ONE (16:19)
[2021-02-04] MEDS ORDERED: fentaNYL citrate 100 MCG/2 ML VIAL IV ONE (16:19)
--- NOTE | 2021-02-04 18:16 | Hospitalist Progress Note ---
Date of Service February 04, 2021 Assessment & Plan (1) Septic shock: Plan: - Presented with hypotension and suspected septic shock, however it appears that he does not have any source of infection as cultures and imaging negative - Admitted to the ICU and placed on Levophed and vasopressin-now weaned off pressors - Now has developed acute liver failure and acute kidney injury requiring hemodialysis - Remains afebrile and blood cultures negative to date, no UTI, no pneumonia, no other source of infection found - Continue empiric Zosyn, dapto/doxy dced - Follow cultures (2) Acute liver failure: Plan: Acute liver failure Patient presented with acute hepatitis, severe transaminitis with fulminant liver failure - Tertiary but contacted for liver failure, no beds available. APAP elevated on admission, may be false positive due to primidone. On N- acetylcysteine. Discussed with [facility]p, Tylenol is available both through the commissary and easily obtained by other inmates so no reliable way to know if he took Tylenol and if so how much or when. Reached out to tertiary care 02/03, and again 02/04. [facility] without available beds. Awaiting callback from [facility]/hepatology service. At this time unfortunately no beds have been available for transfer to tertiary care with liver transplant services at this time - Developed acute liver failure over the first 24-48 hours of admission - With cirrhotic appearing liver on CT abdomen/pelvis and preliminary positive hepatitis C antibody, may have underlying chronic liver disease - Liver ultrasound shows enlarged fatty liver, no CBD dilatation or evidence of obstruction. No tumor on CT or ultrasound - Alcohol and ASA level negative - Hepatitis B-, hepatitis C preliminary positive-RNA pending, and hepatitis A pending - Covid-19 neg - With worsening coagulopathy, INR elevated, fibrinogen low, D-dimer 8000, platelets low - Also with hepatic encephalopathy, acute kidney injury, and significantly domonique vated total bilirubin, AST, and ALT -? Hemophagocytic lymphohistiocytosis versus HH. Patient with TSAT greater than 97%, ferritin 24,992, hypofibrinogenemia. No splenomegaly appreciated on CT, afebrile. Interleukin-2 receptor (CD25 receptor) pending HIV pending HH DNA pending - Lactulose converted to DE due to concern for worsening hyperammonemia and increased lethargy 02/03 - Continue acetylcysteine - Follow LFTs, CBC, INR - Hold home pravastatin and primidone 02/04: with increasing somnolence/hepatic encephalopathy. Intubated for airway protection. CT-H: No acute intracranial findings. No change in appearance of the brain. (3) Acute kidney injury: Plan: With renal failure, hyperkalemia, metabolic acidosis, and oliguria/anuria Started hemodialysis on 02/01 and had another session on 02/02. Intermittent dialysis per renal, appreciate recommendations -Continue Velt[place] 8.4 g p.o. once daily Currently oliguric Anticipate next dialysis 02/05. Potassium within normal limits, phosphorus 5.8 (4) Tylenol toxicity: Plan: As above (5) Hyperkalemia: Plan: As above (6) Hypoglycemia: Plan: Glucose was 35 upon admission, and normalized after supplementation Likely secondary to liver failure (7) Hypothermia: Plan: Resolved Likely related to liver failure and septic shock (8) Lactic acidosis: Plan: Patient with lactate as high as 13, ABG pH 7.13 likely due to liver failure with anion gap metabolic acidosis Repeat ABG pH 7.52, PCO2 28 mixed picture with additional respiratory alkalosis (9) Diabetes mellitus with chronic kidney disease, with long-term current use of insulin: Plan: With hypoglycemia on arrival Then had hyperglycemia -insulin drip placed and now better controlled Pharmacy assistance appreciated with management of glucose (10) Hypertension: Plan: Holding meds due to hypotension (11) Parkinson's disease: Plan: Continue carbidopa - levodopa (12) Anxiety with depression: Plan: Anxiety with depression- Hold home primidone Hold duloxetine, hydroxyzine, mirtazapine and nortriptyline (13) BPH w urinary obs/LUTS: Plan: Hold finasteride Hold tamsulosin for hypotension Rashid catheter in place (14) Insomnia: Plan: For now holding mirtazapine and nortriptyline (15) Hyperlipidemia: Plan: Hold pravastatin as above (16) GERD (gastroesophageal reflux disease): Plan: Continue Protonix IV (17) CAD (coronary artery disease), [place] coronary artery: Plan: With a history of CABG No other known history regarding this Not on aspirin as an outpatient Holding statin (18) Hepatic encephalopathy: Plan: As above Continue lactulose (19) Acute respiratory failure with hypoxia: Plan: Patient previously requiring 2 to 3 L nasal cannula temporarily improving with dialysis 02/04 intubated for airway protection as noted above (20) Admitted to intensive care unit: Plan: Appreciate critical care management and recommendations DVT prophylaxis-holding heparin SQ due to coagulopathy, SCDs Disposition-continued stay in ICU, grave prognosis, continue attempts to get transferred up to tertiary care center capability of liver transplant Admission and Anticipated Discharge Date Admission Date: January 31, 2021 Subjective Subjective unavailable due to reduced consciousness Review of Systems Review of Systems: Unobtainable due to reduced consciousness Physical Exam Physical Exam: General: Obtunded, withdraws to pinch. HEENT: Atraumatic, normocephalic. Pupils equal reactive to light, manual opening of lids. Pulm: Tachypneic. Diminished air movement, no respiratory distress. Cardiac: Tachycardic, -mrg. Radial pulses intact and symmetrical. Abdominal: Mild soft distention, no hepatosplenomegaly. BS present. Extremities: Grossly intact Results & Data Results & Data ([facility]) Vital Signs (Past 12 Hours) Vital Signs Temp Pulse Resp Pulse Ox 02/04/21 16:00 102 H 02/04/21 15:52 102 H 30 H 98 02/04/21 14:30 101 H 29 H 99 02/04/21 14:00 36.9 C 102 H 30 H 98 02/04/21 13:30 103 H 31 H 99 02/04/21 13:00 104 H 33 H 100 02/04/21 12:30 105 H 31 H 100 02/04/21 12:20 99 02/04/21 12:00 110 H 02/04/21 11:30 20 97 02/04/21 11:24 110 H 37 H 99 02/04/21 11:00 108 H 32 H 96 02/04/21 10:30 109 H 16 94 02/04/21 10:00 110 H 16 94 02/04/21 09:30 108 H 15 94 02/04/21 09:00 36.8 C 110 H 15 94 02/04/21 08:30 108 H 14 95 02/04/21 08:00 109 H 13 94 02/04/21 07:30 108 H 14 95 02/04/21 07:00 108 H 14 94 02/04/21 06:30 109 H 15 95 PG Care Time/CCT Total # of Minutes Spent Total Time Spent with Patient: Total time spent is greater than 50% in coordination of care (as documented) at patient's floor/unit and/or counseling patient: Coding Level of Care Code 58758 Subseq Hosp Care Lvl 3 Diagnoses Septic shock A41.9; R65.21 Acute liver failure K72.00 Acute kidney injury N17.9 Tylenol toxicity T39.1X1A Hyperkalemia E87.5 Hypoglycemia E16.2 Hypothermia T68.XXXA Encounter type: initial encounter Lactic acidosis E87.2 Diabetes mellitus with chronic kidney disease, with long-term current use of insulin E11.22; Z79.4 Hypertension I10 Parkinson's disease G20 Anxiety with depression F41.8 BPH w urinary obs/LUTS N40.1; N13.8 Insomnia G47.00 Hyperlipidemia E78.5 GERD (gastroesophageal reflux disease) K21.9 CAD (coronary artery disease), [place] coronary artery I25.10 Hepatic encephalopathy K72.90 Acute respiratory failure with hypoxia J96.01 Admitted to intensive care unit Z78.9 (1) Hypothermia Encounter type: initial encounter Qualified Code(s): T68.XXXA - Hypothermia, initial encounter
[2021-02-04 22:24] LABS: iSTAT Art Bld Gas pCO2 Correct 32 mmHg (35-46); iSTAT Art Bld Gas pH Corrected 7.509 (7.35-7.45); iSTAT Arterial Blood Gas HCO3 25 meg/L (19-24); iSTAT Arterial Blood Gas pCO2 32 mmHg (35-46); iSTAT Arterial Blood Gas pH 7.51 (7.35-7.45); iSTAT Arterial Blood Gas pO2 55 mmHg (80-95); iSTAT Arterial Blood Gas pO2 C 55; iSTAT Carbon Dioxide 26 mmol/L (24-31); iSTAT FiO2 40 %; iSTAT Hematocrit 32 % (42-52); iSTAT Hemoglobin 10.9 g/dl (14.0-18.0); iSTAT Potassium 3.4 mmol/L (3.3-5.0); iSTAT Site Art Line; iSTAT Sodium 131 mmol/L (135-144)
[2021-02-04 23:22] LABS: Prothrombin Time 44.7 Seconds (9.0-12.0)
[2021-02-04 23:36] LABS: BUN Creatinine Ratio 4.7 (10-20); Calcium 7.9 mg/dl (8.5-10.1); Creatinine Clr Calc Pharmacy 13.7 ml/min; Est GFR (Non-African American) 7.8 ml/min; Potassium 3.4 mmol/L (3.5-5.1)
[2021-02-05] MEDS: LACTULOSE 200 GM, WATER, STERILE IRRIG 700 ML, BARCODE IDENTIFIER 1 EA PR SCH ×3 (00:52→20:36)
[2021-02-05] MEDS: LACTULOSE ENEMA COMPOUND PR SCH ×3 (00:53→17:09)
[2021-02-05] MEDS: ACETYLCYSTEINE IV SCH ×3 (01:48→17:09)
[2021-02-05] MEDS: DEXTROSE 5% IV SCH ×2 (01:48→17:09)
[2021-02-05] MEDS: PIPERACILLIN/TAZOBACTAM 4.5 GM in DEXTROSE 5% 100 ML IV SCH (04:07)
[2021-02-05 06:17] LABS: Hematocrit (blood only) 35.7 % (42-52); Hemoglobin 11.7 g/dL (14.0-18.0); Mean Corpuscular Hemoglobin 29.8 pg (25-34); Mean Corpuscular Hgb Conc 32.8 g/dL (32-36); Mean Corpuscular Volume 90.8 fL (80-100); Mean Platelet Volume 10.3 fL (7.4-10.4); Nucleated RBC # (auto) 1.22 K/uL (0-0); Nucleated RBC % (auto) 6.1 %; Platelet Count 112 K/uL (130-400); RDW Coefficient of Variation 15.7 % (11.5-14.5); RDW Standard Deviation 52.5 fL (36.4-46.3); Red Blood Count 3.93 M/uL (4.7-6.1); White Blood Count 20.02 K/uL (4.8-10.8)
[2021-02-05] MEDS ORDERED: PHYTONADIONE 10 MG in SODIUM CHLORIDE 0.9% 50 ML IV ONE ×2 (06:40→13:15)
[2021-02-05 06:46] LABS: Basophils # (auto) 0.14 K/uL (0-0.2); Basophils % (auto) 0.7 %; Echinocytes 2+; Eosinophils # (auto) 0.21 K/uL (0-0.5); Immature Granulocytes # (auto) 0.22 K/uL (0.00-0.02); Immature Granulocytes % (auto) 1.1 %; Lymphocytes # (auto) 3.22 K/uL (1.2-3.4); Lymphocytes % (auto) 16.1 %; Monocytes # (auto) 3.38 K/uL (0.11-0.59); Monocytes % (auto) 16.9 %; Neutrophils # (auto) 12.85 K/uL (1.4-6.5); Neutrophils % (auto) 64.2 %; Toxic Granulation Occasional
[2021-02-05 06:53] LABS: Albumin Level 2.4 gm/dl (3.4-5.0); Bilirubin Direct 9.3 mg/dl (0-0.2); Bilirubin,Total 14.3 mg/dl (0.2-1); Calcium 8.1 mg/dl (8.5-10.1); Est GFR (African American) 8.4 ml/min; Est GFR (Non-African American) 7.2 ml/min; Magnesium 2.8 mg/dl (1.8-2.4); Phosphorus 6.8 mg/dl (2.5-4.9); Potassium 3.6 mmol/L (3.5-5.1); Total Protein 5.4 gm/dl (6.4-8.2)
[2021-02-05] MEDS: DEXMEDETOMIDINE HCL 200 MCG in SODIUM CHLORIDE 0.9% 48 ML IV SCH ×3 (07:40→17:08)
[2021-02-05] MEDS: NOREPINEPHRINE/D5W 8 MG/508 ML BAG IV SCH ×2 (07:40→09:03)
[2021-02-05 07:44] LABS: iSTAT Art Bld Gas pCO2 Correct 40 mmHg (35-46); iSTAT Art Bld Gas pH Corrected 7.401 (7.35-7.45); iSTAT Arterial Blood Gas HCO3 25 meg/L (19-24); iSTAT Arterial Blood Gas pCO2 40 mmHg (35-46); iSTAT Arterial Blood Gas pO2 93 mmHg (80-95); iSTAT Arterial Blood Gas pO2 C 94; iSTAT Carbon Dioxide 26 mmol/L (24-31); iSTAT FiO2 40 %; iSTAT Hematocrit 36 % (42-52); iSTAT Hemoglobin 12.2 g/dl (14.0-18.0); iSTAT Potassium 3.6 mmol/L (3.3-5.0); iSTAT Site Art Line; iSTAT Sodium 129 mmol/L (135-144)
[2021-02-05] MEDS ORDERED: INSULIN ASPART 100 UNITS/ML 3 ML PEN SC SCH (08:00)
--- NOTE | 2021-02-05 08:06 | Critical Care Progress Note ---
Date of Service February 05, 2021 Assessment & Plan (1) Acute respiratory failure with hypoxia: Plan: 60-year-old male with a past medical history of GERD, hyperlipidemia, insomnia, anxiety, depression and Parkinson's disease who presented to the hospital with liver failure, ISMAEL, septic shock and possible acetaminophen overdose. Neurologic: Intubated due to severe hepatic encephalopathy; sedation with Precedex and fentanyl. Head CT 02/04/21 without acute intracranial findings. Pulmonary: Intubated due to concerns for airway protection. Continue lung protective ventilation strategy. Cardiovascular: Currently on levophed--wean as able. Maintain MAP above 65 mmHg. Right IJ central line in place. Echo from 01/31/2021 with evidence of left ventricle that is hyperdynamic. Right ventricular pressure is normal.Hold antihypertensives. Gastrointestinal: LFTs trending down, but T bili rising. Severe coagulopathy. Tertiary care centers contacted due to liver failure. No beds available at this time. Gallbladder ultrasound 02/03/21 with mild hepatomegaly and fatty infiltration. Acetaminophen level elevated on admission. Patient also notably to be on primidone which can cause elevated levels. Continue on NAC protocol. Continue lactulose due to hyperammonemia. Trend ammonia twice daily. Continue pantoprazole 40 mg twice daily. No further recommendations from gastroenterology at this time. Strict NPO. Extremely poor prognosis related to liver failure. Renal: ISMAEL present. Patient oliguric. Renal on board. On intermittent HD. Defer further hemodialysis to nephrology. Persistent lactic acidosis likely related to renal failure. Poison control on board. Infectious disease: Blood cultures finalized negative. Stop Zosyn. Daptomycin/doxycycline discontinued 02/02/21. Hematologic: Check daily INR. Platelet count improving. Possible sepsis coagulopathy versus liver failure versus DIC. Possible HLH given elevated ferritin level. Heme-onc consult considering HLH possible but not able to be confirmed at this facilityl CD25 level sent. Triglyceride level sent, but unable to be performed on lab due to hyperbilirubinemia. Endocrine: Continue to monitor glucose closely as he was hypoglycemic on admission. May need to start a D10 ggt. Lines and tubes: Right IJ in place 01/31/2021. Radial line in place 01/31/2021. Left femoral vein HD cath in place 02/01/2021. VTE prophylaxis: SCDs CODE STATUS: Patient related when he was lucid that he did not want chest compressions or defibrillation in the event of a cardiac arrest. He was okay with intubation mechanical ventilation if required. Palliative care following. Family at bedside:None available Disposition: Remain in ICU (2) Hepatic encephalopathy: (3) Acute liver failure: (4) Acute kidney injury: (5) Tylenol toxicity: Admission and Anticipated Discharge Date Admission Date: January 31, 2021 Supervising Physician Co-Signing Physician Notes Patient seen and examined. Discussed with bedside critical care nurse as well as with family practice resident and reviewed with pharmacy and respiratory therapy. Discussed with off going cat scan technologist as well. The patient is in multiorgan system failure with fulminant hepatic failure and development of acute renal failure. Discussed with nephrology. 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 Palliative care is reaching out to get clearance to talk to the patient's . Do not think that continued dialysis or continued supportive care is indicated if the patient cannot receive liver transplant and would favor transition to palliative care measures. Given his synthetic liver issues, I think vitamin K is unlikely to offer him any benefit with regards to his coagulopathy. If he continues to have issues with bleeding, may consider additional Kcentra or FFP if we are to pursue additional interventions. He is not been febrile but is developing progressive hypotension and shock. I think interventions such as Celebrex and/octreotide/norepinephrine are unlikely to reverse the patient's dense renal failure. Unfortunately without liver transplant, I believe this to be a terminal event. We will await palliative care input with regards to discussion with family members and determine best avenue of approach although terminal extubation and full comfort measures would be highly appropriate. Subjective Patient is sedated and intubated in no obvious distress. Review of Systems Review of Systems: Unobtainable due to cognitive status and Unobtainable due to endotracheal tube Physical Exam Physical Exam: GENERAL - 60-year-old male appearing older than his stated age in no distress SKIN - Jaundiced HEAD - NC/AT. EYES - PERRL with EOMI bilaterally. Sclera anicteric. NOSE - Midline and without cyanosis. No epistaxis or purulent drainage noted. MOUTH- Without perioral cyanosis. NECK - Supple to palpation. No lymphadenopathy noted. LUNGS - Diminished b/l, no wheezes CARDIAC - RRR with S1/S2. No murmur, rubs, or gallops appreciated. ABDOMEN - Abdominal contour obese without pulsations or visible masses. BS normoactive all four quadrants. EXTREMITIES - No clubbing or peripheral cyanosis. No pretibial edema present. Left femoral vein HD cath in place. NEUROLOGIC - Obtunded, difficult to assess Results & Data Results & Data ([facility]) Vital Signs (Past 12 Hours) Vital Signs Temp Pulse Resp BP Pulse Ox 02/05/21 07:23 109 H 25 H 96 02/05/21 06:30 36.7 C 02/05/21 06:00 110 H 20 110/77 97 02/05/21 05:30 109 H 22 96 02/05/21 05:00 110 H 23 96 02/05/21 04:30 109 H 22 96 02/05/21 04:00 109 H 23 104/73 96 02/05/21 03:30 108 H 20 98 02/05/21 03:11 109 H 25 H 98 02/05/21 03:00 106 H 22 98 02/05/21 02:30 107 H 23 98 02/05/21 02:00 106 H 23 95/71 L 97 02/05/21 01:30 105 H 23 99 02/05/21 01:00 106 H 20 95 02/05/21 00:30 106 H 18 98 02/05/21 00:00 106 H 21 95/67 L 96 02/04/21 23:35 102 H 31 H 96 02/04/21 23:30 100 H 18 95 02/04/21 23:00 103 H 17 02/04/21 22:30 102 H 18 96 02/04/21 22:15 22 02/04/21 22:00 101 H 22 89 L 02/04/21 21:30 102 H 26 H 02/04/21 21:00 103 H 30 H 97 02/04/21 20:55 100 H 33 H 89 L 02/04/21 20:30 101 H 30 H 99 Resident Activity Tracking Resident Involvement: Resident Care Provided Care Provided: Adult Hospital Medicine
[2021-02-05 08:16] LABS: Hepatitis A Antibody IgM NON-REACTIVE (NON-REACTIVE); Hepatitis B Core Antibody IgM NON-REACTIVE (NON-REACTIVE); Hepatitis C Vira RNA (Log) PCR 5.55 Log IU/mL (NOT DETECTED); Hepatitis C Viral RNA by PCR 357000 IU/mL (NOT DETECTED)
[2021-02-05] MEDS: PANTOprazole 40 MG in SYRINGE 0 ML IV SCH ×2 (08:54→20:36)
[2021-02-05] MEDS: LACTULOSE SYRUP 20 GM/30 ML UDC PO SCH ×3 (08:55→20:31)
[2021-02-05] MEDS: CARBIDOPA/LEVODOPA 25/100MG TAB NG SCH ×4 (08:55→20:31)
[2021-02-05] MEDS ORDERED: PANTOprazole 40 MG TAB PO SCH (09:00)
[2021-02-05 10:11] LABS: Gastric Occult Blood Positive (Negative)
--- NOTE | 2021-02-05 10:59 | Gastroenterology Progress Note ---
Date of Service February 05, 2021 Assessment & Plan (1) Acute liver failure: Plan: Pt is a 60 y/o male w cirrhosis, followed for acute liver failure suspected to be related to APAP toxicity, HCV, and possibly DILI. MELD 40 - Recheck PT/INR and will repeat Vit K if INR >2 - Recommend repeating cultures to r/o infections given elevated WBC - Continue NAC - Consider Mannitol if suspected elevated intracranial pressure - Poor prognosis. Transfer to tertiary care center with Hepatology and Liver Transplant team supports if any beds are available Admission and Anticipated Discharge Date Admission Date: January 31, 2021 Supervising Physician Co-Signing Physician Notes Acute on chronic liver failure (pt appears to be cirrhotic on imaging)- MELD 40 currently given INR/cr, tb. He is intubated, sedated, slightly distended abdomen Labs reviewed Fibrinogen 133 At the current time- prognosis is very guarded. Agree with INR check today, vitamin K. IV abx, reculture him. Agree with further plan fo care as above. Subjective Pt sedated, intubated. Chart reviewed, discussed with nurse. INR 5 yesterday, pt received Vit K. He was having blood per OG suction but no melena. BP low on pressors. Review of Systems Review of Systems: Pt intubated, unable to obtain ROS Physical Exam Constitutional: WD/WN, vitals as above + mechanically ventilated ENMT: external ear and nose normal, oropharynx normal Respiratory: On mechanical vent, diminished lung sounds bilaterally Cardiovascular: RRR, no murmur, no edema Gastrointestinal (Abdomen): BS hypoactive, mildly distended, no grimacing or restlesness on palpation Skin: no rashes, warm and dry + jaundice Psychiatric: Sedated on mechanical vent Lymphatic: no lymphedema Results & Data ([facility]) Vital Signs (Past 12 Hours) Vital Signs Temp Pulse Resp BP Pulse Ox 02/05/21 09:00 109 H 22 92/72 L 96 02/05/21 08:00 36.9 C 110 H 20 85/65 L 95 02/05/21 07:23 109 H 25 H 96 02/05/21 07:00 108 H 20 02/05/21 06:30 36.7 C 02/05/21 06:00 110 H 20 110/77 97 02/05/21 05:30 109 H 22 96 02/05/21 05:00 110 H 23 96 02/05/21 04:30 109 H 22 96 02/05/21 04:00 109 H 23 104/73 96 02/05/21 03:30 108 H 20 98 02/05/21 03:11 109 H 25 H 98 02/05/21 03:00 106 H 22 98 02/05/21 02:30 107 H 23 98 02/05/21 02:00 106 H 23 95/71 L 97 02/05/21 01:30 105 H 23 99 02/05/21 01:00 106 H 20 95 02/05/21 00:30 106 H 18 98 02/05/21 00:00 106 H 21 95/67 L 96 02/04/21 23:35 102 H 31 H 96 02/04/21 23:30 100 H 18 95 02/04/21 23:00 103 H 17
[2021-02-05] MEDS: INSULIN ASPART 100 UNITS/ML 3 ML PEN SC SCH ×2 (11:40→17:08)
[2021-02-05 11:46] LABS: Prothrombin Time 50.2 Seconds (9.0-12.0)
[2021-02-05 11:53] LABS: INR 5.7 (0.9-1.1)
--- NOTE | 2021-02-05 11:56 | Billing Data ---
Date of Service February 05, 2021 Coding Level of Care Code Critical Care 1st 30-74 mins Time Spent (min) 50 Comment Patient is critically ill with multiple life-threatening illness and multiorgan system tiffanie
--- NOTE | 2021-02-05 13:06 | Palliative Care Progress Note ---
Date of Service February 05, 2021 Assessment & Plan (1) Palliative care encounter: Plan: Patient ultimately has been declining despite heroic efforts taken. He has required intubation for airway protection due to encephalopathy. He does open his eyes, but no meaningful interaction. He currently is on Fentanyl but does become dyssynchronous on the ventilator. He is now unfortunately requiring vasoactive management of his blood pressure and has been maxed on Levophed. He is supposed to undergo hemodialysis this afternoon; however, it is looking unlikely that he will tolerate it with the volume removal and pressor needs. [facility] has had communication that palliative medicine can have conversation with the patients , Jennifer and son, Frank. I reached out to the patients , Jennifer, at [phone] and left a non descript VM as it was an automated voicemail message. i also called out to the patients son, Frank at [phone], but he did not answer and does not have a voicemail box set up to date. I was able to talk with Sagar at [facility]. He had contact with the patients and son and it did not appear that they would want visitation but if they did decide to visit, contact [facility] at [phone] to arrange. Unfortunately, it appears that he is likely to go into a life-threatening heart rhythm in the near future as he is hypotensive on pressors, tachycardic, and hypoxic on maximum FiO2 ventilator settings. While patient is a conditional code, he will not undergo CPR based on previous conversations. Based on conversation with [facility], until positive contact with family made, he will need to remain on the vent until he codes. Palliative will follow. (2) Tylenol toxicity: (3) Altered mental status: Admission and Anticipated Discharge Date Admission Date: January 31, 2021 Subjective Pt was intubated yesterday for airway protection due to progressive encephalopathy. Currently, not possible to transfer him for any liver transplant work up due to lack of beds/facility willing to accept him at this time. see A/P for further details. Review of Systems Review of Systems: [place]olph System Assessment Scale: pt intubated Pain: 0/3 by obs SOB: 0/3 by obs Anxiety: 0/3 by obs Palliative Performance Scale: 10% Results & Data ([facility]) Vital Signs (Past 12 Hours) Vital Signs Temp Pulse Pulse Resp BP BP Pulse Ox 02/05/21 12:00 117 H 20 98/78 L 86 L 02/05/21 11:14 36.6 C 115 H 92/61 L 96 02/05/21 11:00 115 H 20 96 02/05/21 10:50 115 H 29 H 94 02/05/21 10:00 114 H 23 97/67 L 02/05/21 09:00 109 H 22 92/72 L 96 02/05/21 08:00 36.9 C 110 H 20 85/65 L 95 02/05/21 07:23 109 H 25 H 96 02/05/21 07:00 108 H 20 02/05/21 06:30 36.7 C 02/05/21 06:00 110 H 20 110/77 97 02/05/21 05:30 109 H 22 96 02/05/21 05:00 110 H 23 96 02/05/21 04:30 109 H 22 96 02/05/21 04:00 109 H 23 104/73 96 02/05/21 03:30 108 H 20 98 02/05/21 03:11 109 H 25 H 98 02/05/21 03:00 106 H 22 98 02/05/21 02:30 107 H 23 98 02/05/21 02:00 106 H 23 95/71 L 97 02/05/21 01:30 105 H 23 99 PG Care Time/CCT Total # of Minutes Spent Total Time Spent with Patient: Total time spent is greater than 50% in coordination of care (as documented) at patient's floor/unit and/or counseling patient: 45 minutes Coding Level of Care Code 97401 Subseq Hosp Care Lvl 3 Diagnoses Palliative care encounter Z51.5 Tylenol toxicity T39.1X1A Altered mental status R41.82 Time Spent (min) 45
--- NOTE | 2021-02-05 16:58 | Hospitalist Progress Note ---
Date of Service February 05, 2021 Assessment & Plan (1) Acute liver failure: Plan: Goals of care discussion, 02/05: Discussion with patient's spouse Jennifer had over phone this afternoon. Reviewed presentation, course, current illness. Discussed that patient kelly ped acute liver failure with anuric dialysis dependent renal failure and progressive worsening encephalopathy requiring intubation for airway protection and now increasing doses of pressor medications. She recognizes that he is critically ill, and notes that he would not want to be dependent on a ventilator and if unlikely to improve would not want artificial ventilation continued. She also notes that the patient would not want any medical treatment which would bring him back to a place of suffering, and feels that is conditional code with not wanting chest compressions is reflective inconsistent with this. She notes that her son feels differently, and would want all and indefinite measures taken for his father note that she does not want this for him, and that the patient would not want this for himself. Unable to reach son by phone, per Jennifer son had been arrested earlier today. She reports that if he shows no signs of recovery throughout the afternoon and is not likely to recover and or/return to meaningful quality of life that the patient would want ventilation withdrawn, and that she would also want this for him even though she recognizes that her son feels differently. Son Frank is not reachable by phone at this time. Update, able to reach patient's son Frank by phone who is being bonded at [facility]. Reviewed above with the son as well. His son recognizes that his father is critically ill. Reports he understands information as described. Reports that if his father were to have a palliative extubation would like to be present if possible. He reports that it is really tough to think about, reports "if dad wouldnt want to suffer I wouldn't not want him to, but that still my dad". Expresses difficulty considering a palliative extubation, but also acknowledges he would not want his dad to suffer and that his dad also would not want to suffer an event if there was not a meaningful chance of recovery. Patient anticipates being bonded this afternoon and will call his mother, and will likely call in for an update in the morning. Discussed we will not pursue any palliative extubation tonight, but that his father does remain critically ill with increasing pressor requirements and that even with herobic measures could pass overnight. Son expresses understanding of this and appreciative of update. Acute liver failure Patient presented with acute hepatitis, severe transaminitis with fulminant liver failure - Tertiary but contacted for liver failure, no beds available. APAP elevated on admission, may be false positive due to primidone. On N- acetylcysteine. Discussed with long term, Tylenol is available both through the commissary and easily obtained by other inmates so no reliable way to know if he took Tylenol and if so how much or when. Reached out to tertiary care 02/03, and again 02/04. [facility] without available beds. Awaiting callback from [facility]/hepatology service. At this time unfortunately no beds have been available for transfer to tertiary care with liver transplant services at this time - Developed acute liver failure over the first 24-48 hours of admission - With cirrhotic appearing liver on CT abdomen/pelvis and preliminary positive hepatitis C, may have underlying chronic liver disease - Liver ultrasound shows enlarged fatty liver, no CBD dilatation or evidence of obstruction. No tumor on CT or ultrasound - Alcohol and ASA level negative - Hepatitis B-, hepatitis C antibody positive, RNA positive, and hepatitis A negative. Patient family report history of hep C and continued drug/alcohol abuse up to incarceration had been treated for hep C once in the late . - Covid-19 neg - With worsening coagulopathy, INR elevated, fibrinogen low, D-dimer 8000, platelets low - Also with hepatic encephalopathy, acute kidney injury, and significantly elevated total bilirubin, AST, and ALT. -? Hemophagocytic lymphohistiocytosis versus HH. Patient with TSAT greater than 97%, ferritin 24,992, hypofibrinogenemia. No splenomegaly appreciated on CT, afebrile. Interleukin-2 receptor (CD25 receptor) pending HIV negative HH DNA pending - Lactulose converted to KS due to concern for worsening hyperammonemia and increased lethargy 02/03 - Continue acetylcysteine - Hold home pravastatin and primidone 02/04: with increasing somnolence/hepatic encephalopathy. Intubated for airway protection. CT-H: No acute intracranial findings. No change in appearance of the brain. 02/05: Patient remains critically ill with progressive worsening. Intubated, requiring increasing doses of pressor medications. He is in acute liver failure with acute oliguric renal failure requiring hemodialysis which is limited by hypotension/pressor requirements. See goals of care discussion above. (2) Acute kidney injury: Plan: With renal failure, hyperkalemia, metabolic acidosis, and oliguria/anuria Started hemodialysis on 02/01 and had another session on 02/02. Intermittent dialysis per renal, appreciate recommendations -Continue Veltassa 8.4 g p.o. once daily Currently oliguric Anticipate next dialysis 02/05. Potassium within normal limits, phosphorus 5.8 (3) Septic shock: Plan: - Presented with hypotension and suspected septic shock, however it appears that he does not have any source of infection as cultures and imaging negative - Admitted to the ICU and placed on Levophed and vasopressin-now weaned off pressors - Now has developed acute liver failure and acute kidney injury requiring hemodialysis - Remains afebrile and blood cultures negative to date, no UTI, no pneumonia, no other source of infection found - Continue empiric Zosyn - Follow cultures (4) Tylenol toxicity: Plan: As above (5) Hyperkalemia: Plan: As above (6) Hypoglycemia: Plan: Glucose was 35 upon admission, and normalized after supplementation Likely secondary to liver failure (7) Hypothermia: Plan: Resolved Likely related to liver failure and septic shock (8) Lactic acidosis: Plan: Patient with lactate as high as 13, ABG pH 7.13 likely due to liver failure with anion gap metabolic acidosis Repeat ABG pH 7.52, PCO2 28 mixed picture with additional respiratory alkalosis (9) Diabetes mellitus with chronic kidney disease, with long-term current use of insulin: Plan: With hypoglycemia on arrival Then had hyperglycemia -insulin drip placed and now better controlled Pharmacy assistance appreciated with management of glucose (10) Hypertension: Plan: Holding meds due to hypotension (11) Parkinson's disease: Plan: Home inhaled, intubated (12) Anxiety with depression: Plan: Anxiety with depression- Hold home primidone Hold duloxetine, hydroxyzine, mirtazapine and nortriptyline (13) BPH w urinary obs/LUTS: Plan: Hold finasteride Hold tamsulosin for hypotension Rashid catheter in place (14) Insomnia: Plan: For now holding mirtazapine and nortriptyline (15) Hyperlipidemia: Plan: Hold pravastatin as above (16) GERD (gastroesophageal reflux disease): Plan: Continue Protonix IV (17) CAD (coronary artery disease), [place] coronary artery: Plan: With a history of CABG No other known history regarding this Not on aspirin as an outpatient Holding statin (18) Hepatic encephalopathy: Plan: As above Continue lactulose KS (19) Acute respiratory failure with hypoxia: Plan: Patient previously requiring 2 to 3 L nasal cannula temporarily improving with dialysis 12/5 intubated for airway protection as noted above (20) Admitted to intensive care unit: Plan: Appreciate critical care management and recommendations DVT prophylaxis-holding heparin SQ due to coagulopathy, SCDs Disposition-continued stay in ICU, grave prognosis, continue attempts to get transferred up to tertiary care center capability of liver transplant Admission and Anticipated Discharge Date Admission Date: January 31, 2021 Subjective Patient critically ill, remains intubated and on pressors. Discussion with patient's spouse Jennifer had over phone this afternoon. Reviewed presentation, course, current illness. Discussed that patient developed acute liver failure with anuric dialysis dependent renal failure and progressive worsening encephalopathy requiring intubation for airway protection and now increasing doses of pressor medications. She recognizes that he is critically ill, and notes that he would not want to be dependent on a ventilator and if unlikely to improve would not want artificial ventilation continued. She also notes that the patient would not want any medical treatment which would bring him back to a place of suffering, and feels that is conditional code with not wanting chest compressions is reflective inconsistent with this. She notes that her son feels differently, and would want all and indefinite measures taken for his father note that she does not want this for him, and that the patient would not want this for himself. Unable to reach son by phone, per Jennifer son had been arrested earlier today. She reports that if he shows no signs of recovery throughout the afternoon and is not likely to recover and or/return to meaningful quality of life that the patient would want ventilation withdrawn, and that she would also want this for him even though she recognizes that her son feels differently. Son Frank is not reachable by phone at this time. Update, able to reach patient's son Frank by phone who is being bonded at [facility]. Reviewed above with the son as well. His son recognizes that his father is critically ill. Reports he understands information as described. Reports that if his father were to have a palliative extubation would like to be present if possible. He reports that it is really tough to think about, reports "if dad wouldnt want to suffer I wouldn't not want him to, but that still my dad". Expresses difficulty considering a palliative extubation, but also acknowledges he would not want his dad to suffer and that his dad also would not want to suffer an event if there was not a meaningful chance of recovery. Patient anticipates being bonded this afternoon and will call his mother, and will likely call in for an update in the morning. Discussed we will not pursue any palliative extubation tonight, but that his father does remain critically ill with increasing pressor requirements and that even with herobic measures could pass overnight. Son expresses understanding of this and appreciative of update. Review of Systems Review of Systems: Unobtainable due to endotracheal tube Physical Exam Physical Exam: General: Sedated, on pressors. Critically ill, intubated. Pulm: Ventilated, lung sounds intact without wheezes diminished. Cardiac: Tachycardic, -mrg. Radial pulses intact and symmetrical. Abdominal: Softly distended. Results & Data Results & Data ([facility]) Vital Signs (Past 12 Hours) Vital Signs Temp Pulse Pulse Resp BP BP Pulse Ox 02/05/21 16:00 123 H 19 88/60 L 95 02/05/21 15:00 121 H 19 123/91 94 02/05/21 14:56 120 H 29 H 96 02/05/21 14:00 120 H 20 95 02/05/21 13:00 119 H 19 113/64 94 02/05/21 12:00 117 H 20 98/78 L 86 L 02/05/21 11:14 36.6 C 115 H 92/61 L 96 02/05/21 11:00 115 H 20 96 02/05/21 10:50 115 H 29 H 94 02/05/21 10:00 114 H 23 97/67 L 02/05/21 09:00 109 H 22 92/72 L 96 02/05/21 08:00 36.9 C 110 H 20 85/65 L 95 02/05/21 07:23 109 H 25 H 96 02/05/21 07:00 108 H 20 02/05/21 06:30 36.7 C 02/05/21 06:00 110 H 20 110/77 97 02/05/21 05:30 109 H 22 96 02/05/21 05:00 110 H 23 96 PG Care Time/CCT Total # of Minutes Spent Total Time Spent with Patient: Total time spent is greater than 50% in coordination of care (as documented) at patient's floor/unit and/or counseling patient: Coding Level of Care Code 97912 Subseq Hosp Care Lvl 3 Diagnoses Septic shock A41.9; R65.21 Acute liver failure K72.00 Acute kidney injury N17.9 Tylenol toxicity T39.1X1A Hyperkalemia E87.5 Hypoglycemia E16.2 Hypothermia T68.XXXA Encounter type: initial encounter Lactic acidosis E87.2 Diabetes mellitus with chronic kidney disease, with long-term current use of insulin E11.22; Z79.4 Hypertension I10 Parkinson's disease G20 Anxiety with depression F41.8 BPH w urinary obs/LUTS N40.1; N13.8 Insomnia G47.00 Hyperlipidemia E78.5 GERD (gastroesophageal reflux disease) K21.9 CAD (coronary artery disease), [place] coronary artery I25.10 Hepatic encephalopathy K72.90 Acute respiratory failure with hypoxia J96.01 Admitted to intensive care unit Z78.9 (1) Hypothermia Encounter type: initial encounter Qualified Code(s): T68.XXXA - Hypothermia, initial encounter
--- NOTE | 2021-02-05 17:01 | Nephrology Progress Note ---
Date of Service February 05, 2021 Assessment & Plan (1) Acute kidney injury: Plan: Requiring hemodialysis. Oligoanuric. HD completed on February 02 and . Orders for HD today entered into EHR and reviewed with HD nurse. Will attempt treatment if patient is reasonably hemodynamically stable and continued dialysis is consistent with goals of care. Unfortunately without option for liver transplant treatment will ultimately be futile. Will continue daily evaluation. 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 No reported history of prior CKD. Anticipate next HD tomorrow. Medications appropriately dosed for kidney dysfunction. (2) Acute liver failure: Plan: Notable history of alcohol use in the past. +hepatitis C. Acute Tylenol toxicity and notable iron overload. Unfortunately, prognosis is very poor. Hematology consultation regarding possible HLH reviewed this AM. Patrick presented with acute hepatitis and now profoundly encephalopathic with fulminant liver failure. Tertiary care centers have been contacted for possible transfer. HIV pending. Prognosis is very poor. Life expectancy very limited. Admission and Anticipated Discharge Date Admission Date: January 31, 2021 Subjective Patient was seen and evaluated in the ER this morning. Hemodynamic instability noted. Critically ill requiring vasopressors. Unfortunately no availability to transfer at this time. Palliative care coordinating with family and [place] regarding goals of care. Preliminary orders for HD today entered into the EHR and reviewed with the dialysis nurse. I discussed the plan of care with Dr. Evans this AM. Review of Systems Review of Systems: Unobtainable due to endotracheal tube and Unobtainable due to reduced consciousness Physical Exam Constitutional: + ill appearing, + frail appearing and + mechanically ventilated Eyes: + scleral abnormality; sclerae not anicteric and no corneal abnormality ENMT: ETT Neck: normal visual inspection and trachea midline Respiratory: normal respiratory effort Auscultation: lungs clear to auscultation bilaterally Cardiovascular: Rate/Rhythm: + tachycardic Heart Sounds: normal S1 and normal S2 Extremities: + edema Gastrointestinal (Abdomen): Inspection/Auscultation: + abdomen distended and + hypoactive bowel sounds Percussion/Palpation: + ascites; no guarding and abdomen not rigid Musculoskeletal: Extremities: no cyanosis and no clubbing Skin: + turgor decreased and + jaundice Neurologic: Motor/Sensory: no tremor and no asterixis Psychiatric: Orientation: + not alert and + not oriented x 3 Results & Data ([place]) Vital Signs (Past 12 Hours) Vital Signs Temp Pulse Pulse Resp BP BP Pulse Ox 02/05/21 16:00 123 H 19 88/60 L 95 02/05/21 15:00 121 H 19 123/91 94 02/05/21 14:56 120 H 29 H 96 02/05/21 14:00 120 H 20 95 02/05/21 13:00 119 H 19 113/64 94 02/05/21 12:00 117 H 20 98/78 L 86 L 02/05/21 11:14 36.6 C 115 H 92/61 L 96 02/05/21 11:00 115 H 20 96 02/05/21 10:50 115 H 29 H 94 02/05/21 10:00 114 H 23 97/67 L 02/05/21 09:00 109 H 22 92/72 L 96 02/05/21 08:00 36.9 C 110 H 20 85/65 L 95 02/05/21 07:23 109 H 25 H 96 02/05/21 07:00 108 H 20 02/05/21 06:30 36.7 C 02/05/21 06:00 110 H 20 110/77 97 02/05/21 05:30 109 H 22 96 02/05/21 05:00 110 H 23 96 Laboratory Results Laboratory Results - last 24 hr 02/01/21 02/03/21 02/04/21 00:49 16:05 20:17 WBC RBC Hgb POC Hgb Hct POC Hct MCV MCH MCHC RDW Std Deviation RDW Coeff of Royal Plt Count MPV Immature Gran % (Auto) Neut % (Auto) Lymph % (Auto) [place] % (Auto) Eos % (Auto) Baso % (Auto) Neut # (Auto) Lymph # (Auto) [place] # (Auto) Eos # (Auto) Baso # (Auto) Immature Gran # (Auto) Absolute Nucleated RBC Nucleated RBC % (auto) Toxic Granulation Echinocytes PT INR Sample Site POC pH POC pCO2 POC pO2 POC HCO3 POC Total CO2 POC Base Excess ABG pH (Temp Correct) ABG pCO2 (Temp Corrct POC ABG pO2 at Pt Temp POC ABG O2 Sat Pablo Test O2 Delivery Device POC O2 Rate Minute Ventilation POC FiO2 Tidal Volume PEEP POC Sodium Sodium POC Potassium Potassium Chloride Carbon Dioxide Anion Gap BUN Creatinine Est Cr Clr Drug Dosing Est GFR ( Amer) Est GFR (Non-Af Amer) BUN/Creatinine Ratio Glucose POC Glucose 131 H Calcium Phosphorus Magnesium Total Bilirubin Direct Bilirubin AST ALT Alkaline Phosphatase Ammonia Total Protein Albumin Gastric Fluid pH Gastric Occult Blood Hepatitis A IgM Ab NON-REACTIVE Hep B Core IgM Ab NON-REACTIVE HCV RNA (PCR) IUs/ml [id number] H HCV RNA PCR log IUs/ml 5.55 H HIV 1&2 Ab/P24 Ag 4thGn Neg 02/04/21 02/04/21 02/04/21 22:10 22:20 22:25 WBC RBC Hgb POC Hgb 10.9 L Hct POC Hct 32 L MCV MCH MCHC RDW Std Deviation RDW Coeff of Royal Plt Count MPV Immature Gran % (Auto) Neut % (Auto) Lymph % (Auto) [place] % (Auto) Eos % (Auto) Baso % (Auto) Neut # (Auto) Lymph # (Auto) [place] # (Auto) Eos # (Auto) Baso # (Auto) Immature Gran # (Auto) Absolute Nucleated RBC Nucleated RBC % (auto) Toxic Granulation Echinocytes PT 44.7 H INR 5.0 H Sample Site Art Line POC pH 7.51 H* POC pCO2 32 L POC pO2 55 L POC HCO3 25 H POC Total CO2 26 POC Base Excess 2.0 H ABG pH (Temp Correct) 7.509 H* ABG pCO2 (Temp Corrct 32 L POC ABG pO2 at Pt Temp 55 POC ABG O2 Sat 91.0 Pablo Test NA O2 Delivery Device Ventilator POC O2 Rate 28 Minute Ventilation POC FiO2 40 Tidal Volume 350 PEEP 5 POC Sodium 131 L Sodium 131 L POC Potassium 3.4 Potassium 3.4 L Chloride 89 L Carbon Dioxide 23 Anion Gap 19.0 H BUN 33 H Creatinine 7.02 H* D Est Cr Clr Drug Dosing 13.7 Est GFR ( Amer) 9.0 Est GFR (Non-Af Amer) 7.8 BUN/Creatinine Ratio 4.7 L Glucose 122 H POC Glucose Calcium 7.9 L Phosphorus Magnesium Total Bilirubin Direct Bilirubin AST ALT Alkaline Phosphatase Ammonia Total Protein Albumin Gastric Fluid pH Gastric Occult Blood Hepatitis A IgM Ab Hep B Core IgM Ab HCV RNA (PCR) IUs/ml HCV RNA PCR log IUs/ml HIV 1&2 Ab/P24 Ag 4thGn 02/05/21 02/05/21 02/05/21 05:46 05:46 05:46 WBC 20.02 H RBC 3.93 L Hgb 11.7 L POC Hgb Hct 35.7 L POC Hct MCV 90.8 MCH 29.8 MCHC 32.8 RDW Std Deviation 52.5 H RDW Coeff of Royal 15.7 H Plt Count 112 L MPV 10.3 Immature Gran % (Auto) 1.1 Neut % (Auto) 64.2 Lymph % (Auto) 16.1 [place] % (Auto) 16.9 Eos % (Auto) 1.0 Baso % (Auto) 0.7 Neut # (Auto) 12.85 H Lymph # (Auto) 3.22 [place] # (Auto) 3.38 H Eos # (Auto) 0.21 Baso # (Auto) 0.14 Immature Gran # (Auto) 0.22 H Absolute Nucleated RBC 1.22 H Nucleated RBC % (auto) 6.1 Toxic Granulation Occasional Echinocytes 2+ PT INR Sample Site POC pH POC pCO2 POC pO2 POC HCO3 POC Total CO2 POC Base Excess ABG pH (Temp Correct) ABG pCO2 (Temp Corrct POC ABG pO2 at Pt Temp POC ABG O2 Sat Pablo Test O2 Delivery Device POC O2 Rate Minute Ventilation POC FiO2 Tidal Volume PEEP POC Sodium Sodium 129 L POC Potassium Potassium 3.6 Chloride 89 L Carbon Dioxide 22 Anion Gap 18.0 H BUN 37 H Creatinine 7.45 H* D Est Cr Clr Drug Dosing 13.0 Est GFR ( Amer) 8.4 Est GFR (Non-Af Amer) 7.2 BUN/Creatinine Ratio 5.0 L Glucose 131 H POC Glucose Calcium 8.1 L Phosphorus 6.8 H Magnesium 2.8 H Total Bilirubin 14.3 H Direct Bilirubin 9.3 H AST 512 H ALT 956 H Alkaline Phosphatase 111 Ammonia 108.0 H Total Protein 5.4 L Albumin 2.4 L Gastric Fluid pH Gastric Occult Blood Hepatitis A IgM Ab Hep B Core IgM Ab HCV RNA (PCR) IUs/ml HCV RNA PCR log IUs/ml HIV 1&2 Ab/P24 Ag 4thGn 02/05/21 02/05/21 02/05/21 07:31 09:10 09:50 WBC RBC Hgb POC Hgb 12.2 L Hct POC Hct 36 L MCV MCH MCHC RDW Std Deviation RDW Coeff of Royal Plt Count MPV Immature Gran % (Auto) Neut % (Auto) Lymph % (Auto) [place] % (Auto) Eos % (Auto) Baso % (Auto) Neut # (Auto) Lymph # (Auto) [place] # (Auto) Eos # (Auto) Baso # (Auto) Immature Gran # (Auto) Absolute Nucleated RBC Nucleated RBC % (auto) Toxic Granulation Echinocytes PT INR Sample Site Art Line POC pH 7.40 POC pCO2 40 POC pO2 93 POC HCO3 25 H POC Total CO2 26 POC Base Excess 0.0 ABG pH (Temp Correct) 7.401 ABG pCO2 (Temp Corrct 40 POC ABG pO2 at Pt Temp 94 POC ABG O2 Sat 97.0 H Pablo Test NA O2 Delivery Device Ventilator POC O2 Rate 22 Minute Ventilation 7.6 POC FiO2 40 Tidal Volume 350 PEEP 5 POC Sodium 129 L Sodium POC Potassium 3.6 Potassium Chloride Carbon Dioxide Anion Gap BUN Creatinine Est Cr Clr Drug Dosing Est GFR ( Amer) Est GFR (Non-Af Amer) BUN/Creatinine Ratio Glucose POC Glucose Calcium Phosphorus Magnesium Total Bilirubin Direct Bilirubin AST ALT Alkaline Phosphatase Ammonia Total Protein Albumin Gastric Fluid pH Cancelled 5-7 Gastric Occult Blood Cancelled Positive A Hepatitis A IgM Ab Hep B Core IgM Ab HCV RNA (PCR) IUs/ml HCV RNA PCR log IUs/ml HIV 1&2 Ab/P24 Ag 4thGn 02/05/21 02/05/21 11:08 11:18 WBC RBC Hgb POC Hgb Hct POC Hct MCV MCH MCHC RDW Std Deviation RDW Coeff of Royal Plt Count MPV Immature Gran % (Auto) Neut % (Auto) Lymph % (Auto) [place] % (Auto) Eos % (Auto) Baso % (Auto) Neut # (Auto) Lymph # (Auto) [place] # (Auto) Eos # (Auto) Baso # (Auto) Immature Gran # (Auto) Absolute Nucleated RBC Nucleated RBC % (auto) Toxic Granulation Echinocytes PT 50.2 H INR 5.7 H* Sample Site POC pH POC pCO2 POC pO2 POC HCO3 POC Total CO2 POC Base Excess ABG pH (Temp Correct) ABG pCO2 (Temp Corrct POC ABG pO2 at Pt Temp POC ABG O2 Sat Pablo Test O2 Delivery Device POC O2 Rate Minute Ventilation POC FiO2 Tidal Volume PEEP POC Sodium Sodium POC Potassium Potassium Chloride Carbon Dioxide Anion Gap BUN Creatinine Est Cr Clr Drug Dosing Est GFR ( Amer) Est GFR (Non-Af Amer) BUN/Creatinine Ratio Glucose POC Glucose 159 H Calcium Phosphorus Magnesium Total Bilirubin Direct Bilirubin AST ALT Alkaline Phosphatase Ammonia Total Protein Albumin Gastric Fluid pH Gastric Occult Blood Hepatitis A IgM Ab Hep B Core IgM Ab HCV RNA (PCR) IUs/ml HCV RNA PCR log IUs/ml HIV 1&2 Ab/P24 Ag 4thGn PG Care Time/CCT Total # of Minutes Spent Total Time Spent with Patient: Total time spent is greater than 50% in coordination of care (as documented) at patient's floor/unit and/or counseling patient: Coding Level of Care Code 70643 Subseq Hosp Care Lvl 3 Diagnoses Acute kidney injury N17.9 Acute liver failure K72.00
[2021-02-05] MEDS: SODIUM CHLORIDE 0.45% IV SCH (17:07)
[2021-02-05] MEDS: PIPERACILLIN/TAZOBACTAM 4.5 GM in 0.9 % SODIUM CHLORIDE 100 ML IV SCH (17:07)
[2021-02-05] MEDS: fentaNYL DRIP 1,250 MCG/250 ML BAG IV SCH (17:07)
[2021-02-05] MEDS: SODIUM CHLORIDE 0.9% IV SCH (17:08)
[2021-02-05] MEDS: NOREPINEPHRINE BIT IV SCH (17:08)
[2021-02-05] MEDS ORDERED: STAT IV Infusion **Titration per Protocol STA (19:28)
[2021-02-05] MEDS: VASOPRESSIN 20 UNITS in 0.9 % SODIUM CHLORIDE 100 ML IV SCH (20:15)
[2021-02-05 20:24] LABS: BUN Creatinine Ratio 4.7 (10-20); Calcium 7.8 mg/dl (8.5-10.1); Creatinine Clr Calc Pharmacy 11.7 ml/min; Est GFR (African American) 7.4 ml/min; Est GFR (Non-African American) 6.4 ml/min; Potassium 4.1 mmol/L (3.5-5.1)
[2021-02-05 21:06] LABS: iSTAT Art Bld Gas pCO2 Correct 35 mmHg (35-46); iSTAT Arterial Blood Gas HCO3 21 meg/L (19-24); iSTAT Arterial Blood Gas pCO2 35 mmHg (35-46); iSTAT Arterial Blood Gas pH 7.38 (7.35-7.45); iSTAT Arterial Blood Gas pO2 82 mmHg (80-95); iSTAT Arterial Blood Gas pO2 C 82; iSTAT Carbon Dioxide 22 mmol/L (24-31); iSTAT FiO2 40 %; iSTAT Hematocrit 39 % (42-52); iSTAT Hemoglobin 13.3 g/dl (14.0-18.0); iSTAT Site Art Line; iSTAT Sodium 128 mmol/L (135-144)
[2021-02-06] MEDS: DEXTROSE 50% 50 ML SYRINGE IV PRN (00:56)
[2021-02-06] MEDS: INSULIN ASPART 100 UNITS/ML 3 ML PEN SC SCH ×3 (01:08→11:21)
[2021-02-06] MEDS: D5W AND NSS 1,000 ML IV SCH ×2 (02:07→11:06)
[2021-02-06] MEDS: LACTULOSE ENEMA COMPOUND PR SCH ×2 (02:16→08:51)
[2021-02-06] MEDS: NOREPINEPHRINE BIT IV SCH ×3 (03:12→08:49)
[2021-02-06] MEDS: SODIUM CHLORIDE 0.9% IV SCH ×3 (03:12→08:49)
[2021-02-06] MEDS: fentaNYL DRIP 1,250 MCG/250 ML BAG IV SCH ×3 (03:13→11:23)
[2021-02-06] MEDS: PIPERACILLIN/TAZOBACTAM 4.5 GM in 0.9 % SODIUM CHLORIDE 100 ML IV SCH (03:14)
[2021-02-06] MEDS: VASOPRESSIN 20 UNITS in 0.9 % SODIUM CHLORIDE 100 ML IV SCH (03:51)
[2021-02-06 04:09] LABS: iSTAT Art Bld Gas pCO2 Correct 34 mmHg (35-46); iSTAT Art Bld Gas pH Corrected 7.374 (7.35-7.45); iSTAT Arterial Blood Gas HCO3 20 meg/L (19-24); iSTAT Arterial Blood Gas pCO2 33 mmHg (35-46); iSTAT Arterial Blood Gas pH 7.38 (7.35-7.45); iSTAT Arterial Blood Gas pO2 80 mmHg (80-95); iSTAT Arterial Blood Gas pO2 C 83; iSTAT Carbon Dioxide 21 mmol/L (24-31); iSTAT FiO2 40 %; iSTAT Hematocrit 35 % (42-52); iSTAT Hemoglobin 11.9 g/dl (14.0-18.0); iSTAT Potassium 4.1 mmol/L (3.3-5.0); iSTAT Site Art Line; iSTAT Sodium 128 mmol/L (135-144)
[2021-02-06 04:32] LABS: Mean Corpuscular Hgb Conc 31.9 g/dL (32-36); Mean Platelet Volume 10.6 fL (7.4-10.4); Platelet Count 105 K/uL (130-400)
[2021-02-06 05:05] LABS: Basophils # (auto) 0.67 K/uL (0-0.2); Basophils % (auto) 2.5 %; Echinocytes 1+; Eosinophils # (auto) 0.18 K/uL (0-0.5); Eosinophils % (auto) 0.7 %; Hematocrit (blood only) 35.1 % (42-52); Hemoglobin 11.2 g/dL (14.0-18.0); Immature Granulocytes # (auto) 1.47 K/uL (0.00-0.02); Immature Granulocytes % (auto) 5.4 %; Lymphocytes % (auto) 15.1 %; Mean Corpuscular Hemoglobin 29.9 pg (25-34); Mean Corpuscular Volume 93.9 fL (80-100); Monocytes # (auto) 5.03 K/uL (0.11-0.59); Monocytes % (auto) 18.5 %; Neutrophils # (auto) 15.73 K/uL (1.4-6.5); Neutrophils % (auto) 57.8 %; Nucleated RBC # (auto) 3.94 K/uL (0-0); Nucleated RBC % (auto) 14.5 %; Polychromasia 1+; RDW Coefficient of Variation 15.9 % (11.5-14.5); RDW Standard Deviation 53.8 fL (36.4-46.3); Red Blood Count 3.74 M/uL (4.7-6.1); White Blood Count 27.18 K/uL (4.8-10.8)
[2021-02-06 05:11] LABS: Albumin Level 2.1 gm/dl (3.4-5.0); BUN Creatinine Ratio 4.8 (10-20); Bilirubin,Total 16.9 mg/dl (0.2-1); Calcium 7.8 mg/dl (8.5-10.1); Est GFR (African American) 6.8 ml/min; Est GFR (Non-African American) 5.9 ml/min; Magnesium 2.5 mg/dl (1.8-2.4); Phosphorus 7.9 mg/dl (2.5-4.9); Potassium 4.2 mmol/L (3.5-5.1)
[2021-02-06] MEDS: LACTULOSE 200 GM, WATER, STERILE IRRIG 700 ML, BARCODE IDENTIFIER 1 EA PR SCH (05:37)
[2021-02-06 05:49] LABS: Bilirubin Direct 10.7 mg/dl (0-0.2)
--- NOTE | 2021-02-06 07:21 | XRay Report ---
XR chest 1V portable CLINICAL HISTORY: Resp failure. Follow up left basilar opacities COMPARISON STUDY: 02/04/2021 TECHNIQUE: 1 view of the chest FINDINGS: Single frontal view of the chest demonstrates the heart to again be enlarged status post previous car diothoracic surgery. Tubes and catheters appear unchanged. There is decreased expansion of the lungs on the current study with opacities again seen involving the left lung base and blunting left costoph renic angle characteristic of left pleural effusion and atelectasis. Is also minimal atelectasis at t he right lung base. There is no evidence for right pleural effusion. There is no evidence for vascula r congestion. There is no acute osseous pathology. IMPRESSION: Decreased expansion of lungs with left basilar atelectasis and small left pleural effusio n. There is also right basilar atelectasis. ACT 112: Negative or not required by law. Electronically signed by: Boni Palomo M.D. 02/06/2021 7:20 AM
--- NOTE | 2021-02-06 07:37 | Critical Care Progress Note ---
Date of Service February 06, 2021 Assessment & Plan (1) Acute respiratory failure with hypoxia: Plan: 60-year-old male with a past medical history of GERD, hyperlipidemia, insomnia, anxiety, depression and Parkinson's disease who presented to the hospital with liver failure, ISMAEL, septic shock and possible acetaminophen overdose. Neurologic: Intubated due to severe hepatic encephalopathy; sedation with Precedex and fentanyl. Head CT 02/04/21 without acute intracranial findings. Pulmonary: Intubated due to concerns for airway protection. Continue lung protective ventilation strategy. Continue goals of care discussion, possible family may elect to withdraw ETT since no improvement has occurred--palliative following. Cardiovascular: Currently on levophed--wean as able. Maintain MAP above 65 mmHg. Right IJ central line in place. Echo from 01/31/2021 with evidence of left ventricle that is hyperdynamic. Right ventricular pressure is normal.Hold antihypertensives. Gastrointestinal: LFTs trending down, but T bili continues rising. Severe coagulopathy. Tertiary care centers had been contacted and lacked available beds--likely no benefit from transfer at this point in time. Gallbladder ultrasound 02/03/21 with mild hepatomegaly and fatty infiltration. Acetaminophen level elevated on admission. Continue on NAC protocol. Continue lactulose due to hyperammonemia. Trend ammonia levels. Continue pantoprazole 40 mg twice daily. No further recommendations from gastroenterology at this time. Strict NPO. Extremely poor prognosis related to liver failure. Renal: ISMAEL present. Patient oliguric. Renal on board. On intermittent HD. Defer further hemodialysis to nephrology--unable to be performed yesterday, likely discussion of stopping dialysis as it may be futile to continue at this point. Persistent lactic acidosis likely related to renal failure. Poison control on board. Infectious disease: Blood cultures finalized negative. Zosyn empirically due to ascites/possibility of SBP. Daptomycin/doxycycline discontinued 02/02/21. Hematologic: Check daily INR. Platelet count downtrending today. Possible sepsis coagulopathy versus liver failure versus DIC. Possible HLH given elevated ferritin level. Heme-onc consult considering HLH possible but not able to be confirmed at this facility. CD25 level sent. Triglyceride level sent, but unable to be performed on lab due to hyperbilirubinemia. Endocrine: Continue to monitor glucose closely as he was hypoglycemic on admission. May need to start a D10 ggt. Lines and tubes: Right IJ in place 01/31/2021. Radial line in place 01/31/2021. Left femoral vein HD cath in place 02/01/2021. VTE prophylaxis: SCDs CODE STATUS: Patient related when he was lucid that he did not want chest compressions or defibrillation in the event of a cardiac arrest. He was okay with intubation mechanical ventilation if required. Palliative care following. Disposition: Remain in ICU, continuing goals of care discussion in light of lack of improvement/worsening condition (2) Hepatic encephalopathy: (3) Acute liver failure: (4) Acute kidney injury: (5) Tylenol toxicity: Admission and Anticipated Discharge Date Admission Date: January 31, 2021 Supervising Physician Co-Signing Physician Notes Patient seen and examined. EMR reviewed. Agree with family practice resident note as documented. Patient discussed on multidisciplinary rounds and with bedside critical care nurse. Patient remains critically ill on vasopressor agents. He remains an uric. I had a long discussion with nephrology yesterday. We both believe that this likely represents hepatorenal syndrome and renal support is not indicated withou t being able to address the patient's underlying liver disease. His total bili continues to climb. His ammonia levels may have been treated by dialysis but are also likely elevated. The patient is at risk for additional complications including cerebral edema and infectious complications. Primary service has been in discussion with the patient's who believes that the patient would not want these aggressive life-sustaining measures undertaken. There are additional discussions in place with the sons, 1 of whom is incarcerated currently. Were attempting to readdress options for getting them here but they are leaning towards withdrawing care which I think is wholly appropriate. The patient's [place] 2 score was calculated with a greater than 85% mortality, likely underestimated. I do not think this is a salvageable situation and would favor withdrawal of life-sustaining therapies and transition to palliative clear/comfort care measures with expectation that the patient would pass away relatively quickly. Patient remains critically ill at this point time. A total of 47 minutes critical care time was spent in evaluation management and discussion of end-of-life issues in this patient. Subjective Patient remains intubated and requiring pressors. Hospitalist had goals of care discussion with family yesterday, which will likely be continued today in light of lack of improvement/worsening condition. Review of Systems Review of Systems: Unobtainable due to endotracheal tube and Unobtainable due to reduced consciousness Physical Exam Physical Exam: GENERAL - 60-year-old male appearing older than his stated age in no distress SKIN - Jaundiced HEAD - NC/AT. EYES - PERRL with EOMI bilaterally. Sclera anicteric. NOSE - Midline and without cyanosis. No epistaxis or purulent drainage noted. MOUTH- Without perioral cyanosis. NECK - Supple to palpation. No lymphadenopathy noted. LUNGS - Diminished b/l, no wheezes CARDIAC - RRR with S1/S2. No murmur, rubs, or gallops appreciated. ABDOMEN - Abdominal contour obese without pulsations or visible masses. BS normoactive all four quadrants. EXTREMITIES - No clubbing or peripheral cyanosis. No pretibial edema present. Left femoral vein HD cath in place. NEUROLOGIC - Obtunded, difficult to assess Results & Data Results & Data ([facility]) Vital Signs (Past 12 Hours) Vital Signs Temp Pulse Resp BP Pulse Ox 02/06/21 06:04 39.5 C H 02/06/21 06:00 126 H 19 118/91 96 02/06/21 05:00 127 H 24 102/82 95 02/06/21 04:00 127 H 22 127/106 H 95 02/06/21 03:40 128 H 32 H 96 02/06/21 03:00 126 H 20 95 02/06/21 02:00 126 H 20 95 02/06/21 01:00 124 H 20 121/90 96 02/06/21 00:00 124 H 19 95 02/05/21 23:22 122 H 31 H 93 02/05/21 23:00 122 H 21 105/74 95 02/05/21 22:35 36.8 C 02/05/21 22:00 121 H 19 109/73 94 02/05/21 21:00 121 H 20 105/64 93 02/05/21 20:00 126 H 20 112/70 94 Resident Activity Tracking Resident Involvement: Resident Care Provided Care Provided: Adult [facility] Medicine
[2021-02-06] MEDS: DEXMEDETOMIDINE HCL 200 MCG in SODIUM CHLORIDE 0.9% 48 ML IV SCH ×2 (08:48→08:49)
[2021-02-06] MEDS: CARBIDOPA/LEVODOPA 25/100MG TAB NG SCH ×2 (08:51→11:21)
[2021-02-06] MEDS: LACTULOSE SYRUP 20 GM/30 ML UDC PO SCH ×2 (08:51→11:22)
--- NOTE | 2021-02-06 09:29 | Billing Data ---
Date of Service February 06, 2021 Coding Level of Care Code Critical Care 1st 30-74 mins Time Spent (min) 47
[2021-02-06] MEDS: SODIUM CHLORIDE 0.45% IV SCH (11:05)
[2021-02-06] MEDS: PANTOprazole 40 MG in SYRINGE 0 ML IV SCH (11:05)
[2021-02-06] MEDS: ACETYLCYSTEINE IV SCH (11:05)
--- NOTE | 2021-02-06 11:13 | Gastroenterology Progress Note ---
Date of Service February 06, 2021 Assessment & Plan (1) Acute liver failure: Plan: Pt is a 60 y/o male w cirrhosis, followed for acute liver failure suspected to be related to APAP toxicity, HCV, and possibly DILI. MELD 40 Family may choose to extubate pt today. No new recommendations from GI service today, please recall prn Admission and Anticipated Discharge Date Admission Date: January 31, 2021 Supervising Physician Co-Signing Physician Notes Acute on chronic liver failure- ? ischemic hepatitis +/- dili (tylenol) +/- underlying hcv Remains intubated Labs reviewed- tb hilda, ast/alt downtrending, cr hilda (no dialysis yesterday) Could consider mannitol, correction of high inr with vitamin k/k centra. Overall though prognosis is guarded given persistent hypotension, multi system organ failure. Subjective Pt still intubated, however RN reported that during family + Palliative care discussion yesterday, family was going to decide on extubating pt today Noted WBC rising. INR not obtained this AM Review of Systems Review of Systems: Unable to obtain due to intubation status Physical Exam Constitutional: WD/WN, vitals as above + mechanically ventilated Eyes: Pupils reactive to light ENMT: external ear and nose normal, oropharynx normal Respiratory: Mechanically vented Cardiovascular: RRR, no murmur, no edema Skin: no rashes, warm and dry + jaundice Lymphatic: no lymphedema Results & Data ([facility]) Vital Signs (Past 12 Hours) Vital Signs Temp Pulse Resp BP Pulse Ox 02/06/21 10:33 134 H 30 H 94 02/06/21 09:00 127 H 24 97 02/06/21 08:00 127 H 21 95 02/06/21 07:56 127 H 35 H 96 02/06/21 07:00 127 H 22 131/105 H 96 02/06/21 06:04 39.5 C H 02/06/21 06:00 126 H 19 118/91 96 02/06/21 05:00 127 H 24 102/82 95 02/06/21 04:00 127 H 22 127/106 H 95 02/06/21 03:40 128 H 32 H 96 02/06/21 03:00 126 H 20 95 02/06/21 02:00 126 H 20 95 02/06/21 01:00 124 H 20 121/90 96 02/06/21 00:00 124 H 19 95 02/05/21 23:22 122 H 31 H 93
--- NOTE | 2021-02-06 12:08 | Nephrology Progress Note ---
Date of Service February 06, 2021 Assessment & Plan (1) Acute kidney injury: Plan: Requiring hemodialysis. Oligoanuric. HD completed on February 02 and . Hemodynamics tenuous. Electrolytes controlled. Volume status acceptable. Will continue to hold [employer] for now. Plan of care discussed with Dr. Evans this AM. Anticipate next HD tomorrow. Medications appropriately dosed for kidney dysfunction. (2) Acute liver failure: Plan: Ongoing conversation regarding goals of care. Additional dialysis at this time is unfortunately becoming futile. Admission and Anticipated Discharge Date Admission Date: January 31, 2021 Subjective No acute events overnight. Remains critically ill. Goals of care reviewed. Remains oliguric. Increasing vent requirement. No bleeding. Review of Systems Review of Systems: Unobtainable due to endotracheal tube and Unobtainable due to reduced consciousness Physical Exam Constitutional: + ill appearing, + frail appearing and + mechanically ventilated Eyes: + scleral abnormality; sclerae not anicteric and no corneal abnormality ENMT: Mouth: + dry oral mucous membranes; no oral mucosal abnormality Neck: normal visual inspection and trachea midline Respiratory: normal respiratory effort Auscultation: lungs clear to auscultation bilaterally Cardiovascular: Rate/Rhythm: + tachycardic Heart Sounds: normal S1 and normal S2 Extremities: + edema Gastrointestinal (Abdomen): Inspection/Auscultation: + abdomen distended and + hypoactive bowel sounds Percussion/Palpation: + ascites; no guarding and abdomen not rigid Musculoskeletal: Extremities: no cyanosis and no clubbing Skin: + turgor decreased and + jaundice Neurologic: Motor/Sensory: no tremor and no asterixis Psychiatric: Orientation: + not alert and + not oriented x 3 Results & Data ([facility]) Vital Signs (Past 12 Hours) Vital Signs Temp Pulse Resp BP Pulse Ox 02/06/21 10:33 134 H 30 H 94 02/06/21 09:00 127 H 24 97 02/06/21 08:00 127 H 21 95 02/06/21 07:56 127 H 35 H 96 02/06/21 07:00 127 H 22 131/105 H 96 02/06/21 06:04 39.5 C H 02/06/21 06:00 126 H 19 118/91 96 02/06/21 05:00 127 H 24 102/82 95 02/06/21 04:00 127 H 22 127/106 H 95 02/06/21 03:40 128 H 32 H 96 02/06/21 03:00 126 H 20 95 02/06/21 02:00 126 H 20 95 02/06/21 01:00 124 H 20 121/90 96 Laboratory Results Laboratory Results - last 24 hr 02/05/21 02/05/21 02/05/21 16:50 19:45 20:37 WBC RBC Hgb POC Hgb Hct POC Hct MCV MCH MCHC RDW Std Deviation RDW Coeff of Royal Plt Count MPV Immature Gran % (Auto) Neut % (Auto) Lymph % (Auto) [place] % (Auto) Eos % (Auto) Baso % (Auto) Neut # (Auto) Lymph # (Auto) [place] # (Auto) Eos # (Auto) Baso # (Auto) Immature Gran # (Auto) Absolute Nucleated RBC Nucleated RBC % (auto) Polychromasia Echinocytes Sample Site POC pH POC pCO2 POC pO2 POC HCO3 POC Total CO2 POC Base Excess ABG pH (Temp Correct) ABG pCO2 (Temp Corrct POC ABG pO2 at Pt Temp POC ABG O2 Sat Pablo Test O2 Delivery Device POC O2 Rate POC FiO2 Tidal Volume PEEP POC Sodium Sodium 131 L POC Potassium Potassium 4.1 Chloride 88 L Carbon Dioxide 19 L Anion Gap 24.0 H BUN 39 H Creatinine 8.29 H* D POC Creatinine 7.4 H* Est Cr Clr Drug Dosing 11.7 Est GFR ( Amer) 7.4 Est GFR (Non-Af Amer) 6.4 BUN/Creatinine Ratio 4.7 L Glucose 92 POC Glucose POC Glucose (other) 133 H Calcium 7.8 L Phosphorus Magnesium Total Bilirubin Direct Bilirubin AST ALT Alkaline Phosphatase Total Protein Albumin 02/05/21 02/06/21 02/06/21 20:41 00:44 00:52 WBC RBC Hgb POC Hgb 13.3 L Hct POC Hct 39 L MCV MCH MCHC RDW Std Deviation RDW Coeff of Royal Plt Count MPV Immature Gran % (Auto) Neut % (Auto) Lymph % (Auto) [place] % (Auto) Eos % (Auto) Baso % (Auto) Neut # (Auto) Lymph # (Auto) [place] # (Auto) Eos # (Auto) Baso # (Auto) Immature Gran # (Auto) Absolute Nucleated RBC Nucleated RBC % (auto) Polychromasia Echinocytes Sample Site Art Line POC pH 7.38 POC pCO2 35 POC pO2 82 POC HCO3 21 POC Total CO2 22 L POC Base Excess -4.0 ABG pH (Temp Correct) 7.380 ABG pCO2 (Temp Corrct 35 POC ABG pO2 at Pt Temp 82 POC ABG O2 Sat 96.0 H Pablo Test NA O2 Delivery Device Ventilator POC O2 Rate 22 POC FiO2 40 Tidal Volume 350 PEEP 5 POC Sodium 128 L Sodium POC Potassium 4.0 Potassium Chloride Carbon Dioxide Anion Gap BUN Creatinine POC Creatinine Est Cr Clr Drug Dosing Est GFR ( Amer) Est GFR (Non-Af Amer) BUN/Creatinine Ratio Glucose POC Glucose 38 L* POC Glucose (other) 39 L* Calcium Phosphorus Magnesium Total Bilirubin Direct Bilirubin AST ALT Alkaline Phosphatase Total Protein Albumin 02/06/21 02/06/21 02/06/21 01:17 03:48 03:48 WBC 27.18 H RBC 3.74 L Hgb 11.2 L POC Hgb Hct 35.1 L POC Hct MCV 93.9 MCH 29.9 MCHC 31.9 L RDW Std Deviation 53.8 H RDW Coeff of Royal 15.9 H Plt Count 105 L MPV 10.6 H Immature Gran % (Auto) 5.4 Neut % (Auto) 57.8 Lymph % (Auto) 15.1 [place] % (Auto) 18.5 Eos % (Auto) 0.7 Baso % (Auto) 2.5 Neut # (Auto) 15.73 H Lymph # (Auto) 4.10 H [place] # (Auto) 5.03 H Eos # (Auto) 0.18 Baso # (Auto) 0.67 H Immature Gran # (Auto) 1.47 H Absolute Nucleated RBC 3.94 H Nucleated RBC % (auto) 14.5 Polychromasia 1+ Echinocytes 1+ Sample Site POC pH POC pCO2 POC pO2 POC HCO3 POC Total CO2 POC Base Excess ABG pH (Temp Correct) ABG pCO2 (Temp Corrct POC ABG pO2 at Pt Temp POC ABG O2 Sat Pablo Test O2 Delivery Device POC O2 Rate POC FiO2 Tidal Volume PEEP POC Sodium Sodium 128 L POC Potassium Potassium 4.2 Chloride 88 L Carbon Dioxide 18 L Anion Gap 22.0 H BUN 42 H Creatinine 8.82 H* D POC Creatinine Est Cr Clr Drug Dosing 11.0 Est GFR ( Amer) 6.8 Est GFR (Non-Af Amer) 5.9 BUN/Creatinine Ratio 4.8 L Glucose 90 POC Glucose POC Glucose (other) 123 H Calcium 7.8 L Phosphorus 7.9 H Magnesium 2.5 H Total Bilirubin 16.9 H Direct Bilirubin 10.7 H AST 378 H ALT 708 H Alkaline Phosphatase 129 H Total Protein 5.0 L Albumin 2.1 L 02/06/21 02/06/21 02/06/21 03:53 05:44 11:12 WBC RBC Hgb POC Hgb 11.9 L Hct POC Hct 35 L MCV MCH MCHC RDW Std Deviation RDW Coeff of Royal Plt Count MPV Immature Gran % (Auto) Neut % (Auto) Lymph % (Auto) [place] % (Auto) Eos % (Auto) Baso % (Auto) Neut # (Auto) Lymph # (Auto) [place] # (Auto) Eos # (Auto) Baso # (Auto) Immature Gran # (Auto) Absolute Nucleated RBC Nucleated RBC % (auto) Polychromasia Echinocytes Sample Site Art Line POC pH 7.38 POC pCO2 33 L POC pO2 80 POC HCO3 20 POC Total CO2 21 L POC Base Excess -6.0 ABG pH (Temp Correct) 7.374 ABG pCO2 (Temp Corrct 34 L POC ABG pO2 at Pt Temp 83 POC ABG O2 Sat 96.0 H Pablo Test NA O2 Delivery Device Ventilator POC O2 Rate 22 POC FiO2 40 Tidal Volume 350 PEEP 5 POC Sodium 128 L Sodium POC Potassium 4.1 Potassium Chloride Carbon Dioxide Anion Gap BUN Creatinine POC Creatinine Est Cr Clr Drug Dosing Est GFR ( Amer) Est GFR (Non-Af Amer) BUN/Creatinine Ratio Glucose POC Glucose 63 L* POC Glucose (other) 80 Calcium Phosphorus Magnesium Total Bilirubin Direct Bilirubin AST ALT Alkaline Phosphatase Total Protein Albumin 02/06/21 11:16 WBC RBC Hgb POC Hgb Hct POC Hct MCV MCH MCHC RDW Std Deviation RDW Coeff of Royal Plt Count MPV Immature Gran % (Auto) Neut % (Auto) Lymph % (Auto) [place] % (Auto) Eos % (Auto) Baso % (Auto) Neut # (Auto) Lymph # (Auto) [place] # (Auto) Eos # (Auto) Baso # (Auto) Immature Gran # (Auto) Absolute Nucleated RBC Nucleated RBC % (auto) Polychromasia Echinocytes Sample Site POC pH POC pCO2 POC pO2 POC HCO3 POC Total CO2 POC Base Excess ABG pH (Temp Correct) ABG pCO2 (Temp Corrct POC ABG pO2 at Pt Temp POC ABG O2 Sat Pablo Test O2 Delivery Device POC O2 Rate POC FiO2 Tidal Volume PEEP POC Sodium Sodium POC Potassium Potassium Chloride Carbon Dioxide Anion Gap BUN Creatinine POC Creatinine Est Cr Clr Drug Dosing Est GFR ( Amer) Est GFR (Non-Af Amer) BUN/Creatinine Ratio Glucose POC Glucose 90 POC Glucose (other) Calcium Phosphorus Magnesium Total Bilirubin Direct Bilirubin AST ALT Alkaline Phosphatase Total Protein Albumin PG Care Time/CCT Total # of Minutes Spent Total Time Spent with Patient: Total time spent is greater than 50% in coordination of care (as documented) at patient's floor/unit and/or counseling patient: Coding Level of Care Code 22177 Subseq Hosp Care Lvl 3 Diagnoses Acute kidney injury N17.9 Acute liver failure K72.00
--- NOTE | 2021-02-06 12:10 | Palliative Care Progress Note ---
Date of Service February 06, 2021 Assessment & Plan (1) Palliative care encounter: Plan: I had a lengthy conversation with Dr. Ruggiero regarding his previous conversations with the patients and son. I was able to have a conversation with Jennifer at length at [phone] and she stated that she has multiple ongoing stressors within her family and recognizes that her son's mental health is not stable at the moment and she worries if he were to see his father at extubation, it would exacerbate his mental health crisis. She recognized that if he were not to have a meaningful recovery that he would not want life prolonging measures taken. We discussed compassionate extubation and she provided consent to proceed with such. All medications and non essential items discontinued. Dilaudid 0.5mg IV Q1 PRN ordered for comfort and air hunger due to creatinine level > 3 (8.83). Likely life expectancy is hours to a day or so. Dr Evans and Dr. Link made aware. Nursing and RT to provide extubation and comfort measures. Thanks for involving palliative medicine with this patient. (2) Tylenol toxicity: (3) Altered mental status: Admission and Anticipated Discharge Date Admission Date: January 31, 2021 Subjective Patient remains intubated and sedated. Worsening renal failure See A/ P for further discussion Review of Systems Review of Systems: [place] System Assessment Scale: pt intubated Pain: 0/3 by obs SOB: 0/3 by obs Anxiety: 0/3 by obs Palliative Performance Scale: 10% Physical Exam Constitutional: + ill appearing and + frail appearing Skin: + jaundice Neurologic: + obtunded Results & Data ([facility]) Vital Signs (Past 12 Hours) Vital Signs Temp Pulse Resp BP Pulse Ox 02/06/21 10:33 134 H 30 H 94 02/06/21 09:00 127 H 24 97 02/06/21 08:00 127 H 21 95 02/06/21 07:56 127 H 35 H 96 02/06/21 07:00 127 H 22 131/105 H 96 02/06/21 06:04 39.5 C H 02/06/21 06:00 126 H 19 118/91 96 02/06/21 05:00 127 H 24 102/82 95 02/06/21 04:00 127 H 22 127/106 H 95 02/06/21 03:40 128 H 32 H 96 02/06/21 03:00 126 H 20 95 02/06/21 02:00 126 H 20 95 02/06/21 01:00 124 H 20 121/90 96 PG Care Time/CCT Total # of Minutes Spent Total Time Spent with Patient: Total time spent is greater than 50% in coordination of care (as documented) at patient's floor/unit and/or counseling patient: 45 minutes Coding Level of Care Code 66520 Subseq Hosp Care Lvl 3 Diagnoses Palliative care encounter Z51.5 Tylenol toxicity T39.1X1A Altered mental status R41.82 Time Spent (min) 45
[2021-02-06] MEDS ORDERED: HYDROmorphone INJ 0.5 MG/0.5 ML SYR IV PRN (13:44)
[2021-02-06] MEDS ORDERED: GLYCOPYRROLATE 0.2 MG/ML VIAL IV PRN (13:45)
--- NOTE | 2021-02-06 14:33 | Death Pronouncement Note ---
Date of Service February 06, 2021 Pronouncement Note Admission Date Admission Date: January 31, 2021 Date and Time of Date of : 02/06/21 Time of : 13:53 PCOD Preliminary cause of : Acute liver failure Contributing Factors (1) Palliative care encounter: (2) Tylenol toxicity: (3) Altered mental status: Hospital Course Hospital Course: Patrick is a 60-year-old male inmate who presented with shock and acute liver fa ilure with the development of complete renal failure. He had progressive worsening clinical status, worsening mentation, and was intubated for airway protection. Patient had previously stated he would not want chest compressions or prolong suffering in the event of cardiac arrest, but would want a trial of intubation. Patient with severe fulminant transaminitis. Differential as below, was noted to be positive for Tylenol, hep C, and with TSAT greater than 97%. Per family patient had expressed suicidal ideation prior to admission, UDS as noted. Patient continued to clinically decline as noted below, case was discussed with family. Patient remained in acute liver failure, and anuric renal failure, and ultimately with increasing pressor requirements despite worsening vitals. Case was discussed with patient's who felt the patient would not want to prolong suffering, and to would also not want to prolong his suffering. With clinical decline and patient showing no signs of meaningful recovery decision was made by family to pursue palliative extubation and patient passed very shortly after this. Additional Data Confirmation of : no pulse, no respirations, no heart sounds and pupils fixed and dilated Family: contacted Attending/PCP notified?: Yes Attending physician: Hal Link MD Was code activated?: No Resident Activity Tracking Resident Involvement: Resident Care Provided Care Provided: Adult [facility]
--- NOTE | 2021-02-06 14:45 | Discharge Summary ---
Date of Service February 06, 2021 Admission HPI Per Admitting Provider The patient is a 60-year-old male with a past medical history including hypertension, Parkinson's, anxiety with depression, BPH, insulin requiring diabetes mellitus, insomnia, GERD, hyperlipidemia and BPH with LUTS. He was referred to the emergency department from the snf due to the above-noted symptoms of generalized weakness and low blood pressure. In the emergency department the patient appeared diaphoretic, and blood pressure was in the low 60s. In addition to routine laboratory work-up, patient received 3 L normal saline, Zosyn 4.5 g IV, and was started on Levophed infusion. Patient was seen in the emergency department by critical care consultants, who placed central lines and and A-line. Body temperature upon arrival 34.4 C. Abnormal laboratories: WBC 15.49, hemoglobin 13.6, hematocrit 41.5, creatinine 2.72, glucose 35, BUN 45, INR 1.4, AST 342, albumin 3.2. Patient was COVID-19 negative Imaging studies included CT head which was negative, CT C-spine which was negative, and CT chest without contrast which was negative. When ABG revealed a pH of 7.13, patient was given 2 Amps of bicarbonate pushes, and placed on a bicarbonate drip 150 mEq at 100 mils per hour, in addition to the NSS + KCl 20 mEq at 150 mils per hour which was running after patient received 3 L normal saline bolus Admission Exam Per Admitting Provider The patient is awake, alert and oriented 3, well developed and well nourished, normocephalic and atraumatic, lying in bed and in no acute distress. HEENT--PERRL, EOMI, mucous membranes and oropharynx dry. Neck--supple. No JVD. No bruits. Thyroid normal, trachea midline, no adenopathy. Heart--normal S1 and S2. No murmurs, rubs or gallops. Lungs--clear bilaterally, no respiratory distress, no accessory muscle use. Abdomen--normal bowel sounds and soft. Nontender. Nondistended, no hernias or masses, no organomegaly. Extremities--no cyanosis or clubbing. No edema. There are good distal pulses b/l. Dermatologic--normal skin turgor, normal color, no abnormal lymph nodes, no rash. Neurologic--cranial nerves II through XII grossly intact. Rheumatologic--normal range of motion. Psychiatric--normal affect. Principal Diagnosis Acute liver failure Acute renal failure Discharge Exam Pupils fixed and dilated No corneal response to saline No spontaneous respirations on auscultation or observed fogging No auscultated cardiac activity or palpable pulse Discharge Data Allergies Allergy/AdvReac Type Severity Reaction Status Date / Time No Known Allergies Allergy Unverified 01/31/21 01:01 Consultations 01/31/21 03:52 ED Decision to Admit Stat 01/31/21 05:40 Consult [employer] Routine 01/31/21 10:13 Consult Nephrology Routine 02/01/21 07:16 Consult Gastroenterology Routine 02/01/21 09:02 Consult Palliative Care Routine 02/03/21 15:49 Consult Hematology Routine Ordered Studies 01/31/21 01:11 CT abd pelvis wo con Urgent CT cervical spine wo con Urgent CT chest diagnostic wo con Urgent CT head/brain wo con Urgent 01/31/21 02:31 US point of care ultrasound Urgent 01/31/21 21:51 US gallbladder Urgent 02/04/21 10:51 CT head/brain wo con Stat Hospital Course (1) Acute liver failure: Patient Summary: Patrick is a 60-year-old male inmate who presented with shock and acute liver failure with the development of complete renal failure. He had progressive worsening clinical status, worsening mentation, and was intubated for airway protection. Patient had previously stated he would not want chest compressions or prolong suffering in the event of cardiac arrest, but would want a trial of intubation. Patient with severe fulminant transaminitis. Differential as below, was noted to be positive for Tylenol, hep C, and with TSAT greater than 97%. Per family patient had expressed suicidal ideation prior to admission, UDS as noted. Patient continued to clinically decline as noted below, case was discussed with family. Patient remained in acute liver failure, and anuric renal failure, and ultimately with increasing pressor requirements despite worsening vitals. Case was discussed with patient's who felt the patient would not want to prolong suffering, and to would also not want to prolong his suffering. With clinical decline and patient showing no signs of meaningful recovery decision was made by family to pursue palliative extubation and patient passed very shortly after this. Acute liver failure Patient presented with acute hepatitis, severe transaminitis with fulminant liver failure - Tertiary but contacted for liver failure, no beds available. APAP elevated on admission, may be false positive due to primidone. On N- acetylcysteine. Discussed with snf, Tylenol is available both through the commissary and easily obtained by other inmates so no reliable way to know if he took Tylenol and if so how much or when. Reached out to tertiary care 02/03, and again 02/04[place] [facility] [place] [facility]/hepatology service. At this time unfortunately no beds have been available for transfer to tertiary care with liver transplant services - Developed acute liver failure over the first 24-48 hours of admission - With cirrhotic appearing liver on CT abdomen/pelvis and preliminary positive hepatitis C, may have underlying chronic liver disease - Liver ultrasound shows enlarged fatty liver, no CBD dilatation or evidence of obstruction. No tumor on CT or ultrasound - Alcohol and ASA level negative - Hepatitis B-, hepatitis C antibody positive, RNA positive, and hepatitis A negative. Patient family report history of hep C and continued drug/alcohol abuse up to incarceration had been treated for hep C once in the late . - Covid-19 neg - With worsening coagulopathy, INR elevated, fibrinogen low, D-dimer 8000, platelets low - Also with hepatic encephalopathy, acute kidney injury, and significantly elevated total bilirubin, AST, and ALT. -? Hemophagocytic lymphohistiocytosis versus HH. Patient with TSAT greater than 97%, ferritin 24,992, hypofibrinogenemia. No splenomegaly appreciated on CT, afebrile. Interleukin-2 receptor (CD25 receptor) sent HIV negative HH DNA pending - Lactulose converted to OR due to concern for worsening hyperammonemia and increased lethargy 02/03 - Pt underwent NAC protocol - Held home pravastatin and primidone 02/04: with increasing somnolence/hepatic encephalopathy. Intubated for airway protection. CT-H: No acute intracranial findings. No change in appearance of the brain. 02/05: Patient remained critically ill with progressive worsening. Intubated, requiring increasing doses of pressor medications. He is in acute liver failure with acute oliguric renal failure requiring hemodialysis which is limited by hypotension/pressor requirements. List care discussion had with family. 02/06: Patient with continued clinical decline. Following discussion with palliative care and goals discussion with family palliative extubation performed as above. Patient shortly after, see note. (2) Acute kidney injury: With renal failure, hyperkalemia, metabolic acidosis, and oliguria/anuria Patient had hemodialysis 02/01 and 02/02. Additional dialysis was limited by increasing pressor requirements and blood pressure. Remained oligoanuric. Veltassa was used for potassium control, patient ultimately as above. (3) Septic shock: - Presented with hypotension and suspected septic shock, however it appears that he does not have any source of infection as cultures and imaging negative - Admitted to the ICU and placed on Levophed and vasopressin-now weaned off pressors - developed acute liver failure and acute kidney injury requiring hemodialysis - Remained afebrile w blood cultures negative until admit, no UTI, no pneumonia, no other source of infection found - Treated with empiric Zosyn (4) Tylenol toxicity: As above (5) Hyperkalemia: As above (6) Hypoglycemia: Glucose was 35 upon admission, and normalized after supplementation Likely secondary to liver failure (7) Hypothermia: Resolved Likely related to liver failure and septic shock (8) Lactic acidosis: Patient with lactate as high as 13, ABG pH 7.13 likely due to liver failure with anion gap metabolic acidosis Repeat ABG pH 7.52, PCO2 28 mixed picture with additional respiratory alkalosis (9) Diabetes mellitus with chronic kidney disease, with long-term current use of insulin: With hypoglycemia on arrival Then had hyperglycemia -insulin drip placed and now better controlled Pharmacy assistance appreciated with management of glucose (10) Hypertension: Holding meds due to hypotension (11) Parkinson's disease: Home inhaled, intubated (12) Anxiety with depression: Anxiety with depression- Held home primidone Held duloxetine, hydroxyzine, mirtazapine and nortriptyline (13) BPH w urinary obs/LUTS: Held finasteride Held tamsulosin for hypotension Rashid catheter in place (14) Insomnia: For now holding mirtazapine and nortriptyline (15) Hyperlipidemia: Hold pravastatin as above (16) GERD (gastroesophageal reflux disease): Continue Protonix IV (17) CAD (coronary artery disease), [place] coronary artery: With a history of CABG No other known history regarding this Not on aspirin as an outpatient [place] statin (18) Hepatic encephalopathy: As above Continue lactulose OR (19) Acute respiratory failure with hypoxia: Patient previously requiring 2 to 3 L nasal cannula temporarily improving with dialysis 02/04 intubated for airway protection as noted above (20) Admitted to intensive care unit: Total Time Total Time Spent Total Time Spent (In Minutes): 65 minutes including documentation, review of labs and images, coordination of care, and discussion with family Discharge Plan Discharge Items Patient Disposition: Reason For Visit: HYPOTENSION, SHOCK Follow-up/Referrals: Diane CLARK [Primary Care Provider] - Medications and DC Order Prescriptions: No Action carbidopa-levodopa 25-100 mg Tablet Extended Release 1 tab PO QID RF: 0 hydroxyzine pamoate 50 mg Capsule 50 mg PO HS RF: 0 amlodipine 5 mg Tablet 5 mg PO DAILY RF: 0 finasteride 5 mg Tablet 5 mg PO QPM RF: 0 duloxetine 60 mg Capsule,Delayed Release(Dr/Ec) 60 mg PO BID RF: 0 metformin 500 mg Tablet 500 mg PO BID RF: 0 nortriptyline 25 mg Capsule 25 mg PO HS RF: 0 omeprazole 20 mg Capsule,Delayed Release(Dr/Ec) 20 mg PO DAILY RF: 0 mirtazapine 45 mg Tablet 45 mg PO HS RF: 0 primidone 50 mg Tablet 200 mg PO TID RF: 0 lisinopril-hydrochlorothiazide 20-12.5 mg Tablet 1 tab PO DAILY RF: 0 pravastatin 40 mg Tablet 40 mg PO HS RF: 0 ondansetron HCl 4 mg Tablet 4 mg PO QID PRN (Reason: Unknown) RF: 0 tamsulosin 0.4 mg Capsule 0.8 mg PO HS RF: 0 Novolin N NPH U-100 Insulin 100 unit/mL Suspension 14 unit SUBCUT QPM RF: 0 Novolin N NPH U-100 Insulin 100 unit/mL Suspension 34 unit SUBCUT QAM RF: 0 Admission Data Admit Date/Time: 01/31/21 04:10 Attending Provider: Hal Link Admit Provider: Jesu Kan Primary Care Provider: Diane CLARK Other Providers: Jesu Kan ; Gabriel Olson ; Therese Hathaway ; Lianne Adams ; Emiliano Mercer ; Leatha Smith ; Ines Ospina ; Maggy Monsivais ; Gomez Galicia ; Jonnathan Garcia ; Nakita Willett ; Dewayne Martinez ; Anastasiia Moreno ; Anamaria Hummel ; Sarah Hopkins ; Sol Jimenez ; Eleonora Mosley ; Eyad Moser Coding Level of Care Code D/C DAY MANAGEMENT >30 MINS Diagnoses Acute liver failure K72.00 Acute kidney injury N17.9 Septic shock A41.9; R65.21 Tylenol toxicity T39.1X1A Hyperkalemia E87.5 Hypoglycemia E16.2 Hypothermia T68.XXXA Encounter type: initial encounter Lactic acidosis E87.2 Diabetes mellitus with chronic kidney disease, with long-term current use of insulin E11.22; Z79.4 Hypertension I10 Parkinson's disease G20 Anxiety with depression F41.8 BPH w urinary obs/LUTS N40.1; N13.8 Insomnia G47.00 Hyperlipidemia E78.5 GERD (gastroesophageal reflux disease) K21.9 CAD (coronary artery disease), [place] coronary artery I25.10 Hepatic encephalopathy K72.90 Acute respiratory failure with hypoxia J96.01 Admitted to intensive care unit Z78.9
--- NOTE | 2021-02-18 07:43 | Coding Query ---
CODING QUERY To promote full compliance with coding requirements relating to patient care, provider participation is requested in all cases of latcher uncertainty. Please assist us with the question(s) below: Coding Question(s): Pt admitted witih intial dx of septic shock. Source of infection not found .Cultures negative. Discharge Summary states liver failure, (sepsis ruled out?) . Please document, if known or suspected, the etiology for the liver failure. Thanks for your help. Nathan Barroso, [facility] Physician's Response(s): Acute liver failure of unclear etiology, differential includes shock liver, toxic hepatitis due to ingestion/tylenol, and iron overload Principal Diagnosis: "that condition established after study, to be chiefly responsible for occasioning the admission of the patient to the hospital for care." Co-Existing Principal Diagnosis: "when two or more diagnoses equally meet the criteria for principal diagnosis as determined by the circumstances of admission, diagnostic work up, and/or therapy provided, and the Alphabetic Index, Tabular List, or another coding guideline does not provide sequencing direction, any one of the diagnoses may be sequenced first." "When the physician has documented what appears to be a current diagnosis in the body of the record, but has not included the diagnosis in the final diagnostic statement, the physician should be asked whether the diagnosis should be added." (Source Coding [facility] 2 QTR90. p3-4) SHARONA
[2021-02-18 15:12] LABS: Interleukin 2R 13685 pg/mL (532-1891)
== END 2021-02-06 16:20 | disposition expired | DRG 441 ==
LOC: ED 00:23 → SUATTDRO 04:10 → 1E 04:10